=== PATIENT | female | born 1980 | race Caucasian/White ===

== ENCOUNTER 2018-08-06 21:18 | Emergency (ER) | payer SELFPAY ==
[~2018-08-06] VITALS: Ht 175.3 cm; Wt 99.8 kg
[~2018-08-06 21:18] MED LIST: ACET473E5 PO; ALBU8.5H2 IH; ALPR0.5T PO; AZTH250C PO; CEFU500T5 PO; CEPH250S PO; CEPH500C PO; CLIN300C3 PO; CODE-54 PO; CPR500T PO; D-ME118S33 PO; GABA-490 PO; GBPN300C PO; HYDR118S PO; HYDR1TAB PO; HYOS0.1216 PO; IBP600T1 PO; IBUP-1773 PO; METR500T PO; NAPR-243 PO; NITR-65 PO; ONDA-42 SL; ONDA8TAB13 PO; PARO20TA4 PO; PERM60CR10 TOP; PRCD5U PO; PRED10TA PO; PRX10T PO; SULF1TAB35 PO; SULF1TAB7 PO; SUMA25TA3 PO; TRM50T PO; [UNRECOGNIZED DRUG - CODE] IM
--- OUTSIDE RECORDS SUMMARY | 2018-08-06 21:23 | XMS REPORT ---
Author Author SHAHRZAD VALLECILLO 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 Active 098825207 Problem Other malaise and fatigue 780.79 Active 387341764 Problem Migraine without aura, without mention of intractable migraine without mention of status migrainosus 346.10 Active 273174630 Problem Mononeuritis of unspecified site 355.9 Active 92832547 ALLERGIES No Information ENCOUNTERS Encounter Location Date Diagnosis [facility] [address] [address] Jul, Cough R05 [facility] [address] [address] Jul, Cough R05 [facility] [address] [address] Jul, [facility] [address] [address] Jul, [facility] [address] [id number] 28 Jun, 2018 Dental examination Z01.20 [facility] [id number] [place] [address] [id number] 19 Jun, 2018 Dental examination Z01.20 and Caries of arrested teeth K02.3 [facility] [address] [address] Jun, Chronic diarrhea K52.9 [facility] [id number] [place] [address]385- 5140 May, Diarrhea, unspecified type R19.7 ; Non-intractable vomiting with nausea, unspecified vomiting type R11.2 and Screening for thyroid disorder Z13.29 [facility] [id number] [place] [address] May, Diarrhea, unspecified type R19.7 and Nausea and vomiting in adult R11.2 [facility] [id number] [place] [address] 418635- 4707 Jan, [facility] [id number] [place] [address] 401782- 7796 Jan, [facility] [id number] [place] [address] 738200- 8349 Dec, [facility] [address] [address] Dec, [facility] [id number] [place] [address] 251925- 6087 Dec, [facility] [address] [address] Dec, [facility] [address] [place] [address] 46715- 9613 Nov, [facility] [address] [address] 97[address] Nov, [facility] [id number] [place] [address] 87456- 4216 Nov, [facility] [address] [address] 25[address] Nov, [facility] [address] [place] [address] 11958- 3695 Oct, [facility] [place] [facility] [address] [id number] [place] [address] 1932 Oct, [facility] [place] [facility] [address] [id number] [place] [address]- 1664 Sep, [facility] [place] [facility] [address] [id number] [place] [address]- 4137 Sep, [facility] [place] [facility] [address] [id number] [place] [address]- 6165 Sep, [facility] [place] [facility] [address] [id number] [place] [address]- 5549 Sep, [facility] [place] [facility] [address] [id number] [place] [address]- 5052 Sep, [facility] [place] [facility] [address] [id number] [place] [address]- 4677 Aug, [facility] [place] [facility] [address] [id number] [place] [address]- 7987 Aug, [facility] [place] [facility] [address] [id number] [place] [address]- 8964 Aug, [facility] [place] [facility] [address] [id number] [place] [address]- 0347 Aug, [facility] [place] [facility] [address] [id number] [place] [address]- 9062 Jul, [facility] [place] [facility] [address] [id number] [place] [address]- 0074 Jul, [facility] [place] [facility] [address] [id number] [place] [address]- 7038 May, [facility] [place] [facility] [address] [id number] [place] [address]- 6361 May, [facility] [place] [facility] [address] [id number] [place] [address]- 6174 May, [facility] [place] [facility] [address] [id number] [place] [address]- 1714 May, [facility] [place] [facility] [address] [id number] [place] [address]- 9604 Apr, [facility] [place] [facility] [address] [id number] [place] [address]- 5583 Apr, [facility] [place] [facility] [address] [id number] [place] [address]- 0458 Apr, [facility] [place] [facility] [address] [id number] [place] [address]- 3063 Apr, [facility] [place] [facility] [address] [id number] [place] [address]- 5895 Apr, [facility] [place] [facility] [address] [id number] [place] [address]- 8030 Apr, [facility] [place] [facility] [address] [id number] [place] [address]- 9490 Apr, [facility] [place] [facility] [address] [id number] [place] [address]- 6723 Mar, [facility] [place] [facility] [address] [id number] [place] [address]- 3561 Mar, [facility] [place] [facility] [address] [id number] [place] [address]- 3135 February, [facility] [place] [facility] [address] [id number] [place] [address]- 0331 February, [facility] [place] [facility] [address] [id number] [place] [address]- 1290 February, [facility] [place] [facility] [address] [id number] [place] [address]- 4059 February, [facility] [place] [facility] [address] [id number] [place] [address] Jan, [facility] [place] [facility] [address] [id number] [place] [address]- 5782 Jan, [facility] [address] [facility] [id number] [place] [address] Sep, [facility] [address] [facility] [id number] [address]- 0903 Sep, IMMUNIZATIONS No Known Immunizations SOCIAL HISTORY Never Assessed REASON FOR VISIT script PLAN OF CARE VITAL SIGNS MEDICATIONS Medication Instructions Dosage Frequency Start Date End Date Duration Status Medrol 4 MG Orally Once a day take each days dose at the same time each day as directed 24h Jul, Active ProAir HFA 108 (90 Base) MCG/ACT Inhalation every 6 hrs 2 puffs as needed 6h Jul, Active RESULTS No Results PROCEDURES No Known procedures INSTRUCTIONS MEDICATIONS ADMINISTERED No Known Medications MEDICAL (GENERAL) HISTORY Type Description Date Medical History anxiety Medical History utrerine cancer 2012 Medical History CMT (cervical motion tenderness) Surgical History hysterectomy with single oophorectomy 2012 Surgical History tonsilectomy Hospitalization History colonoscopy
--- OUTSIDE RECORDS SUMMARY | 2018-08-06 21:23 | XMS REPORT ---
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 hallucinates Non Drug Allergy Jul, Active ENCOUNTERS Encounter Location Date Diagnosis [facility] [id number] [place] [address] Jul, Cough R[address] [facility] [id number], [place] [address] Jul, [address] R[address] [facility] [id number] [place] [address]25- [address]48 Jul, [facility] [address] [place] [address] 81415- 0865 Jul, [facility] [id number] [place] [address] [id number] 28 Jun, 2018 Dental examination Z01.20 [facility] [address] [id number] 19 Jun, 2018 Dental examination Z01.20 and Caries of arrested teeth K02.3 [facility] [id number] [place] [address] 95645- 0366 05 Jun, [address] [facility] [id number] [place] [address] 49507- 5275 May, Diarrhea, unspecified type R19.7 ; Non-intractable vomiting with nausea, unspecified vomiting type R11.2 and Screening for thyroid disorder Z13.[address] [facility] [id number] [place] [address] 13615 -9867 May, Diarrhea, unspecified type R19.7 and Nausea and vomiting in adult R11.2 [facility] [id number] [place] [address] 87255- 3161 [address], [address] [facility] [id number] [place] [address] 33015- 3272 Jan, [facility] [id number] [place] [address] 95857- 6215 Dec, [facility] [id number] [place] [address] 76036- 5752 Dec, [facility] [id number] [place] [address] 58926- 1153 Dec, [facility] [id number] [place] [address] 70908- 7679 Dec, [facility] [id number] [place] [address] 89401- 0587 Nov, [facility] [id number] [place] [address] 37725- 1363 Nov, [facility] [id number] [place] [address] 938687- 4878 Nov, [facility] [place] [facility] [address] [id number] [place] [address]- 3196 Nov, [facility] [place] [facility] [address] [id number] [place] [address]- 4965 Oct, [facility] [place] [facility] [address] [id number] [place] [address]- 2249 Oct, [facility] [place] [facility] [address] [id number] [place] [address]- 2619 Sep, [facility] [place] [facility] [address] [id number] [place] [address]- 5821 Sep, [facility] [place] [facility] [address] [id number] [place] [address]- 8594 Sep, [facility] [place] [facility] [address] [id number] [place] [address]- 1565 Sep, [facility] [place] [facility] [address] [id number] [place] [address]- 9084 Sep, [facility] [place] [facility] [address] [id number] [place] [address]- 7217 Aug, [facility] [place] [facility] [address] [id number] [place] [address]- 1274 Aug, [facility] [place] [facility] [address] [id number] [place] [address]- 3366 Aug, [facility] [place] [facility] [address] [id number], [place] [address]- 8058 Aug, [facility] [place] [facility] [address] [id number] [place] [address]- 6033 Jul, [facility] [place] [facility] [address] [id number] [place] [address]- 8235 Jul, [facility] [place] [facility] [address] [id number] [place] [address]- 9975 May, [facility] [place] [facility] [address] [id number] [place] [address]- 3116 May, [facility] [place] [facility] [address] [id number] [place] [address]- 4346 May, [facility] [place] [facility] [address] [id number] [place] [address]- 9269 May, [facility] [place] [facility] [address] [id number] [place] [address]- 2092 Apr, [facility] [place] [facility] [address] [id number] [place] [address]- 5482 Apr, [facility] [place] [facility] [address] [id number] [place] [address]- 6308 Apr, [facility] [place] [facility] [address] [id number] [place] [address]- 5705 Apr, [facility] [place] [facility] [address] [id number] [place] [address]- 5995 Apr, [facility] [place] [facility] [address] [id number] [place] [address]- 3569 Apr, [facility] [place] [facility] [address] [id number] [place] [address]- 9946 Apr, [facility] [place] [facility] [address] [id number] [place] [address]- 7221 Mar, [facility] [place] [facility] [address] [id number] [place] [address]- 6194 Mar, [facility] [place] [facility] [address] [id number] [place] [address]- 6759 February, [facility] [place] [facility] [address] [id number] [place] [address]- 7959 February, [facility] [place] [facility] [address] [id number] [place] [address]- 6767 February, [facility] [place] [facility] [address] [id number] [place] [address]- 3650 February, [facility] [place] [facility] [address] [id number] [place] [address]- 3986 Jan, [facility] [address] [facility] [id number] [address] Jan, [facility] [address] [facility] [id number], [place] [address]- [address] Sep, [facility] [address] [facility] [id number], [place] [address]- 9948 Sep, IMMUNIZATIONS No Known Immunizations SOCIAL HISTORY Never Assessed REASON FOR VISIT cough/congestion/ short of breath for the last 4-5 days.--REDDY Warner PLAN OF CARE Activity Details Follow Up prn Reason: VITAL SIGNS Height 69 in 2018-08-02 Weight 221.8 lbs 2018-08-02 Temperature 97.9 degrees Fahrenheit 2018-08-02 Heart Rate 88 bpm 2018-08-02 Respiratory Rate 20 2018-08-02 BMI 32.75 kg/m2 2018-08-02 Blood pressure systolic 100 mmHg 2018-08-02 Blood pressure diastolic 54 mmHg 2018-08-02 MEDICATIONS Medication Instructions Dosage Frequency Start Date End Date Duration Status Imitrex 25 mg 1 Tablet by Oral route February, Active Lexapro 20 MG Orally Once a day 1 tablet 24h Active Esomeprazole Magnesium 40 mg Orally Once a day 1 capsule 24h May, Active Medrol 4 MG Orally Once a day take each days dose at the same time each day as directed 24h Jul, Active EPINEPHrine 0.3 mg/0.3ml 0.3 mg by Intramuscular route 1 time per day PRN 2 pack epi pen Dec, Active Gabapentin 600 MG Orally in addition to a 300 mg to equal 900 at bedtime Once a day 1 tablet 24h Active Gabapentin 300 mg Orally 3 times a day 1 capsule 8h Dec, Active ProAir HFA 108 (90 Base) MCG/ACT [...]
--- OUTSIDE RECORDS SUMMARY | 2018-08-06 21:24 | XMS REPORT ---
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 hallucinates Non Drug Allergy May, Active ENCOUNTERS Encounter Location Date Diagnosis [facility] [place] [facility] [address] [id number] Jun, Dental examination Z01.20 and Caries of arrested teeth K02.3 [facility] [id number] [place] [address] 685[address]- 7785 Jun, Chronic diarrhea K52.9 [facility] [address] [address]- [address] May, Diarrhea, unspecified type R19.7 ; Non-intractable vomiting with nausea, unspecified vomiting type R11.2 and Screening for thyroid disorder Z13.29 [facility] [address] [address] May, Diarrhea, unspecified type R19.7 and Nausea and vomiting in adult R11.2 [facility] [place] [facility] [id number] [place] [address] 98092- 5355 14 Jan, 2015 [facility] [id number] [place] [address] 23243- 1086 13 Jan, 2015 [facility] [id number] [place] [address] 44526- 0994 16 Dec, 2014 [facility] [id number] [place] [address] 70276- 7651 Dec, [facility] [id number] [place] [address] 833255- 6953 Dec, [facility] [id number] [place] [address] 18814- 8124 Dec, [facility] [id number] [place] [address] 34493- 0260 Nov, [facility] [address] [place] [address] 098962- 6343 Nov, [facility] [place] [facility] [address] [place] [address] 613672- 9809 Nov, [facility] [address] [address]- 6997 Nov, [facility] [address] [address]- 2746 Oct, [facility] [address] [address]- 0735 Oct, [facility] [id number] [place] [address] 53714- 4845 Sep, [facility] [address] [address]- 9741 Sep, [facility] [id number] [place] [address] 34007- 2322 Sep, [facility] [place] [facility] [address] [id number] [place] [address]- 9566 Sep, [facility] [place] [facility] [address] [id number] [place] 6688 Sep, [facility] [place] [facility] [address] [id number] [place] [address]- 7102 Aug, [facility] [place] [facility] [address] [id number] [place] [address]- 0919 Aug, [facility] [place] [facility] [address] [id number] [place] [address]- 4632 Aug, [facility] [place] [facility] [address] [id number] [place] [address]- 4291 Aug, [facility] [place] [facility] [address] [id number] [place] [address]- 8801 Jul, [facility] [place] [facility] [address] [id number] [place] [address]- 3904 Jul, [facility] [place] [facility] [address] [id number] [place] [address]- 4295 May, [facility] [place] [facility] [address] [id number] [place] [address]- 2078 May, [facility] [place] [facility] [address] [id number] [place] [address]- 3996 May, [facility] [place] [facility] [address] [id number] [place] [address]- 8476 May, [facility] [place] [facility] [address] [id number] [place] [address]- 1316 Apr, [facility] [place] [facility] [address] [id number] [place] [address]- 2951 Apr, [facility] [place] [facility] [address] [id number] [place] [address]- 1925 Apr, [facility] [place] [facility] [address] [facility] [id number] [place] [address]- 7626 Apr, [facility] [address] [facility] [id number], [place] [address]- 0396 Apr, [facility] [address] [facility] [id number] [place] [address]- 4056 Apr, [facility] [address] [facility] [id number], [place] [address]- 6953 Apr, [facility] [address] [facility] [id number] [place] [address] Mar, [facility] [address] [facility] [id number] [place] [address] Mar, [facility] [address] [facility] [id number] [address] February, [facility] [address] [id number] [address] February, [facility] [address] [facility] [id number], [place] [address] February, [facility] [address] [id number] [address] February, [facility] [address] [id number] [address] Jan, [facility] [address] [id number] [address] Jan, [facility] [address] [facility] [id number], [place] [address] Sep, [facility] [address] [id number] [address] Sep, IMMUNIZATIONS No Known Immunizations SOCIAL HISTORY Never Assessed REASON FOR VISIT vomiting, nausea, diahrrea, headaches and fatigue for quite some time. Pt recently moved from [place], [place] and had blood work there and then they moved.-- REDDY Warner PLAN OF CARE Activity Details Follow Up prn Reason: VITAL SIGNS Height 69 in 2018-05-24 Weight 225.8 lbs 2018-05-24 Temperature 97.6 degrees Fahrenheit 2018-05-24 Heart Rate 72 bpm 2018-05-24 Respiratory Rate 18 2018-05-24 BMI 33.34 kg/m2 2018-05-24 Blood pressure systolic 116 mmHg 2018-05-24 Blood pressure diastolic 78 mmHg 2018-05-24 MEDICATIONS Medication Instructions Dosage Frequency Start Date End Date Duration Status Lexapro 10 MG Orally Once a day 1 tablet 24h Active Gabapentin 300 mg 4 Capsule by Oral route 1 time per day 1 tab at dinner & 3 tabs at hs Dec, Active EPINEPHrine 0.3 mg/0.3 mL (1:1,000) 0.3 mg by Intramuscular route 1 time per day PRN 2 pack epi pen Dec, Active Imitrex 25 mg 1 Tablet by Oral route February, Active Vitamin D2 50,000 unit take 1 capsule by Oral route 2 times per week for 8 weeks February take 1000 UI OTC after high dose repletion Aug, Not -Taking Xanax 0.5 mg take 1 tablet by Oral route 2 times per day PRN must last 30 days Dec, Not-Taking Paxil 20 mg 1 Tablet by Oral route 1 time per day Oct, Not-Taking Vitamin D3 1,000 unit 1 Tablet by Oral route 1 time per day OTC---to start after high dose repletion (End of Oct 2014) Aug, Not-Taking RESULTS No Results PROCEDURES Procedure Date Ordered Result Body Site COMPLETE CBC W/AUTO DIFF WBC May 24, 2018 COMPREHEN METABOLIC PANEL May 24, 2018 VENIPUNCT, ROUTINE* May 24, 2018 INSTRUCTIONS MEDICATIONS ADMINISTERED No Known Medications MEDICAL (GENERAL) HISTORY Type Description Date Medical History anxiety Medical History utrerine cancer 2012 Medical History CMT (cervical motion tenderness) Surgical History hysterectomy with single oophorectomy 2012 Surgical History tonsilectomy Hospitalization History colonoscopy
--- OUTSIDE RECORDS SUMMARY | 2018-08-06 21:24 | XMS REPORT ---
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 hallucinates Non Drug Allergy Jun, Active Penicillins Unknown Non Drug Allergy Jun, Active ENCOUNTERS Encounter Location Date Diagnosis [facility] [place] [facility] [address] [id number] Jun, Dental examination Z01.20 [facility] [place] [facility] [id number] [place] [address] [id number] Jun, Dental examination Z01.20 and Caries of arrested teeth K02.3 [facility] [id number] [place] [address]- 1763 Jun, Chronic diarrhea K52.9 [facility] [id number] [place] [address]- [address] May, Diarrhea, unspecified type R19.7 ; Non-intractable vomiting with nausea, unspecified vomiting type R11.2 and Screening for thyroid disorder Z13.29 [facility] [address], [place] [address] May, Diarrhea, unspecified type R19.7 and Nausea and vomiting in adult R11.2 [facility] [address] [place] [address] 14 Jan, 2015 [facility] [id number] [place] [address]- [address] Jan, [facility] [id number] [address] 16 Dec, 2014 [facility] [id number] [place] [address] 830532- [address]24 Dec, [facility] [id number], [place] [address] Dec, [facility] [id number] [place] [address]- 8986 Dec, [facility] [address], [place] [address] Nov, [facility] [address], [place] [address] Nov, [facility] [address], [place] [address] Nov, [facility] [address], [place] [address] Nov, [facility] [address] Oct, [facility] [address] Oct, [facility] [address] [address] Sep, [facility] [id number] [place] [address]- [address]797 Sep, [facility] [place] [facility] [address] [id number] [place] [address] Sep, [facility] [place] [facility] [address] [id number] [place] [address] 7[address] Sep, [facility] [place] [facility] [address] [id number] [place] [address] Sep, [facility] [place] [facility] [address] [id number] [place] [address] Aug, [facility] [place] [facility] [address] [id number] [place] [address] Aug, [facility] [place] [facility] [address] [id number] [place] [address] 0[address] Aug, [facility] [place] [facility] [address] [id number] [place] [address] Aug, [facility] [place] [facility] [address] [id number] [place] [address] Jul, [facility] [place] [facility] [address] [id number] [place] [address]- 9480 Jul, [facility] [place] [facility] [address] [id number] [place] [address]- [address] May, [facility] [place] [facility] [address] [id number] [place] [address]- [address] May, [facility] [place] [facility] [address] [id number] [address] May, [facility] [place] [facility] [address] [id number] [place] [address]- 9455 May, [facility] [place] [facility] [address] [id number] [place] [address]- [address] Apr, [facility] [place] [facility] [address] [id number] [place] [address] Apr, [facility] [place] [facility] [address] [facility] [id number] [place] [address]- [address] Apr, [facility] [address] [id number] [place] [address]- 8961 Apr, [facility] [address] [facility] [id number] [place] [address] Apr, [facility] [address] [facility] [id number] [place] [address] Apr, [facility] [address] [facility] [id number] [place] [address]- 5115 Apr, [facility] [address] [facility] [id number] [place] [address]- 1657 Mar, [facility] [address] [facility] [id number] [place] [address]- [address]702 Mar, [facility] [address] [place] [address]- [address] February, [facility] [address] [facility] [id number] [place] [address]- [address] February, [facility] [id number] [place] [address] February, [facility] [address] [facility] [id number], [place] [address] February, [facility] [id number], [place] [address] 29[address] Jan, [facility] [address] [facility] [id number], [place] [address] 8979 Jan, [facility] [address] [facility] [id number] [address] Sep, [facility] [address] [facility] [id number] [address] [address] Sep, IMMUNIZATIONS No Known Immunizations SOCIAL HISTORY Never Assessed REASON FOR VISIT nalini Constantino PLAN OF CARE Activity Details Follow Up prn Reason:HUANG/Prophy VITAL SIGNS Height 69 in 2018-06-22 Blood pressure systolic 114 mmHg 2018-06-22 Blood pressure diastolic 82 mmHg 2018-06-22 MEDICATIONS Medication Instructions Dosage Frequency Start Date End Date Duration Status Dicyclomine HCl 10 mg Orally Four times a day before meals 1 capsule May, Jul, Not-Taking Esomeprazole Magnesium 40 mg Orally Once a day 1 capsule 24h May, Active EPINEPHrine 0.3 mg/0.3 mL (1:1,000) 0.3 mg by Intramuscular route 1 time per day PRN 2 pack epi pen Dec, Active Imitrex 25 mg 1 Tablet by Oral route February, Active Gabapentin 600 MG Orally in addition to a 300 mg to equal 900 Once a day 1 tablet 24h Active Gabapentin 300 mg 1 tablet Twice a day, 3 at bed time Dec, Active Lexapro 20 MG Orally Once a day 1 tablet 24h Active RESULTS No Results PROCEDURES Procedure Date Ordered Result Body Site LTD ORAL EVALUATION - PROBLEM FOCUS Jun 22, 2018 INTRAORL-PERIAPICAL 1 FILM 28295 Jun 22, 2018 SURG REMOVAL ERUPTED TOOTH Jun 22, 2018 INSTRUCTIONS MEDICATIONS ADMINISTERED No Known Medications MEDICAL (GENERAL) HISTORY Type Description Date Medical History anxiety Medical History utrerine cancer 2012 Medical History CMT (cervical motion tenderness) Surgical History hysterectomy with single oophorectomy 2012 Surgical History tonsilectomy Hospitalization History colonoscopy
--- OUTSIDE RECORDS SUMMARY | 2018-08-06 21:24 | XMS REPORT ---
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 hallucinates Non Drug Allergy Jun, Active ENCOUNTERS Encounter Location Date Diagnosis [facility] [id number] [place] [id number] Jun, Dental examination Z01.20 [facility] [address] [place] [address] [id number] Jun, Dental examination Z01.20 and Caries of arrested teeth K02.3 [facility] [id number] [place] [address]- 9167 Jun, Chronic diarrhea K52.9 [facility] [id number] [place] [address]- [address] May, Diarrhea, unspecified type R19.7 ; Non-intractable vomiting with nausea, unspecified vomiting type R11.2 and Screening for thyroid disorder Z13.29 [facility] [address], [place] [address] May, Diarrhea, unspecified type R19.7 and Nausea and vomiting in adult R11.2 [facility] [address], [place] [address]- [address] Jan, [facility] [id number] [place] [address]- 4007 Jan, [facility] [address], [place] [address]- 7674 Dec, [facility] [id number] [place] [address]- 0571 Dec, [facility] [id number] [place] [address] 86279- 3972 Dec, [facility] [id number] [place] [address] 48[address]- 7799 Dec, [facility] [address] [place] [address] 8[address]72- 3038 Nov, [facility] [id number], [place] [address]- 8685 Nov, [facility] [address], [place] [address]- 8433 Nov, [facility] [address], [place] [address]- 4333 Nov, [facility] [address] [address] Oct, [facility] [id number] [place] [address] 246157- 8837 Oct, [facility] [address], [place] [address]- 0972 Sep, [facility] [place] [facility] [address] [id number] [place] [address]- 4828 Sep, [facility] [place] [facility] [address] [id number] [place] [address]- 8093 Sep, [facility] [place] [facility] [address] [id number] [place] [address]- 4751 Sep, [facility] [place] [facility] [address] [id number] [place] [address]- 2289 Sep, [facility] [place] [facility] [address] [id number] [place] [address]- 1477 Aug, [facility] [place] [facility] [address] [id number] [place] [address]- 2778 Aug, [facility] [place] [facility] [address] [id number] [place] [address]- 4165 Aug, [facility] [place] [facility] [address] [id number] [place] [address]- 2471 Aug, [facility] [place] [facility] [address] [id number] [place] [address]- 0489 Jul, [facility] [place] [facility] [address] [id number] [place] [address]- 5643 Jul, [facility] [place] [facility] [address] [id number] [place] [address]- 5278 May, [facility] [place] [facility] [address] [id number] [place] [address]- 2238 May, [facility] [place] [facility] [address] [id number] [place] [address]- 8268 May, [facility] [place] [facility] [address] [id number] [place] [address]- 2542 May, [facility] [place] [facility] [address] [id number] [place] [address] Apr, [facility] [place] [facility] [address] [id number] [place] [address]- 8905 Apr, [facility] [address] [id number] [place] [address]- 4317 Apr, [facility] [address] [id number] [place] [address]- 3641 Apr, [facility] [address] [id number] [place] [address]- 8583 Apr, [facility] [address] [id number] [place] [address]- 4341 Apr, [facility] [address] [id number] [place] [address]- 5509 Apr, [facility] [address] [id number] [place] [address]- 6375 Mar, [facility] [address] [facility] [id number] [place] [address]- 1786 Mar, [facility] [address] [facility] [id number], [place] [address]- 9199 February, [facility] [address] [facility] [id number] [place] [address]- 7545 February, [facility] [address] [facility] [id number], [place] [address]- 8922 February, [facility] [address] [facility] [id number], [place] [address]- 6959 February, [facility] [address] [id number], [place] [address]- 3437 Jan, [facility] [address] [id number], [place] [address]- 3521 Jan, [facility] [address] [facility] [id number][place] Sep, [facility] [address] [facility] [id number] [address]- [address] Sep, IMMUNIZATIONS No Known Immunizations SOCIAL HISTORY Never Assessed REASON FOR VISIT Establish Care- Saw a provider in [place], and then in [place]--Christo Verma RN PLAN OF CARE Activity Details Follow Up 3 months Reason: VITAL SIGNS Height 69 in 2018-06-08 Weight 229 lbs 2018-06-08 Temperature 98.0 degrees Fahrenheit 2018-06-08 Heart Rate 68 bpm 2018-06-08 Respiratory Rate 18 2018-06-08 BMI 33.81 kg/m2 2018-06-08 Blood pressure systolic 122 mmHg 2018-06-08 Blood pressure diastolic 88 mmHg 2018-06-08 MEDICATIONS Medication Instructions Dosage Frequency Start Date End Date Duration Status EPINEPHrine 0.3 mg/0.3 mL (1:1,000) 0.3 mg by Intramuscular route 1 time per day PRN 2 pack epi pen Dec, Active Imitrex 25 mg 1 Tablet by Oral route February, Active Gabapentin 600 MG Orally in addition to a 300 mg to equal 900 Once a day 1 tablet 24h Active Dicyclomine HCl 10 mg Orally Four times a day before meals 1 capsule May, Jul, Active Gabapentin 300 mg 1 tablet Twice a day, 3 at bed time Dec, Active Esomeprazole Magnesium 40 mg Orally Once a day 1 capsule 24h May, Active Lexapro 20 MG Orally Once a day 1 tablet 24h Active RESULTS No Results PROCEDURES No Known procedures INSTRUCTIONS MEDICATIONS ADMINISTERED No Known Medications MEDICAL (GENERAL) HISTORY Type Description Date Medical History anxiety Medical History utrerine cancer 2012 Medical History CMT (cervical motion tenderness) Surgical History hysterectomy with single oophorectomy 2012 Surgical History tonsilectomy Hospitalization History colonoscopy
--- OUTSIDE RECORDS SUMMARY | 2018-08-06 21:24 | XMS REPORT ---
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 hallucinates Non Drug Allergy May, Active ENCOUNTERS Encounter Location Date Diagnosis [facility] [id number] [place] [id number] Jun, Dental examination Z01.20 and Caries of arrested teeth K02.3 [facility] [address] [address] 05 Jun, 2018 Chronic diarrhea K52.9 [facility] [address] [place] [address] May, Diarrhea, unspecified type R19.7 ; Non-intractable vomiting with nausea, unspecified vomiting type R11.2 and Screening for thyroid disorder Z13.29 [facility] [id number] [address] May, Diarrhea, unspecified type R19.7 and Nausea and vomiting in adult R11.2 [facility] [address] [address] 14 Jan, 2015 [facility] [address] [address] Jan, [facility] [id number] [address] 16 Dec, 2014 [facility] [address] [address] Dec, [facility] [address] [address] Dec, [facility] [address] [address] Dec, [facility] [address] [address] Nov, [facility] [address] [address] Nov, [facility] [address], [place] [address] Nov, [facility] [address] [address] Nov, [facility] [address] [address] Oct, [facility] [place] [facility] [address], [place] [address] Oct, [facility] [address] [address] Sep, [facility] [place] [facility] [address] [address] Sep, [facility] [address] [address] Sep, [facility] [place] [facility] [address] [id number] [place] [address] Sep, [facility] [place] [facility] [address] [id number] [place] [address] Sep, [facility] [place] [facility] [address] [id number] [place] [address] Aug, [facility] [place] [facility] [address] [id number] [place] [address] Aug, [facility] [place] [facility] [address] [id number] [place] [address] Aug, [facility] [place] [facility] [address] [id number] [place] [address] Aug, [facility] [place] [facility] [address] [id number] [place] [address] Jul, [facility] [place] [facility] [address] [id number] [place] [address] Jul, [facility] [place] [facility] [address] [id number] [place] [address] May, [facility] [place] [facility] [address] [id number] [place] [address] May, [facility] [place] [facility] [address] [id number] [place] [address] May, [facility] [place] [facility] [address] [id number] [place] [address] May, [facility] [place] [facility] [address] [id number] [place] Apr, [facility] [place] [facility] [address] [id number] [place] [address] Apr, [facility] [place] [facility] [address] [id number] [place] [address] Apr, [facility] [address] [facility] [id number] [place] [address] Apr, [facility] [address] [id number] [place] Apr, [facility] [address] [facility] [id number] [place] Apr, [facility] [address] [id number] [place] [address] Apr, [facility] [address] [id number] [place] Mar, [facility] [address] [facility] [id number] [place] [address] Mar, [facility] [address] [facility] [id number] [place] [address] February, [facility] [address] [facility] [id number] February, [facility] [address] [facility] [id number] [place] [address] February, [facility] [id number] February, [facility] [id number] [address] Jan, [facility] [address] [facility] [id number] [address] Jan, [facility] [address] [facility] [id number] [address] Sep, [facility] [address] [facility] [id number] [address] Sep, IMMUNIZATIONS No Known Immunizations SOCIAL HISTORY Never Assessed REASON FOR VISIT vomiting-Several weeks ago- Christo Verma RN PLAN OF CARE Activity Details Follow Up 1 Week Reason: VITAL SIGNS Height 69 in 2018-05-25 Weight 226 lbs 2018-05-25 Temperature 98.0 degrees Fahrenheit 2018-05-25 Heart Rate 70 bpm 2018-05-25 Respiratory Rate 18 2018-05-25 BMI 33.37 kg/m2 2018-05-25 Blood pressure systolic 122 mmHg 2018-05-25 Blood pressure diastolic 74 mmHg 2018-05-25 MEDICATIONS Medication Instructions Dosage Frequency Start Date End Date Duration Status Imitrex 25 mg 1 Tablet by Oral route February, Active Dicyclomine HCl 10 mg Orally Four times a day before meals 1 capsule May, Jul, 30 day(s) Active Esomeprazole Magnesium 40 mg Orally Once a day 1 capsule 24h May, 30 day(s) Active EPINEPHrine 0.3 mg/0.3 mL (1:1,000) 0.3 mg by Intramuscular route 1 time per day PRN 2 pack epi pen Dec, Active Gabapentin 300 mg 1 tablet Twice a day, 3 at bed time Dec, Active Lexapro 20 MG Orally Once a day 1 tablet 24h Active RESULTS No Results PROCEDURES Procedure Date Ordered Result Body Site TEST FOR BLOOD, FECES May 25, 2018 OVA AND PARASITES SMEARS May 25, 2018 C DIFF AMPLIFIED PROBE May 25, 2018 SMEAR, COMPLEX STAIN May 25, 2018 INSTRUCTIONS MEDICATIONS ADMINISTERED No Known Medications MEDICAL (GENERAL) HISTORY Type Description Date Medical History anxiety Medical History utrerine cancer 2012 Medical History CMT (cervical motion tenderness) Surgical History hysterectomy with single oophorectomy 2012 Surgical History tonsilectomy Hospitalization History colonoscopy
--- OUTSIDE RECORDS SUMMARY | 2018-08-06 21:27 | XMS REPORT | Continuity of Care Document ---
Author Author [facility] Address Unknown Phone Unavailable Allergies Active Description Code Type Severity Reaction Onset Reported/Identified Relationship to Patient Clinical Status Yes hydrocodone [id number] Drug Allergy Severe N/A 02/06/2013 Yes Penicillins Drug Allergy N/A N/A 05/28/2014 Yes MUSHROOMS, HU, RAW Food Allergy N/A N/A 07/23/2014 Yes Penicillins [id number] Drug Allergy Unknown N/A 02/20/2015 Medications There is no data. Problems Date Dx Coded Attending Type Code Diagnosis Diagnosed By 02/05/2014 LOLA RICHARDS DO 346.10 MIGRAINE WITHOUT AURA WITHOUT MENTION OF INTRACTABLE MIGRAINE WITHOUT MENTION OF STATUS MIGRAINOSUS 02/05/2014 LOLA RICHARDS DO 355.9 NEUROPATHY 02/05/2014 KIRK ANDERSON DDS 346.10 MIGRAINE WITHOUT AURA WITHOUT MENTION OF INTRACTABLE MIGRAINE WITHOUT MENTION OF STATUS MIGRAINOSUS 02/05/2014 KIRK ANDERSON DDS 355.9 NEUROPATHY 02/05/2014 LOLA RICHARDS DO 346.10 MIGRAINE WITHOUT AURA WITHOUT MENTION OF INTRACTABLE MIGRAINE WITHOUT MENTION OF STATUS MIGRAINOSUS 02/05/2014 LOLA RICHARDS DO 355.9 NEUROPATHY 02/05/2014 AVEL CERTIFIED PROSTHETIST VICE PRESIDENT, SHAHRZAD L 346.10 MIGRAINE WITHOUT AURA WITHOUT MENTION OF INTRACTABLE MIGRAINE WITHOUT MENTION OF STATUS MIGRAINOSUS 02/05/2014 REMYL CERTIFIED PROSTHETIST VICE PRESIDENT, SHAHRZAD L 355.9 NEUROPATHY 02/05/2014 MADJan CERTIFIED PROSTHETIST VICE PRESIDENT, SHAHRZAD L 346.10 MIGRAINE WITHOUT AURA WITHOUT MENTION OF INTRACTABLE MIGRAINE WITHOUT MENTION OF STATUS MIGRAINOSUS 02/05/2014 MADL CERTIFIED PROSTHETIST VICE PRESIDENT, SHAHRZAD L 355.9 NEUROPATHY 02/05/2014 MADL CERTIFIED PROSTHETIST VICE PRESIDENT, SHAHRZAD L 346.10 MIGRAINE WITHOUT AURA WITHOUT MENTION OF INTRACTABLE MIGRAINE WITHOUT MENTION OF STATUS MIGRAINOSUS 02/05/2014 MADL CERTIFIED PROSTHETIST VICE PRESIDENT, SHAHRZAD L 355.9 NEUROPATHY 02/05/2014 RICHARDS DO, LOLA K 346.10 MIGRAINE WITHOUT AURA WITHOUT MENTION OF INTRACTABLE MIGRAINE WITHOUT MENTION OF STATUS MIGRAINOSUS 02/05/2014 MAURICE TURNER LOLA K 355.9 NEUROPATHY 02/05/2014 MADL CERTIFIED PROSTHETIST VICE PRESIDENT, SHAHRZAD L 346.10 MIGRAINE WITHOUT AURA WITHOUT MENTION OF INTRACTABLE MIGRAINE WITHOUT MENTION OF STATUS MIGRAINOSUS 02/05/2014 MADL CERTIFIED PROSTHETIST VICE PRESIDENT, SHAHRZAD L 355.9 NEUROPATHY 02/05/2014 MADL CERTIFIED PROSTHETIST VICE PRESIDENT, SHAHRZAD L 346.10 MIGRAINE WITHOUT AURA WITHOUT MENTION OF INTRACTABLE MIGRAINE WITHOUT MENTION OF STATUS MIGRAINOSUS 02/05/2014 MADL CERTIFIED PROSTHETIST VICE PRESIDENT, SHAHRZAD L 355.9 NEUROPATHY 02/05/2014 MADL CERTIFIED PROSTHETIST VICE PRESIDENT, SHAHRZAD L 346.10 MIGRAINE WITHOUT AURA WITHOUT MENTION OF INTRACTABLE MIGRAINE WITHOUT MENTION OF STATUS MIGRAINOSUS 02/05/2014 MADL CERTIFIED PROSTHETIST VICE PRESIDENT, SHAHRZAD L 355.9 NEUROPATHY 04/26/2014 MAURICE TURNER LOLA K 338.29 OTHER CHRONIC PAIN 04/26/2014 SUSANNAH RICHARDS DOA K 356.1 PERONEAL MUSCULAR ATROPHY 04/26/2014 MAURICE TURNER LOLA K 780.79 OTHER MALAISE AND FATIGUE 04/26/2014 MADL CERTIFIED PROSTHETIST VICE PRESIDENT, SHAHRZAD L 338.29 OTHER CHRONIC PAIN 04/26/2014 MADL CERTIFIED PROSTHETIST VICE PRESIDENT, SHAHRZAD L 356.1 PERONEAL MUSCULAR ATROPHY 04/26/2014 MADL CERTIFIED PROSTHETIST VICE PRESIDENT, SHAHRZAD L 780.79 OTHER MALAISE AND FATIGUE 04/26/2014 MADL CERTIFIED PROSTHETIST VICE PRESIDENT, SHAHRZAD L 338.29 OTHER CHRONIC PAIN 04/26/2014 MADL CERTIFIED PROSTHETIST VICE PRESIDENT, SHAHRZAD L 356.1 PERONEAL MUSCULAR ATROPHY 04/26/2014 MADL CERTIFIED PROSTHETIST VICE PRESIDENT, SHAHRZAD L 780.79 OTHER MALAISE AND FATIGUE 04/26/2014 MADL CERTIFIED PROSTHETIST VICE PRESIDENT, SHAHRZAD L 338.29 OTHER CHRONIC PAIN 04/26/2014 MADL CERTIFIED PROSTHETIST VICE PRESIDENT, SHAHRZAD L 356.1 PERONEAL MUSCULAR ATROPHY 04/26/2014 MADL CERTIFIED PROSTHETIST VICE PRESIDENT, SHAHRZAD L 780.79 OTHER MALAISE AND FATIGUE 04/26/2014 MAURICE TURNER LOLA K 338.29 OTHER CHRONIC PAIN 04/26/2014 MAURICE TURNER LOLA K 356.1 PERONEAL MUSCULAR ATROPHY 04/26/2014 RICHARDS DO, LOLA K 780.79 OTHER MALAISE AND FATIGUE 04/26/2014 MADL CERTIFIED PROSTHETIST VICE PRESIDENT, SHAHRZAD L 338.29 OTHER CHRONIC PAIN 04/26/2014 MADL CERTIFIED PROSTHETIST VICE PRESIDENT, SHAHRZAD L 356.1 PERONEAL MUSCULAR ATROPHY 04/26/2014 MADL CERTIFIED PROSTHETIST VICE PRESIDENT, SHAHRZAD L 780.79 OTHER MALAISE AND FATIGUE 04/26/2014 MADL CERTIFIED PROSTHETIST VICE PRESIDENT, SHAHRZAD L 338.29 OTHER CHRONIC PAIN 04/26/2014 MADL CERTIFIED PROSTHETIST VICE PRESIDENT, SHAHRZAD L 356.1 PERONEAL MUSCULAR ATROPHY 04/26/2014 MADL CERTIFIED PROSTHETIST VICE PRESIDENT, SHAHRZAD L 780.79 OTHER MALAISE AND FATIGUE 04/26/2014 MADL CERTIFIED PROSTHETIST VICE PRESIDENT, SHAHRZAD L 338.29 OTHER CHRONIC PAIN 04/26/2014 MADL CERTIFIED PROSTHETIST VICE PRESIDENT, SHAHRZAD L 356.1 PERONEAL MUSCULAR ATROPHY 04/26/2014 MADL CERTIFIED PROSTHETIST VICE PRESIDENT, SHAHRZAD L 780.79 OTHER MALAISE AND FATIGUE 05/28/2014 MADL CERTIFIED PROSTHETIST VICE PRESIDENT, SHAHRZAD L 300.4 DYSTHYMIC DISORDER 05/28/2014 MADL CERTIFIED PROSTHETIST VICE PRESIDENT, SHAHRZAD L V15.05 PERSONAL HISTORY OF ALLERGY TO OTHER FOODS 05/28/2014 MADL CERTIFIED PROSTHETIST VICE PRESIDENT, SHAHRZAD L 300.4 DYSTHYMIC DISORDER 05/28/2014 MADL CERTIFIED PROSTHETIST VICE PRESIDENT, SHAHRZAD L V15.05 PERSONAL HISTORY OF ALLERGY TO OTHER FOODS 05/28/2014 MADL CERTIFIED PROSTHETIST VICE PRESIDENT, SHAHRZAD L 300.4 DYSTHYMIC DISORDER 05/28/2014 MADL CERTIFIED PROSTHETIST VICE PRESIDENT, SHAHRZAD L V15.05 PERSONAL HISTORY OF ALLERGY TO OTHER FOODS 05/28/2014 RICHARDS DO, LOLA K 300.4 DYSTHYMIC DISORDER 05/28/2014 RICHARDS DO, LOLA K V15.05 PERSONAL HISTORY OF ALLERGY TO OTHER FOODS 05/28/2014 MADL CERTIFIED PROSTHETIST VICE PRESIDENT, SHAHRZAD L 300.4 DYSTHYMIC DISORDER 05/28/2014 MADL CERTIFIED PROSTHETIST VICE PRESIDENT, SHAHRZAD L V15.05 PERSONAL HISTORY OF ALLERGY TO OTHER FOODS 05/28/2014 MADL CERTIFIED PROSTHETIST VICE PRESIDENT, SHAHRZAD L 300.4 DYSTHYMIC DISORDER 05/28/2014 MADL CERTIFIED PROSTHETIST VICE PRESIDENT, SHAHRZAD L V15.05 PERSONAL HISTORY OF ALLERGY TO OTHER FOODS 05/28/2014 SHAHRZAD VALLECILLO APRN 300.4 DYSTHYMIC DISORDER 05/28/2014 SHAHRZAD VALLECILLO APRN V15.05 PERSONAL HISTORY OF ALLERGY TO OTHER FOODS 11/12/2014 SHAHRZAD VALLECILLO APRN 785.6 ENLARGEMENT OF LYMPH NODES 11/12/2014 SHAHRZAD VALLECILLO APRN 785.6 ENLARGEMENT OF LYMPH NODES 12/08/2014 Ot 693.1 01/28/2015 DONA SKINNER CERTIFIED PROSTHETIST VICE PRESIDENT Ot 466.0 01/28/2015 DONA SKINNER CERTIFIED PROSTHETIST VICE PRESIDENT Ot 786.2 02/20/2015 DONA SKINNER CERTIFIED PROSTHETIST VICE PRESIDENT Ot 466.0 02/20/2015 DONA SKINNER CERTIFIED PROSTHETIST VICE PRESIDENT Ot 786.2 03/12/2015 GOGO LEAL DO Ot 719.46 03/18/2015 DONA SKINNER CERTIFIED PROSTHETIST VICE PRESIDENT Ot 924.20 03/18/2015 DONA SKINNER CERTIFIED PROSTHETIST VICE PRESIDENT Ot 959.7 03/18/2015 DONA SKINNER CERTIFIED PROSTHETIST VICE PRESIDENT Ot E000.8 03/18/2015 DONA SKINNER CERTIFIED PROSTHETIST VICE PRESIDENT Ot E928.9 05/30/2015 ISIS MONTOYA MD Ot 924.8 05/30/2015 ISIS MONTOYA MD Ot 959.09 05/30/2015 ISIS MONTOYA MD Ot E000.8 05/30/2015 ISIS MONTOYA MD Ot E816.0 Procedures Code [place] [address] ROUTINE VENIPUNCTURE 04/26/2014 46922 CBC 04/26/2014 [id number] GFR CALC (RESULT ONLY) 04/26/2014 63189 CMP 04/26/2014 08273 TSH 04/26/2014 33271 ROUTINE VENIPUNCTURE 08/23/2014 26167 THERAPUTIC INJ SQ/IM 08/23/2014 J3420 B12 VITAMIN INJECTION 08/23/2014 03253 CBC 08/23/2014 [id number] GFR CALC (RESULT ONLY) 08/23/2014 27564 CMP 08/23/2014 22835 VITAMIN D 25-HYDROXY (D2,D3 , TOTAL) 08/23/2014 49417 VIT B 12 08/23/2014 36763 ROUTINE VENIPUNCTURE 11/12/2014 63689 CBC 11/12/2014 41741 AMERITOX 01/15/2015 Results Test Result Range TSH - 05/24/18 17:08 TSH 1.49 mIU/L NRG STOOL (C-DIFF) - 05/24/18 17:08 CLOSTRIDIUM DIFFICILE TOXIN/GDH W/REFL TO PCR SEE NOTE NRG STOOL (O T P) - 05/24/18 17:08 OVA AND PARASITES, CONC AND PERM SMEAR SEE NOTE NRG Encounters ACCT No. Visit Date/Time Discharge Status Pt. Type Provider Facility Loc./Unit Complaint [id number] 01/09/2015 14:18:00 01/09/2015 23:59:59 CLS Outpatient MADL CERTIFIED PROSTHETIST VICE PRESIDENTSHAHRZAD Jaimes L [id number] 11/12/2014 08:47:00 11/12/2014 23:59:59 CLS Outpatient MADL CERTIFIED PROSTHETIST VICE PRESIDENTJOSE JaimesA L [id number] 10/10/2014 13:23:00 10/10/2014 23:59:59 CLS Outpatient MADL JOSE ZULUAGAA L [id number] 08/23/2014 10:55:00 08/23/2014 23:59:59 CLS Outpatient MADL CERTIFIED PROSTHETIST VICE PRESIDENTJOSEA L [id number] 08/23/2014 10:55:00 08/23/2014 23:59:59 CLS Outpatient LOLA RICHARDS DO [id number] 07/23/2014 08:23:00 07/23/2014 23:59:59 CLS Outpatient MADL JOSE ZULUAGAA L [id number] 05/28/2014 14:43:00 05/28/2014 23:59:59 CLS Outpatient MADL CERTIFIED PROSTHETIST VICE PRESIDENTJOSE JaimesA L [id number] 04/26/2014 10:16:00 04/26/2014 23:59:59 CLS Outpatient LOLA RICHARDS DO [id number] 03/01/2014 12:54:00 03/01/2014 23:59:59 CLS Outpatient KIRK ANDERSON DDS [id number] 02/05/2014 09:17:00 02/05/2014 23:59:59 CLS Outpatient LOLA RICHARDS DO [id number] 05/30/2015 12:30:00 05/30/2015 14:55:00 DIS Emergency JAN WRIGHT, [place] [facility] [id number] 03/18/2015 12:55:00 03/18/2015 13:55:00 DIS Emergency DONA SKINNER APRN [facility] ER [id number] 03/12/2015 06:22:00 03/12/2015 07:23:00 DIS Emergency GOGO LEAL DO [facility] ER [id number] 02/20/2015 15:19:00 02/20/2015 16:20:00 DIS Emergency DONA SKINNER APRN [facility] ER [id number] 02/05/2015 15:09:00 02/05/2015 23:59:59 CLS Outpatient MARLIN HARVEY [facility] OCC ANKLE PAIN [id number] 01/28/2015 13:10:00 01/28/2015 16:45:00 DIS Emergency DONA SKINNER APRN [facility] ER [id number] 04/20/2014 13:31:00 04/20/2014 13:58:00 DIS Emergency [id number] 02/26/2014 15:58:00 02/26/2014 18:02:00 DIS Emergency [id number] 01/30/2014 09:40:00 01/30/2014 23:59:59 CLS Outpatient [id number] 01/28/2014 15:30:00 01/28/2014 19:43:00 DIS Emergency [id number] 01/14/2014 19:02:00 01/14/2014 21:14:00 DIS Emergency [id number] 01/03/2014 23:56:00 01/04/2014 01:24:00 DIS Emergency [id number] 12/12/2013 16:44:00 12/12/2013 17:48:00 DIS Emergency [id number] 09/14/2013 07:38:00 09/14/2013 10:51:00 DIS Emergency [id number] 08/17/2013 08:45:00 08/18/2013 12:10:00 DIS Outpatient [id number] 08/15/2013 08:07:00 08/15/2013 23:59:59 CLS Outpatient [id number] 06/12/2013 12:33:00 06/12/2013 15:55:00 DIS Emergency [id number] 05/17/2013 20:54:00 05/17/2013 21:52:00 DIS Emergency [id number] 02/06/2013 07:10:00 02/06/2013 08:40:00 DIS Emergency [id number] 12/08/2014 21:08:00 Document Registration [id number] 05/25/2018 11:40:00 Document Registration [id number] 05/24/2018 16:30:00 Document Registration [id number] 05/30/2015 12:30:23 ACT Document Registration
--- NOTE | 2018-08-06 21:50 | ED Cough/URI ---
General Chief Complaint: Cough/Cold/Flu Symptoms Stated Complaint: VOMITTING,COUGHING, Nursing Triage Note: Pt ambulated to rm 7 w/o difficulty. Pt c/o cough, runny/stuffy nose, vomiting and fever off an on for one week. Pt was seen in clinic on Wednesday and given inhaler and steroids. Pt c/o R sided rib and chest pain from coughing. Source: patient Exam Limitations: no limitations History of Present Illness Date Seen by Provider: Aug 06, 2018 Time Seen by Provider: 21:33 Initial Comments Here with cough, runny nose and vomiting with cough intermittently over the last week. Was seen at the clinic on Wednesday and started on steroids which are complete. She also has an inhaler that she is using. She is complaining of some rib pain from the coughing. Runny nose continues. Timing/Duration: week, getting worse Severity/Quality: moderate, dry cough Prior Episodes/Possible Cause: occasional episodes Modifying Factors: Improves With Albuterol Inhaler Associated Symptoms: chest pain/soreness, cough, fever/chills, nasal congestion , nasal drainage, shortness of breath, sore throat Allergies and Home Medications Allergies Coded Allergies: hydrocodone (Verified Allergy, Severe, 02/06/13) Penicillins (Unverified Allergy, Unknown, 02/20/15) Home Medications Gabapentin 400 Mg Capsule, 1,200 MG PO DAILY, (Reported) Ibuprofen 600 Mg Tablet, 600 MG PO Q6H PRN for PAIN Prescribed by: ISIS MONTOYA on 05/30/15 1443 Paroxetine Hcl 20 Mg Tablet, 20 MG PO DAILY, (Reported) Patient Home Medication List Home Medication List Reviewed: Yes Review of Systems Review of Systems Constitutional: see HPI; No chills; fever EENTM: see HPI Respiratory: see HPI Cardiovascular: see HPI Gastrointestinal: No abdominal pain; nausea, vomiting Musculoskeletal: No back pain; muscle pain Skin: no symptoms reported Psychiatric/Neurological: No Symptoms Reported Past Jxxgqhv-Pfyvhb-Xowqsy Hx Past Med/Social Hx: Reviewed Nursing Past Med/Soc Hx Patient Social History Alcohol Use: Occasionally Uses Recreational Drug Use: No (former "everything but the needle") Smoking Status: Current Everyday Smoker Type Used: Cigarettes 2nd Hand Smoke Exposure: Yes Recent Foreign Travel: No Contact w/Someone Who Travel: No Recent Infectious Disease Expo: No Immunizations Up To Date Date of Pneumonia Vaccine: Aug 18, 2013 Date of Influenza Vaccine: Aug 18, 2013 Seasonal Allergies Seasonal Allergies: Yes Past Medical History Surgeries: Yes Adenoidectomy, Section, Hysterectomy, Tonsillectomy, Tubal Ligation Respiratory: No Cardiac: No Neurological: Yes Neuropathy 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 Disorders: No 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 Sexually Transmitted Disease: No HIV/AIDS: No Kidney Infection, Bladder Infection Gastrointestinal: No Musculoskeletal: Yes (NERVE DISEASE INHERITED) Endocrine: No Cancer: Yes Uterine Psychosocial: Yes Anxiety, Depression Integumentary: No Blood Disorders: No Family Medical History Reviewed Nursing Family Hx Cancer 03 MOTHER (CERVICAL) Chest pain 03 FATHER Family history: Cardiovascular disease 03 FATHER Family history: Hypertension 03 FATHER Hypercholesterolemia 03 FATHER Physical Exam Vital Signs - First Documented 08/06/18 21:25 Temp 98.4 Pulse 75 Resp 15 B/P (MAP) 129/92 (104) Pulse Ox 96 O2 Delivery Room Air Capillary Refill : Less Than 3 Seconds Height: 5'9.00" Weight: 220lbs. oz. 99.516762ov; BMI Method:Stated General Appearance: WD/WN, no apparent distress HEENT: PERRL/EOMI, pharyngeal erythema, other (bilateral nasal congestion with moderate clear rhinorrhea and erythema) Neck: full range of motion, supple Respiratory: no accessory muscle use, wheezing (a few trace wheezes with cough) , expiration Cardiovascular: regular rate, rhythm, no murmur Gastrointestinal: non tender, soft Extremities: non-tender, normal inspection Neurologic/Psychiatric: alert, oriented x 3 Skin: normal color, warm/dry Progress/Results/Core Measures Suspected Sepsis Recent Fever Within 48 Hours: Yes Infection Criteria Present: None New/Unexplained Altered Menta: No Sepsis Screen: No Definite Risk SIRS Temperature:98.4 Pulse: 75 Respiratory Rate: 15 Blood Pressure 129 /92 Mean: 104 Results/Orders Micro Results Microbiology 08/06/18 Influenza Types A,B Antigen ([facility]) - Final, Complete My Orders Orders - LORENE SEAY MD Chest Pa/Lat (2 View) (08/06/18 21:35) Influenza A And B Antigens (08/06/18 21:35) Azithromycin Tablet (Zithromax Tablet) (08/06/18 22:14) Vital Signs/I&O 08/06/18 08/06/18 21:25 21:25 Temp 98.4 Pulse 75 Resp 15 B/P (MAP) 129/92 (104) Pulse Ox 96 O2 Delivery Room Air Room Air Capillary Refill : Less Than 3 Seconds Blood Pressure Mean: 104 Progress Note : Progress Note Seen and evaluated. X-ray chest ordered an influenza screen ordered. Monitor patient. 2215: X-ray and influenza screen negative. We will treat for atypical pneumonia. Azithromycin 500 mg by mouth given. Discharged home with return precautions. Patient verbalize understanding instructions and agreement with plan. Diagnostic Imaging Diagonstic Imaging: Xray Plain Films/CT/US/NM/MRI: chest Comments NAME: CYNDI SINGH [facility] REC#: [id number] PT STATUS: REG ER : 1980 PHYSICIAN: LORENE SEAY MD ADMIT DATE: 08/06/18/ER Signed Date of Exam: 08/06/18 CHEST PA/LAT (2 VIEW) Indication: Cough PA and lateral views of the chest are obtained. Comparison is made to study of 02/20/2015. FINDINGS: Heart size and pulmonary vascularity are within normal limits, and the lungs are clear, bilaterally. IMPRESSION: Unremarkable chest. Dictated by: Dictated on workstation # [id number] Dict: 08/06/182156 Trans: 08/06/182156 Interpreted by: YAMILE REA MD Electronically signed by: YAMILE REA MD 08/06/182156 Departure Impression Primary Impression: Upper respiratory infection Qualified Codes: J06.9 - Acute upper respiratory infection, unspecified Disposition: 01 HOME, SELF-CARE Condition: Stable Departure-Patient Inst. Decision time for Depature: 22:18 Referrals: [facility] (PCP/Family) Primary Care Physician Patient Instructions: Acute Bronchitis, Adult (DC) Add. Discharge Instructions: All discharge instructions reviewed with patient and/or family. Voiced understanding. Take medications as directed. You may use zhpb-vdr-opomckm Afrin nasal spray or the generic, 12 hour relief, 2 sprays to each nostril twice daily for 3 days only and then stop. Do not use more than 3 days. You may also take over-the- counter Benadryl as needed for nasal congestion per package directions. Follow up with your DrSixto in a few days for recheck. Return for worse pain, fever, vomiting, weakness, breathing problems or other concerns as needed. Scripts Azithromycin (Azithromycin) 250 Mg Tablet 250 MG PO DAILY, #4 TAB 0 Refills Prov: LORENE SEAY MD 08/06/18 LORENE SEAY MD Aug 06, 2018 21:50
--- NOTE | 2018-08-06 22:00 | Diagnostic Imaging Report ---
Indication: Cough PA and lateral views of the chest are obtained. Comparison is made to study of 02/20/2015. FINDINGS: Heart size and pulmonary vascularity are within normal limits, and the lungs are clear, bilaterally. IMPRESSION: Unremarkable chest. Dictated by: Dictated on workstation # [id number]
[2018-08-06] MEDS ORDERED: AZITHROMYCIN 250 MG TAB (ZITHROMAX) PO STA (22:14)
[2018-08-06] MEDS ORDERED: AZIT250T12 PO (22:19)
[2018-08-06 22:23] VITALS: BP 129/92
== END 2018-08-06 22:23 | disposition home or self-care (01) ==
LOC: EDUNIT# 21:18 → ER 21:20
DX: J06.9 Acute upper respiratory infection, unspecified (principal); F41.9 Anxiety disorder, unspecified; F32.9 Major depressive disorder, single episode, unspecified; F17.210 Nicotine dependence, cigarettes, uncomplicated; Z88.5 Allergy status to narcotic agent; Z85.42 Personal history of malignant neoplasm of other parts of uterus; Z80.49 Family history of malignant neoplasm of other genital organs; Z82.49 Family history of ischemic heart disease and other diseases of the circulatory system; Z88.0 Allergy status to penicillin; Z98.890 Other specified postprocedural states; Z90.89 Acquired absence of other organs; Z98.51 Tubal ligation status; Z87.448 Personal history of other diseases of urinary system
CPT/HCPCS: 71046; 87804

== ENCOUNTER → 2018-11-23 | Outpatient (CLI) | payer MEDICAID ==
--- NOTE | 2018-11-23 09:13 | Diagnostic Imaging Report ---
PROCEDURE: CT head without contrast. TECHNIQUE: Multiple contiguous axial images were obtained through the brain without the use of intravenous contrast. INDICATION: Right-sided head pain. Comparison is made with prior head CT from 05/30/2015. FINDINGS: The ventricles and sulci are within normal limits. No sulcal effacement, midline shift or hemorrhage is detected. Cisterns are patent. The visualized paranasal sinuses are clear. IMPRESSION: No acute intracranial process is detected. Dictated by: Dictated on workstation # [id number]
== END ==
LOC: RAD 08:35
PROVIDERS: ATTEND Nurse Practitioner Primary Care
DX: G43.409 Hemiplegic migraine, not intractable, without status migrainosus (principal)
CPT/HCPCS: 70450

== ENCOUNTER 2018-12-16 11:39 | Emergency (ER) | payer MEDICAID ==
[~2018-12-16] VITALS: Ht 175.3 cm; Wt 96.2 kg
[~2018-12-16 11:39] MED LIST changes: +AZIT250T12 PO
--- OUTSIDE RECORDS SUMMARY | 2018-12-16 11:48 | XMS REPORT | Continuity of Care Document ---
Author Author [facility] Address Unknown Phone Unavailable Allergies Active Description Code Type Severity Reaction Onset Reported/Identified Relationship to Patient Clinical Status Yes hydrocodone [id number] Drug Allergy Severe N/A 02/06/2013 Yes Penicillins Drug Allergy N/A N/A 05/28/2014 Yes MUSHROOMS, HU, RAW Food Allergy N/A N/A 07/23/2014 Yes Penicillins [id number] Drug Allergy Unknown N/A 02/20/2015 Medications There is no data. Problems Date Dx Coded Attending Type Code Diagnosis Diagnosed By 08/18/2013 AVA BROWN DO Ot 617.0 UTERINE ENDOMETRIOSIS 08/18/2013 AVA BROWN DO Ot 620.1 CORPUS LUTEUM CYST 08/18/2013 AVA BROWN DO Ot 620.2 OVARIAN CYST NEC/NOS 08/18/2013 AVA BROWN DO Ot 620.8 NONINFL DIS OVA/ADNX NEC 08/18/2013 AVA BROWN DO Ot 622.12 MODERATE DYSPLASIA OF CERVIX 08/18/2013 AVA BROWN DO Ot 626.2 EXCESSIVE MENSTRUATION 08/18/2013 AVA BROWN DO Ot V03.82 PROPHYLACTIC VACC AGAINST STREPTOCOCCUS 08/18/2013 AVA BROWN DO Ot V04.81 ND FOR PROPHYLACTIC VACCIN AND INOCULATI 09/14/2013 ISIS MONTOYA MD Ot 599.0 URIN TRACT INFECTION NOS 09/14/2013 ISIS MONTOYA MD Ot 780.2 SYNCOPE AND COLLAPSE 12/12/2013 ESTEPHANIA DEL CID MD Ot 379.91 PAIN IN OR AROUND EYE 12/12/2013 ESTEPHANIA DEL CID MD Ot 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 12/12/2013 ESTEPHANIA DEL CID MD Ot E000.8 OTHER EXTERNAL CAUSE STATUS 12/12/2013 ESTEPHANIA DEL CID MD Ot E928.8 ACCIDENT NEC 02/05/2014 LOLA RICHARDS DO 346.10 MIGRAINE WITHOUT AURA WITHOUT MENTION OF INTRACTABLE MIGRAINE WITHOUT MENTION OF STATUS MIGRAINOSUS 02/05/2014 LOLA RICHARDS DO K 355.9 NEUROPATHY 02/05/2014 ANDERSON DDS, KIRK 346.10 MIGRAINE WITHOUT AURA WITHOUT MENTION OF INTRACTABLE MIGRAINE WITHOUT MENTION OF STATUS MIGRAINOSUS 02/05/2014 ANDERSON DDS, KIRK 355.9 NEUROPATHY 02/05/2014 LOLA RICHARDS DO K 346.10 MIGRAINE WITHOUT AURA WITHOUT MENTION OF INTRACTABLE MIGRAINE WITHOUT MENTION OF STATUS MIGRAINOSUS 02/05/2014 LOLA RICHARDS DO K 355.9 NEUROPATHY 02/05/2014 MADL CASE MANAGEMENT ASSOCIATE, SHAHRZAD L 346.10 MIGRAINE WITHOUT AURA WITHOUT MENTION OF INTRACTABLE MIGRAINE WITHOUT MENTION OF STATUS MIGRAINOSUS 02/05/2014 MADL CASE MANAGEMENT ASSOCIATE, SHAHRZAD L 355.9 NEUROPATHY 02/05/2014 MADL CASE MANAGEMENT ASSOCIATE, SHAHRZAD L 346.10 MIGRAINE WITHOUT AURA WITHOUT MENTION OF INTRACTABLE MIGRAINE WITHOUT MENTION OF STATUS MIGRAINOSUS 02/05/2014 MADL CASE MANAGEMENT ASSOCIATE, SHAHRZAD L 355.9 NEUROPATHY 02/05/2014 MADL CASE MANAGEMENT ASSOCIATE, SHAHRZAD L 346.10 MIGRAINE WITHOUT AURA WITHOUT MENTION OF INTRACTABLE MIGRAINE WITHOUT MENTION OF STATUS MIGRAINOSUS 02/05/2014 MADL CASE MANAGEMENT ASSOCIATE, SHAHRZAD L 355.9 NEUROPATHY 02/05/2014 LOLA RICHARDS DO K 346.10 MIGRAINE WITHOUT AURA WITHOUT MENTION OF INTRACTABLE MIGRAINE WITHOUT MENTION OF STATUS MIGRAINOSUS 02/05/2014 LOLA RICHARDS DO K 355.9 NEUROPATHY 02/05/2014 MADL CASE MANAGEMENT ASSOCIATE, SHAHRZAD L 346.10 MIGRAINE WITHOUT AURA WITHOUT MENTION OF INTRACTABLE MIGRAINE WITHOUT MENTION OF STATUS MIGRAINOSUS 02/05/2014 MADL CASE MANAGEMENT ASSOCIATE, SHAHRZAD L 355.9 NEUROPATHY 02/05/2014 MADL CASE MANAGEMENT ASSOCIATE, SHAHRZAD L 346.10 MIGRAINE WITHOUT AURA WITHOUT MENTION OF INTRACTABLE MIGRAINE WITHOUT MENTION OF STATUS MIGRAINOSUS 02/05/2014 MADL CASE MANAGEMENT ASSOCIATE, SHAHRZAD L 355.9 NEUROPATHY 02/05/2014 MADL CASE MANAGEMENT ASSOCIATE, SHAHRZAD L 346.10 MIGRAINE WITHOUT AURA WITHOUT MENTION OF INTRACTABLE MIGRAINE WITHOUT MENTION OF STATUS MIGRAINOSUS 02/05/2014 MADL CASE MANAGEMENT ASSOCIATE, SHAHRZAD L 355.9 NEUROPATHY 04/26/2014 RICHARDS DO, LOLA K 338.29 OTHER CHRONIC PAIN 04/26/2014 RICHARDS DO, LOLA K 356.1 PERONEAL MUSCULAR ATROPHY 04/26/2014 RICHARDS DO, LOLA K 780.79 OTHER MALAISE AND FATIGUE 04/26/2014 MADL CASE MANAGEMENT ASSOCIATE, SHAHRZAD L 338.29 OTHER CHRONIC PAIN 04/26/2014 MADL CASE MANAGEMENT ASSOCIATE, SHAHRZAD L 356.1 PERONEAL MUSCULAR ATROPHY 04/26/2014 MADL CASE MANAGEMENT ASSOCIATE, SHAHRZAD L 780.79 OTHER MALAISE AND FATIGUE 04/26/2014 MADL CASE MANAGEMENT ASSOCIATE, SHAHRZAD L 338.29 OTHER CHRONIC PAIN 04/26/2014 MADL CASE MANAGEMENT ASSOCIATE, SHAHRZAD L 356.1 PERONEAL MUSCULAR ATROPHY 04/26/2014 MADL CASE MANAGEMENT ASSOCIATE, SHAHRZAD L 780.79 OTHER MALAISE AND FATIGUE 04/26/2014 MADL CASE MANAGEMENT ASSOCIATE, SHAHRZAD L 338.29 OTHER CHRONIC PAIN 04/26/2014 MADL CASE MANAGEMENT ASSOCIATE, SHAHRZAD L 356.1 PERONEAL MUSCULAR ATROPHY 04/26/2014 MADL CASE MANAGEMENT ASSOCIATE, SHAHRZAD L 780.79 OTHER MALAISE AND FATIGUE 04/26/2014 RICHARDS DO, LOLA K 338.29 OTHER CHRONIC PAIN 04/26/2014 RICHARDS DO, LOLA K 356.1 PERONEAL MUSCULAR ATROPHY 04/26/2014 RICHARDS DO, LOLA K 780.79 OTHER MALAISE AND FATIGUE 04/26/2014 MADL CASE MANAGEMENT ASSOCIATE, SHAHRZAD L 338.29 OTHER CHRONIC PAIN 04/26/2014 MADL CASE MANAGEMENT ASSOCIATE, SHAHRZAD L 356.1 PERONEAL MUSCULAR ATROPHY 04/26/2014 MADL CASE MANAGEMENT ASSOCIATE, SHAHRZAD L 780.79 OTHER MALAISE AND FATIGUE 04/26/2014 MADL CASE MANAGEMENT ASSOCIATE, SHAHRZAD L 338.29 OTHER CHRONIC PAIN 04/26/2014 MADL CASE MANAGEMENT ASSOCIATE, SHAHRZAD L 356.1 PERONEAL MUSCULAR ATROPHY 04/26/2014 MADL CASE MANAGEMENT ASSOCIATE, SHAHRZAD L 780.79 OTHER MALAISE AND FATIGUE 04/26/2014 MADL CASE MANAGEMENT ASSOCIATE, SHAHRZAD L 338.29 OTHER CHRONIC PAIN 04/26/2014 MADL CASE MANAGEMENT ASSOCIATE, SHAHRZAD L 356.1 PERONEAL MUSCULAR ATROPHY 04/26/2014 MADL CASE MANAGEMENT ASSOCIATE, SHAHRZAD L 780.79 OTHER MALAISE AND FATIGUE 05/28/2014 AVEL ZULUAGA, SHAHRZAD L 300.4 DYSTHYMIC DISORDER 05/28/2014 AVEL ZULUAGA SHAHRZAD L V15.05 PERSONAL HISTORY OF ALLERGY TO OTHER FOODS 05/28/2014 REMYL MARGARETH, SHAHRZAD L 300.4 DYSTHYMIC DISORDER 05/28/2014 AVEL ZULUAGA SHAHRZAD L V15.05 PERSONAL HISTORY OF ALLERGY TO OTHER FOODS 05/28/2014 AVEL ZULUAGA, SHAHRZAD L 300.4 DYSTHYMIC DISORDER 05/28/2014 MADL MARGARETH, SHAHRZAD L V15.05 PERSONAL HISTORY OF ALLERGY TO OTHER FOODS 05/28/2014 RICHARDS DO, LOLA K 300.4 DYSTHYMIC DISORDER 05/28/2014 RICHARDS DO, LOLA K V15.05 PERSONAL HISTORY OF ALLERGY TO OTHER FOODS 05/28/2014 AVEL ZULUAGA, SHAHRZAD L 300.4 DYSTHYMIC DISORDER 05/28/2014 AVEL ZULUAGA SHAHRZAD L V15.05 PERSONAL HISTORY OF ALLERGY TO OTHER FOODS 05/28/2014 AVEL ZULUAGA, SHAHRZAD L 300.4 DYSTHYMIC DISORDER 05/28/2014 AVEL ZULUAGA, SHAHRZAD L V15.05 PERSONAL HISTORY OF ALLERGY TO OTHER FOODS 05/28/2014 AVEL ZULUAGA, SHAHRZAD L 300.4 DYSTHYMIC DISORDER 05/28/2014 AVEL ZULUAGA, SHAHRZAD L V15.05 PERSONAL HISTORY OF ALLERGY TO OTHER FOODS 11/12/2014 RUTHANN VALLECILLO APRNWNYA L 785.6 ENLARGEMENT OF LYMPH NODES 11/12/2014 REMY MARGARETH, SHAHRZAD L 785.6 ENLARGEMENT OF LYMPH NODES 12/08/2014 Ot 693.1 DERMAT D/T FOOD INGEST 01/28/2015 DONA SKINNER APRN Ot 466.0 ACUTE BRONCHITIS 01/28/2015 DONA SKINNER APRN Ot 786.2 COUGH 02/20/2015 DONA SKINNER APRN Ot 466.0 ACUTE BRONCHITIS 02/20/2015 DONA SKINNER APRN Ot 786.2 COUGH 03/12/2015 ELVIS GOGO TURNER Ot 719.46 JOINT PAIN-L/LEG 03/18/2015 SKINNER, PETER J CASE MANAGEMENT ASSOCIATE Ot 924.20 CONTUSION OF FOOT 03/18/2015 DONA SKINNER CASE MANAGEMENT ASSOCIATE Ot 959.7 LOWER LEG INJURY NOS 03/18/2015 DONA SKINNER CASE MANAGEMENT ASSOCIATE Ot E000.8 OTHER EXTERNAL CAUSE STATUS 03/18/2015 DONA SKINNER CASE MANAGEMENT ASSOCIATE Ot E928.9 ACCIDENT NOS 05/30/2015 ISIS MONTOYA MD Ot 924.8 05/30/2015 ISIS MONTOYA MD Ot 959.09 05/30/2015 ISIS MONTOYA MD Ot E000.8 05/30/2015 ISIS MONTOYA MD Ot E816.0 08/06/2018 LORENE SEAY MD, Ot F17.210 NICOTINE DEPENDENCE, CIGARETTES, UNCOMPL 08/06/2018 LORENE SEAY MD Ot F32.9 MAJOR DEPRESSIVE DISORDER, SINGLE EPISOD 08/06/2018 LORENE SEAY MD Ot F41.9 ANXIETY DISORDER, UNSPECIFIED 08/06/2018 LORENE SEAY MD Ot J06.9 ACUTE UPPER RESPIRATORY INFECTION, UNSPE 08/06/2018 LORENE SEAY MD Ot R05 COUGH 08/06/2018 LORENE SEAY MD Ot Z80.49 FAMILY HISTORY OF MALIGNANT NEOPLASM OF 08/06/2018 LORENE SEAY MD Ot Z82.49 FAMILY HX OF ISCHEM HEART DIS AND OTH DI 08/06/2018 LORENE SEAY MD Ot Z85.42 PERSONAL HISTORY OF MALIGNANT NEOPLASM O 08/06/2018 LORENE SEAY MD Ot Z87.448 PERSONAL HISTORY OF OTHER DISEASES OF UR 08/06/2018 LORENE SEAY MD Ot Z88.0 ALLERGY STATUS TO PENICILLIN 08/06/2018 LORENE SEAY MD Ot Z88.5 ALLERGY STATUS TO NARCOTIC AGENT STATUS 08/06/2018 LORENE SEAY MD Ot Z90.89 ACQUIRED ABSENCE OF OTHER ORGANS 08/06/2018 LORENE SEAY MD Ot Z98.51 TUBAL LIGATION STATUS 08/06/2018 LORENE SEAY MD Ot Z98.890 OTHER SPECIFIED POSTPROCEDURAL STATES 08/08/2018 LORENE SEAY MD Ot F17.210 NICOTINE DEPENDENCE, CIGARETTES, UNCOMPL 08/08/2018 LORENE SEAY MD Ot F32.9 MAJOR DEPRESSIVE DISORDER, SINGLE EPISOD 08/08/2018 LORENE SEAY MD, Ot F41.9 ANXIETY DISORDER, UNSPECIFIED 08/08/2018 LORENE SEAY MD, Ot J06.9 ACUTE UPPER RESPIRATORY INFECTION, UNSPE 08/08/2018 LORENE SEAY MD Ot R05 COUGH 08/08/2018 LORENE SEAY MD, Ot Z80.49 FAMILY HISTORY OF MALIGNANT NEOPLASM OF 08/08/2018 LORENE SEAY MD Ot Z82.49 FAMILY HX OF ISCHEM HEART DIS AND OTH DI 08/08/2018 LORENE SEAY MD, Ot Z85.42 PERSONAL HISTORY OF MALIGNANT NEOPLASM O 08/08/2018 LORENE SEAY MD Ot Z87.448 PERSONAL HISTORY OF OTHER DISEASES OF UR 08/08/2018 LORENE SEAY MD Ot Z88.0 ALLERGY STATUS TO PENICILLIN 08/08/2018 LORENE SEAY MD Ot Z88.5 ALLERGY STATUS TO NARCOTIC AGENT STATUS 08/08/2018 LORENE SEAY MD Ot Z90.89 ACQUIRED ABSENCE OF OTHER ORGANS 08/08/2018 LORENE SEAY MD Ot Z98.51 TUBAL LIGATION STATUS 08/08/2018 LORENE SEYA MD Ot Z98.890 OTHER SPECIFIED POSTPROCEDURAL STATES 11/23/2018 AMY BRAVO APRN Ot G43.409 HEMIPLEGIC MIGRAINE, NOT INTRACTABLE, W/ 12/07/2018 AVA BROWN DO Ot 622.12 MODERATE DYSPLASIA OF CERVIX 12/07/2018 AVA BROWN DO Ot V72.63 PRE-PROCEDURAL LABORATORY EXAMINATION 12/07/2018 AVA BROWN DO Ot V74.8 SCREEN-BACTERIAL DIS NEC Procedures Code Description [place] [address] ROUTINE VENIPUNCTURE 04/26/2014 00891 CBC 04/26/2014 5827745 GFR CALC (RESULT ONLY) 04/26/2014 19112 CMP 04/26/2014 95414 TSH 04/26/2014 12059 ROUTINE VENIPUNCTURE 08/23/2014 85503 THERAPUTIC INJ SQ/IM 08/23/2014 J3420 B12 VITAMIN INJECTION 08/23/2014 58972 CBC 08/23/2014 2324025 GFR CALC (RESULT ONLY) 08/23/2014 82577 CMP 08/23/2014 46114 VITAMIN D 25-HYDROXY (D2,D3 , TOTAL) 08/23/2014 80309 VIT B 12 08/23/2014 39606 ROUTINE VENIPUNCTURE 11/12/2014 54987 CBC 11/12/2014 39744 AMERITOX 01/15/2015 Results Test Result Range TSH - 05/24/18 17:08 TSH 1.49 mIU/L NRG STOOL (C-DIFF) - 05/24/18 17:08 CLOSTRIDIUM DIFFICILE TOXIN/GDH W/REFL TO PCR SEE NOTE NRG STOOL (O T P) - 05/24/18 17:08 OVA AND PARASITES, CONC AND PERM SMEAR SEE NOTE NRG Influenza virus A and B antigen detection - 08/06/18 21:47 FLU RESULT NEGATIVE FOR INFLUENZA A AND B ANTIGENS BY IA NRG Encounters ACCT No. Visit Date/Time Discharge Status Pt. Type Provider Facility Loc./Unit Complaint [id number] 01/09/2015 14:18:00 01/09/2015 23:59:59 CLS Outpatient MADL CASE MANAGEMENT ASSOCIATE, SHAHRZAD L [id number] 11/12/2014 08:47:00 11/12/2014 23:59:59 CLS Outpatient MADL CASE MANAGEMENT ASSOCIATE, SHAHRZAD L [id number] 10/10/2014 13:23:00 10/10/2014 23:59:59 CLS Outpatient MADL CASE MANAGEMENT ASSOCIATE, SHAHRZAD L [id number] 08/23/2014 10:55:00 08/23/2014 23:59:59 CLS Outpatient MADL RUTHANN ZULUAGAWNYA L [id number] 08/23/2014 10:55:00 08/23/2014 23:59:59 CLS Outpatient LOLA RICHARDS DO [id number] 07/23/2014 08:23:00 07/23/2014 23:59:59 CLS Outpatient MADL CASE MANAGEMENT ASSOCIATEJOSE JaimesA L [id number] 05/28/2014 14:43:00 05/28/2014 23:59:59 CLS Outpatient MADL CASE MANAGEMENT ASSOCIATEJOSE JaimesA L [id number] 04/26/2014 10:16:00 04/26/2014 23:59:59 CLS Outpatient LOLA RICHARDS DO [id number] 03/01/2014 12:54:00 03/01/2014 23:59:59 CLS Outpatient KIRK ANDERSON DDS [id number] 02/05/2014 09:17:00 02/05/2014 23:59:59 CLS Outpatient LOLA RICHARDS DO [id number] 11/23/2018 08:35:00 11/23/2018 23:59:59 CLS Outpatient AMY BRAVO CASE MANAGEMENT ASSOCIATE [facility] RAD HEMIPLEGIC MIGRAINE [id number] 08/06/2018 21:20:00 08/06/2018 22:23:00 DIS Emergency GEENA WRIGHT, LORENE Larios [facility] ER VOMITTING,COUGHING, [id number] 05/30/2015 12:30:00 05/30/2015 14:55:00 DIS Emergency JAN WRIGHT, ISIS [place] [facility] ER [id number] 03/18/2015 12:55:00 03/18/2015 13:55:00 DIS Emergency DONA SKINNER APRN [facility] ER LEFT FOOT INJURY [id number] 03/12/2015 06:22:00 03/12/2015 07:23:00 DIS Emergency GOGO LEAL DO [facility] ER LEFT KNEE PAIN [id number] 02/20/2015 15:19:00 02/20/2015 16:20:00 DIS Emergency DONA SKINNER APRN [facility] ER ACUTE PANCREATITIS, ELEVATED LFT'S [id number] 02/05/2015 15:09:00 02/05/2015 23:59:59 CLS Outpatient MARLIN HARVEY RISK TECH [facility] OCC ANKLE PAIN [id number] 01/28/2015 13:10:00 01/28/2015 16:45:00 DIS Emergency DONA SKINNER APRN [facility] ER FEVER,COUGH,NAUSEA [id number] 04/20/2014 13:31:00 04/20/2014 13:58:00 DIS Emergency [id number] 02/26/2014 15:58:00 02/26/2014 18:02:00 DIS Emergency [id number] 01/30/2014 09:40:00 01/30/2014 23:59:59 CLS Outpatient [id number] 01/28/2014 15:30:00 01/28/2014 19:43:00 DIS Emergency [id number] 01/14/2014 19:02:00 01/14/2014 21:14:00 DIS Emergency [id number] 01/03/2014 23:56:00 01/04/2014 01:24:00 DIS Emergency [id number] 12/12/2013 16:44:00 12/12/2013 17:48:00 DIS Emergency ESTEPHANIA DEL CID MD [facility] ER R EYE PAIN [id number] 09/14/2013 07:38:00 09/14/2013 10:51:00 DIS Emergency ISIS MONTOYA MD [facility] ER SYNCOPE [id number] 08/17/2013 08:45:00 08/18/2013 12:10:00 DIS Outpatient AVA BROWN DO [facility] SDC CERVICAL DYSPLASIA BEYOND MARGINS [id number] 08/15/2013 08:07:00 08/15/2013 23:59:59 CLS Outpatient AVA BROWN DO [facility] PREOP CERVICAL DYSPLASIA BEYOND MARGINS [id number] 06/12/2013 12:33:00 06/12/2013 15:55:00 DIS Emergency [id number] 05/17/2013 20:54:00 05/17/2013 21:52:00 DIS Emergency [id number] 02/06/2013 07:10:00 02/06/2013 08:40:00 DIS Emergency [id number] 12/16/2018 11:42:00 ACT Emergency ISIS MONTOYA MD [facility] ER FELL AND HIT HEAD; DIZZY NAUSEA AND CONFUSION [id number] 12/08/2014 21:08:00 Document Registration [id number] 12/12/2018 11:20:00 12/12/2018 23:59:59 CLS Outpatient AMY BRAVO [facility] [id number] 05/25/2018 11:40:00 Document Registration [id number] 05/24/2018 16:30:00 Document Registration [id number] 05/30/2015 12:30:23 ACT Document Registration
[2018-12-16] MEDS ORDERED: ONDA8TAB13 PO (12:13)
--- NOTE | 2018-12-16 12:13 | ED Fall/Injury ---
General Chief Complaint: Trauma-Non Activation Stated Complaint: FELL AND HIT HEAD; DIZZY NAUSEA AND CONFUSION Source: patient Exam Limitations: no limitations History of Present Illness Date Seen by Provider: Dec 16, 2018 Time Seen by Provider: 12:09 Initial Comments To ER per private vehicle with reports of a fall at home about 10:30 AM. She struck the left side of her face on the floor during the fall. She tripped which she does quite frequently secondary to Bfjhczn-Ltxfh-Ltaok disease. No loss of consciousness. Does have a headache photophobia and nausea. Occurred: this morning Severity: moderate Loss of Consciousness: no loss of consciousness Associated Symptoms (Fall): Headache, Nausea/Vomiting; No Neck Pain Allergies and Home Medications Allergies Coded Allergies: hydrocodone (Verified Allergy, Severe, 02/06/13) Penicillins (Unverified Allergy, Unknown, 02/20/15) Home Medications Azithromycin 250 Mg Tablet, 250 MG PO DAILY Prescribed by: LORENE SEAY on 08/06/18 2219 Gabapentin 400 Mg Capsule, 1,200 MG PO DAILY, (Reported) Ibuprofen 600 Mg Tablet, 600 MG PO Q6H PRN for PAIN Prescribed by: ISIS MONTOYA on 05/30/15 1443 Paroxetine Hcl 20 Mg Tablet, 20 MG PO DAILY, (Reported) Patient Home Medication List Home Medication List Reviewed: Yes Review of Systems Review of Systems Constitutional: see HPI Eyes: No Symptoms Reported Ears, Nose, Mouth, Throat: no symptoms reported Respiratory: no symptoms reported Cardiovascular: no symptoms reported Gastrointestinal: nausea Genitourinary: no symptoms reported Musculoskeletal: no symptoms reported Skin: no symptoms reported Psychiatric/Neurological: Headache Past Oaocqjw-Xhacwt-Lsayam Hx Patient Social History Alcohol Use: Occasionally Uses Recreational Drug Use: No Smoking Status: Current Everyday Smoker Type Used: Cigarettes 2nd Hand Smoke Exposure: Yes Recent Foreign Travel: No Contact w/Someone Who Travel: No Immunizations Up To Date Date of Pneumonia Vaccine: Aug 18, 2013 Date of Influenza Vaccine: Aug 18, 2013 Seasonal Allergies Seasonal Allergies: Yes Past Medical History Surgeries: Yes Adenoidectomy, Section, Hysterectomy, Tonsillectomy, Tubal Ligation Respiratory: No Cardiac: No Neurological: Yes (POST CONCUSSION SYNDROME, PER PT FALLS OFTEN) Neuropathy 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 Disorders: No 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 oz. 99.514339an; BMI Method:Stated General Appearance: WD/WN, no apparent distress HEENT: PERRL/EOMI, normal ENT inspection Neck: non-tender, full range of motion; No tender lateral, No tender midline Respiratory: no respiratory distress, no accessory muscle use Gastrointestinal: normal bowel sounds, non tender, soft Neurologic/Psychiatric: alert, normal mood/affect, oriented x 3 Skin: normal color, warm/dry Lincoln Coma Score Best Eye Response: (4) Open Spontaneously Best Verbal Response: (5) Oriented Best Motor Response: (6) Obeys Commands Kassandra Total: 15 Progress/Results/Core Measures Results/Orders My Orders Orders - DONA SKINNER APRN Ct Head Wo (12/16/18 12:03) Departure Impression Primary Impression: Concussion Qualified Codes: S06.0X0A - Concussion without loss of consciousness, initial encounter Disposition: 01 HOME, SELF-CARE Condition: Stable Departure-Patient Inst. Decision time for Depature: 12:12 [facility]: [facility] [place] (PCP) Primary Care Physician AMY BRAVO APRN (Family) Primary Care Physician Patient Instructions: Concussion, Adult (DC) Add. Discharge Instructions: 1. Tylenol and motrin for headache 2. Nausea medication as needed 3 Return to Er for any worsening symptoms. All discharge instructions reviewed with patient and/or family. Voiced understanding. Scripts Ondansetron (Ondansetron Odt) 8 Mg Tab.rapdis 8 MG PO Q6H PRN for NAUSEA/VOMITING, #10 TAB Prov: DONA SKINNER APRN 12/16/18 Work/School Note: Work Release Form Date Seen in the Emergency Department: Dec 16, 2018 Return to Work: Dec 18, 2018 DONA SKINNER APRN Dec 16, 2018 12:13
--- NOTE | 2018-12-16 12:38 | Diagnostic Imaging Report ---
PROCEDURE: CT head without contrast. TECHNIQUE: Multiple contiguous axial images were obtained through the brain without the use of intravenous contrast. INDICATION: Fall with left head injury. Correlation is made with prior CT from 11/23/2018. The ventricles and sulci are within normal limits. No sulcal effacement, midline shift or hemorrhage is detected. Cisterns are patent. Visualized paranasal sinuses are clear. IMPRESSION: No acute intracranial process is detected. Dictated by: Dictated on workstation # [id number]
[2018-12-16 13:04] VITALS: BP 120/81
== END 2018-12-16 13:04 | disposition home or self-care (01) ==
LOC: EDUNIT# 11:39 → ER 11:42
DX: S06.0X0A Concussion without loss of consciousness, initial encounter (principal); F07.81 Postconcussional syndrome; F41.9 Anxiety disorder, unspecified; F32.9 Major depressive disorder, single episode, unspecified; R40.2142 Coma scale, eyes open, spontaneous, at arrival to emergency department; R40.2252 Coma scale, best verbal response, oriented, at arrival to emergency department; R40.2362 Coma scale, best motor response, obeys commands, at arrival to emergency department; F17.210 Nicotine dependence, cigarettes, uncomplicated; Z88.5 Allergy status to narcotic agent; Z82.49 Family history of ischemic heart disease and other diseases of the circulatory system; Z80.49 Family history of malignant neoplasm of other genital organs; Z85.42 Personal history of malignant neoplasm of other parts of uterus; Z88.0 Allergy status to penicillin; Z90.89 Acquired absence of other organs; Z98.890 Other specified postprocedural states; Z98.51 Tubal ligation status; Z90.710 Acquired absence of both cervix and uterus; Z87.440 Personal history of urinary (tract) infections; W01.198A Fall on same level from slipping, tripping and stumbling with subsequent striking against other object, initial encounter; Y92.009 Unspecified place in unspecified non-institutional (private) residence as the place of occurrence of the external cause
CPT/HCPCS: 70450

== ENCOUNTER 2019-05-30 07:36 | Emergency (ER) | payer MEDICAID ==
[~2019-05-30] VITALS: Ht 175.3 cm; Wt 87.1 kg
[2019-05-30] MEDS ORDERED: CLIN150C17 PO ×2 (07:56→08:43)
--- NOTE | 2019-05-30 07:57 | ED EENT ---
History of Present Illness General Chief Complaint: Dental Problems/Pain Stated Complaint: DENTAL PAIN Source: patient Exam Limitations: no limitations History of Present Illness Date Seen by Provider: May 30, 2019 Time Seen by Provider: 07:40 Initial Comments Patient presents to ER by private conveyance with chief complaint of dental pain in her canine right lower mandible. She has some crowding there and has had some subsequent dental caries. She called and made an appointment with her dentist yesterday for next month. She's been using Orajel, ibuprofen, aspirin with some relief of the swelling but not necessarily significantly for pain. Her pain is been getting worse over the last 3 or 4 days to the point she cannot sleep or stand it. She has not been on antibiotics recently. She has an allergy to penicillin that causes rash. She has a hysterectomy. Allergies and Home Medications Allergies Coded Allergies: hydrocodone (Verified Allergy, Severe, 02/06/13) Penicillins (Unverified Allergy, Unknown, 02/20/15) Home Medications Azithromycin 250 Mg Tablet, 250 MG PO DAILY Prescribed by: LORENE SEAY on 08/06/18 2219 Clindamycin HCl 150 Mg Capsule, 450 MG PO TID Prescribed by: VIDA PUTNAM on 05/30/19 0756 Gabapentin 400 Mg Capsule, 1,200 MG PO DAILY, (Reported) Ibuprofen 600 Mg Tablet, 600 MG PO Q6H PRN for PAIN Prescribed by: ISIS MONTOYA on 05/30/15 1443 Ondansetron 8 Mg Tab.rapdis, 8 MG PO Q6H PRN for NAUSEA/VOMITING Prescribed by: DONA SKINNER on 12/16/18 1213 Paroxetine Hcl 20 Mg Tablet, 20 MG PO DAILY, (Reported) Patient Home Medication List Home Medication List Reviewed: Yes Review of Systems Review of Systems Constitutional: No chills, No diaphoresis Eyes: Denies Blindness, Denies Blurred Vision Ears: Denies Dizziness, Denies Pain Nose: denies clots, denies congestion Mouth: see HPI, pain, swelling (right mandible) Throat: denies pain, denies swelling Past Ydhimoh-Wwqxna-Sofbdh Hx Patient Social History Alcohol Use: Denies Use Recreational Drug Use: No Smoking Status: Current Everyday Smoker Type Used: Cigarettes 2nd Hand Smoke Exposure: Yes Recent Foreign Travel: No Contact w/Someone Who Travel: No Immunizations Up To Date Date of Pneumonia Vaccine: Aug 18, 2013 Date of Influenza Vaccine: Aug 18, 2013 Seasonal Allergies Seasonal Allergies: Yes Past Medical History Surgeries: Yes Adenoidectomy, Section, Hysterectomy, Tonsillectomy, Tubal Ligation Respiratory: No Cardiac: No Neurological: Yes (POST CONCUSSION SYNDROME, PER PT FALLS OFTEN) Neuropathy 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 Disorders: No 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 Disorders: Denies 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 Sexually Transmitted Disease: No HIV/AIDS: No Kidney Infection, Bladder Infection Gastrointestinal: No Musculoskeletal: Yes (NERVE DISEASE INHERITED) Endocrine: No Cancer: Yes Uterine Psychosocial: Yes Anxiety, Depression Integumentary: No Blood Disorders: No Family Medical History Cancer 03 MOTHER (CERVICAL) Chest pain 03 FATHER Family history: Cardiovascular disease 03 FATHER Family history: Hypertension 03 FATHER Hypercholesterolemia 03 FATHER Physical Exam Vital Signs Vital Signs - First Documented 05/30/19 07:47 Temp 97.0 Pulse 73 Resp 16 B/P (MAP) 120/80 (93) Pulse Ox 100 O2 Delivery Nasal Cannula Height, Weight, BMI Height: 5'9.00" Weight: 212lbs. oz. 96.843818du; 32.48 BMI Method:Stated General Appearance: WD/WN, mild distress Eyes: bilateral eye normal inspection, bilateral eye PERRL, bilateral eye EOMI Ears: bilateral ear auricle normal, bilateral ear canal normal, bilateral ear TM normal Nose: normal inspection; No active bleeding Mouth/Throat: dental tenderness, other (dental caries right anterior lower teeth with crowding. Mild swelling gingiva and soft tissues but no fluctuance or evidence of an abscess to be drained.) Neck: non-tender, full range of motion, normal inspection Procedures/Interventions Dental Procedures: right infraorbital alveolar nerve block with 1 cc 1% lidoca ine and 1 cc half percent Marcaine with epinephrine. Progress/Results/Core Measures Results/Orders My Orders Orders - VIDA PUTNAM Lidocaine 2% Viscous 15 Ml (Xylocaine Vi (05/30/19 08:00) Bupivacaine 0.5% W/Epi Inj (Sensorcaine (05/30/19 08:00) Lidocaine 1% Inj 20 Ml (Xylocaine 1% Inj (05/30/19 08:00) Bupivacaine 0.5% W/Epi Inj (Marcaine 0.5 (05/30/19 08:15) Vital Signs/I&O 05/30/19 07:47 Temp 97.0 Pulse 73 Resp 16 B/P (MAP) 120/80 (93) Pulse Ox 100 O2 Delivery Nasal Cannula Departure Impression Primary Impression: Dental abscess Additional Impression: Dental caries Disposition: 01 HOME, SELF-CARE Condition: Improved Departure-Patient Inst. Decision time for Depature: 08:43 Referrals: [facility] (PCP) Primary Care Physician AMY BRAVO APRN (Family) Primary Care Physician Patient Instructions: Dental Pain (DC) Add. Discharge Instructions: 3 capsules of clindamycin 3 times a day for the next week. Use the Orajel or topical lidocaine 5 mL applied to some gauze directly over the tooth that hurts every 4 hours as needed for pain. Follow-up with a dentist. Heating pads. Ibuprofen 800 mg every 8 hours as needed. Tylenol 1000 mg every 8 hours as needed. All discharge instructions reviewed with patient and/or family. Voiced understanding. Scripts Clindamycin HCl (Clindamycin HCl) 150 Mg Capsule 450 MG PO TID for 7 Days, #63 CAP 0 Refills Prov: VIDA PUTNAM 05/30/19 VIDA PUTNAM May 30, 2019 07:57
[2019-05-30] MEDS ORDERED: BUP/EPI 0.5% 1:200,000 (SENSORCAINE) 30 ML VIAL INJ ONE (08:00)
[2019-05-30] MEDS ORDERED: LIDOCAINE 1% INJ 20 ML 20 ML VIAL INJ ONE (08:00)
[2019-05-30] MEDS ORDERED: LIDOCAINE 2% VISCOUS 15 ML UDC PO ONE (08:00)
[2019-05-30] MEDS ORDERED: BUP/EPI 0.5% 1:200,000 (MARCAINE) 10ML VIAL IJ ONE (08:15)
[2019-05-30 08:50] VITALS: BP 117/69
== END 2019-05-30 08:50 | disposition home or self-care (01) ==
LOC: EDUNIT# 07:36 → ER 07:37
DX: K04.7 Periapical abscess without sinus (principal); K02.9 Dental caries, unspecified; F17.210 Nicotine dependence, cigarettes, uncomplicated; Z88.5 Allergy status to narcotic agent; Z88.0 Allergy status to penicillin; Z90.710 Acquired absence of both cervix and uterus; Z98.51 Tubal ligation status; Z90.89 Acquired absence of other organs; Z85.42 Personal history of malignant neoplasm of other parts of uterus; Z82.49 Family history of ischemic heart disease and other diseases of the circulatory system
CPT/HCPCS: 99282

== ENCOUNTER 2019-08-01 08:37 | Emergency (ER) | payer MEDICAID ==
[~2019-08-01] VITALS: Ht 175 cm; Wt 87.4 kg
[~2019-08-01 08:37] MED LIST changes: +CLIN150C17 PO
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
[2019-08-01 09:52] VITALS: BP 121/91
== END 2019-08-01 09:52 | disposition home or self-care (01) ==
LOC: EDUNIT# 08:37 → ER 08:39
DX: S06.0X0A Concussion without loss of consciousness, initial encounter (principal); J44.9 Chronic obstructive pulmonary disease, unspecified; G62.9 Polyneuropathy, unspecified; K21.9 Gastro-esophageal reflux disease without esophagitis; F41.9 Anxiety disorder, unspecified; F32.9 Major depressive disorder, single episode, unspecified; F17.210 Nicotine dependence, cigarettes, uncomplicated; Z98.51 Tubal ligation status; Z90.89 Acquired absence of other organs; Z88.5 Allergy status to narcotic agent; Z85.42 Personal history of malignant neoplasm of other parts of uterus; Z88.0 Allergy status to penicillin; Z82.49 Family history of ischemic heart disease and other diseases of the circulatory system; Z80.49 Family history of malignant neoplasm of other genital organs; W18.2XXA Fall in (into) shower or empty bathtub, initial encounter; W22.8XXA Striking against or struck by other objects, initial encounter
CPT/HCPCS: 99282

== ENCOUNTER 2020-01-16 14:43 | Emergency (ER) | payer MEDICAID ==
[~2020-01-16] VITALS: Ht 175 cm; Wt 85.0 kg
--- OUTSIDE RECORDS SUMMARY | 2020-01-16 14:55 | XMS REPORT ---
Author Author [employer]. Organization [facility] Address [address] [address] Care Team Providers Care Residential Mental Health Worker Name Role Phone NO, LOCAL PHYSICIAN Unavailable Unavailable [facility] Unavailable PERFECTO DAMIAN Unavailable Unavailable AMY BRAVO Unavailable AMY BRAVO Unavailable PAULAMANDASANDRITA Unavailable [facility] Unavailable [phone] LINDY SZYMANSKI Unavailable MADL, SHAHRZAD Unavailable [facility] PCP Migration, Doctor Unavailable Unavailable Migration, Doctor Unavailable Unavailable Migration, Doctor Unavailable Unavailable Migration, Doctor Unavailable Unavailable DONA SKINNER APRN Unavailable Unavailable Migration, Doctor Unavailable Unavailable AMY BRAVO Unavailable Unavailable Migration, Doctor Unavailable Unavailable AMY BRAVO Unavailable MADL, SHAHRZAD Unavailable MADL, SHAHRZAD Unavailable MADL, SHAHRZAD Unavailable SIM BALES Unavailable MADL, SHAHRZAD Unavailable MADL, SHAHRZAD Unavailable MADL, SHAHRZAD Unavailable MADL, SHAHRZAD Unavailable MADL, SHAHRZAD Unavailable MADL, SHAHRZAD Unavailable MADL, SHAHRZAD Unavailable MADL, SHAHRZAD Unavailable VIDA PUTNAM Unavailable Unavailable NEHEMIAS WRIGHT, ESTEPHANIA Anthony Unavailable Unavailable [facility] PCP GEENA WRIGHT, LORENE Larios Unavailable Unavailable JOSSELIN LEAL DO Unavailable Unavailable AMY BRAVO APRN Unavailable Unavailable MADL, SHAHRZAD Unavailable MERCYRDO Unavailable MADL, SHAHRZAD Unavailable Unavailable Unavailable MADL, SHAHRZAD Unavailable Allergies Normalized Allergy Reported Date of Reaction(s) Care Provider Facility Allergy Type classification allergen Allergy Onset Propensity to Unclassified Mushrooms, 01-15-2015 - Pt allergic t o PERFECTO [facility] adverse [place], Raw ALL mushrooms, [address] [facility] er reactions (8 Pt allergic to of [place] sources.) ALL mushrooms [place] ([address]) Medications Current Medications Medication Ingredient Drug Dose Dates Status Sig Sig Care Class(es) (Normalized) (Original) Provid er amitriptyli Amitriptyli Tricyclic 25 mg 11-11-19 Active take 1 Amitriptylin no ne ne Antidepress 19 tablet by e HCl 25 MG n justine hydrochlori Translation ant mouth once Orally Once (no de 25 mg s: [ daily a day at phone) oral tablet Amitriptyli night 1 (2 ne HCl 25 tablet 08 sources.) MG] Nov, 2018 30 days Active escitalopra escitalopra Serotonin 20 mg 12-13-19 Active take 1 Lexapro 20 no m 20 mg m Reuptake 19 tablet by mg Orally name oral tablet Translation Inhibitor mouth once Once a day 1 (n o (7 s: [ daily tablet 24h phone) sources.) Lexapro Dec, MG, 30 day(s) Escitalopra Active m 20 MG Oral Tablet [Lexapro], Lexapro 20 MG, Lexapro 20 MG] 20 mg Active no Lexapro no name inform 20 MG (no ation Orally phone) Once a day 1 tablet 24h Active 10 mg Active no Lexapro no name inform 10 MG (no ation Orally phone) Once a day 1 tablet 24h Active esomeprazol esomeprazol Proton Pump 40 mg 05-25-20 Active no Esomeprazole no e 40 mg e Inhibitor 18 information Magnesium 40 name delayed Translation mg Orally (no release s: [ Once a day 1 phone) oral Esomeprazol capsule 24h capsule (4 e Magnesium May, sources.) 40 mg, Active Esomeprazol e Magnesium 40 mg] methylpredn methylpredn Corticoster 4 mg 08-02-20 Active no Medrol 4 MG no isoLONE 4 isoLONE oid 18 information Orally Once na me mg oral Translation a day take (no tablet (2 s: [ Medrol each days phone) sources.) 4 MG] dose at the same time each day as directed 24h Jul, Active valACYclovi valACYclovi Herpesvirus 500 mg 12-13-19 Active take 1 Valacyclovir no r 500 mg r Nucleoside 19 tablet by HCl 500 mg nam e oral tablet Translation Analog DNA mouth twice Orally twice (no (1 source.) s: [ Polymerase daily a day 1 phone) Valacyclovi Inhibitor, tablet 12h r HCl 500 Herpes Dec, mg] Simplex 5 days Virus Active Nucleoside Analog DNA Polymerase Inhibitor, Herpes Zoster Virus Nucleoside Analog DNA Polymerase Inhibitor no Vitamin D2 no 08-27-20 Active take 1 Vitamin D2 no information 50,000 unit information 14 capsule by 50,000 unit name (2 mouth two take 1 (no sources.) times weekly capsule by phone) Oral route 2 times per week for 8 weeks May take 1000 UI OTC after high dose repletion Aug, Active 08-27-2014 Suspended no Vitamin no name inform D2 (no ation 50,000 phone) unit take 1 capsule by Oral route 2 times per week for 8 weeks May take 1000 UI OTC after high dose repletio n Aug, Not-Taki ng no Vitamin D3 no 1000 08-27-20 Active no Vitamin D 3 no information 1,000 unit information [IU] 14 information 1,00 0 unit 1 name (2 Tablet by (no sources.) Oral route 1 phone) time per day OTC---to start after high dose repletion (End Oct 2014) Aug, Active 1000 [IU] 08-27-2014 Suspended no Vitamin no name inform D3 1,000 (no ation unit 1 phone) Tablet by Oral route 1 time per day OTC---to start after high dose repletio n (End Oct 2014) Aug, Piedad burnham Completed/Discontinued Medications Medication Ingredient Drug Dose Dates Status Sig Sig Care Class(es) (Normalized) (Original) Provid er no Albuterol no 8.5 g 02-21-20 Complete take 8.5 g Albu terol Peter information (Proair information 15 - d by (Proair Hfa ) Ra Yee (3 Hfa) 8.5 Gm 03-12-20 inhalation 8.5 Gm Skinner sources.) Hfa.aer.ad, 15 every four Hfa.aer.ad, (no 2 Puff hours as 2 Puff phone) Respiratory needed for Respiratory (Inhalation wheezing (Inhalation) ) Respiratory Every Four Hours as needed for Wheezing 02/20/15 Discontinued no Cefuroxime no 01-29-20 Complete take 500 Cefuroxime P eter information Axetil 500 information 15 - d tablets by Axet il 500 Ra Yee (3 Mg Tablet, 03-12-20 mouth twice Mg Tablet, 1 Skinner sources.) 1 Each Oral 15 daily Each Oral (no Twice A Day phone) 01/28/15 Discontinued no Cephalexin no 12-13-19 Complete take 500 Cephalexin F nathaniel information Monohydrate information 14 - d capsules by Mo nohydrate R (3 (Cephalexin 01-05-20 mouth every (Cephalexin) Segl sources.) ) 500 Mg 14 eight hours 500 Mg (no Capsule, 1 Capsule, 1 phone) Each Oral Each Oral Every 8HRS 12/12/13 Discontinued no Clindamycin no 02-27-20 Complete take 300 Clindamycin Gretch information Hcl information 14 - d capsules by Hcl (Cl eocin en L (3 (Cleocin 04-20-20 mouth every Hcl) 300 Mg Klaus sources.) Hcl) 300 Mg 14 six hours Capsule, 1 (no Capsule, 1 Each Oral phone) Each Oral Give Every 6 Hr On Schedule 02/26/14 Discontinued dicyclomine dicyclomine Anticholine 10 mg 05-25-20 Suspende no Dicyclomine no hydrochlori Translation rgic 18 - d information HCl 10 m g name de 10 mg s: [ 07-24-20 Orally Four (no oral Dicyclomine 18 times a day phone) capsule (3 HCl 10 mg, before meals sources.) Dicyclomine 1 capsule 22 HCl 10 mg] May, 2018 Jul, Not-Taking no Epinephrine no 03-12-20 Complete no Epinephrine/ (no information /Pf information 15 d information Pf phone) (3 (Adrenalin (Adrenalin sources.) Cl 1 Mg/Ml Cl 1 Mg/Ml Vial) 1 Vial) 1 Mg/1 Mg/1 Ml Ml Vial, 1 Vial, 1 Ml Ml Intramuscul Intramuscula ar r As Needed Discontinued no Gabapentin no 12-09-19 Complete no Gabapentin (no information (Neurontin) information 15 d information (N eurontin) phone) (4 300 Mg Cap, 300 Mg Cap, sources.) 300 Mg Oral 300 Mg Oral Twice A Day Discontinued 300 mg 08-17-2013 Completed take 1 Gabapent (no capsul in phone) e by (Neuront mouth in) 300 twice Mg Cap, daily 300 Mg Oral Twice A Day Disconti nued no Ibuprofen no 600 mg 08-18-20 Complete take 1 Ibuprofe n Michae information (Motrin) information 13 - d tablet by (Motrin ) 600 l S (3 600 Mg Tab, 04-20-20 mouth every Mg Tab, 600 Fenec h sources.) 600 Mg Oral 14 six hours as Mg Oral (no needed for Every 6 phone) pain Hours as needed for Pain 08/18/13 Discontinued no Metronidazo no 500 mg 06-12-20 Complete take 1 Metron idazol Gretch information le (Flagyl information 13 - d tablet by e (Fl agyl en L (3 500 Mg) 500 08-15-20 mouth twice 500 Mg) 500 Radha n sources.) Mg Tab, 1 13 daily, then Mg Tab, 1 (no Each Oral take 500 Each Oral phone) tablets by Twice A Day mouth 06/12/13 Discontinued nitrofurant NITROFURANT Nitrofuran 25 mg 01-29-20 Complete no Nitrofuranto no oin, OIN, Antibacteri 14 - d information in name macrocrysta MACROCRYSTA al 02-27-20 Macrocrystal (no ls 25 mg / LS / 14 s phone) nitrofurant Nitrofurant Discontinued oin, oin, 1 ORAL Twice monohydrate Monohydrate A Day 20 75 mg oral January 28, (2013 7:35pm sources.) February 26, 2014 FOR INFECTION no Tramadol no 50 mg 01-29-20 Complete take 1 Tramadol Hcl Josselin K information Hcl information 14 - d tablet by (Ultram) 50 [place] (9 (Ultram) 50 02-27-20 mouth every Mg Tab, 50 (no sources.) Mg Tab, 50 14 four to six Mg Oral phone) Mg Oral hours as Q4-6HR as needed for needed for pain Pain 01/28/14 Discontinued 50 mg 01-14-2014 Completed take 1 Tramadol Rod T - tablet Hcl Brueggem 02-26-2014 by (Ultram) montse (no mouth 50 Mg phone) every Tab, 50 four Mg Oral to six Q4-6HR hours as as needed needed for Pain for 01/14/14 pain Disconti nued 50 mg 06-12-2013 Completed take 1 Tramadol Velia - tablet Hcl L Klaus 08-15-2013 by (Ultram) (no mouth 50 Mg phone) every Tab, 50 four Mg Oral hours Every 4HRS 06/12/13 Disconti nued Problems Active Problems Problem Normalized Date of Normalized Normalized Provider Fac ility Classification Problem(s) Problem Problem Problem Sta tus Onset/Resoluti Duration on Acute Acute Episodic Active DONA SKINNER [facility] Via bronchitis (12 bronchitis Tammy sources.) [facility] ([address]) Anxiety Anxiety Chronic Active LORENE [facility] Via disorders (13 disorder, MD GEENA Tammy sources.) unspecified [facility] ([address]) Unclassified Chronic pain Chronic Active [facility] C ommunity (6 sources.) Translations: [address] [place] [address] [ Other [facility] chronic [place], [place] ([address]) Other chronic pain] Intracranial Concussion Episodic Active DONA SKINNER [facility] Vi a injury (8 Translations: Tammy sources.) [ CONCUSSION Hospital - WITHOUT LOSS [place] OF ([address]) CONSCIOUSNESS, Concussion without loss of consciousness] Other injuries Concussion Episodic Active [facility] Via and conditions injury of body [facility] Munoz due to structure [address] [place] [address] external (98[address]) causes (1 source.) Ovarian cyst Corpus luteum Episodic Active AVA LOPEZJACKELINE Not Available (2 sources.) cyst or , [place] ([address]) hematoma Translations: [ OVARIAN CYST NEC/NOS] Other lower Cough Episodic Active DONA SKINNER [facility] Via respiratory Tammy disease (12 Hospital - sources.) [place] ([address]) Mood disorders Dysthymia Chronic Active ISIDORE NWAGWU Co mmunity (10 sources.) Translations: [address] [facility] [ Dysthymic of [place] disorder, [place] ([address]) Dysthymic disorder, MAJOR DEPRESSIVE DISORDER, SINGLE EPISOD] Endometriosis Endometriosis Chronic Active AVA FENECH Not Available (1 source.) of uterus , DO (57445) Menstrual Excessive or Chronic Active AVA FENECH Not Available disorders (1 frequent , [place] (60789) source.) menstruation Unclassified Family history Episodic Active LORENE Not Available (6 sources.) of ischemic MD GEENA (51492) heart disease and other diseases of the circulatory system Translations: [ OTHER SPECIFIED POSTPROCEDURAL STATES, ACQUIRED ABSENCE OF OTHER ORGANS, FAMILY HISTORY OF MALIGNANT NEOPLASM OF ] Residual Family history Episodic Active LORENE [facility] Via codes; of malignant MD Tammy SEAY unclassified neoplasm of Hospital - (12 sources.) other genital [place] organs ([address]) Other injuries Knee, leg, Episodic Active PETER SKINNER Not Available and conditions ankle, and (82561) due to foot injury external causes (6 sources.) Lymphadenitis Lymphadenopath Episodic Active ISIDORE NWAGWU Community (6 sources.) [facility] [address] [facility] Translations: of [place] [ Enlargement [place] ([address]) of lymph nodes, Enlargement of lymph nodes] Malaise and Malaise and Episodic Active ISIDORE NWAGWU Com munity fatigue (6 fatigue [address] [facility] sources.) Translations: of [place] [ Other [place] ([address]) malaise and fatigue, Other malaise and fatigue] Other female Moderate Episodic Active AVA FENECH Not A vailable genital dysplasia of , DO (47251) disorders (2 cervix sources.) Other 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 Translations: [address] [facility] disorders (6 [ Mononeuritis of [place] sources.) of unspecified [place] ([address]) site, Mononeuritis of unspecified site] Substance-rela Nicotine Chronic Active LORENE [facility] Via rupa disorders dependence, MD Tammy SEAY (14 sources.) cigarettes, Hospital - uncomplicated [place] ([address]) Other female Other Episodic Active AVA FENECH Not A vailable genital noninflammator , DO (32664) disorders (1 y disorders of source.) ovary, fallopian tube, and broad ligament Residual Other Episodic Active LORENE [facility] Via codes; specified MD Tammy SEAY unclassified postprocedural Hospital - (4 sources.) [facility] () Other eye Pain in or Episodic Active ESTEPHANIA SEGLIE , Not Av ailable disorders (2 around eye () sources.) Genitourinary Personal Episodic Active LORENE [facility] Via symptoms and history of MD Tammy SEAY ill-defined other diseases Hospital - conditions (13 of urinary [place] sources.) system ([address]) Translations: [ PERSONAL HISTORY OF URINARY (TRACT) INFE] Pneumonia Pneumonia, Episodic Active SHAHRZAD MADL Community (except that unspecified [address] [place] [address] caused by organism of [facility] tuberculosis Translations: [place] () or sexually [ - Pneumonia transmitted of left upper disease) (1 lobe due to source.) infectious organism J18.9] Delirium Postconcussion Chronic Active PETER SKINNER [facility] V ia dementia and al syndrome Tammy amnestic and Hospital - other [place] cognitive () disorders (5 sources.) Other Scabies Episodic Active [facility] Via Tammy infections (3 [facility] Hospital sources.) [address] [place] () Other lower Shortness of Episodic Active SHAHRZAD MADL Commu nity respiratory breath [address] [place] [address] disease (1 Translations: of [facility] source.) [ - Shortness [place] () of breath R06.02] Syncope (1 Syncope and Episodic Active [facility] ODGERS Not A vailable source.) collapse MD () Past or Other Problems Problem Normalized Date of Normalized Normalized Provider Fac ility Classification Problem(s) Problem Problem Problem Sta tus Onset/Resoluti Duration on Residual Acquired Episodic Completed PETER SKINNER [facility] Via codes; absence of Tammy unclassified both cervix Hospital - (6 sources.) and uterus [place] () Residual Acquired Episodic Completed LORENE [facility] Via codes; absence of MD Tammy SEAY unclassified other organs Hospital - (13 sources.) [place] () Coma; stupor; Coma scale, no information no information PETER Theodora ATES Not Available and brain eyes open, () damage (9 spontaneous, sources.) at arrival to emergency department Translations: [ COMA SCALE, BEST VERBAL RESPONSE, ORIENT, COMA SCALE, BEST MOTOR RESPONSE, OBEYS C, COMA SCALE, BEST VERBAL RESPONSE, ORIENT, COMA SCALE, BEST MOTOR RESPONSE, OBEYS C] Coma; stupor; Coma scale, Episodic Completed DONA SKINNER [facility] Via and brain eyes open, [facility] damage (6 spontaneous, Hospital - sources.) at arrival to [place] emergency ([address]) department Translations: [ COMA SCALE, BEST VERBAL RESPONSE, ORIENT, COMA SCALE, BEST MOTOR RESPONSE, OBEYS C] External cause Fall on same no information no information DONA SKINNER Not Available codes: Fall (3 level from (64903) sources.) slipping, tripping and stumbling with subsequent striking against other object, initial encounter External cause Fall on same Episodic Completed DONA SKINNER [facility] Via codes: Fall (2 level from [facility] sources.) slipping, Hospital - tripping and [place] stumbling with (81284) subsequent striking against other object, initial encounter Residual Family history Episodic Completed LORENE [facility] Via codes; of ischemic MD Aakash SEAYi unclassified heart disease Hospital - (8 sources.) and other [place] diseases of (16939) the circulatory system Headache; Headache Episodic Completed DONA SKINNER [facility] Via including [facility] migraine (5 Hospital - sources.) [place] ([address]) Mood disorders Major no information no information LORENE Not Available (9 sources.) depressive MD GEENA (57251) disorder, single episode, unspecified External cause Other external no information no information Mary Jo DEL CID , Not Available codes: cause status (85373) Unspecified (8 sources.) Residual Other no information no information LORENE Not Available codes; specified MD GEENA (45578) unclassified postprocedural (8 sources.) states Other Pain in joint, Episodic Completed JOSSELIN ELVIS , DO [facility] Via non-traumatic lower leg [facility] joint Hospital - disorders (11 [place] sources.) (77516) Cancer of Personal Episodic Completed LORENE [facility] Via uterus (14 history of MD GEENA [facility] sources.) malignant Hospital - neoplasm of [place] other parts of (02058) uterus Contraceptive Tubal ligation Episodic Completed LORENE [facility] Via and status MD GEENA Tammy procreative Hospital - management (14 [place] sources.) (45769) External cause Unspecified no information no information ESTEPHANIA DEL CID , Not Available codes: accident (78726) Natural/enviro Translations: nment (8 [ ACCIDENT sources.) NEC] External cause Unspecified no information no information DONA SKINNER Not Available codes: Place place in ([address]31) of occurrence unspecified (3 sources.) [facility] residence as the place of occurrence of the external cause External cause Unspecified Episodic Completed DONA SKINNER [facility] Via codes: Place place in [facility] of occurrence unspecified Hospital - (2 sources.) [facility] ([address]) residence as the place of occurrence of the external cause Procedures Procedure Normalized Procedure Procedure Result Performer Facility Date 04-26-2014 Assay of thyroid no information no name (no phone) [facility] stimulating hormone [facility] ([address]41) 05-24-2018 Blood count complete no information no name (no demetrice ne) [facility] auto&auto difrntl wbc [facility] (66956) 04-26-2014 Blood count complete no information no name (no demetrice ne) [facility] auto&auto difrntl wbc [facility] [place] [facility] (59094) 05-25-2018 Blood occult no information no name (no phone) Count includes the [facility] peroxidase actv qual [address] ([address]) 05-24-2018 Collection venous no information no name (no phone) [facility] blood venipuncture [facility] [place] [facility] (48628) 04-26-2014 Collection venous no information no name (no phone) [facility] blood venipuncture [facility] [place] [facility] (96536) 05-24-2018 Comprehensive no information no name (no phone) Co [facility] metabolic panel [facility] [place] [facility] (53689) 04-26-2014 Comprehensive no information no name (no phone) Co [facility] metabolic panel [facility] [place] [facility] (97417) 12-16-2018 CT of head without no information DONA HANSON S [place] [facility] (65945) 11-23-2018 CT of head without no information AMY Knapp APRN [place] [facility] (416[address]) 08-06-2018 Diagnostic radiography no information LORENE FONTENOT Via [facility] chest, combined [facility] (36147) and lateral 05-25-2018 Inf agent det nucleic no information no name (no ph one) [facility] acid clostridium amp [facility] (89686) 06-22-2018 Intraoral periapical no information no name (no demetrice ne) [facility] first [facility] [place] [facility] (10277) 05-25-2018 Ova&parasites direct no information no name (no demetrice ne) [facility] smears concentration & [facility] (71417) 06-22-2018 Rem imp tooth w no information no name (no phone) [facility] mucoper flp [facility] [place] [facility] (66417) 05-25-2018 Smr prim src cplx spec no information no name (no p makenzie) [facility] stain ova&parasits [facility] [place] [facility] (67970) Immunizations Normalized Immunization Date Notes Care Provider Facili ty Immunization pneumococcal 06-14-2019 no information no name [facility] polysaccharide [facility] vaccine, 23 valent - [facility] ([address]668) vaccine no information [facility] Via [facility] Translations: [ [address] [place] ([address]365) vaccine] no information 05-30-2019 - no information [facility] [place] Via 05-30-[address] [place] [address] ([address]) Results Test Name Value Interpretation Reference Range Date Time Fa cility (Normalized) (Normalized) (Medline Reference) No panel information on 2019-06-14 C. difficile SEE NOTE (no code) [facility] (22204) No panel information on 2018-05-25 Control no information (no code) no information Exp Date 01/2019 (no code) no information Lot # [id number] (no code) no information No panel information on 2018-05-24 Albumin mass 4.1 g/dL (N) 3.4 - 5.4 g/dL no inform ation conc Albumin/Globulin 1.6 (N) no informatio n mass ratio ALP enzyme 88 U/L (N) 44 - 147 U/L no informati on act/vol ALT enzyme 19 U/L (N) 4 - 40 U/L no information act/vol AST enzyme 16 U/L (N) 10 - 34 U/L no informatio n act/vol Basophils Auto 0.134 10*3/uL (N) 0 - 0.3 10*3/uL no i nformation #/vol (Bld) Basophils/100 1.3 % (N) 0.5 - 1 % no informati on WBC Auto (Bld) Bilirubin mass 0.6 mg/dL (N) 0.1 - 1.2 mg/dL no inf ormation conc Calcium mass 9.2 mg/dL (N) 8.5 - 10.2 mg/dL no info rmation conc Chloride molar 106 mmol/L (N) 95 - 106 mmol/L no inf ormation conc CLOSTRIDIUM SEE NOTE (no code) [facility] W/REFL [place] TO PCR (24781) CO2 molar conc 26 mmol/L (N) 23 - 29 mmol/L no info rmation Control no information (no code) no information Creatinine mass 0.88 mg/dL (N) no information conc Eosinophils Auto 0.381 10*3/uL (N) 0.05 - 0.5 no info rmation #/vol (Bld) 10*3/uL Eosinophils/100 3.7 % (N) 1 - 4 % no informa tion WBC Auto (Bld) Erythrocyte 12.2 % (N) 11.6 - 14.6 % no informat ion distribution width Auto Ratio (RBC) Exp date 01/2019 (no code) no information GFR/1.73 sq M 98 (N) 90 - 120 no informati on predicted among mL/min/{1.73_m2} mL/min/{1.73_m2} blacks MDRD vol rate/area (S/P/Bld) GFR/1.73 sq 85 (N) 90 - 120 no information M.predicted MDRD mL/min/{1.73_m2} mL/min/{1.73_m2} vol rate/area Globulin 2.5 (N) no information Calculated mass conc (S) Glucose mass 91 mg/dL (N) 60 - 125 mg/dL no inform ation conc Hematocrit Auto 48.4 % (H) 36.1 - 50.3 % no info rmation Volume Fraction (Bld) Hemoglobin mass 16.7 g/dL (H) 12.1 - 17.2 g/dL no i nformation conc (Bld) Lot # [id number] (no code) no information Lymphocytes Auto 3.08 10*3/uL (N) 0.9 - 2.9 no infor mation #/vol (Bld) 10*3/uL Lymphocytes/100 29.9 % (N) 20 - 40 % no informa tion WBC Auto (Bld) MCH Auto Entitic 32.1 pg (N) 27 - 31 pg no inform ation mass (RBC) MCHC Auto mass 34.5 g/dL (N) 32 - 36 g/dL no inform ation conc (RBC) MCV Auto Entitic 92.9 fL (N) 80 - 100 fL no infor mation volume (RBC) Monocytes Auto 0.567 10*3/uL (N) 0.3 - 0.9 no inform ation #/vol (Bld) 10*3/uL Monocytes/100 5.5 % (N) 2 - 8 % no informati on WBC Auto (Bld) Neutrophils Auto 6.139 10*3/uL (N) 1.7 - 7 10*3/uL no information #/vol (Bld) Neutrophils/100 59.6 % (N) 40 - 60 % no informa tion WBC Auto (Bld) OVA AND SEE NOTE (no code) no information PARASITES, CONC AND PERM SMEAR Platelet mean 10.9 fL (N) 7.2 - 11.7 fL no inform ation volume Auto Entitic volume (Bld) Platelets Auto 266 10*3/uL (N) 150 - 450 no informat ion #/vol (Bld) 10*3/uL Potassium molar 4.0 mmol/L (N) 3.7 - 5.2 mmol/L no i nformation conc Protein mass 6.6 g/dL (N) 6.4 - 8.3 g/dL no inform ation conc RBC Auto #/vol 5.21 10*6/uL (H) 4.2 - 6.1 no informa tion (Bld) 10*6/uL Sodium molar 139 mmol/L (N) 135 - 145 mmol/L no info rmation conc Thyrotropin Qn 1.49 m[IU]/L (N) 0.4 - 4 m[IU]/L no in formation Urea nitrogen 12 mg/dL (N) 7 - 20 mg/dL no informa tion mass conc Urea NOT APPLICABLE (no code) no information nitrogen/Creatin ine mass ratio WBC Auto #/vol 10.3 10*3/uL (N) 3.5 - 10.5 no informa tion (Bld) 10*3/uL Vital Signs Vital Sign Value Interpretation Reference Date Time Care Prov ider Facility (Normalized) (Normalized) Range BMI (Body Mass 30.9 kg/m2 (no code) 15 - 25 kg/m2 12-19-2018 [facility] Community Index) 15:10-[address] [facility] [address] [place] [address] ([id number]) BMI (Body Mass 31.66 kg/m2 (no code) 15 - 25 kg/m2 12-12-2018 [facility] Index) 12:20-[address] [place] [address] ([id number]) BMI (Body Mass 32.75 kg/m2 (no code) 15 - 25 kg/m2 08-02-2018 Fiona WANG [place] Community Index) 16:40-[address] [place] [address] ([id number]) BMI (Body Mass 33.81 kg/m2 (no code) 15 - 25 kg/m2 06-08-2018 [facility] Index) 12:00-[address] ([id number]) BMI (Body Mass 33.37 kg/m2 (no code) 15 - 25 kg/m2 05-25-2018 [facility] Index) 12:40-[address] ([id number]) BMI (Body Mass 33.34 kg/m2 (no code) 15 - 25 kg/m2 05-24-2018 Lavern WILLS [facility] Community Index) 17:30-[address] [place] [address] ([id number]) Body height 175.26 cm (no code) cm 05-28-2014 [facility] 15:43-[address] [place] [address] ([id number]) Body height 175.26 cm (no code) cm 02-05-2014 [facility] 11:17-[address] [place] [address] ([id number]) Body 97.8 [degF] (no code) 97.8 - 99.0 12-19-2018 [facility] Community Temperature [degF] 15:10-0400 [facility] [address] [facility] ([id number]) Body 98 [degF] (no code) 97.8 - 99.0 12-12-2018 AMY Perez ommunity Temperature [degF] 12:20-0400 [place] [address] [facility] ([id number]) Body 97.9 [degF] (no code) 97.8 - 99.0 08-02-2018 LINDY NGUYEN [facility] Community Temperature [degF] 16:40-0400 [facility] [address] [facility] ([id number]) Body 98 [degF] (no code) 97.8 - 99.0 06-08-2018 AMY Perez ommunity Temperature [degF] 12:00-0400 [place] [address] [facility] ([id number]) Body 98 [degF] (no code) 97.8 - 99.0 05-25-2018 AMY Perez ommunity Temperature [degF] 12:40-0400 [place] [address] [facility] ([id number]) Body 97.6 [degF] (no code) 97.8 - 99.0 05-24-2018 [facility] Community Temperature [degF] 17:30-0400 [address] [facility] ([id number]) Body 98.7 [degF] (no code) 97.8 - 99.0 12-10-2014 SHAHRZAD MAD L Community Temperature [degF] 09:51-0400 [address] [facility] (53710) Body 98.1 [degF] (no code) 97.8 - 99.0 05-28-2014 SHAHRZAD MAD L Community temperature [degF] 15:43-0400 [address] [facility] ([id number]) Body 96.8 [degF] (no code) 97.8 - 99.0 04-26-2014 SHAHRZAD MAD L Community Temperature [degF] 12:16-0400 [address] [facility] (60837) Body 98.9 [degF] (no code) 97.8 - 99.0 02-05-2014 [facility] temperature [degF] 11:170400 [address] [place] [address] ([id number]) Body weight 94.94 kg (no code) kg 12-19-2018 ROD Hernandez munity 15:100400 [facility] [address] [facility] (53261) Body weight 97.25 kg (no code) kg 12-12-2018 AMY Joyce mmunity 12:20-[address] ([id number]) Body weight 105.19 kg (no code) kg 12-10-2014 [facility] 09:51-[address] [place] [address] ([id number]) Body weight 90.45 kg (no code) kg 05-28-2014 [facility] [id number]:430400 [address] [place] [address] ([id number]) Body weight 89.59 kg (no code) kg 04-26-2014 [facility] 12:160400 [address] [place] [address] ([id number]) Body weight 190.83 kg (no code) kg 02-05-2014 [facility] 11:170400 [address] [place] [address] ([id number]) Height 175.26 cm (no code) cm 12-19-2018 ROD Lui nity 15:100400 [facility] [address] [place] [address] ([id number]) Height 175.26 cm (no code) cm 12-12-2018 AMY Kenney unity 12:200400 SHELLY [address] [place] [address] ([id number]) Height 175.26 cm (no code) cm 08-02-2018 [facility] 16[facility]-[address] ([id number]) Height 175.26 cm (no code) cm 06-22-2018 [facility] 10:000400 [facility] (47986) Height 175.26 cm (no code) cm 06-08-2018 AMY Comm unity 12:00-[address] ([address]673) Height 175.26 cm (no code) cm 05-25-2018 AMY Comm unity 12:40-[address] ([id number]) Height 175.26 cm (no code) cm 05-24-2018 [facility] 17:30-[address] [place] [address] ([id number]) Height 175.26 cm (no code) cm 12-10-2014 SHAHRZAD MADL Co mmunity 09:51-[address] [place] [address] ([id number]) Height 175.26 cm (no code) cm 04-26-2014 SHAHRZAD MADL Co mmunity 12:16-[address] [place] [address] ([id number]) Pulse Oximetry 97 % (no code) 95 - 100 % 12-19-2018 [facility] 15:10-[address] ([address]3266) Weight 100.61 kg (no code) kg 08-02-2018 [facility] 16:40-[address] ([id number]) Weight 103.87 kg (no code) kg 06-08-2018 AM[facility] Comm unity 12:00-[address] ([id number]) Weight 102.51 kg (no code) kg 05-25-2018 AM[facility] Comm unity 12:40-[address] ([id number]) Weight 102.42 kg (no code) kg 05-24-2018 [facility] 17:30-[address] [place] [address] ([id number]) Interventions No Information Plan of Treatment Normalized Care Care Detail Care Activity Date Care Provider F acility Activity Patient Education no information no information [facility] [address] [place] [address] ([id number]) Patient referral no information no information [facility] [address] [place] [address] ([id number]) Goals Patient Goal Desired Goal no information no information Social History Normalized Code Original Code Date Value Tobacco smoking status Tobacco smoking status no information Smokes tobacco daily NHIS NHIS (finding) no information no information 05-30-2015 Occasionally Us es no information no information 08-17-2013 No no information no information 08-01-2019 Current Everyda y Smoker no information no information 05-30-2019 Cigarettes no information no information 08-01-2019 POT Sex Assigned At Sex Assigned At no information F emale Functional Status The data below is from unstructured sourcesNo functional status results.No functional status results.No functional status results.No functional status results.No functional status results.No functional status results.No functional status results.No functional status results.No functional status results.No functional status results.No functional status results.No functional status results.No functional status results.No functional status in formation available.No functional status information available.No functional sta tus information available.No functional status information available.No function al status information available.No functional status information available.No Fu nctional Status information availableNo Functional Status information available Mental Status The data below is from unstructured sourcesNo Mental Status Information Available Encounters Encounter Normalized Encounter Encounter Diagnosis Care Provi jeanne Organization Date Type 01-03-2020 [facility] Shortness of breath SANDRA TRONCOSO (no [facility] CARE phone) CARE (no phone) 11-14-2019 [facility] Chronic obstructive ALVIN YADIRA (no phone) [facility] CARE pulmonary disease with CARE (no phone ) (acute) exacerbation 09-11-2019 [facility] Glossodynia [facility] (n o [facility]ARE phone) CARE (no phone) 09-11-2019 - 09-11-2019 09-04-2019 [facility] Bronchitis, not CASIE VICTORIA (no [facility] CARE specified as acute or phone) CARE (no phone) 09-04-2019 chronic - 09-04-2019 08-01-2019 Emergency department no information (no phone) [facility] - patient visit Hospital (no phone) 08-01-2019 08-01-2019 Emergency department no information no name (no demetrice ne) no organization name - patient visit (no phone) 08-01-2019 05-30-2019 Emergency department no information VIDAUS Ra PUTNAM Work no organization name - patient visit (no phone ) 05-30-2019 12-16-2018 Emergency department no information DONA Knapp APRN BA MERY no organization name - patient visit Work Phone: (no phone) 12-16-2018 12-16-2018 Emergency department no information no name (no demetrice ne) no organization name - patient visit (no phone) 12-16-2018 08-06-2018 Emergency department no information LORENE TSANG INS no organization name - patient visit Work Phone: (no phone) 08-06-2018 08-06-2018 Emergency department no information no name (no demetrice ne) no organization name - patient visit (no phone) 08-06-2018 12-08-2014 Emergency department no information no name (no demetrice ne) no organization name - patient visit (no phone) 12-08-2014 12-12-2013 Emergency department no information no name (no demetrice ne) no organization name - patient visit (no phone) 12-12-2013 09-14-2013 Emergency department no information no name (no demetrice ne) no organization name - patient visit (no phone) 09-14-2013 06-22-2018 Limit oral eval problm no information no name (no p makenzie) no organization name focus (no phone) 08-06-2018 Patient encounter no information no name (no phone) no organization name (no phone) 05-25-2018 Patient encounter no information no name (no phone) no organization name (no phone) 05-24-2018 Patient encounter no information no name (no phone) no organization name (no phone) 01-03-2020 Patient encounter no information AMY BRAVO (no [facility] procedure phone) (no phone) [facility] (no phone) 09-11-2019 Patient encounter no information no name (no phone) no organization name procedure (no phone) 09-04-2019 Patient encounter no information no name (no phone) no organization name procedure (no phone) 06-14-2019 Patient encounter no information no name (no phone) no organization name procedure (no phone) 06-02-2019 Patient encounter no information no name (no phone) no organization name procedure (no phone) 05-31-2019 Patient encounter no information no name (no phone) no organization name procedure (no phone) 05-31-2019 Patient encounter no information no name (no phone) no organization name procedure (no phone) 05-30-2019 Patient encounter no information no name (no phone) no organization name procedure (no phone) 03-07-2019 Patient encounter no information no name (no phone) no organization name procedure (no phone) 02-20-2019 Patient encounter no information no name (no phone) no organization name procedure (no phone) 02-20-2019 Patient encounter no information no name (no phone) no organization name procedure (no phone) 02-18-2019 Patient encounter no information no name (no phone) no organization name procedure (no phone) 02-15-2019 Patient encounter no information no name (no phone) no organization name procedure (no phone) 01-23-2019 Patient encounter no information no name (no phone) no organization name procedure (no phone) 01-16-2019 Patient encounter no information no name (no phone) no organization name procedure (no phone) 12-19-2018 Patient encounter no information no name (no phone) no organization name procedure (no phone) 12-16-2018 Patient encounter no information no name (no phone) no organization name procedure (no phone) 12-12-2018 Patient encounter no information no name (no phone) no organization name procedure (no phone) 11-28-2018 Patient encounter no information no name (no phone) no organization name procedure (no phone) 11-24-2018 Patient encounter no information no name (no phone) no organization name procedure (no phone) 11-23-2018 Patient encounter no information AMY Knapp APRN no organization name procedure [employer] Phone: (no phone) 11-23-2018 Patient encounter no information no name (no phone) no organization name procedure (no phone) 11-11-2018 Patient encounter no information no name (no phone) no organization name procedure (no phone) 10-27-2018 Patient encounter no information no name (no phone) no organization name procedure (no phone) 09-19-2018 Patient encounter no information no name (no phone) no organization name procedure (no phone) 08-17-2013 Patient encounter no information no name (no phone) no organization name - procedure (no phone) 08-18-2013 08-15-2013 Patient encounter no information no name (no phone) no organization name procedure (no phone) 01-11-2020 Telephone encounter no information AMY BRAVO (no [facility] phone) (no phone) 10-16-2019 Telephone encounter no information AMY BRAVO (no [facility] - phone) (no phone) 10-16-2019 - 10-16-2019 08-03-2019 Telephone encounter no information AMY BRAVO (no [facility] - phone) (no phone) 08-03-2019 - 08-03-2019 no information Pre-procedural no name (no phone) no organiza tion name laboratory examination (no phone) Medical Equipment The data below is from unstructured sourcesNo Medical Equipment Information available Payers Normalized Payer Value Private Health Insurance [id number]) Private Health Insurance no information ([id number]) Medicaid [id number] ([id number]) Evaluation note Note Type Note Facility Evaluation No Assessments Information Available A scension note [facility] ([id number]) History general Narrative - Reported Note Type Note Facility History general Narrative - Reported Type Medical anxiety History Medical utrerine cancer 2012 History Medical CMT (cervical motion tender ness) History Medical COPD +moderate obstruction on PFTs History Medical Charcot-Farideh Tooth disease - History Medical IBS-D History Surgical hysterectomy with single oophorectomy 2012 History Surgical tonsilectomy History Surgical colonoscopy 06/2018, WNL- Dr Karimi; trial colestid and GB US [facility] ([id number]) Advance Directives Directive Response Recor ded Date Advance Directives N 06/16 12:37pm Organ Donor Y 06/12/13 1 2:37pm Directive Response Recor ded Date Advance Directives N 8:56pm Organ Donor Y 05/17/13 8 :56pm Directive Response Recor ded Date/Time Advance Directives No 12:38pm Health Care Power of Forming Press Operator No 05/30/15 12:38pm Organ Donor No 05/30/15 12:38pm Resuscitation Status Full Code 05/30/15 12:38pm Directive Response Recor ded Date/Time Advance Directives No 12:57pm Health Care Power of Forming Press Operator No 03/18/15 12:57pm Organ Donor No 03/18/15 12:57pm Resuscitation Status Full Code 03/18/15 12:57pm Directive Response Recor ded Date/Time Advance Directives No 1:29pm Health Care Power of Forming Press Operator No 01/28/15 1:29pm Organ Donor Yes 01/28/15 1:29pm Directive Response Recor ded Date Advance Directives N 03/16 7:16am Organ Donor Y 02/06/13 7 :16am Directive Response Recor ded Date/Time Advance Directives No 1:42pm Health Care Power of Forming Press Operator No 04/20/14 1:42pm Organ Donor Yes 04/20/14 1:42pm Resuscitation Status Full Code 04/20/14 1:42pm Directive Response Recor ded Date/Time Advance Directives No 9:13pm Health Care Power of Forming Press Operator No 12/08/14 9:13pm Organ Donor Yes 12/08/14 9:13pm Resuscitation Status Full Code 12/08/14 9:13pm Directive Response Recor ded Date/Time Advance Directives No 6:29am Health Care Power of Forming Press Operator No 03/12/15 6:29am Organ Donor Yes 03/12/15 6:29am Resuscitation Status Full Code 03/12/15 6:29am Directive Response Recor ded Date/Time Advance Directives No 3:35pm Health Care Power of Forming Press Operator No 02/20/15 3:35pm Organ Donor Yes 02/20/15 3:35pm Resuscitation Status Full Code 02/20/15 3:35pm Directive Response Recor ded Date/Time Advance Directives No 9:25pm Health Care Power of Forming Press Operator No 08/06/18 9:25pm Organ Donor No 08/06/18 9:25pm Resuscitation Status Full Code 08/06/18 9:25pm Directive Response Recor ded Date/Time Advance Directives No 12:06pm Health Care Power of Forming Press Operator No 12/16/18 12:06pm Organ Donor No 12/16/18 12:06pm Resuscitation Status Full Code 12/16/18 12:06pm Directive Response Recor ded Date/Time Advance Directives No 7:52am Health Care Power of Forming Press Operator No 05/30/19 7:52am Organ Donor No 05/30/19 7:52am Resuscitation Status Full Code 05/30/19 7:52am Advance Directive Response Recorded Date/Time Advance Directives No Oc tober 2018 8:59am Health Care Power of Forming Press Operator No May 30, 2019 7:52am Organ Donor No May 302018 7:52am Resuscitation Status Full Code August 01, 2019 8:59am Discharge Instructions No hospital discharge instructions.No hospital discharge instructions.No hospital discharge instructions.No hospital discharge instructions.No hospital discharge instructions.No hospital discharge instructions.No hospital discharge instructions.No hospital discharge instruction information available.No hospital discharge instruction information available.No hospital discharge instruction information available. Chief Complaint and Reason for Visit Chief Complaint Cough/Cold/Flu Sympt oms Reason for Visit Upper respiratory i nfection Chief Complaint Trauma-Non Activatio n Reason for Visit Concussion Chief Complaint Dental Problems/Pain Reason for Visit Dental caries Dental abscess Chief Complaint Head/Cervical Proble ms Reason for Visit [id number] Additional Source Comments This clinical document has been generated using [employer] software that has been certified by the Office of the National Coordinator for Health Information Technology (ONC 15.99.04.3023.Diam.31.00.0.906844) and the National Committee for Ge[employer] Field Assistant (NCQA, as an eMeasure certified technology). FOR RECORDS PERTAINING TO PATIENTS WHO ARE OR HAVE BEEN ENROLLED IN A CHEMICAL D EPENDENCY/SUBSTANCE ABUSE PROGRAM, SOME INFORMATION MAY BE OMITTED. This clinica l summary was aggregated from multiple sources. Caution should be exercised in using it in the provision of clinical care. This summary normalizes information from multiple sources, and as a consequence, information in this document may ma terially change the coding, format and clinical context of patient data. In marlee tion, data may be omitted in some cases. CLINICAL DECISIONS SHOULD BE BASED ON T HE PRIMARY CLINICAL RECORDS. [facility] [employer] [facility]. provides no warranty or guara ntee of the accuracy or completeness of information in this document.The followi ng information is based on time limited clinical information UNRECOGNIZED CONTENT PROVIDED BELOW FOR UNRECOGNIZED SECTION REASON FOR VISIT vomiting, nausea, diahrrea, headaches and fatigue for quite some time. Pt recent ly moved from [place], [place] and had blood work there and then they moved.--Marah Warner-[facility] weeks [facility] Saw a provider in [place], and then in [place]--Christo Ugarte Jchristmancough/congestion/ short o f breath for the last 4-5 days.--Kaycee [id number] [id number] up on headaches/ med check and refill- Jguison, MArashcongest ion, cough and wheezing x a few days. Pt thinks she may have had a fever but did not ever take her temp. Pt. also complaining that her chest and back hurt from coughing so much.--REDDY Warner UNRECOGNIZED CONTENT PROVIDED BELOW FOR UNRECOGNIZED SECTION MEDICAL (GENERAL) HISTORY Type Description Date Medical History anxiety Medical History utrerine cancer 2012 Medical History CMT (cervical motion tenderness) Surgical History hysterectomy with s lev oophorectomy 2012 Surgical History tonsilectomy Hospitalization History colonoscopy Type Description Date Medical History anxiety Medical History utrerine cancer 2012 Medical History CMT (cervical motion tenderness) Surgical History hysterectomy with s lev oophorectomy 2012 Surgical History tonsilectomy Surgical History colonoscopy 06/2018, AZALIA Karimi; trial colestid and GB US Hospitalization History colonoscopy Type Description Date Medical History anxiety Medical History utrerine cancer 2012 Medical History CMT (cervical motion tenderness) Medical History COPD +moderate obstr uction on PFTs Medical History Charcot-Farideh Tooth disease- Surgical History hysterectomy with s lev oophorectomy 2012 Surgical History tonsilectomy Surgical History colonoscopy 06/2018, AZALIA Karimi; trial colestid and GB US Hospitalization History colonoscopy Type Description Date Medical History anxiety Medical History utrerine cancer 2012 Medical History CMT (cervical motion tenderness) Medical History COPD +moderate obstr uction on PFTs Medical History Charcot-Farideh Tooth disease- Medical History IBS-D Surgical History hysterectomy with s lev oophorectomy 2012 Surgical History tonsilectomy Surgical History colonoscopy 06/2018, WNL- Dr Karimi; trial colestid and GB US Hospitalization History colonoscopy
--- OUTSIDE RECORDS SUMMARY | 2020-01-16 14:55 | XMS REPORT ---
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 Name Role Phone RUTHANN VALLECILLOWNYA Unavailable PROBLEMS Type Condition ICD9-CM Code [id number] Code Onset Dates Condition S tatus SNOMED Code Problem Hemiplegic migraine without status migrainosus, not intractable G43.409 Active 44917228 Problem Tongue pain K14.6 Active 40592219 Problem COPD exacerbation J44.1 Active 19 1644378 Problem Insomnia, unspecified type G47.00 Act valencia [id number] Problem Adjustment disorder with depressed mood F43.21 Active 79415040 Problem 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 405964739 Problem Chronic obstructive pulmonary disease, unspecified COPD ty pe J44.9 Active [id number] ALLERGIES No Information ENCOUNTERS Encounter Location Date Diagnosis [facility] [address] [address] Jan, [facility] [address] [address] Jan, Shortness of breath R06.02 ; COPD exacerbation J44.1 and Pneumonia of left upper lobe due to infectious organism J18.9 [facility] [address] [place] [id number] [place] [phone] Nov, COPD exacerbation J44.1 and Nausea R11.0 [facility] [id number] [place] [address] Oct, [facility] [id number] [place] [id number] Sep, Tongue pain K14.6 [facility] [id number] [place] [address] Sep, Bronchitis J40 [facility] [address] [id number] [address] [place] [phone] Jul, [facility] [address] [id number] [address] [place] [phone] Jun, Caries K02.9 [facility] [address] [id number] [address] [place] [place] [phone] Jun, Diarrhea, unspecified type R 19.7 ; Chronic obstructive pulmonary disease, unspecified COPD type J44.9 ; 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 [id number] [address] [place] [phone] Jun, [facility] [address] [id number] [address] [place] [place] [phone] Jun, [facility] [address] [id number] [address] [place] [phone] Jun, Dental examination Z01.20 [facility] [address] [facility] [id number] [address] [place] [place] [phone] May, Nausea R11.0 and Mouth pain K13.79 [facility] [address] [id number] [address] [place] [phone] May, [facility] [address] [id number] [address] [place] [id number] May, Dental examination Z01.20 [facility] [address] [id number] [address] [place] [place] [phone] May, Mouth pain K13.79 and Dental abscess K04.7 [facility] [address] [id number] [address] [place] [phone] Mar, [facility] [address] [place] [id number] [address] [place] [phone] Mar, Chronic bronchitis, unspecif ied chronic bronchitis type J42 [place] [address] [address] Mar, Chronic bronchitis, unspecif ied chronic bronchitis type J42 ; Adjustment disorder with depressed mood F43.21 ; Hemiplegic migraine without status migrainosus, not intractable G43.409 and 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 [place] [address] [address] February, Right hand pain M79.641 [facility] [place] [address] [address] February, Right hand pain M79.641 and Contusion of left shoulder, initial encounter S40.012A [place] [address] [address] February, Chronic bronchitis, unspecif ied chronic bronchitis type J42 and Tobacco abuse counseling Z71.6 [place] [address] [address] Jan, Chronic bronchitis, unspecif ied chronic bronchitis type J42 and Tobacco abuse counseling Z71.6 [place] [address] [address] Jan, Adjustment disorder with dep ressed mood F43.21 [place] [address] [place] [id number] [place] [place] [phone] Dec, [facility] [address] [address] Dec, Wheezing R06.2 and Viral upp er respiratory tract infection J06.9 [place] [address] [place] [id number] [place] [place] [phone] Dec, Adjustment disorder with dep ressed mood F43.21 ; Hemiplegic migraine without status migrainosus, not intractable G43.409 and Herpes B00.9 [facility] [address] [facility] [id number] [address] [place] [place] [phone] Nov, [facility] [address] [facility] [id number] [address] [place] [id number] Nov, Adjustment disorder with dep ressed mood F43.21 [facility] [address] [id number] [address] [place] [place] [address] Nov, [facility] [id number] [place] [phone] Nov, Hemiplegic migraine without status migrainosus, not intractable G43.409 and Insomnia, unspecified type G47.00 [facility] [address] [id number] [place] [phone] Nov, Adjustment disorder with dep ressed mood F43.21 [facility] [address] [id number] [place] [place] [phone] Oct, Adjustment disorder with dep ressed mood F43.21 [facility] [address] [place] [id number] [address] [place] [phone] Oct, [facility] [address] [address] [id number] [address] [place] [place] [phone] Jul, Cough R05 [facility] [address] [id number] [place] [place] [phone] Jul, Cough R05 [facility] [address] [address] [id number] [place] [phone] Jul, [facility] [address] [address] [id number] [place] [place] [phone] Jul, [facility] [address] [place] [id number] [place] [address] [id number] Jun, Dental examination Z01.20 [facility] [id number] [place] [address] [phone] Jun, Dental examination Z01.20 an d Caries of arrested teeth K02.3 [facility] [address] [facility] [id number] [address] [place] [place] [phone] 05 Jun, 2018 Chronic diarrhea K52.9 [facility] [address] [facility] [id number] [address] [place] [place] [phone] May, Diarrhea, unspecified type R 19.7 ; Non-intractable vomiting with nausea, unspecified vomiting type R11.2 and Screening for thyroid disorder Z13.29 [facility] [address] [facility] [id number] [address] [place] [place] [phone] May, Diarrhea, unspecified type R 19.7 and Nausea and vomiting in adult R11.2 [facility] [address] [facility] [id number] [address] [place] [place] [id number] 14 Jan, 2015 [facility] [address] [id number] [address] [place] [place] [phone] Jan, [facility] [address] [address] [id number] [address] [place] [phone] Dec, [facility] [address] [id number] [address] [place] [phone] Dec, [facility] [address] [address] [id number] [address] [place] [phone] Dec, [facility] [address] [id number] [address] [place] [phone] Dec, [facility] [address] [address] [id number] [address] [place] [phone] Nov, [facility] [address] [id number] [address] [place] [phone] Nov, [facility] [address] [id number] [address] [place] [phone] Nov, [facility] [address] [id number] [address] [place] [phone] Nov, [facility] [address] [id number] [address] [place] [address], [place] [address] Oct, [facility] [address] [id number] [address] [place] [address], [place] [address] Oct, [facility] [address] [id number] [address] [place] [address], [place] [address] Sep, [facility] [address] [id number] [address] [place] [address], [place] [address] Sep, [facility] [address] [id number] [address] [place] [address], [place] [address] Sep, [facility] [address] [id number] [address] [place] [address], [place] [address] Sep, [facility] [address] [id number] [address] [place] [address], [place] [address] Sep, [facility] [address] [id number] [address] [place] [address], [place] [address] Aug, [facility] [address] [id number] [address] [place] [address], [place] [address] Aug, [facility] [address] [id number] [address] [place] [address], [place] [address] Aug, [facility] [address] [id number] [address] [place] [address], [place] [address] Aug, [facility] [address] [id number] [address] [place] [address], [place] [address] Jul, [facility] [address] [id number] [address] [place] [address], [place] [address] Jul, [facility] [address] [id number] [address] [place] [address], [place] [address] May, [facility] [address] [id number] [address] [place] [address], [place] [address] May, [facility] [address] [id number] [address] [place] [address], [place] [address] May, [facility] [address] [id number] [address] [place] [address], [place] [address] May, [facility] [address] [id number] [address] [place] [address], [place] [address] Apr, [facility] [address] [id number] [address] [place] [address], [place] [address] Apr, [facility] [address] [id number] [address] [place] [address], [place] [address] Apr, [facility] [address] [id number] [address] [place] [address], [place] [address] Apr, [facility] [address] [id number] [address] [place] [address], [place] [address] Apr, [facility] [address] [id number] [address] [place] [address], [place] [address] Apr, [facility] [address] [id number] [address] [place] [address], [place] [address] Apr, [facility] [address] [id number] [address] [place] [address], [place] [address] Mar, [facility] [address] [id number] [address] [place] [address], [place] [address] Mar, [facility] [address] [id number] [address] [place] [address], [place] [address] February, [facility] [address] [id number] [address] [place] [address], [place] [address] February, [facility] [address] [id number] [address] [place] [address], [place] [address] February, [facility] [address] [id number] [address] [place] [address], [place] [address] February, [facility] [address] [id number] [address] [place] [address], [place] [address] Jan, [facility] [address] [id number] [address] [address] Jan, [facility] [address] [facility] [id number] [address] [place] [place] [phone] Sep, [facility] [address] [facility] [id number] [address] [place] [phone] Sep, IMMUNIZATIONS No Known Immunizations SOCIAL HISTORY Never Assessed REASON FOR VISIT PLAN OF CARE VITAL SIGNS Height 69 in 2014-05-28 Weight 199.4 lbs 2014-05-28 Temperature 98.1 degrees Fahrenheit 2014-05-28 Heart Rate 74 bpm 2014-05-28 Respiratory Rate 18 2014-05-28 Blood pressure systolic 116 mmHg 2014-05-28 Blood pressure diastolic 76 mmHg 2014-05-28 MEDICATIONS Unknown Medications RESULTS No Results PROCEDURES No Known procedures INSTRUCTIONS MEDICATIONS ADMINISTERED No Known Medications MEDICAL (GENERAL) HISTORY Type Description Date Medical History anxiety Medical History utrerine cancer 2012 Medical History CMT (cervical motion tenderness) Medical History COPD +moderate obstruction on PFTs Medical History Charcot-Farideh Tooth disease- Medical History IBS-D Surgical History hysterectomy with single oophorectomy 20 13 Surgical History tonsilectomy Surgical History colonoscopy 06/2018, WNL- Dr Karimi; tria l colestid and GB US Hospitalization History colonoscopy
--- OUTSIDE RECORDS SUMMARY | 2020-01-16 14:55 | XMS REPORT ---
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 Name Role Phone JOSE VALLECILLOA Unavailable PROBLEMS Type Condition ICD9-CM Code [id number] Code Onset Dates Condition S tatus SNOMED Code Problem Chronic obstructive pulmonary disease, unspecified COPD ty pe J44.9 Active 21792112 Problem Tongue pain K14.6 Active 56542661 Problem Hemiplegic migraine without status migrainosus, not intractable G43.409 Active 98824886 Problem Insomnia, unspecified type G47.00 Act valencia 762427644 Problem Adjustment disorder with depressed mood F43.21 Active 46712249 Problem 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 870744633 ALLERGIES No Information ENCOUNTERS Encounter Location Date Diagnosis [facility] [address] [address] Oct, [facility] [address] [id number] [address] [place] [address] Sep, Tongue pain K14.6 [facility] [address] [id number] [address] [place] [address] Sep, Bronchitis J40 [facility] [address] [id number] [place] [address] Jul, [facility] [address] [facility] [place] [id number] Jun, Caries K02.9 [facility] [address] [address] Jun, Diarrhea, unspecified type R19.7 ; Chron ic obstructive pulmonary disease, unspecified COPD type J44.9 ; 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 ; Tobacco abuse counseling Z71.6 and Encounter for immunization Z23 [facility] [address] [address] Jun, [facility] [address] [address] Jun, [facility] [address] [address] Jun, [facility] [address] [id number] Jun, Dental examination Z01.20 [facility] [address] [address] May, Nausea R11.0 and Mouth pain K13.79 [facility] [address] [id number] May, [facility] [address] [address] May, Dental examination Z01.20 [facility] [address] [address] May, Mouth pain K13.79 and Dental abscess K04.7 [place] [address] [address] Mar, [place] [address] [address] Mar, Chronic bronchitis, unspecified chronic bronchitis type J42 [place] [address] [address] Mar, Chronic bronchitis, unspecified chronic bronchitis type J42 ; Adjustment disorder with depressed mood F43.21 ; Hemiplegic migraine without status migrainosus, not intractable G43.409 and 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 [place] [address] [address] February, Right hand pain M79.641 [facility] [address] [address] February, Right hand pain M79.641 and Contusion of left shoulder, initial encounter S40.012A [place] [address] [address] February, Chronic bronchitis, unspecified chronic bronchitis type J42 and Tobacco abuse counseling Z71.6 [place] [address] [address] Jan, Chronic bronchitis, unspecified chronic bronchitis type J42 and Tobacco abuse counseling Z71.6 [place] [address] [address] Jan, Adjustment disorder with depressed mood F43.21 [place] [address] [address] Dec, [facility] [address] [facility] [id number] [address] [place] [address] Dec, Wheezing R06.2 and Viral upp er respiratory tract infection J06.9 [place] [address] [address] Dec, Adjustment disorder with depressed mood F43.21 ; Hemiplegic migraine without status migrainosus, not intractable G43.409 and Herpes B00.9 [place] [address] [address] Nov, [place] [address] [address] Nov, Adjustment disorder with depressed mood F43.21 [place] [address] [address] Nov, [address] [address] Nov, Hemiplegic migraine without status migra inosus, not intractable G43.409 and Insomnia, unspecified type G47.00 [place] [address] [address] 08 Nov, 2018 Adjustment disorder with depressed mood F43.21 [facility] [address] [address] Oct, Adjustment disorder with depressed mood F43.21 [facility] [address] [address] Oct, [facility] [address] [place] [address] Jul, Cough R05 [facility] [address] [address] Jul, Cough R05 [facility] [address] [address] Jul, [place] [address] [address] Jul, [facility] [address] [id number] 28 Jun, 2018 Dental examination Z01.20 [facility] [address] [id number] 19 Jun, 2018 Dental examination Z01.20 and Caries of arrested teeth K02.3 [place] [address] [address] 05 Jun, 2018 Chronic diarrhea K52.9 [place] [address] [address] May, Diarrhea, unspecified type R19.7 ; Non-i ntractable vomiting with nausea, unspecified vomiting type R11.2 and Screening for thyroid disorder Z13.29 [facility] [address] [id number] [address] [place] [address] May, Diarrhea, unspecified type R 19.7 and Nausea and vomiting in adult R11.2 [facility] [address] [address] Jan, [place] [address] [address] Jan, [facility] [address] [id number] [place] [address] 16 Dec, 2014 [facility] [address] [id number] [place] [address] Dec, 2014 [facility] [address] [id number] [place] [address] Dec, 2014 [facility] [address] [id number] [place] [address] Dec, 2014 [facility] [address] [id number] [place] [address] Nov, [facility] [address] [id number] [place] [address] Nov, 2014 [facility] [address] [id number] [place] [address] Nov, [facility] [address] [id number] [place] [address] Nov, [facility] [address] [id number] [place] [address] Oct, [facility] [address] [id number] [place] [address] Oct, [facility] [address] [id number] [place] [address] Sep, [facility] [address] [id number] [place] [address] Sep, [facility] [address] [id number] [place] [address] Sep, [facility] [address] [id number] [place] [address] Sep, [facility] [address] [id number] [place] [address] Sep, [facility] [address] [id number] [place] [address] Aug, [facility] [address] [id number] [place] [address] Aug, [facility] [address] [facility] [id number] [place] [address] Aug, [facility] [address] [facility] [id number] [facility] [place] [address] Aug, [facility] [address] [facility] [id number] [place] [address] Jul, [facility] [address] [facility] [id number] [place] [address] Jul, [facility] [address] [facility] [id number] [facility] [place] [address] May, [facility] [address] [facility] [id number] [place] [address] May, [facility] [address] [id number] [place] [address] May, [facility] [address] [id number] [place] [address] May, [facility] [address] [facility] [id number] [place] [address] Apr, [facility] [address] [id number] [place] [address] Apr, [facility] [address] [id number] [place] [address] Apr, [facility] [address] [id number] [place] [address] Apr, [facility] [address] [facility] [id number] [place] [address] Apr, [facility] [address] [facility] [id number] [place] [address] Apr, [facility] [address] [facility] [id number] [place] [address] Apr, [facility] [address] [id number] [place] [address] Mar, [facility] [address] [id number] [place] [address] Mar, [facility] [id number] [place] [address] February, [facility] [id number] [place] [address] February, [facility] [id number] [place] [address] February, [facility] [address] [address] February, [facility] [id number] [place] [address] Jan, [facility] [address] [address] Jan, [facility] [id number] [place] [address] Sep, [facility] [id number] [place] [address] Sep, IMMUNIZATIONS No Known Immunizations SOCIAL HISTORY Never Assessed REASON FOR VISIT PLAN OF CARE VITAL SIGNS Height 69 in 2014-02-05 Weight 420.7 lbs 2014-02-05 Temperature 98.9 degrees Fahrenheit 2014-02-05 Heart Rate 80 bpm 2014-02-05 Respiratory Rate 20 2014-02-05 Blood pressure systolic 130 mmHg 2014-02-05 Blood pressure diastolic 62 mmHg 2014-02-05 MEDICATIONS Unknown Medications RESULTS No Results PROCEDURES No Known procedures INSTRUCTIONS MEDICATIONS ADMINISTERED No Known Medications MEDICAL (GENERAL) HISTORY Type Description Date Medical History anxiety Medical History utrerine cancer 2012 Medical History CMT (cervical motion tenderness) Medical History COPD +moderate obstruction on PFTs Medical History Charcot-Farideh Tooth disease- Medical History IBS-D Surgical History hysterectomy with single oophorectomy 13 Surgical History tonsilectomy Surgical History colonoscopy 06/2018, WNL- Dr Karimi; tria l colestid and GB US Hospitalization History colonoscopy
--- OUTSIDE RECORDS SUMMARY | 2020-01-16 14:55 | XMS REPORT ---
Author Author Alena VALLECILLOWNYA Organization [facility] Address [address] [place] [address] Care Team Providers Care Web Marketing Coordinator Name Role Phone JOSE VALLECILLOA Unavailable PROBLEMS Type Condition ICD9-CM Code QZS84-RA Code Onset Dates Condition S tatus SNOMED Code Problem Chronic obstructive pulmonary disease, unspecified COPD ty pe J44.9 Active 15096489 Problem Tongue pain K14.6 Active 84040360 Problem Hemiplegic migraine without status migrainosus, not intractable G43.409 Active 22215466 Problem Insomnia, unspecified type G47.00 Act valencia 522857069 Problem Adjustment disorder with depressed mood F43.21 Active 85157587 Problem 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 697293974 ALLERGIES No Information ENCOUNTERS Encounter Location Date Diagnosis [facility] [address] [address] Oct, [facility] [address] [id number] [address] [place] [address] Sep, Tongue pain K14.6 [facility] [address] [place] [id number] [address] [place] [address] Sep, Bronchitis J40 [facility] [id number] [place] [address] Jul, [facility] [address] [id number] [place] [id number] Jun, Caries K02.9 [facility] [address] [address] Jun, Diarrhea, unspecified type R19.7 ; Chron ic obstructive pulmonary disease, unspecified COPD type J44.9 ; 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 ; Tobacco abuse counseling Z71.6 and Encounter for immunization Z23 [facility] [address] [address] Jun, [facility] [address] [address] Jun, [facility] [address] [address] Jun, [facility] [address] [place] [address] [id number] Jun, Dental examination Z01.20 [facility] [address] [address] May, Nausea R11.0 and Mouth pain K13.79 [facility] [address] [id number] May, [facility] [address] [address] May, Dental examination Z01.20 [facility] [address] [address] May, Mouth pain K13.79 and Dental abscess K04.7 [place] [address] [address] Mar, [place] [address] [address] Mar, Chronic bronchitis, unspecified chronic bronchitis type J42 [place] [address] [address] Mar, Chronic bronchitis, unspecified chronic bronchitis type J42 ; Adjustment disorder with depressed mood F43.21 ; Hemiplegic migraine without status migrainosus, not intractable G43.409 and 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 [place] [address] [address] February, Right hand pain M79.641 [facility] [address] [address] February, Right hand pain M79.641 and Contusion of left shoulder, initial encounter S40.012A [place] [address] [address] February, Chronic bronchitis, unspecified chronic bronchitis type J42 and Tobacco abuse counseling Z71.6 [place] [address] [address] Jan, Chronic bronchitis, unspecified chronic bronchitis type J42 and Tobacco abuse counseling Z71.6 [place] [address] [address] Jan, Adjustment disorder with depressed mood F43.21 [place] [address] [address] Dec, [facility] [address] [facility] [id number] [address] [place] [address] Dec, Wheezing R06.2 and Viral upp er respiratory tract infection J06.9 [place] [address] [address] Dec, Adjustment disorder with depressed mood F43.21 ; Hemiplegic migraine without status migrainosus, not intractable G43.409 and Herpes B00.9 [place] [address] [address] Nov, [place] [address] [address] Nov, Adjustment disorder with depressed mood F43.21 [place] [address] [address] Nov, [address] [address] Nov, Hemiplegic migraine without status migra inosus, not intractable G43.409 and Insomnia, unspecified type G47.00 [place] [address] [address] 08 Nov, 2018 Adjustment disorder with depressed mood F43.21 [facility] [address] [address] Oct, Adjustment disorder with depressed mood F43.21 [facility] [address] [address] Oct, [facility] [address] [place] [address] Jul, Cough R05 [facility] [address] [address] Jul, Cough R05 [facility] [address] [address] Jul, [place] [address] [address] Jul, [facility] [address] [id number] 28 Jun, 2018 Dental examination Z01.20 [facility] [address] [id number] 19 Jun, 2018 Dental examination Z01.20 and Caries of arrested teeth K02.3 [place] [address] [address] 05 Jun, 2018 Chronic diarrhea K52.9 [place] [address] [address] May, Diarrhea, unspecified type R19.7 ; Non-i ntractable vomiting with nausea, unspecified vomiting type R11.2 and Screening for thyroid disorder Z13.29 [facility] [address] [address] [id number] [address] [place] [address] May, Diarrhea, unspecified type R 19.7 and Nausea and vomiting in adult R11.2 [facility] [address] [address] Jan, [place] [address] [address] Jan, [facility] [address] [id number] [place] [address] 16 Dec, 2014 [facility] [address] [id number] [place] [address] Dec, 2014 [facility] [address] [id number] [place] [address] Dec, 2014 [facility] [address] [id number] [place] [address] Dec, 2014 [facility] [address] [id number] [place] [address] Nov, [facility] [address] [id number] [place] [address] Nov, 2014 [facility] [address] [id number] [place] [address] Nov, [facility] [address] [id number] [place] [address] Nov, [facility] [address] [id number] [place] [address] Oct, [facility] [address] [id number] [place] [address] Oct, [facility] [address] [id number] [place] [address] Sep, [facility] [address] [id number] [place] [address] Sep, [facility] [address] [id number] [place] [address] Sep, [facility] [address] [id number] [place] [address] Sep, [facility] [address] [id number] [place] [address] Sep, [facility] [address] [id number] [place] [address] Aug, [facility] [address] [id number] [place] [address] Aug, [facility] [address] [facility] [id number] [place] [address] Aug, [facility] [address] [facility] [id number] [facility] [place] [address] Aug, [facility] [address] [facility] [id number] [place] [address] Jul, [facility] [address] [facility] [id number] [place] [address] Jul, [facility] [address] [facility] [id number] [facility] [place] [address] May, [facility] [address] [facility] [id number] [place] [address] May, [facility] [address] [id number] [place] [address] May, [facility] [address] [id number] [place] [address] May, [facility] [address] [facility] [id number] [place] [address] Apr, [facility] [address] [id number] [place] [address] Apr, [facility] [address] [id number] [place] [address] Apr, [facility] [address] [id number] [place] [address] Apr, [facility] [address] [facility] [id number] [place] [address] Apr, [facility] [address] [facility] [id number] [place] [address] Apr, [facility] [address] [facility] [id number] [place] [address] Apr, [facility] [address] [id number] [place] [address] Mar, [facility] [address] [id number] [place] [address] Mar, [facility] [id number] [place] [address] February, [facility] [id number] [place] [address] February, [facility] [id number] [place] [address] February, [facility] [address] [address] February, [facility] [address] [address] Jan, [facility] [address] [address] Jan, [facility] [address] [address] Sep, [facility] [id number] [place] [address] Sep, IMMUNIZATIONS No Known Immunizations SOCIAL HISTORY Never Assessed REASON FOR VISIT PLAN OF CARE VITAL SIGNS Height 69 in 2014-04-26 Weight 197.5 lbs 2014-04-26 Temperature 96.8 degrees Fahrenheit 2014-04-26 Heart Rate 72 bpm 2014-04-26 Respiratory Rate 18 2014-04-26 Blood pressure systolic 122 mmHg 2014-04-26 Blood pressure diastolic 74 mmHg 2014-04-26 MEDICATIONS Unknown Medications RESULTS No Results PROCEDURES Procedure Date Ordered Result Body Site COMPLETE CBC W/AUTO DIFF WBC April 26, 2014 ASSAY THYROID STIM HORMONE April 26, 2014 COMPREHEN METABOLIC PANEL April 26, 2014 VENIPUNCT, ROUTINE* April 26, 2014 INSTRUCTIONS MEDICATIONS ADMINISTERED No Known Medications MEDICAL [...]
--- OUTSIDE RECORDS SUMMARY | 2020-01-16 14:55 | XMS REPORT ---
Author Author Alena MADRID Organization [facility] Address [address] [place] [address] Care Team Providers Care Silver Steward Name Role Phone MERCYELVIRAY Unavailable PROBLEMS Type Condition ICD9-CM Code JHS92-MH Code Onset Dates Condition S tatus SNOMED Code Problem Chronic obstructive pulmonary disease, unspecified COPD ty pe J44.9 Active 93510698 Problem Tongue pain K14.6 Active 82989940 Problem Hemiplegic migraine without status migrainosus, not intractable G43.409 Active 45165304 Problem Insomnia, unspecified type G47.00 Act valencia 686896289 Problem Adjustment disorder with depressed mood F43.21 Active 30897801 Problem 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 hallucinates Non Drug Allergy Dec, Active ENCOUNTERS Encounter Location Date Diagnosis [facility] [id number] [place] [address] Oct, [facility] [address] [id number] [address] [place] [address] Sep, Tongue pain K14.6 [facility] [address] [facility] [id number] [address] [place] [address] Sep, Bronchitis J40 [facility] [address] [id number] [place] [address] Jul, [facility] [address] [id number] [place] [id number] Jun, Caries K02.9 [facility] [address] [place] [address] [address] Jun, Diarrhea, unspecified type R19.7 ; Chron ic obstructive pulmonary disease, unspecified COPD type J44.9 ; 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 ; Tobacco abuse counseling Z71.6 and Encounter for immunization Z23 [place] [address] [address] Jun, [place] [address] [place] [address] Jun, [place] [address] [address] Jun, [facility] [address] [id number] Jun, Dental examination Z01.20 [facility] [place] [address] [address] May, Nausea R11.0 and Mouth pain K13.79 [facility] [address] [id number] May, [place] [address] [place] [id number] May, Dental examination Z01.20 [facility] [address] [address] May, Mouth pain K13.79 and Dental abscess K04.7 [place] [address] [address] Mar, [place] [address] [address] Mar, Chronic bronchitis, unspecified chronic bronchitis type J42 [place] [id number] Mar, Chronic bronchitis, unspecified chronic bronchitis type J42 ; Adjustment disorder with depressed mood F43.21 ; Hemiplegic migraine without status migrainosus, not intractable G43.409 and 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 [place] [address] [address] February, Right hand pain M79.641 [facility] [address] [facility] [id number] [address] [place] [address] February, Right hand pain M79.641 and Contusion of left shoulder, initial encounter S40.012A [place] [address] [address] February, Chronic bronchitis, unspecified chronic bronchitis type J42 and Tobacco abuse counseling Z71.6 [place] [address] [address] Jan, Chronic bronchitis, unspecified chronic bronchitis type J42 and Tobacco abuse counseling Z71.6 [place] [address] [address] Jan, Adjustment disorder with depressed mood F43.21 [place] [address] [address] Dec, [facility] [address] [facility] [id number] [address] [place] [address] Dec, Wheezing R06.2 and Viral upp er respiratory tract infection J06.9 [place] [address] [address] Dec, Adjustment disorder with depressed mood F43.21 ; Hemiplegic migraine without status migrainosus, not intractable G43.409 and Herpes B00.9 [place] [address] [address] Nov, [place] [address] [address] Nov, Adjustment disorder with depressed mood F43.21 [place] [address] [address] Nov, [place] [address] [address] Nov, Hemiplegic migraine without status migra inosus, not intractable G43.409 and Insomnia, unspecified type G47.00 [place] [address] [address] Nov, Adjustment disorder with depressed mood F43.21 [place] [address] [address] Oct, Adjustment disorder with depressed mood F43.21 [place] [address] [address] Oct, [facility] [place] [address] [address] Jul, Cough R05 [facility] [place] [address] [address] Jul, Cough R05 [place] [address] [address] Jul, [place] [address] [address] Jul, [facility] [address] [id number] Jun, Dental examination Z01.20 [facility] [address] [id number] 19 Jun, 2018 Dental examination Z01.20 and Caries of arrested teeth K02.3 [place] [address] [address] 05 Jun, 2018 Chronic diarrhea K52.9 [place] [address] [address] May, Diarrhea, unspecified type R19.7 ; Non-i ntractable vomiting with nausea, unspecified vomiting type R11.2 and Screening for thyroid disorder Z13.29 [facility] [place] [address] [place] [id number] [address] [place] [address] May, Diarrhea, unspecified type R 19.7 and Nausea and vomiting in adult R11.2 [place] [address] [id number] [place] [address] 14 Jan, 2015 [facility] [address] [id number] [place] [address] 13 Jan, 2015 [facility] [address] [id number] [place] [address] 16 Dec, 2014 [facility] [address] [id number] [place] [address] 16 Dec, 2014 [facility] [address] [id number] [place] [address] Dec, [facility] [address] [id number] [place] [address] Dec, [facility] [address] [id number] [place] [address] Nov, [facility] [address] [id number] [place] [address] Nov, [facility] [address] [id number] [place] [address] Nov, [facility] [address] [id number] [place] [address] Nov, [facility] [address] [id number] [place] [address] Oct, [facility] [address] [id number] [place] [address] Oct, [facility] [address] [id number] [place] [address] Sep, [facility] [address] [id number] [place] [address] Sep, [facility] [address] [id number] [place] [address] Sep, [facility] [address] [id number] [place] [address] Sep, [facility] [address] [id number] [place] [address] Sep, [facility] [address] [facility] [id number] [place] [address] Aug, [facility] [address] [facility] [id number] [facility] [place] [address] Aug, [facility] [address] [id number] [place] [address] Aug, [facility] [address] [facility] [id number] [place] [address] Aug, [facility] [address] [facility] [id number] [place] [address] Jul, [facility] [address] [id number] [place] [address] Jul, [facility] [address] [id number] [place] [address] May, [facility] [address] [id number] [place] [address] May, [facility] [address] [id number] [place] [address] May, [facility] [address] [id number] [place] [address] May, [facility] [address] [id number] [place] [address] Apr, [facility] [address] [id number] [place] [address] Apr, [facility] [address] [facility] [id number] [place] [address] Apr, [facility] [address] [id number] [place] [address] Apr, [facility] [address] [id number] [place] [address] Apr, [facility] [address] [id number] [place] [address] Apr, [facility] [address] [id number] [place] [address] Apr, [facility] [id number] [place] [address] Mar, [facility] [id number] [place] [address] Mar, [facility] [id number] [place] [address] February, [facility] [address] [address] February, [facility] [address] [address] February, [facility] [address] [address] February, [facility] [address] [address] Jan, [facility] [address] [address] Jan, [facility] [id number] [place] [address] Sep, [facility] [address] [address] Sep, IMMUNIZATIONS No Known Immunizations SOCIAL HISTORY Never Assessed REASON FOR VISIT congestion, cough and wheezing x a few days. Pt thinks she may have had a fever but did not ever take her temp. Pt. also complaining that her chest and back h urt from coughing so much.--REDDY Warner PLAN OF CARE Activity Details Follow Up as needed or reg fu with pc p Reason:PCP for wheezing work up. VITAL SIGNS Height 69 in 2018-12-19 Weight 209.3 lbs 2018-12-19 Temperature 97.8 degrees Fahrenheit 2018-12-19 Heart Rate 82 bpm 2018-12-19 Respiratory Rate 24 2018-12-19 Oximetry 97 % 2018-12-19 BMI 30.9 kg/m2 2018-12-19 Blood pressure systolic 90 mmHg 2018-12-19 Blood pressure diastolic 56 mmHg 2018-12-19 MEDICATIONS Medication Instructions Dosage Frequency Start Date End Date Duration S tatus ProAir HFA 108 (90 Base) MCG/ACT Inhalation every 4 hrs 2 puffs as needed 4h Dec, 7 days Active PredniSONE 20 mg Orally Once a day 2 tablet 24h Dec, 5 days Active ProAir HFA 108 (90 Base) MCG/ACT Inhalation every 6 hrs 2 puffs as needed 6h 30 Jul, 2018 Active Gabapentin 300 mg Orally 2 times a day 1 capsule 12h 30 days Active Amitriptyline HCl 25 MG Orally Once a day at night 1 tablet Nov, 30 days Active Imitrex 25 MG 1 tablet as needed f or JAVED, may repeat in 2hr x 1 in JAVED not improved February, 30 days Active Lexapro 20 mg Orally Once a day 1 tablet 24h Dec, 30 day(s) Active EPINEPHrine 0.3 mg/0.3ml 0.3 mg by Intra muscular route 1 time per day PRN 2 pack epi pen Dec, Active Azithromycin 250 MG Orally Once a day 2 tablets on the fi rst day, then 1 tablet daily for 4 days 24h Dec, 5 day(s) Active Gabapentin 600 MG Orally in addition to a 300 mg to equal 900 at bedtime Once a day 1 tablet 24h 30 days Active RESULTS No Results PROCEDURES No Known [...] Surgical History colonoscopy 06/2018, WNL- Dr Karimi; rosa gonzalez colestid and GB US Hospitalization History colonoscopy
--- OUTSIDE RECORDS SUMMARY | 2020-01-16 14:56 | XMS REPORT ---
Author Author Alena VALLECILLOWNYA Organization [facility] Address [address] [place] [address] Care Team Providers Care Life Agent Name Role Phone RUTHANN VALLECILLOWNYA Unavailable PROBLEMS Type Condition ICD9-CM Code JJB14-KU Code Onset Dates Condition S tatus SNOMED Code Problem Chronic obstructive pulmonary disease, unspecified COPD ty pe J44.9 Active 15396657 Problem Tongue pain K14.6 Active 65450236 Problem Hemiplegic migraine without status migrainosus, not intractable G43.409 Active 14760538 Problem Insomnia, unspecified type G47.00 Act valencia 937139756 Problem Adjustment disorder with depressed mood F43.21 Active 26510589 Problem 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 086478218 ALLERGIES No Information ENCOUNTERS Encounter Location Date Diagnosis [facility] [id number] [address] [place] [address] Sep, Tongue pain K14.6 [facility] [address] [id number] [address] [place] [address] Sep, Bronchitis J40 [facility] [address] [id number] [place] [address] Jul, [facility] [address] [facility] [place] [id number] Jun, Caries K02.9 [facility] [address] [address] Jun, Diarrhea, unspecified type R19.7 ; Chron ic obstructive pulmonary disease, unspecified COPD type J44.9 ; 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 ; Tobacco abuse counseling Z71.6 and Encounter for immunization Z23 [facility] [address] [address] Jun, [facility] [address] [address] Jun, [facility] [address] [address] Jun, [facility] [address] [id number] Jun, Dental examination Z01.20 [facility] [address] [place] [id number] [place] [address] May, Nausea R11.0 and Mouth pain K13.79 [facility] [address] [id number] May, [place] [address] [address] May, Dental examination Z01.20 [facility] [place] [address] [address] [id number] [place] [address] May, Mouth pain K13.79 and Dental abscess K04.7 [place] [address] [address] Mar, [place] [address] [address] Mar, Chronic bronchitis, unspecified chronic bronchitis type J42 [place] [address] [address] Mar, Chronic bronchitis, unspecified chronic bronchitis type J42 ; Adjustment disorder with depressed mood F43.21 ; Hemiplegic migraine without status migrainosus, not intractable G43.409 and 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 [place] [address] [address] February, Right hand pain M79.641 [facility] [address] [place] [id number] [place] [address] February, Right hand pain M79.641 and Contusion of left shoulder, initial encounter S40.012A [place] [address] [address] February, Chronic bronchitis, unspecified chronic bronchitis type J42 and Tobacco abuse counseling Z71.6 [place] [address] [address] Jan, Chronic bronchitis, unspecified chronic bronchitis type J42 and Tobacco abuse counseling Z71.6 [place] [address] [address] Jan, Adjustment disorder with depressed mood F43.21 [place] [address] [address] Dec, [facility] [address] [facility] [id number] [address] [place] [address] Dec, Wheezing R06.2 and Viral upp er respiratory tract infection J06.9 [place] [address] [address] Dec, Adjustment disorder with depressed mood F43.21 ; Hemiplegic migraine without status migrainosus, not intractable G43.409 and Herpes B00.9 [place] [address] [address] Nov, [place] [address] [address] Nov, Adjustment disorder with depressed mood F43.21 [place] [address] [address] Nov, [place] [address] [address] Nov, Hemiplegic migraine without status migra inosus, not intractable G43.409 and Insomnia, unspecified type G47.00 [place] [address] [address] 08 Nov, 2018 Adjustment disorder with depressed mood F43.21 [place] [address] [address] Oct, Adjustment disorder with depressed mood F43.21 [facility] [address] [address] Oct, [facility] [address] [place] [address] Jul, Cough R05 [facility] [address] [place] [id number] [place] [address] Jul, Cough R05 [facility] [address] [address] Jul, [place] [address] [address] Jul, [facility] [address] [id number] Jun, Dental examination Z01.20 [facility] [address] [id number] 19 Jun, 2018 Dental examination Z01.20 and Caries of arrested teeth K02.3 [place] [address] [address] 05 Jun, 2018 Chronic diarrhea K52.9 [place] [address] [address] May, Diarrhea, unspecified type R19.7 ; Non-i ntractable vomiting with nausea, unspecified vomiting type R11.2 and Screening for thyroid disorder Z13.29 [facility] [address] [place] [id number] [place] [address] May, Diarrhea, unspecified type R 19.7 and Nausea and vomiting in adult R11.2 [place] [address] [address] Jan, [place] [address] [address] Jan, [place] [address] [address] Dec, [place] [address] [id number] [place] [address] 16 Dec, 2014 [facility] [address] [id number] [place] [address] Dec, [facility] [address] [id number] [place] [address] Dec, [facility] [address] [id number] [place] [address] Nov, 2014 [facility] [address] [id number] [place] [address] Nov, 2014 [facility] [address] [id number] [place] [address] Nov, [facility] [address] [id number] [place] [address] Nov, [facility] [address] [id number] [place] [address] Oct, [facility] [address] [id number] [place] [address] Oct, [facility] [address] [id number] [place] [address] Sep, [facility] [address] [id number] [place] [address] Sep, [facility] [address] [id number] [place] [address] Sep, [facility] [address] [id number] [place] [address] Sep, [facility] [address] [id number] [place] [address] Sep, [facility] [address] [id number] [place] [address] Aug, [facility] [address] [id number] [place] [address] Aug, [facility] [address] [id number] [place] [address] Aug, [facility] [address] [facility] [id number] [place] [address] Aug, [facility] [address] [facility] [id number] [facility] [place] [address] Jul, [facility] [address] [facility] [id number] [place] [address] Jul, [facility] [address] [facility] [id number] [place] [address] May, [facility] [address] [facility] [id number] [place] [address] May, [facility] [address] [id number] [place] [address] May, [facility] [address] [id number] [place] [address] May, [facility] [address] [id number] [place] [address] Apr, [facility] [address] [facility] [id number] [place] [address] Apr, [facility] [address] [id number] [place] [address] Apr, [facility] [address] [id number] [place] [address] Apr, [facility] [address] [id number] [place] [address] Apr, [facility] [address] [facility] [id number] [place] [address] Apr, [facility] [address] [facility] [id number] [place] [address] Apr, [facility] [address] [facility] [id number] [place] [address] Mar, [facility] [address] [id number] [place] [address] Mar, [facility] [id number] [place] [address] February, [facility] [address] [id number] [place] [address] February, [facility] [address] [id number] [place] [address] February, [facility] [address] [address] February, [facility] [address] [address] Jan, [facility] [address] [address] Jan, [facility] [address] [address] Sep, [facility] [id number] [place] [address] Sep, IMMUNIZATIONS No Known Immunizations SOCIAL HISTORY Never Assessed REASON FOR VISIT PLAN OF CARE VITAL SIGNS MEDICATIONS No Known Medications RESULTS No Results PROCEDURES No Known [...] Dr Karimi; tria l colestid and GB Hospitalization History colonoscopy
--- OUTSIDE RECORDS SUMMARY | 2020-01-16 14:57 | XMS REPORT | Continuity of Care Document ---
Author Organization Unknown Address Unknown Phone Unavailable Allergies Active Description Code Type Severity Reaction Onset Reported/Identified Relationship to Patient Clinical Status Yes hydrocodone [id number] Drug Aller gy Severe N/A 02/06/2013 Yes Penicillins Drug Allergy N/A N/A 05/28/2014 Yes MUSHROOMS, HU, RAW Food Allergy N/A N/A 07/23/2014 Yes Penicillins [id number] Drug Aller gy Unknown N/A 02/20/2015 Medications There is no [...] AND INOCULATI 09/14/2013 ISIS MONTOYA MD Ot 599 .0 URIN TRACT INFECTION NOS 09/14/2013 ISIS MONTOYA MD Ot 780 .2 SYNCOPE AND COLLAPSE 12/12/2013 ESTEPHANIA DEL CID MD Ot 379. 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 12/12/2013 ESTEPHANIA DEL CID MD Ot E000 .8 OTHER EXTERNAL CAUSE STATUS 12/12/2013 ESTEPHANIA DEL CID MD Ot E928 .8 ACCIDENT NEC 02/05/2014 LOLA RICHARDS DO 346.10 MIGRAINE WITHOUT AURA WITHOUT MENTION OF INTRACTABLE MIGRAINE WITHOUT MENTION OF STATUS MIGRAINOSUS 02/05/2014 LOLA RICHARDS DO K 355.9 NEUROPATHY 02/05/2014 ANDERSON DDS, KIRK 346.10 MIGRAINE WITHOUT AURA WITHOUT MENTION OF INTRACTABLE MIGRAINE WITHOUT MENTION OF STATUS MIGRAINOSUS 02/05/2014 ANDERSON DDS, KIRK 35 5.9 NEUROPATHY 02/05/2014 LOLA RICHARDS DO K 346.10 MIGRAINE WITHOUT AURA WITHOUT MENTION OF INTRACTABLE MIGRAINE WITHOUT MENTION OF STATUS MIGRAINOSUS 02/05/2014 LOLA RICHARDS DO K 355.9 NEUROPATHY 02/05/2014 MADL SHANK BURNISHER, SHAHRZAD L 346 .10 MIGRAINE WITHOUT AURA WITHOUT MENTION OF INTRACTABLE MIGRAINE WITHOUT MENTION OF STATUS MIGRAINOSUS 02/05/2014 MADL SHANK BURNISHER, SHAHRZAD L 355 .9 NEUROPATHY 02/05/2014 MADL SHANK BURNISHER, SHAHRZAD L 346 .10 MIGRAINE WITHOUT AURA WITHOUT MENTION OF INTRACTABLE MIGRAINE WITHOUT MENTION OF STATUS MIGRAINOSUS 02/05/2014 MADL SHANK BURNISHER, SHAHRZAD L 355 .9 NEUROPATHY 02/05/2014 MADL SHANK BURNISHER, SHAHRZAD L 346 .10 MIGRAINE WITHOUT AURA WITHOUT MENTION OF INTRACTABLE MIGRAINE WITHOUT MENTION OF STATUS MIGRAINOSUS 02/05/2014 MADL SHANK BURNISHER, SHAHRZAD L 355 .9 NEUROPATHY 02/05/2014 SUSANNAH RICHARDS DOA K 346.10 MIGRAINE WITHOUT AURA WITHOUT MENTION OF INTRACTABLE MIGRAINE WITHOUT MENTION OF STATUS MIGRAINOSUS 02/05/2014 LOLA RICHARDS DO K 355.9 NEUROPATHY 02/05/2014 MADL SHANK BURNISHER, SHAHRZAD L 346 .10 MIGRAINE WITHOUT AURA WITHOUT MENTION OF INTRACTABLE MIGRAINE WITHOUT MENTION OF STATUS MIGRAINOSUS 02/05/2014 MADL SHANK BURNISHER, SHAHRZAD L 355 .9 NEUROPATHY 02/05/2014 MADL SHANK BURNISHER, SHAHRZAD L 346 .10 MIGRAINE WITHOUT AURA WITHOUT MENTION OF INTRACTABLE MIGRAINE WITHOUT MENTION OF STATUS MIGRAINOSUS 02/05/2014 MADL SHANK BURNISHER, SHAHRZAD L 355 .9 NEUROPATHY 02/05/2014 MADL SHANK BURNISHER, SHAHRZAD L 346 .10 MIGRAINE WITHOUT AURA WITHOUT MENTION OF INTRACTABLE MIGRAINE WITHOUT MENTION OF STATUS MIGRAINOSUS 02/05/2014 MADL SHANK BURNISHER, SHAHRZAD L 355 .9 NEUROPATHY 04/26/2014 LOLA RICHARDS DO 338.29 OTHER CHRONIC PAIN 04/26/2014 RICHARDS DO, LOLA K 356.1 PERONEAL MUSCULAR ATROPHY 04/26/2014 RICHARDS DO, LOLA K 780.79 OTHER MALAISE AND FATIGUE 04/26/2014 MADL SHANK BURNISHER, SHAHRZAD L 338 .29 OTHER CHRONIC PAIN 04/26/2014 MADL SHANK BURNISHER, SHAHRZAD L 356 .1 PERONEAL MUSCULAR ATROPHY 04/26/2014 MADL SHANK BURNISHER, SHAHRZAD L 780 .79 OTHER MALAISE AND FATIGUE 04/26/2014 MADL SHANK BURNISHER, SHAHRZAD L 338 .29 OTHER CHRONIC PAIN 04/26/2014 MADL SHANK BURNISHER, SHAHRZAD L 356 .1 PERONEAL MUSCULAR ATROPHY 04/26/2014 MADL SHANK BURNISHER, SHAHRZAD L 780 .79 OTHER MALAISE AND FATIGUE 04/26/2014 MADL SHANK BURNISHER, SHAHRZAD L 338 .29 OTHER CHRONIC PAIN 04/26/2014 MADL SHANK BURNISHER, SHAHRZAD L 356 .1 PERONEAL MUSCULAR ATROPHY 04/26/2014 MADL SHANK BURNISHER, SHAHRZAD L 780 .79 OTHER MALAISE AND FATIGUE 04/26/2014 RICHARDS DO, LOLA K 338.29 OTHER CHRONIC PAIN 04/26/2014 RICHARDS DO, LOLA K 356.1 PERONEAL MUSCULAR ATROPHY 04/26/2014 RICHARDS DO, LOLA K 780.79 OTHER MALAISE AND FATIGUE 04/26/2014 MADL SHANK BURNISHER, SHAHRZAD L 338 .29 OTHER CHRONIC PAIN 04/26/2014 MADL SHANK BURNISHER, SHAHRZAD L 356 .1 PERONEAL MUSCULAR ATROPHY 04/26/2014 MADL SHANK BURNISHER, SHAHRZAD L 780 .79 OTHER MALAISE AND FATIGUE 04/26/2014 MADL SHANK BURNISHER, SHAHRZAD L 338 .29 OTHER CHRONIC PAIN 04/26/2014 MADL SHANK BURNISHER, SHAHRZAD L 356 .1 PERONEAL MUSCULAR ATROPHY 04/26/2014 MADL SHANK BURNISHER, SHAHRZAD L 780 .79 OTHER MALAISE AND FATIGUE 04/26/2014 MADL SHANK BURNISHER, SHAHRZAD L 338 .29 OTHER CHRONIC PAIN 04/26/2014 MADL SHANK BURNISHER, SHAHRZAD L 356 .1 PERONEAL MUSCULAR ATROPHY 04/26/2014 MADL SHANK BURNISHER, SHAHRZAD L 780 .79 OTHER MALAISE AND FATIGUE 05/28/2014 MADL SHANK BURNISHER, SHAHRZAD L 300 .4 DYSTHYMIC DISORDER 05/28/2014 REMYL MARGARETH, SHAHRZAD L V15 .05 PERSONAL HISTORY OF ALLERGY TO OTHER FOODS 05/28/2014 AVEL ZULUAGA, SHAHRZAD L 300 .4 DYSTHYMIC DISORDER 05/28/2014 MADJan SHANK BURNISHER, SHAHRZAD L V15 .05 PERSONAL HISTORY OF ALLERGY TO OTHER FOODS 05/28/2014 AVEL ZULUAGA, SHAHRZAD L 300 .4 DYSTHYMIC DISORDER 05/28/2014 MADL MARGARETH, SHAHRZAD L V15 .05 PERSONAL HISTORY OF ALLERGY TO OTHER FOODS 05/28/2014 RICHARDS DO, LOLA K 300.4 DYSTHYMIC DISORDER 05/28/2014 RICHARDS DO, LOLA K V15.05 PERSONAL HISTORY OF ALLERGY TO OTHER FOODS 05/28/2014 AVEL ZULUAGA, SHAHRZAD L 300 .4 DYSTHYMIC DISORDER 05/28/2014 AVEL ZULUAGA SHAHRZAD L V15 .05 PERSONAL HISTORY OF ALLERGY TO OTHER FOODS 05/28/2014 AVEL ZULUAGA, SHAHRZAD L 300 .4 DYSTHYMIC DISORDER 05/28/2014 AVEL ZULUAGA, SHAHRZAD L V15 .05 PERSONAL HISTORY OF ALLERGY TO OTHER FOODS 05/28/2014 AVEL ZULUAGA, SHAHRZAD L 300 .4 DYSTHYMIC DISORDER 05/28/2014 AVEL SHANK BURNISHER, SHAHRZAD L V15 .05 PERSONAL HISTORY OF ALLERGY TO OTHER FOODS 11/12/2014 AVEL ZULUAGA, SHAHRZAD L 785 .6 ENLARGEMENT OF LYMPH NODES 11/12/2014 AVEL ZULUAGA, SHAHRZAD L 785 .6 ENLARGEMENT OF LYMPH NODES 12/08/2014 Ot 693.1 DERM AT D/T FOOD INGEST 01/28/2015 DONA SKINNER APRN Ot 466 .0 ACUTE BRONCHITIS 01/28/2015 DONA SKINNER APRN Ot 786 .2 COUGH 02/20/2015 DONA SKINNER APRN Ot 466 .0 ACUTE BRONCHITIS 02/20/2015 DONA SKINNER APRN Ot 786 .2 COUGH 03/12/2015 GOGO LEAL DO Ot 719.46 JOINT PAIN-L/LEG 03/18/2015 DONA SKINNER APRN Ot 924.20 CONTUSION OF FOOT 03/18/2015 DONA SKINNER SHANK BURNISHER Ot 959 .7 LOWER LEG INJURY NOS 03/18/2015 DONA SKINNER SHANK BURNISHER Ot E000.8 OTHER EXTERNAL CAUSE STATUS 03/18/2015 DONA SKINNER SHANK BURNISHER Ot E928.9 ACCIDENT NOS 05/30/2015 ISIS MONTOYA MD Ot 924 .8 05/30/2015 ISIS MONTOYA MD Ot 959.09 05/30/2015 ISIS MONTOYA MD Ot E000.8 05/30/2015 ISIS MONTOYA MD Ot E816.0 08/06/2018 LORENE SEAY MD Ot F17.210 NICOTINE DEPENDENCE, CIGARETTES, UNCOMPL 08/06/2018 LORENE SEAY MD, Ot F32.9 MAJOR DEPRESSIVE DISORDER, SINGLE EPISOD [...] Ot F17.210 NICOTINE DEPENDENCE, CIGARETTES, UNCOMPL 08/08/2018 GEENA MD, LORENE D Ot F32.9 MAJOR DEPRESSIVE DISORDER, SINGLE EPISOD 08/08/2018 LORENE SEAY MD Ot F41.9 ANXIETY DISORDER, UNSPECIFIED 08/08/2018 LORENE SAEY MD, Ot J06.9 ACUTE UPPER RESPIRATORY INFECTION, UNSPE 08/08/2018 LORENE SEAY MD Ot R05 COUGH 08/08/2018 LORENE SEAY MD Ot Z80.49 FAMILY HISTORY OF MALIGNANT NEOPLASM OF 08/08/2018 LORENE SEAY MD Ot Z82.49 FAMILY HX OF ISCHEM HEART DIS AND OTH DI 08/08/2018 LORENE SEAY MD Ot Z85.42 PERSONAL HISTORY [...] Ot Z98.51 TUBAL LIGATION STATUS 08/08/2018 LORENE SEAY MD Ot Z98.890 OTHER SPECIFIED POSTPROCEDURAL STATES 11/23/2018 AMY BRAVO APRN Ot G43.409 HEMIPLEGIC MIGRAINE, NOT INTRACTABLE, W/ 12/07/2018 AVA BROWN DO Ot 622.12 MODERATE DYSPLASIA OF CERVIX 12/07/2018 AVA BROWN DO Ot V72.63 PRE-PROCEDURAL LABORATORY EXAMINATION 12/07/2018 AVA BROWN DO Ot V74.8 SCREEN-BACTERIAL DIS NEC 12/16/2018 DONA SKINNER APRN Ot 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 12/16/2018 DONA SKINNER APRN Ot F17.210 NICOTINE DEPENDENCE, CIGARETTES, UNCOMPL 12/16/2018 DONA SKINNER APRN Ot F32 .9 MAJOR DEPRESSIVE DISORDER, SINGLE EPISOD 12/16/2018 DONA SKINNER APRN Ot F41 .9 ANXIETY DISORDER, UNSPECIFIED 12/16/2018 DONA SKINNER APRN Ot R40.2142 COMA SCALE, EYES OPEN, SPONTANEOUS, EMR 12/16/2018 DONA SKINNER APRN Ot R40.2252 COMA SCALE, BEST VERBAL RESPONSE, ORIENT 12/16/2018 DONA SKINNER APRN Ot R40.2362 COMA SCALE, BEST MOTOR RESPONSE, OBEYS C 12/16/2018 DONA SKINNER APRN Ot R51 HEADACHE 12/16/2018 DONA SKINNER APRN Ot S06.0X0A CONCUSSION WITHOUT LOSS OF CONSCIOUSNESS 12/16/2018 DONA SKINNER APRN Ot W01.198A FALL SAME LEV FROM SLIP/TRIP W STRIKE AG 12/16/2018 DONA SKINNER APRN Ot Y92.[address] [facility] [address] [facility] 12/16/2018 DONA SKINNER APRN Ot Z80.49 FAMILY HISTORY OF MALIGNANT NEOPLASM OF 12/16/2018 DONA SKINNER APRN Ot Z82.49 FAMILY HX OF ISCHEM HEART DIS AND OTH DI 12/16/2018 DONA SKINNER APRN Ot Z85.42 PERSONAL HISTORY OF MALIGNANT NEOPLASM O 12/16/2018 DONA SKINNER APRN Ot Z87.440 PERSONAL HISTORY OF URINARY (TRACT) INFE 12/16/2018 DONA SKINNER APRN Ot Z88 .0 ALLERGY STATUS TO PENICILLIN 12/16/2018 DONA SKINNER APRN Ot Z88 .5 ALLERGY STATUS TO NARCOTIC AGENT STATUS 12/16/2018 DONA SKINNER APRN Ot Z90.710 ACQUIRED ABSENCE OF BOTH CERVIX AND UTER 12/16/2018 DONA SKINNER APRN Ot Z90.89 ACQUIRED ABSENCE OF OTHER ORGANS 12/16/2018 DONA SKINNER APRN Ot Z98.51 TUBAL LIGATION STATUS 12/16/2018 DONA SKINNER APRN Ot Z98.890 OTHER SPECIFIED POSTPROCEDURAL STATES 12/19/2018 DONA SKINNER APRN Ot 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 12/19/2018 DONA SKINNER APRN Ot F17.210 NICOTINE DEPENDENCE, CIGARETTES, UNCOMPL 12/19/2018 DONA SKINNER APRN Ot F32 .9 MAJOR DEPRESSIVE DISORDER, SINGLE EPISOD 12/19/2018 DONA SKINNER APRN Ot F41 .9 ANXIETY DISORDER, UNSPECIFIED 12/19/2018 DONA SKINNER APRN Ot R40.2142 COMA SCALE, EYES OPEN, SPONTANEOUS, EMR 12/19/2018 DONA SKINNER APRN Ot R40.2252 COMA SCALE, BEST VERBAL RESPONSE, ORIENT 12/19/2018 DONA SKINNER APRN Ot R40.2362 COMA SCALE, BEST MOTOR RESPONSE, OBEYS C 12/19/2018 DONA SKINNER APRN Ot R51 HEADACHE 12/19/2018 DONA SKINNER APRN Ot S06.0X0A CONCUSSION WITHOUT LOSS OF CONSCIOUSNESS 12/19/2018 DONA SKINNER APRN Ot W01.198A FALL SAME LEV FROM SLIP/TRIP W STRIKE AG 12/19/2018 DONA SKINNER APRN Ot Y92.[address] [facility] [address] [facility] 12/19/2018 DONA SKINNER APRN Ot Z80.49 FAMILY HISTORY OF MALIGNANT NEOPLASM OF 12/19/2018 DONA SKINNER APRN Ot Z82.49 FAMILY HX OF ISCHEM HEART DIS AND OTH DI 12/19/2018 DONA SKINNER APRN Ot Z85.42 PERSONAL HISTORY OF MALIGNANT NEOPLASM O 12/19/2018 DONA SKINNER APRN Ot Z87.440 PERSONAL HISTORY OF URINARY (TRACT) INFE 12/19/2018 DONA SKINNER APRN Ot Z88 .0 ALLERGY STATUS TO PENICILLIN 12/19/2018 DONA SKINNER APRN Ot Z88 .5 ALLERGY STATUS TO NARCOTIC AGENT STATUS 12/19/2018 DONA SKINNER APRN Ot Z90.710 ACQUIRED ABSENCE OF BOTH CERVIX AND UTER 12/19/2018 DONA SKINNER APRN Ot Z90.89 ACQUIRED ABSENCE OF OTHER ORGANS 12/19/2018 DONA SKINNER APRN Ot Z98.51 TUBAL LIGATION STATUS 12/19/2018 DONA SKINNER APRN Ot Z98.890 OTHER SPECIFIED POSTPROCEDURAL STATES 12/22/2018 DONA SKINNER APRN Ot 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 12/22/2018 DONA SKINNER APRN Ot F17.210 NICOTINE DEPENDENCE, CIGARETTES, UNCOMPL 12/22/2018 DONA SKINNER APRN Ot F32 .9 MAJOR DEPRESSIVE DISORDER, SINGLE EPISOD 12/22/2018 DONA SKINNER APRN Ot F41 .9 ANXIETY DISORDER, UNSPECIFIED 12/22/2018 DONA SKINNER APRN Ot R40.2142 COMA SCALE, EYES OPEN, SPONTANEOUS, EMR 12/22/2018 DONA SKINNER APRN Ot R40.2252 COMA SCALE, BEST VERBAL RESPONSE, ORIENT 12/22/2018 DONA SKINNER APRN Ot R40.2362 COMA SCALE, BEST MOTOR RESPONSE, OBEYS C 12/22/2018 DNOA SKINNER APRN Ot R51 HEADACHE 12/22/2018 DONA SKINNER APRN Ot S06.0X0A CONCUSSION WITHOUT LOSS OF CONSCIOUSNESS 12/22/2018 DONA SKINNER APRN Ot W01.198A FALL SAME LEV FROM SLIP/TRIP W STRIKE AG 12/22/2018 DONA SKINNER APRN Ot Y92.[address] [facility] 12/22/2018 DONA SKINNER APRN Ot Z80.49 FAMILY HISTORY OF MALIGNANT NEOPLASM OF 12/22/2018 DONA SKINNER APRN Ot Z82.49 FAMILY HX OF ISCHEM HEART DIS AND OTH DI 12/22/2018 DONA SKINNER APRN Ot Z85.42 PERSONAL HISTORY OF MALIGNANT NEOPLASM O 12/22/2018 DONA SKINNER APRN Ot Z87.440 PERSONAL HISTORY OF URINARY (TRACT) INFE 12/22/2018 DONA SKINNER APRN Ot Z88 .0 ALLERGY STATUS TO PENICILLIN 12/22/2018 DONA SKINNER APRN Ot Z88 .5 ALLERGY STATUS TO NARCOTIC AGENT STATUS 12/22/2018 DONA SKINNER APRN Ot Z90.710 ACQUIRED ABSENCE OF BOTH CERVIX AND UTER 12/22/2018 DONA SKINNER APRN Ot Z90.89 ACQUIRED ABSENCE OF OTHER ORGANS 12/22/2018 DONA SKINNER APRN Ot Z98.51 TUBAL LIGATION STATUS 12/22/2018 DONA SKINNER APRN Ot Z98.890 OTHER SPECIFIED POSTPROCEDURAL STATES 01/03/2019 AMY BRAVO APRN Ot G43.409 HEMIPLEGIC MIGRAINE, NOT INTRACTABLE, W01/03/2019 AMY BRAVO APRN Ot G43.409 HEMIPLEGIC MIGRAINE, NOT INTRACTABLE, W01/04/2019 SHELLY, AMY J SHANK BURNISHER Ot G43.409 HEMIPLEGIC MIGRAINE, NOT INTRACTABLE, W/ 05/30/2019 AMY BRAVO SHANK BURNISHER Ot G43.409 HEMIPLEGIC MIGRAINE, NOT INTRACTABLE, W/ 06/02/2019 VIDA PUTNAM MD Ot F17.210 NICOTINE DEPENDENCE, CIGARETTES, UNCOMPL 06/02/2019 VIDA PUTNAM MD Ot K02. 9 DENTAL CARIES, UNSPECIFIED 06/02/2019 VIDA PUTNAM MD Ot K04. 7 PERIAPICAL ABSCESS WITHOUT SINUS 06/02/2019 VIDA PUTNAM MD Ot K08. 89 OTHER SPECIFIED DISORDERS OF TEETH AND S 06/02/2019 VIDA PUTNAM MD Ot Z82. 49 FAMILY HX OF ISCHEM HEART DIS AND OTH DI 06/02/2019 VIDA PUTNAM MD Ot Z85. 42 PERSONAL HISTORY OF MALIGNANT NEOPLASM O 06/02/2019 VIDA PUTNAM MD Ot Z88. 0 ALLERGY STATUS TO PENICILLIN 06/02/2019 VIDA PUTNAM MD Ot Z88. 5 ALLERGY STATUS TO NARCOTIC AGENT STATUS 06/02/2019 VIDA PUTNAM MD Ot Z90.710 ACQUIRED ABSENCE OF BOTH CERVIX AND UTER 06/02/2019 VIDA PUTNAM MD Ot Z90. 89 ACQUIRED ABSENCE OF OTHER ORGANS 06/02/2019 VIDA PUTNAM MD Ot Z98. 51 TUBAL LIGATION STATUS Procedures Code Description [place] [address] ROUT INE VENIPUNCTURE 04/26/2014 17562 CBC 04/26/2014 2361667 GF R CALC (RESULT ONLY) 04/26/2014 15845 CMP 04/26/2014 09407 TSH 04/26/2014 74200 ROUT INE VENIPUNCTURE 08/23/2014 62590 THER APUTIC INJ SQ/IM 08/23/2014 J3420 B12 VITAMIN INJECTION 08/23/2014 20936 CBC 08/23/2014 2927979 GF R CALC (RESULT ONLY) 08/23/2014 59827 CMP 08/23/2014 83721 PORSCHE MIN D 25-HYDROXY (D2,D3, TOTAL) 08/23/2014 82262 VIT B 12 08/23/2014 63839 ROUT INE VENIPUNCTURE 11/12/2014 05664 CBC 11/12/2014 73503 AMERITOX 01/15/2015 Results Test Result Range TSH - 05/24/18 17:08 TSH 1.49 mIU/L NRG STOOL (C-DIFF) - 05/24/18 17:08 CLOSTRIDIUM DIFFICILE TOXIN/GDH W/REFL TO PCR SEE NOTE NRG STOOL (O T P) - 05/24/18 17:08 OVA AND PARASITES, CONC AND PERM SMEAR SEE NOTE NRG Influenza virus A and B antigen detectio n - 08/06/18 21:47 FLU RESULT NEGATIVE FOR INFLUENZA A AND B ANTIGENS BY IA NRG STOOL (C-DIFF) - 06/14/19 12:00 CLOSTRIDIUM DIFFICILE TOXIN/GDH W/REFL TO PCR SEE NOTE NRG Encounters ACCT No. Visit Date/Time Discharge Status Pt. Type Provider Facility Loc./Unit Complaint [id number] 01/09/2015 14:18:00 01/09/2015 23:59: 59 CLS Outpatient MADL SHANK BURNISHERJOSEA L [id number] 11/12/2014 08:47:00 11/12/2014 23:59: 59 CLS Outpatient MADL SHANK BURNISHERRUTHANNSHAHRZAD L [id number] 10/10/2014 13:23:00 10/10/2014 23:59: 59 CLS Outpatient MADL SHANK BURNISHER, SHAHRZAD L [id number] 08/23/2014 10:55:00 08/23/2014 23:59: 59 CLS Outpatient MADL SHANK BURNISHER, SHAHRZAD L [id number] 08/23/2014 10:55:00 08/23/2014 23:59: 59 CLS Outpatient LOLA RICHARDS DO [id number] 07/23/2014 08:23:00 07/23/2014 23:59: 59 CLS Outpatient MADL SHANK BURNISHER, SHAHRZAD L [id number] 05/28/2014 14:43:00 05/28/2014 23:59: 59 CLS Outpatient MADL SHANK BURNISHER, SHAHRZAD L [id number] 04/26/2014 10:16:00 04/26/2014 23:59: 59 CLS Outpatient LOLA RICHARDS DO [id number] 03/01/2014 12:54:00 03/01/2014 23:59: 59 CLS Outpatient JUSTIN RETANA KIRK [id number] 02/05/2014 09:17:00 02/05/2014 23:59: 59 CLS Outpatient LOLA RICHARDS DO [id number] 08/01/2019 08:39:00 09:52:00 DIS Emergency LORENE SEAY MD Via [facility] ER MIGRAINE;MEMORY LOSS [id number] 05/30/2019 07:37:00 019 08:50:00 DIS Outpatient VIDA PUTNAM MD [facility] ER DENTAL PAIN [id number] 12/16/2018 11:42:00 019 13:04:00 DIS Emergency DONA SKINNER APRN [facility] ER FELL AND HIT HEAD; DIZZ Y NAUSEA AND CONFUSION [id number] 11/23/2018 08:35:00 23:59:59 CLS Outpatient AMY BRAVO APRN [facility] RAD HEMIPLEGIC MIGR JOSÉ LUIS [id number] 08/06/2018 21:20:00 018 22:23:00 DIS Emergency LORENE SEAY MD [facility] ER VOMITTING,COUGHING, [id number] 05/30/2015 12:30:00 015 14:55:00 DIS Emergency ISIS MONTOYA MD [facility] ER [id number] 03/18/2015 12:55:00 015 13:55:00 DIS Emergency DNOA SKINNER APRN Via [facility] ER LEFT FOOT INJURY [id number] 03/12/2015 06:22:00 015 07:23:00 DIS Emergency GOGO LEAL DO K Vi a [facility] ER LEFT KNEE PAIN [id number] 02/20/2015 15:19:00 015 16:20:00 DIS Emergency DONA SKINNER APRN [facility] ER ACUTE PANCREATITIS, DUY VATED LFT'S [id number] 02/05/2015 15:09:00 23:59:59 CLS Outpatient MARLIN HARVEY [facility] OCC ANKLE PAIN [id number] 01/28/2015 13:10:00 015 16:45:00 DIS Emergency DONA SKINNER APRN [facility] ER FEVER,COUGH,NAUSEA [id number] 04/20/2014 13:31:00 014 13:58:00 DIS Emergency [id number] 02/26/2014 15:58:00 014 18:02:00 DIS Emergency [id number] 01/30/2014 09:40:00 23:59:59 CLS Outpatient [id number] 01/28/2014 15:30:00 19:43:00 DIS Emergency [id number] 01/14/2014 19:02:00 21:14:00 DIS Emergency [id number] 01/03/2014 23:56:00 01:24:00 DIS Emergency [id number] 12/12/2013 16:44:00 17:48:00 DIS Emergency NEHEMIAS WRIGHT, ESTEPHANIA Anthony [facility] ER R EYE PAIN [id number] 09/14/2013 07:38:00 10:51:00 DIS Emergency ISIS MONTOYA MD [facility] ER SYNCOPE [id number] 08/17/2013 08:45:00 013 12:10:00 DIS [facility] CERVICAL DYSPLASIA BEYO [place] MARGINS [id number] 08/15/2013 08:07:00 23:59:59 CLS Outpatient AVA BROWN DO Via [facility] PREOP CERVICAL DYSPLASIA BEYO ND MARGINS [id number] 06/12/2013 12:33:00 013 15:55:00 DIS Emergency [id number] 05/17/2013 20:54:00 013 21:52:00 DIS Emergency [id number] 02/06/2013 07:10:00 013 08:40:00 DIS Emergency [id number] 12/08/2014 21:08:00 Document Registration [id number] 01/03/2020 14:15:00 01/03/2020 23:59:5 9 [facility] Outpatient AMY BRAVO [facility] [id number] 06/14/2019 09:00:00 Document Registration [id number] 05/25/2018 11:40:00 Document Registration [id number] 05/24/2018 16:30:00 Document Registration
--- NOTE | 2020-01-16 15:02 | ED Cough/URI ---
General Stated Complaint: PNEUMONIA Source: patient Exam Limitations: no limitations History of Present Illness Date Seen by Provider: Jan 16, 2020 Time Seen by Provider: 15:01 Initial Comments to ER with concern of pneumonia. She's had symptoms for about 4 weeks, given Levaquin about 2 weeks ago and temporally improvement this morning worsened with recurrent productive cough. Intermittent fever up to 101. She was tested for COVID-19 about 2 weeks ago.Reports she was dx with copd last year. Hx cocaine use and meth use, clean x4 years. Timing/Duration: constant Severity/Quality: productive cough Associated Symptoms: cough Allergies and Home Medications Allergies Coded Allergies: hydrocodone (Verified Allergy, Severe, 02/06/13) Penicillins (Unverified Allergy, Unknown, 02/20/15) Patient Home Medication List Home Medication List Reviewed: Yes Review of Systems Review of Systems Constitutional: see HPI, fever EENTM: see HPI Respiratory: see HPI, cough Cardiovascular: see HPI Genitourinary: no symptoms reported Musculoskeletal: no symptoms reported Skin: no symptoms reported Psychiatric/Neurological: No Symptoms Reported Past Elzertt-Cffrlx-Ittqag Hx Patient Social History Drug of Choice: POT Type Used: Cigarettes 2nd Hand Smoke Exposure: Yes Recent Hopitalizations: No Immunizations Up To Date Date of Pneumonia Vaccine: Aug 18, 2013 Date of Influenza Vaccine: Aug 18, 2013 Seasonal Allergies Seasonal Allergies: Yes Past Medical History Surgeries: Yes Adenoidectomy, Section, Hysterectomy, Tonsillectomy, Tubal Ligation Respiratory: Yes COPD Currently Using CPAP: Yes Cardiac: No Neurological: Yes (POST CONCUSSION SYNDROME, PER PT FALLS OFTEN) Neuropathy 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 Disorders: No 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 Disorders: Denies ROAD [employer] History: Hysterectomy Sexually Transmitted Disease: No HIV/AIDS: No Genitourinary: Yes Kidney Infection, Bladder Infection Gastrointestinal: Yes Gastroesophageal Reflux Musculoskeletal: Yes (NERVE DISEASE INHERITED) Endocrine: No HEENT: No Cancer: Yes Uterine Did You Recieve Any Treatments: Yes What Type of Treatment Did You: Surgical Intervention Psychosocial: Yes Anxiety, Depression Integumentary: No Blood Disorders: No Family Medical History Cancer 03 MOTHER (CERVICAL) Chest pain 03 FATHER Family history: Cardiovascular disease 03 FATHER Family history: Hypertension 03 FATHER Hypercholesterolemia 03 FATHER Physical Exam Vital Signs - First Documented 01/16/20 14:49 Temp 36.7 Pulse 74 Resp 18 B/P (MAP) 119/72 (88) Pulse Ox 99 Capillary Refill : Height: 5'9.00" Weight: 192lbs. oz. [id number]; 28.00 BMI Method:Stated General Appearance: WD/WN, no apparent distress, other (oxygen 99-100% room air) Eyes: Bilateral Eye Normal Inspection, Bilateral Eye PERRL, Bilateral Eye EOMI HEENT: PERRL/EOMI, normal ENT inspection Neck: non-tender, full range of motion Respiratory: normal breath sounds, no respiratory distress, no accessory muscle use Gastrointestinal: normal bowel sounds, non tender Neurologic/Psychiatric: alert, normal mood/affect, oriented x 3 Skin: normal color, warm/dry Progress/Results/Core Measures Suspected Sepsis SIRS Temperature: Pulse: Respiratory Rate: Laboratory Tests 01/16/20 14:40: White Blood Count 11.0 Blood Pressure / Mean: Laboratory Tests 01/16/20 14:40: Platelet Count 228 Results/Orders Lab Results Laboratory Tests Test 01/16/20 14:40 Range/Units White Blood Count 11.0 4.3-11.0 10^3/uL Red Blood Count 5.10 4.35-5.85 10^6/uL Hemoglobin 15.8 11.5-16.0 G/DL Hematocrit 47 35-52 % Mean Corpuscular Volume 93 80-99 FL Mean Corpuscular Hemoglobin 31 25-34 PG Mean Corpuscular Hemoglobin Concent 33 32-36 G/DL Red Cell Distribution Width 13.6 10.0-14.5 % Platelet Count 228 130-400 10^3/uL Mean Platelet Volume 10.7 H 7.4-10.4 FL Neutrophils (%) (Auto) 64 42-75 % Lymphocytes (%) (Auto) 30 12-44 % Monocytes (%) (Auto) 5 0-12 % Eosinophils (%) (Auto) 1 0-10 % Basophils (%) (Auto) 1 0-10 % Neutrophils # (Auto) 7.1 1.8-7.8 X 10^3 Lymphocytes # (Auto) 3.3 1.0-4.0 X 10^3 Monocytes # (Auto) 0.5 0.0-1.0 X 10^3 Eosinophils # (Auto) 0.1 0.0-0.3 10^3/uL Basophils # (Auto) 0.1 0.0-0.1 10^3/uL My Orders Orders - DONA SKINNER APRN Cbc With Automated Diff (01/16/20 14:44) Basic Metabolic Panel (01/16/20 14:44) Hs C Reactive Protein (01/16/20 14:44) Fibrin Degradation Products (01/16/20 14:44) Chest 1 View, Ap/Pa Only (01/16/20 14:44) Vital Signs/I&O 01/16/20 14:49 Temp 36.7 Pulse 74 Resp 18 B/P (MAP) 119/72 (88) Pulse Ox 99 Capillary Refill : Departure Impression Primary Impression: COPD exacerbation Disposition: HOME, SELF-CARE Condition: Stable Departure-Patient Inst. Decision time for Depature: 15:27 Referrals: [facility]/ (PCP) Primary Care Physician AMY BRAVO APRN (Family) Primary Care Physician Patient Instructions: Exacerbation of COPD Add. Discharge Instructions: 1. medication as directed 2. Follow up with your doctor next week Scripts Prednisone (Prednisone) 20 Mg Tab 40 MG PO DAILY, #8 TAB 0 Refills Prov: DONA SKINNER APRN 01/16/20 Azithromycin (Azithromycin) 250 Mg Tablet 250 MG PO UD, #6 TAB TAKE 2 TABLETS ON DAY ONE THEN TAKE 1 TABLET DAILY FOR FOUR MORE DAYS Prov: DONA SKINNER APRN 01/16/20 Work/School Note: Work Release Form Date Seen in the Emergency Department: Jan 16, 2020 Return to Work: Jan 18, 2020 DONA SKINNER APRN Jan 16, 2020 15:02
--- NOTE | 2020-01-16 15:05 | Diagnostic Imaging Report ---
INDICATION: Dyspnea Single AP view of the chest is obtained with comparison made to study of 08/06/2018. FINDINGS: Heart size and pulmonary vascularity are within normal limits, and the lungs are clear, bilaterally. IMPRESSION: Unremarkable chest. Dictated by: Dictated on workstation # [id number]
--- NOTE | 2020-01-16 15:18 | NUR ---
[facility] CALLED FOR PT
[2020-01-16 15:22] LABS: BASOPHILS # (AUTO) 0.1 10^3/uL (0.0-0.1); BASOPHILS % (AUTO) 1 % (0-10); EOSINOPHILS # (AUTO) 0.1 10^3/uL (0.0-0.3); EOSINOPHILS % (AUTO) 1 % (0-10); HEMATOCRIT 47 % (35-52); HEMOGLOBIN 15.8 G/DL (11.5-16.0); LYMPHOCYTES # (AUTO) 3.3 X 10^3 (1.0-4.0); LYMPHOCYTES % (AUTO) 30 % (12-44); MEAN CORPUSCULAR HEMOGLOBIN 31 PG (25-34); MEAN CORPUSCULAR HGB CONC 33 G/DL (32-36); MEAN CORPUSCULAR VOLUME 93 FL (80-99); MEAN PLATELET VOLUME 10.7 FL (7.4-10.4); MONOCYTES # (AUTO) 0.5 X 10^3 (0.0-1.0); MONOCYTES % (AUTO) 5 % (0-12); NEUTROPHILS # (AUTO) 7.1 X 10^3 (1.8-7.8); NEUTROPHILS % (AUTO) 64 % (42-75); PLATELET COUNT 228 10^3/uL (130-400); RED CELL DISTRIBUTION WIDTH 13.6 % (10.0-14.5)
[2020-01-16] MEDS ORDERED: AZIT250T12 PO (15:29)
[2020-01-16] MEDS ORDERED: ACET-789 PO (15:29)
[2020-01-16] MEDS ORDERED: PRD20T PO (15:29)
[2020-01-16 15:33] LABS: CHLORIDE 106 MMOL/L (98-107); POTASSIUM 3.7 MMOL/L (3.6-5.0); SODIUM 140 MMOL/L (135-145)
[2020-01-16 15:34] LABS: CALCIUM 8.9 MG/DL (8.5-10.1); GLUCOSE 93 MG/DL (70-105)
[2020-01-16 15:36] LABS: CARBON DIOXIDE 21 MMOL/L (21-32)
[2020-01-16 15:38] LABS: CREATININE SERUM 0.82 MG/DL (0.60-1.30); GFR ESTIMATED > 60
[2020-01-16 15:39] LABS: BUN/CREATININE RATIO 9
[2020-01-16 15:49] VITALS: BP 119/72
== END 2020-01-16 15:49 | disposition home or self-care (01) ==
LOC: EDUNIT# 14:43 → ER 14:46
DX: J44.1 Chronic obstructive pulmonary disease with (acute) exacerbation (principal); K21.9 Gastro-esophageal reflux disease without esophagitis; Z85.42 Personal history of malignant neoplasm of other parts of uterus; F41.9 Anxiety disorder, unspecified; F32.9 Major depressive disorder, single episode, unspecified
CPT/HCPCS: 36415; 71045; 80048; 85025; 85379; 86141

== ENCOUNTER 2020-03-15 18:59 | Emergency (ER) | payer MEDICAID ==
[~2020-03-15 18:59] MED LIST changes: +ACET-789 PO; +PRD20T PO
--- NOTE | 2020-03-15 19:15 | ED General ---
General Stated Complaint: FALL/R ANKLE INJ Source of Information: Patient Exam Limitations: No Limitations History of Present Illness Date Seen by Provider: Mar 15, 2020 Time Seen by Provider: 19:14 Initial Comments To ER with a fall and subsequent tailbone and right ankle pain. She was on a boat today at [place] that they had rented when she slipped and fell. She now has right lateral ankle pain and tailbone pain. No other injury Timing/Duration: 1-3 Hours Severity: Moderate Allergies and Home Medications Allergies Coded Allergies: hydrocodone (Verified Allergy, Severe, 02/06/13) Penicillins (Unverified Allergy, Unknown, 02/20/15) Home Medications Acetaminophen with Codeine 1 Each Tablet, 1 EACH PO Q6H PRN for COUGH Prescribed by: DONA SKINNER on 01/16/20 1530 Azithromycin 250 Mg Tablet, 250 MG PO UD TAKE 2 TABLETS ON DAY ONE THEN TAKE 1 TABLET DAILY FOR FOUR MORE DAYS Prescribed by: DONA SKINNER on 01/16/20 152 Prednisone 20 Mg Tab, 40 MG PO DAILY Prescribed by: DONA SKINNER on 01/16/20 1529 Patient Home Medication List Home Medication List Reviewed: Yes Review of Systems Review of Systems Constitutional: see HPI EENTM: see HPI Respiratory: no symptoms reported Cardiovascular: no symptoms reported Genitourinary: no symptoms reported Musculoskeletal: see HPI Skin: no symptoms reported Psychiatric/Neurological: No Symptoms Reported Past Myqlwjj-Cbtihj-Fnfahz Hx Patient Social History Drug of Choice: POT Type Used: Cigarettes 2nd Hand Smoke Exposure: Yes Recent Foreign Travel: No Contact w/Someone Who Travel: No Recent Hopitalizations: No Immunizations Up To Date Date of Pneumonia Vaccine: Aug 18, 2013 Date of Influenza Vaccine: Aug 18, 2013 Seasonal Allergies Seasonal Allergies: Yes Past Medical History Surgeries: Yes Adenoidectomy, Section, Hysterectomy, Tonsillectomy, Tubal Ligation Respiratory: Yes COPD Currently Using CPAP: Yes Cardiac: No Neurological: Yes (POST CONCUSSION SYNDROME, PER PT FALLS OFTEN) Neuropathy 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 Disorders: No 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 Disorders: Denies [employer] History: Hysterectomy Sexually Transmitted Disease: No HIV/AIDS: No Genitourinary: Yes Kidney Infection, Bladder Infection Gastrointestinal: Yes Gastroesophageal Reflux Musculoskeletal: Yes (NERVE DISEASE INHERITED) Endocrine: No HEENT: No Cancer: Yes Uterine Did You Recieve Any Treatments: Yes What Type of Treatment Did You: Surgical Intervention Psychosocial: Yes Anxiety, Depression Integumentary: No Blood Disorders: No Family Medical History Cancer 03 MOTHER (CERVICAL) Chest pain 03 FATHER Family history: Cardiovascular disease 03 FATHER Family history: Hypertension 03 FATHER Hypercholesterolemia 03 FATHER Physical Exam Vital Signs Vital Signs - First Documented 03/15/20 19:08 Temp 37.2 Pulse 78 Resp 18 B/P (MAP) 119/71 (87) O2 Delivery Room Air Capillary Refill : Height, Weight, BMI Height: 5'9.00" Weight: 192lbs. oz. 87.174299nl; 27.00 BMI Method:Stated General Appearance: No Apparent Distress, WD/WN Eyes: Bilateral Eye Normal Inspection, Bilateral Eye PERRL, Bilateral Eye EOMI Respiratory: No Accessory Muscle Use, No Respiratory Distress Cardiovascular: Regular Rate, Rhythm, Normal Peripheral Pulses Gastrointestinal: Non Tender, Soft Extremity: Normal Capillary Refill, Other (DORSALIS PEDIS PULSE ON THE RIGHT, SWELLING OVER THE LATERAL MALLEOLUS.) Neurologic/Psychiatric: Alert, Oriented x3 Skin: Normal Color, Warm/Dry Progress/Results/Core Measures Suspected Sepsis SIRS Temperature: Pulse: Respiratory Rate: Blood Pressure / Mean: Results/Orders My Orders Orders - DONA SKINNER APRN Ankle, Right, 3 Views (03/15/20 19:13) Sacrum And Coccyx (03/15/20 19:13) Rx-Tramadol Hcl (Rx-Ultram) (03/15/20 19:29) Vital Signs/I&O 03/15/20 19:08 Temp 37.2 Pulse 78 Resp 18 B/P (MAP) 119/71 (87) O2 Delivery Room Air Capillary Refill : Departure Impression Primary Impression: Sprain and strain of ankle Additional Impression: Coccyx contusion Disposition: 01 HOME, SELF-CARE Condition: Stable Departure-Patient Inst. Decision time for Depature: 19:40 Referrals: RACQUEL HUERTA DO (PCP/Family) Primary Care Physician Patient Instructions: Contusion (DC) Add. Discharge Instructions: 1. elevate the ankle, use crutches as needed, ibuprofen/tylenol for pain control. DONA SKINNER APRN Mar 15, 2020 19:15
[2020-03-15] MEDS ORDERED: RX-TRAMADOL 50 MG (ULTRAM) TAB PPK#4 PO STA (19:29)
--- NOTE | 2020-03-15 19:32 | Diagnostic Imaging Report ---
INDICATION: Pain status post injury. Swelling. COMPARISON: None. FINDINGS: 3 views of the right ankle were obtained. There is no acute fracture or dislocation. No focal osseous lesions are seen. There is asymmetric moderate lateral soft tissue swelling. There are no radiopaque foreign bodies. IMPRESSION: 1. Asymmetric moderate swelling of the lateral right ankle, but no evidence of underlying acute fracture or dislocation. Dictated by: Dictated on workstation # [id number]
--- NOTE | 2020-03-15 19:32 | Diagnostic Imaging Report ---
INDICATION: Pain status post fall. Injury. COMPARISON: None. FINDINGS: Three views of the sacrum and coccyx were obtained and show no fractures, dislocations, or other acute bony abnormalities. Joint spaces are well maintained throughout. The soft tissues appear unremarkable. No radiopaque foreign bodies are identified. IMPRESSION: Unremarkable radiographic exam of the sacrum and coccyx. Dictated by: Dictated on workstation # [id number]
[2020-03-15 19:55] VITALS: BP 118/70
[2020-03-15] MEDS ORDERED: CRUT1EAC7 MC (20:13)
--- OUTSIDE RECORDS SUMMARY | 2020-03-15 22:29 | XMS REPORT ---
Author Author Listen Up supervisor [employer] [facility] [employer] [facility] [employer] Address [address] [address] Care Team Providers Care Workforce Planning Analyst Name Role Phone NO, LOCAL PHYSICIAN Unavailable Unavailable [facility] Unavailable [facility] Unavailable [phone] PERFECTO DAMIAN Unavailable Unavailable AMY BRAVO Unavailable AMY BRAVO Unavailable SANDRITA WALSH Unavailable [facility] Unavailable LINDY SZYMANSKI Unavailable MADL, SHAHRZAD Unavailable [facility] PCP Migration, Doctor Unavailable Unavailable Migration, [...] Unavailable NEHEMIAS WRIGHT, ESTEPHANIA Anthony Unavailable Unavailable [facility] PCP [phone] GEENA WRIGHT, LORENE Larios Unavailable Unavailable JOSSELIN LEAL DO Unavailable Unavailable AMY BRAVO APRN Unavailable Unavailable MADL, SHAHRZAD Unavailable ROD MADRID Unavailable MADL, SHAHRZAD Unavailable Unavailable Unavailable MADL, SHAHRZAD Unavailable MADL, SHAHRZAD Unavailable DONA SKINNER APRN Unavailable Unavailable DO Tavares HUERTA PCP Unavailable Unavailable Unavailable Unavailable Unavailable Unavailable Unavailable Unavailable Unavailable Unavailable Allergies Normalized Allergy Reported Date of Reaction(s) Care Provider Facility Allergy Type classification allergen Allergy Onset Propensity to Unclassified Mushrooms, 01-15-2015 - Pt allergic t o [facility] adverse [place], Raw [facility] mushrooms[facility] [address] [facility] er reactions (8 Pt allergic to of [place] sources.) ALL mushrooms [place] ([address]) Medications Current Medications Medication Ingredient Drug Dose Dates Status Sig Sig Care Class(es) (Normalized) (Original) Provid er amitriptyli Amitriptyli Tricyclic 25 mg 11-11-19 Active take 1 Amitriptylin no ne ne Antidepress 19 tablet by e HCl 25 MG n justine hydrochlori Translation ant mouth once Orally Once de 25 mg s: [ daily a day at oral tablet Amitriptyli night 1 (2 ne HCl 25 tablet 08 sources.) MG] Nov, 2018 30 days Active escitalopra escitalopra Serotonin 20 mg 12-13-19 Active take 1 Lexapro 20 no m 20 mg m Reuptake 19 tablet by mg Orally name oral tablet Translation Inhibitor mouth once Once a day 1 (7 s: [ daily tablet 24h sources.) Lexapro Dec, MG, 30 day(s) Escitalopra Active m 20 MG Oral Tablet [Lexapro], Lexapro 20 MG, Lexapro 20 MG] 20 mg Active no Lexapro no name inform 20 MG ation Orally Once a day 1 tablet 24h Active 10 mg Active no Lexapro no name inform 10 MG ation Orally Once a day 1 tablet 24h Active esomeprazol esomeprazol Proton Pump 40 mg 05-25-20 Active no Esomeprazole no e 40 mg e Inhibitor 18 information Magnesium 40 name delayed Translation mg Orally release s: [ Once a day 1 oral Esomeprazol capsule 24h capsule (4 e Magnesium May, sources.) 40 mg, Active Esomeprazol e Magnesium 40 mg] methylpredn methylpredn Corticoster 4 mg 08-02-20 Active no Medrol 4 MG no isoLONE 4 isoLONE oid 18 information Orally Once na me mg oral Translation a day take tablet (2 s: [ Medrol each days sources.) 4 MG] dose at the same time each day as directed 24h Jul, Active valACYclovi valACYclovi Herpesvirus 500 mg 12-13-19 Active take 1 Valacyclovir no r 500 mg r Nucleoside 19 tablet by HCl 500 mg nam e oral tablet Translation Analog DNA mouth twice Orally twice (1 source.) s: [ Polymerase daily a day 1 Valacyclovi Inhibitor, tablet 12h r HCl 500 Herpes Dec, mg] Simplex 5 days Virus Active Nucleoside Analog DNA Polymerase Inhibitor, Herpes Zoster Virus Nucleoside Analog DNA Polymerase Inhibitor no Vitamin D2 no 08-27-20 Active take 1 Vitamin D2 no information 50,000 unit information 14 capsule by 50,000 unit name (2 mouth two take 1 sources.) times weekly capsule by Oral route 2 times per week for 8 weeks May take 1000 UI OTC after high dose repletion Aug, Active 08-27-2014 Suspended no Vitamin no name inform D2 ation 50,000 unit take 1 capsule by Oral route 2 times per week for 8 weeks May take 1000 UI OTC after high dose repletio n Aug, Not-Taki ng no Vitamin D3 no 1000 08-27-20 Active no Vitamin D 3 no information 1,000 unit information [IU] 14 information 1,00 0 unit 1 name (2 Tablet by sources.) Oral route 1 time per day OTC---to start after high dose repletion (End of Oct 2014) Aug, Active 1000 [IU] 08-27-2014 Suspended no Vitamin no name inform D3 1,000 ation unit 1 Tablet by Oral route 1 time per day OTC---to start after high dose repletio n (End of Oct 2014) Aug, Not-Jorge burnham Completed/Discontinued Medications Medication Ingredient Drug Dose Dates Status Sig Sig Care Class(es) (Normalized) (Original) Provid er no Albuterol no 8.5 g 02-21-20 Complete take 8.5 g Albu terol Peter information (Proair information 15 - d by (Proair Hfa ) J Legal Librarian (3 Hfa) 8.5 Gm 03-12-20 inhalation 8.5 Gm Skinner sources.) Hfa.aer.ad, 15 every four Hfa.aer.ad, (no 2 Puff hours as 2 Puff phone) Respiratory needed for Respiratory (Inhalation wheezing (Inhalation) ) Respiratory Every Four Hours as needed for Wheezing 02/20/15 Discontinued no Cefuroxime no 01-29-20 Complete take 500 Cefuroxime P eter information Axetil 500 information 15 - d tablets by Axet il 500 J Legal Librarian (3 Mg Tablet, 03-12-20 mouth twice Mg Tablet, 1 Skinner sources.) 1 Each Oral 15 daily Each Oral (no Twice A Day phone) 01/28/15 Discontinued no Cephalexin no 12-13-19 Complete take 500 Cephalexin F kathy information Monohydrate information 14 - d capsules by Mo nohydrate R (3 (Cephalexin 01-05-20 mouth every (Cephalexin) [facility] ) 500 Mg 14 eight hours [...] 10 mg s: [ 07-24-20 Orally Four oral Dicyclomine 18 times a day capsule (3 HCl 10 mg, before meals sources.) Dicyclomine 1 capsule 22 HCl 10 mg] May, 2018 21 Jul, 2018 Not-Taking no Epinephrine no 03-12-20 Complete no [...] in name macrocrysta MACROCRYSTA al 02-27-20 Macrocrystal ls 25 mg / LS / 14 s nitrofurant Nitrofurant Discontinued oin, oin, 1 ORAL Twice monohydrate Monohydrate A Day 20 75 mg oral January 28, capsule (2013 7:35pm sources.) February 26, 2014 FOR INFECTION no Tramadol no 50 mg 01-29-20 Complete take 1 Tramadol Hcl Josselin K information Hcl information 14 - d tablet by (Ultram) 50 [place] (9 (Ultram) 50 02-27-20 mouth every Mg [...] nued Problems Active Problems Problem Normalized Date Last Normalized Normalized Provider Fa cility Classification Problem(s) Recorded Problem Problem Sta tus Duration Acute Acute Episodic Active DONA SKINNER [facility] Via bronchitis (12 bronchitis Tammy sources.) [facility] ([address]9594) Anxiety Anxiety Chronic Active LORENE [facility] Via disorders (14 disorder, MD GEENA Tammy sources.) unspecified [facility] (60289) Unclassified Chronic pain Chronic Active ISISOLE NWAGWU C ommunity (6 sources.) Translations: [address] [place] [address] [ Other of [facility] chronic [place], [place] ([address]) Other chronic pain] Intracranial Concussion Episodic Active DONA SKINNER [facility] Vi a injury (10 Translations: Tammy sources.) [ CONCUSSION Hospital - WITHOUT LOSS [place] OF ([address]) CONSCIOUSNESS, Concussion without loss of consciousness] Other injuries Concussion Episodic Active [facility] Via and conditions injury of body [facility] Tammy due to structure [address] Hospital external (05413) causes (3 sources.) Other injuries Contusion of Episodic Active DO RACQUEL [facility] Via and conditions [place] [address] (Work Hospital external Phone: [phone] causes (1 source.) ) Ovarian cyst Corpus luteum Episodic Active AVA FENECH Not Available (2 sources.) cyst or , DO (58107) hematoma Translations: [ OVARIAN CYST NEC/NOS] Other lower Cough Episodic Active DONA BURNETTES [facility] Via respiratory Tammy disease (12 Hospital - sources.) [place] ([address]) Mood disorders Dysthymia Chronic Active ISIDORE NWAGWU Co mmunity (11 sources.) Translations: [address] [facility] [ Dysthymic of [place] disorder, [place] (47468) Dysthymic disorder, MAJOR DEPRESSIVE DISORDER, SINGLE EPISOD] Endometriosis Endometriosis Chronic Active AVA FENECH Not Available (1 source.) of uterus , DO (57318) Menstrual Excessive or Chronic Active AVA FENECH Not Available disorders (1 frequent , DO (67442) source.) menstruation Unclassified Family history Episodic Active LORENE Not Available (6 sources.) of ischemic MD GEENA (72207) heart disease and other diseases of the circulatory system Translations: [ OTHER SPECIFIED POSTPROCEDURAL STATES, ACQUIRED ABSENCE OF OTHER ORGANS, FAMILY HISTORY OF MALIGNANT NEOPLASM OF ] Residual Family history Episodic Active LORENE [facility] Via codes; of malignant MD GEENA Tammy unclassified neoplasm of Hospital - (12 sources.) other genital [place] organs (27[address]) Esophageal Gastro-esophag Chronic Active DONA SKINNER , [facility] Via disorders (1 eal reflux APERTURE MASK ETCHER Tammy source.) disease Hospital - without [place] esophagitis (39391) Other injuries Injury of Episodic Active DO RACQUEL [facility] ion Via and conditions [place] [address] (Work Hospital external Phone: [phone] causes (1 source.) ) Other injuries Knee, leg, Episodic Active DONA SKINNER Not Available and conditions ankle, and (09373) due to foot injury external causes (6 sources.) Lymphadenitis Lymphadenopath Episodic Active ISIDORE NWAGWU Community (6 sources.) [facility] [address] [facility] Translations: of [place] [ Enlargement [place] ([address]) of lymph nodes, Enlargement of lymph nodes] Malaise and Malaise and Episodic Active ISIDORE NWAGWU Com munity fatigue (6 fatigue [address] Health [facility] sources.) Translations: of [place] [ Other [place] (68173) malaise and fatigue, Other malaise and fatigue] Other female Moderate Episodic Active AVA FENECH Not A vailable genital dysplasia of , DO (36368) disorders (2 cervix sources.) Other 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 Translations: [address] [facility] disorders (6 [ Mononeuritis of [place] sources.) of unspecified [place] (759[address]) site, Mononeuritis of unspecified site] Substance-rela Nicotine Chronic Active LORENE [facility] Via rupa disorders dependence, MD Tammy SEAY (14 sources.) cigarettes, Hospital - uncomplicated [place] (23151) Other female Other Episodic Active AVA BROWN Not A vailable genital noninflammator , DO (67977) disorders (1 y disorders of source.) ovary, fallopian tube, and broad ligament Residual Other Episodic Active LORENE [facility] Via codes; specified MD Tammy SEAY unclassified postprocedural Hospital - (4 sources.) states [place] (81291) Other eye Pain in or Episodic Active ESTEPHANIA SEGLIE , Not Av ailable disorders (2 around eye (90052) sources.) Cancer of Personal Episodic Active LORENE [facility] Via uterus (15 history of MD Tammy SEAY sources.) malignant Hospital - neoplasm of [place] other parts of (33989) uterus Genitourinary Personal Episodic Active LORENE [facility] Via symptoms and history of MD Tammy SEAY ill-defined other diseases Hospital - conditions (13 of urinary [place] sources.) system (37062) Translations: [ PERSONAL HISTORY OF URINARY (TRACT) INFE] Pneumonia Pneumonia, Episodic Active SHAHRZAD MADL Community (except that unspecified [address] [facility] caused by organism of [facility] tuberculosis Translations: [place] (71205) or sexually [ - Pneumonia transmitted of left upper disease) (3 lobe due to sources.) infectious organism J18.9] Delirium Postconcussion Chronic Active PETER SKINNER [facility] V ia dementia and al syndrome Tammy amnestic and Hospital - other [place] cognitive (05449) disorders (5 sources.) Other Scabies Episodic Active COMMUNITY Via Tammy infections (3 [facility] Hospital sources.) [address] [place] (10450) Other lower Shortness of Episodic Active SHAHRZAD MAD Commu nity respiratory breath [address] [facility] disease (2 Translations: of [place] sources.) [ - Shortness [place] (42786) of breath R06.02] Syncope (1 Syncope and Episodic Active ISIS ODGERS Not A vailable source.) MD dhiraj () Past or Other Problems Problem Normalized Date Last Normalized Normalized Provider Fa cility Classification Problem(s) Recorded Problem Problem Sta tus Duration Residual Acquired Episodic Completed DONA SKINNER [facility] Via codes; absence of Tammy unclassified both cervix Hospital - (6 sources.) and uterus [place] () Residual Acquired Episodic Completed LORENE [facility] Via codes; absence of MD Tammy SEAY unclassified other organs Hospital - (13 sources.) [place] () Coma; stupor; Coma scale, no information no information DONA LOPEZ Not Available and brain eyes open, () damage (9 spontaneous, sources.) at arrival to emergency department Translations: [ COMA SCALE, BEST VERBAL RESPONSE, ORIENT, COMA SCALE, BEST MOTOR RESPONSE, OBEYS C, COMA SCALE, BEST VERBAL RESPONSE, ORIENT, COMA SCALE, BEST MOTOR RESPONSE, OBEYS C] Coma; stupor; Coma scale, Episodic Completed DONA SKINNER [facility] Via and brain eyes open, Tammy damage (6 spontaneous, Hospital - sources.) at arrival to [place] emergency () department Translations: [ COMA SCALE, BEST VERBAL RESPONSE, ORIENT, COMA SCALE, BEST MOTOR RESPONSE, OBEYS C] External cause Fall on same no information no information DONA SKINNER Not Available codes: Fall (3 level from (60703) sources.) slipping, tripping and stumbling with subsequent striking against other object, initial encounter External cause Fall on same Episodic Completed DONA SKINNER [facility] Via codes: Fall (2 level from Tammy sources.) slipping, Hospital - tripping and [place] stumbling with (44510) subsequent striking against other object, initial encounter Residual Family history Episodic Completed LORENE [facility] Via codes; of ischemic MD Tammy SEAY unclassified heart disease Hospital - (8 sources.) and other [place] diseases of (87626) the circulatory system Headache; Headache Episodic Completed DONA SKINNER [facility] Via including Tammy migraine (5 Hospital - sources.) [place] () Mood disorders Major no information no information LORENE Not Available (9 sources.) depressive MD GEENA () disorder, single episode, unspecified External cause Other external no information no information F KATHY DEL CID , Not Available codes: cause status (97174) Unspecified (8 sources.) Residual Other no information no information LORENE Not Available codes; specified MD GEENA (84572) unclassified postprocedural (8 sources.) states Other Pain in joint, Episodic Completed JOSSELIN ELVIS , DO [facility] Via non-traumatic lower leg [facility] joint Hospital - disorders (11 [place] sources.) (51997) Contraceptive Tubal ligation Episodic Completed LORENE [facility] Via and status MD GEENA [facility] Hospital - management (14 [place] sources.) (68409) External cause Unspecified no information no information ESTEPHANIA DEL CID , Not Available codes: accident (15396) Natural/enviro Translations: nment (8 [ ACCIDENT sources.) NEC] External cause Unspecified no information no information DONA SKINNER Not Available codes: Place place in (15910) of occurrence unspecified (3 sources.) [facility] (private) residence as the place of occurrence of the external cause External cause Unspecified Episodic Completed DONA SKINNER [facility] Via codes: Place place in [facility] of occurrence unspecified Hospital - (2 sources.) non-[facility] (private) ([address]47) residence as the place of occurrence of the external cause Procedures Procedure Normalized Procedure Procedure Result Performer Facility Date 04-26-2014 Assay of thyroid no information no name [facility] stimulating hormone [facility] (11224) 05-24-2018 Blood count complete no information no name [facility] auto&auto difrntl wbc [facility] (81687) 11-12-2014 Blood count complete no information no name [facility] auto&auto difrntl wbc [facility] (99551) 04-26-2014 Blood count complete no information no name [facility] auto&auto difrntl wbc [facility] (89817) 05-25-2018 Blood occult no information no name [facility] peroxidase actv qual [address] ([address]) 05-24-2018 Collection venous no information no name [facility] blood venipuncture [facility] (21730) 11-12-2014 Collection venous no information no name [facility] blood venipuncture [facility] (49655) 04-26-2014 Collection venous no information no name [facility] blood venipuncture [facility] (70967) 05-24-2018 Comprehensive no information no name [facility] metabolic panel [facility] (78991) 04-26-2014 Comprehensive no information no name [facility] metabolic panel [facility] (81485) 12-16-2018 CT of head without no information DONA HANSON S [place] Via [facility] (63615) 11-23-2018 CT of head without no information AMY Knapp APRN [place] Via [facility] (06360) 08-06-2018 Diagnostic radiography no information LORENE ESCAMILLA BBINS Via [facility] of chest, combined [facility] (17480) and lateral 05-25-2018 Inf agent det nucleic no information no name [facility] clostrid[facility] amp [facility] (42892) 06-22-2018 Intraoral periapical no information no name [facility] (66899) 05-25-2018 Ova&parasites direct no information no name [facility] concentration & [facility] (96906) 01-16-2020 Plain chest X-ray no information no name [facility] ev[facility] Via [facility] (28940) 03-15-2020 Radiography of no information no name [facility] Via [facility] sacrococcygeal spine [facility] (85367) 06-22-2018 Rem imp tooth w no information no name [facility] mucoper flp [facility] (41604) 05-25-2018 Smr prim src cplx spec no information no name [facility] stain ova&parasits [facility] (33578) 03-15-2020 X-ray of right ankle no information no name As cension Via [facility] (08521) Immunizations Normalized Immunization Date Notes Care Provider Facili ty Immunization pneumococcal 06-14-2019 no information no name [facility] polysaccharide [facility] vaccine, 23 valent - [facility] (77225) vaccine no information [facility] Via [facility] Translations: [ [address] [place] (28881) vaccine] no information 05-30-2019 no information [facility] [place] Via [address] [facility] (35716) Results Test Name Value Interpretation Reference Range Date Time Fa cility (Normalized) (Normalized) (Medline Reference) laboratory on 2020-01-16 Anion gap 13 mmol/L (NEG) 3 - 11 mmol/L 01-16-2020 PENDING LOCATION [Moles/Vol] 10:40-0400 [facility] (94983) Basophils (Bld) 0.1 10*3/uL (NEG) 0 - 0.3 10*3/uL 01-16-2020 PENDING LOCATION [#/Vol] 10:40-0400 [facility] (24656) Basophils/100 1 % (NEG) 0.5 - 1 % 01-16-2020 PENDING LOCATION WBC (Bld) 10:40-0400 [facility] (66036) Calcium 8.9 mg/dL (NEG) 8.5 - 10.2 mg/dL 01-16-2020 PENDI NG LOCATION [Mass/Vol] 10:40-0400 [facility] (61657) Chloride 106 mmol/L (NEG) 95 - 106 mmol/L 01-16-2020 PENDI NG LOCATION [Moles/Vol] 10:40-0400 [facility] (90581) CO2 [Moles/Vol] 21 mmol/L (NEG) 23 - 29 mmol/L 01-16-2020 P ENDING LOCATION 10:40-0400 [facility] (64953) Creatinine 0.82 mg/dL (NEG) 01-16-2020 PENDING LOCATI ON [Mass/Vol] 10:40-0400 [facility] (88362) Creatinine and > (no code) 01-16-2020 PENDING LOC ATION Glomerular 10:40-0400 [facility] (32990) filtration rate.predicted panel - Serum, Plasma or Blood CRP [Mass/Vol] 0.68 (H) 01-16-2020 PENDING LOC ATION 10:40-0400 [facility] (02398) Eosinophils 0.1 10*3/uL (NEG) 0.05 - 0.5 01-16-2020 PENDING LOCATION (Bld) [#/Vol] 10*3/uL 10:40-0400 [facility] (80082) Eosinophils/100 1 % (NEG) 1 - 4 % 01-16-2020 PENDIN G LOCATION WBC (Bld) 10:40-0400 [facility] (69098) Erythrocyte 13.6 % (NEG) 11.6 - 14.6 % 01-16-2020 [facility] distribution 10:40-0400 [facility] (10404) width (RBC) [Ratio] Fibrin D-dimer 0.31 (NEG) 01-16-2020 PENDING LOC ATION FEU (PPP) 10:40-0400 [facility] (10813) [Mass/Vol] Glucose 93 mg/dL (NEG) 60 - 125 mg/dL 01-16-2020 PENDING LOCATION [Mass/Vol] 10:40-0400 [facility] (40847) Hematocrit (Bld) 47 % (NEG) 36.1 - 50.3 % 01-16-2020 P ENDING LOCATION [Volume 10:40-0400 [facility] (14102) fraction] Hemoglobin (Bld) 15.8 g/dL (NEG) 12.1 - 17.2 g/dL 01-16-2020 PENDING LOCATION [Mass/Vol] 10:40-0400 [facility] (14618) Lymphocytes 3.3 10*3/uL (NEG) 0.9 - 2.9 01-16-2020 PENDING LOCATION (Bld) [#/Vol] 10*3/uL 10:40-0400 [facility] (91676) Lymphocytes/100 30 % (NEG) 20 - 40 % 01-16-2020 [facility] WBC (Bld) 10:40-0400 [facility] (40960) MCH (RBC) 31 pg (NEG) 27 - 31 pg 01-16-2020 PENDING LOC ATION [Entitic mass] 10:40-0400 [facility] (65702) MCHC (RBC) 33 g/dL (NEG) 32 - 36 g/dL 01-16-2020 PENDING LOCATION [Mass/Vol] 10:40-0400 [facility] (71137) MCV (RBC) 93 (NEG) 01-16-2020 PENDING LOCATI ON [Entitic vol] 10:40-0400 [facility] (70751) Monocytes (Bld) 0.5 10*3/uL (NEG) 0.3 - 0.9 01-16-2020 PEND ING LOCATION [#/Vol] 10*3/uL 10:40-0400 [facility] (86761) Monocytes/100 5 % (NEG) 2 - 8 % 01-16-2020 PENDING LOCATION WBC (Bld) 10:40-0400 [facility] (61585) Neutrophils 7.1 10*3/uL (NEG) 1.7 - 7 10*3/uL 01-16-2020 PE NDING LOCATION (Bld) [#/Vol] 10:40-0400 [facility] (42050) Neutrophils/100 64 % (NEG) 40 - 60 % 01-16-2020 PENDIN G LOCATION WBC (Bld) 10:40-0400 [facility] (71089) Platelet mean 10.7 (H) 01-16-2020 PENDING LOCA TION volume (Bld) 10:40-0400 [facility] (22733) [Entitic vol] Platelets (Bld) 228 10*3/uL (NEG) 150 - 450 01-16-2020 PEND ING LOCATION [#/Vol] 10*3/uL 10:40-0400 [facility] (77066) Potassium 3.7 mmol/L (NEG) 3.7 - 5.2 mmol/L 01-16-2020 PEND ING LOCATION [Moles/Vol] 10:40-0400 [facility] (55407) RBC (Bld) 5.10 10*6/uL (NEG) 4.2 - 6.1 01-16-2020 PENDING L OCATION [#/Vol] 10*6/uL 10:40-0400 [facility] (19291) Sodium 140 mmol/L (NEG) 135 - 145 mmol/L 01-16-2020 PEND ING LOCATION [Moles/Vol] 10:40-0400 [facility] (52934) Urea nitrogen 7 mg/dL (NEG) 7 - 20 mg/dL 01-16-2020 PENDI NG LOCATION [Mass/Vol] 10:40-0400 [facility] (85710) Urea 9 mg/mg (no code) 6 - 22 mg/mg 01-16-2020 PENDING L OCATION nitrogen/Creatin 10:40-0400 [facility] (26575) ine [Mass ratio] WBC (Bld) 11.0 10*3/uL (NEG) 3.5 - 10.5 01-16-2020 PENDING LOCATION [#/Vol] 10*3/uL 10:40-0400 [facility] (81755) laboratory on 2019-06-14 C. difficile SEE NOTE (no code) [facility] dehydrogenase Ql [facility] (Stl) (09705) other on 2018-05-25 Control Negative (no code) no information Exp Date 01/2019 (no code) no information Lot # [id number] (no code) no information thyroid on 2018-05-24 Thyrotropin Qn 1.49 m[IU]/L (N) 0.4 - 4 m[IU]/L no in formation other on 2018-05-24 Albumin/Globulin 1.6 (N) no informatio n mass ratio CLOSTRIDIUM SEE NOTE (no code) [facility] DIFFICILE Center [facility] TOXIN/GDH W/REFL [facility] TO PCR (18767) Control Negative (no code) no information Exp date 01/2019 (no code) no information Globulin 2.5 (N) no information Calculated mass conc (S) Lot # [id number] (no code) no information OVA AND SEE NOTE (no code) no information PARASITES, CONC AND PERM SMEAR metabolic panel on 2018-05-24 Albumin mass 4.1 g/dL (N) 3.4 - 5.4 g/dL no inform ation conc ALP enzyme 88 U/L (N) 44 - 147 U/L no informati on act/vol ALT enzyme 19 U/L (N) 4 - 40 U/L no information act/vol AST enzyme 16 U/L (N) 10 - 34 U/L no informatio n act/vol Bilirubin mass 0.6 mg/dL (N) 0.1 - 1.2 mg/dL no inf ormation conc Calcium mass 9.2 mg/dL (N) 8.5 - 10.2 mg/dL no info rmation conc Chloride molar 106 mmol/L (N) 95 - 106 mmol/L no inf ormation conc CO2 molar conc 26 mmol/L (N) 23 - 29 mmol/L no info rmation Creatinine mass 0.88 mg/dL (N) no information conc GFR/1.73 sq M 98 (N) 90 - 120 no informati on predicted among mL/min/{1.73_m2} mL/min/{1.73_m2} blacks MDRD vol rate/area (S/P/Bld) GFR/1.73 sq 85 (N) 90 - 120 no information M.predicted MDRD mL/min/{1.73_m2} mL/min/{1.73_m2} vol rate/area Glucose mass 91 mg/dL (N) 60 - 125 mg/dL no inform ation conc Potassium molar 4.0 mmol/L (N) 3.7 - 5.2 mmol/L no i nformation conc Protein mass 6.6 g/dL (N) 6.4 - 8.3 g/dL no inform ation conc Sodium molar 139 mmol/L (N) 135 - 145 mmol/L no info rmation conc Urea nitrogen 12 mg/dL (N) 7 - 20 mg/dL no informa tion mass conc Urea NOT APPLICABLE (no code) no information nitrogen/Creatin ine mass ratio hematology on 2018-05-24 Basophils Auto 0.134 10*3/uL (N) 0 - 0.3 10*3/uL no i nformation #/vol (Bld) Basophils/100 1.3 % (N) 0.5 - 1 % no informati on WBC Auto (Bld) Eosinophils Auto 0.381 10*3/uL (N) 0.05 - 0.5 no info rmation #/vol (Bld) 10*3/uL Eosinophils/100 3.7 % (N) 1 - 4 % no informa tion WBC Auto (Bld) Erythrocyte 12.2 % (N) 11.6 - 14.6 % no informat ion distribution width Auto Ratio (RBC) Hematocrit Auto 48.4 % (H) 36.1 - 50.3 % no info rmation Volume Fraction (Bld) Hemoglobin mass 16.7 g/dL (H) 12.1 - 17.2 g/dL no i nformation conc (Bld) Lymphocytes Auto 3.08 10*3/uL (N) 0.9 - [...] % no informa tion WBC Auto (Bld) Platelet mean 10.9 fL (N) 7.2 - 11.7 fL no inform ation volume Auto Entitic volume (Bld) Platelets Auto 266 10*3/uL (N) 150 - 450 no informat ion #/vol (Bld) 10*3/uL RBC Auto #/vol 5.21 10*6/uL (H) 4.2 - 6.1 no informa tion (Bld) 10*6/uL WBC Auto #/vol 10.3 10*3/uL (N) 3.5 - 10.5 no informa tion (Bld) 10*3/uL Vital Signs Vital Sign Value Interpretation Reference Date Time Care Prov ider Facility (Normalized) (Normalized) Range BMI (Body Mass 30.9 kg/m2 (no code) 15 - 25 kg/m2 12-19-2018 [facility] Community Index) 15:10-[address] [facility] [address] [place] [address] ([id number]) BMI (Body Mass 31.66 kg/m2 (no code) 15 - 25 kg/m2 12-12-2018 [facility] Community Index) 12:20-[address] ([id number]) BMI (Body Mass 32.75 kg/m2 (no code) 15 - 25 kg/m2 08-02-2018 Fiona HELTON Community Index) 16:40-[address] [place] [address] ([id number]) BMI (Body Mass 33.81 kg/m2 (no code) 15 - 25 kg/m2 06-08-2018 [facility] Community Index) 12:00-[address] ([id number]) BMI (Body Mass 33.37 kg/m2 (no code) 15 - 25 kg/m2 05-25-2018 AGNES GARCIA Community Index) 12:40-[address] ([id number]) BMI (Body Mass 33.34 kg/m2 (no code) 15 - 25 kg/m2 05-24-2018 Lavern DAMIAN Community Index) 17:30-0400 [id number] [facility] ([id number]) Body height 175.26 cm (no code) cm 11-12-2014 [facility] 08:47-0500 [id number] [facility] ([id number]) Body height 175.26 cm (no code) cm 05-28-2014 [facility] 15:43-[address] [place] [address] ([id number]) Body height 175.26 cm (no code) cm 02-05-2014 [facility] 11:17-[address] [place] [address] ([id number]) Body 97.8 [degF] (no code) 97.8 - 99.0 12-19-2018 [facility] Temperature [degF] 15:10-[address] [facility] ([id number]) Body 98 [degF] (no code) 97.8 - 99.0 12-12-2018 [facility] Temperature [degF] 12:20-[address] ([id number]) Body 97.9 [degF] (no code) 97.8 - 99.0 08-02-2018 LINDY [facility] Temperature [degF] 16:40-[address] ([id number]) Body 98 [degF] (no code) 97.8 - 99.0 06-08-2018 [facility] Temperature [degF] 12:00-[address] ([id number]) Body 98 [degF] (no code) 97.8 - 99.0 05-25-2018 [facility] Temperature [degF] 12:40-[address] [facility] ([id number]) Body 97.6 [degF] (no code) 97.8 - 99.0 05-24-2018 [facility] Community Temperature [degF] 17:30-[address] [place], [place] [address]e [facility] ([id number]) Body 98.7 [degF] (no code) 97.8 - 99.0 12-10-2014 SHAHRZAD MAD L [facility] Temperature [degF] 09:51-[address] [place], [place] [address] [facility] ([id number]) Body 98.7 [degF] (no code) 97.8 - 99.0 11-12-2014 SHAHRZAD MAD L [facility] temperature [degF] 08:47-[address] [place], [place] [address] [facility] ([id number]) Body 98.1 [degF] (no code) 97.8 - 99.0 05-28-2014 SHAHRZAD MAD [facility] temperature [degF] 15:43-[address] [place], [place] [address] [facility] ([id number]) Body 96.8 [degF] (no code) 97.8 - 99.0 04-26-2014 SHAHRZAD MAD L [facility] Temperature [degF] 12:16-[address] [place] [address] ([id number]) Body 98.9 [degF] (no code) 97.8 - 99.0 02-05-2014 SHAHRZAD MAD [facility] temperature [degF] 11:17-[address] [place] [address] ([id number]) Body weight 94.94 kg (no code) kg 12-19-2018 [facility]unity [id number]:100400 [facility] [address] [place] [address] ([id number]) Body weight 97.25 kg (no code) kg 12-12-2018 AMY Joyce mmunity 12:200400 SHE[facility] [address] [place] [address] ([id number]) Body weight 105.19 kg (no code) kg 12-10-2014 SHAHRZAD MADL [facility] 09:51-[address] [place] [address] ([id number]) Body weight 97.61 kg (no code) kg 11-12-2014 [facility] 08:47-0500 [id number] [facility] ([id number]) Body weight 90.45 kg (no code) kg 05-28-2014 [facility] 15:43-0400 19164 [facility] ([id number]) Body weight 89.59 kg (no code) kg 04-26-2014 [facility] 12:16-0400 20009 [facility] ([id number]) Body weight 190.83 kg (no code) kg 02-05-2014 [facility] 11:17-[address] [place] [address] ([id number]) Height 175.26 cm (no code) cm 12-19-2018 ROD diego 15:10-[address] [facility] [address] [place] [address] ([id number]) Height 175.26 cm (no code) cm 12-12-2018 [facility] Comm unity 12:20-[address] ([id number]) Height 175.26 cm (no code) cm 08-02-2018 LINDY HELTON [facility] 16:40-[address] ([id number]) Height 175.26 cm (no code) cm 06-22-2018 [facility] 10:00-0400 [facility] ([id number]) Height 175.26 cm (no code) cm 06-08-2018 [facility] unity 12:00-[address] [place] [address] ([id number]) Height 175.26 cm (no code) cm 05-25-2018 [facility] unity 12:40-[address] ([id number]) Height 175.26 cm (no code) cm 05-24-[address] [facility] 17:30-[address] [place] [address] ([id number]) Height 175.26 cm (no code) cm 12-10-2014 [facility] 09:51-[address] [place] [address] ([id number]) Height 175.26 cm (no code) cm 04-26-2014 SHAHRZAD VALLECILLO Co mmunity 12:16-[address] [place] [address] ([id number]) Pulse Oximetry 97 % (no code) 95 - 100 % 12-19-2018 [facility] 15:10-[address] [facility] [address] [place] [address] ([id number]) Weight 100.61 kg (no code) kg 08-02-2018 LINDY HELTON [facility] 16:40-[address] [place] [address] ([id number]) Weight 103.87 kg (no code) kg 06-08-2018 [facility] unity 12:00-[address] ([id number]) Weight 102.51 kg (no code) kg 05-25-2018 [facility] Comm [place] 12:40-[address] ([id number]) Weight 102.42 kg (no code) kg 05-24-[address] [facility] 17:30-[address] [place] [address] ([id number]) Interventions No Information Plan of Treatment Normalized Care Care Detail Care Activity Date Care Provider F acility Activity Patient Education no information no information [facility] [place] [facility] [address] [place] [address] ([id number]) Patient referral no information no information [facility] [place] [facility] [address] [place] [address] ([id number]) Goals Patient Goal Desired Goal no information no information Social History Normalized Code Original Code Date Value Tobacco smoking status Tobacco smoking status 08-01-2019 - Smokes tobacco daily NHIS NHIS (finding) no information no information 05-30-2015 Occasionally Us es no information no information 08-17-2013 No no information no information 08-01-2019 Current Everyda y Smoker no information no information 05-30-2019 Cigarettes no information no information 08-01-2019 POT Sex Assigned At Sex Assigned At no information F emale no information no information 01-16-2020 Denies Functional Status The data below is from [...] nctional Status information availableNo Functional Status information availableN o Functional Status information availableNo Functional Status information availa bleNo Functional Status information availableNo Functional Status information av ailable Mental Status The data below is from unstructured sourcesNo Mental Status Information AvailableNo Mental Status Information AvailableNo Mental Status Information AvailableNo Mental Status Information AvailableNo Mental Status Information Available Encounters Encounter Normalized [...] [facility] (n o [facility] phone) CARE (no phone) 09-04-2019 [facility] Bronchitis, not CASIE VICTORIA (no [facility] specified as acute or phone) CARE (no phone) chronic 03-15-2020 Emergency department no information (no phone) [facility] patient visit Hospital (no phone) 03-15-2020 Emergency department no information DONA CUTLER (no [facility] - patient visit phone) [facility] 03-15-2020 (no phone) 01-16-2020 Emergency department no information (no phone) [facility] - patient visit Hospital (no phone) 01-16-2020 01-16-2020 Emergency department no information DONA WUN (no [facility] - patient visit phone) [facility] 01-16-2020 (no phone) 08-01-2019 Emergency department no information (no phone) [facility] - patient visit Hospital (no phone) 08-01-2019 08-01-2019 Emergency department no information no name no organization name - patient visit 08-01-2019 05-30-2019 Emergency department no information VIDA PUTNAM Work no organization name - patient visit Phone: 05-30-2019 12-16-2018 Emergency department no information DONA Knapp APRN BA [facility] no organization name - patient visit Work Phone: 12-16-2018 12-16-2018 Emergency department no information no name no organization name - patient visit 12-16-2018 08-06-2018 Emergency department no information LORENE TSANG INS no organization name - patient visit Work Phone: 08-06-2018 08-06-2018 Emergency department no information no name no organization name - patient visit 08-06-2018 12-08-2014 Emergency department no information no name no organization name - patient visit 12-08-2014 12-12-2013 Emergency department no information no name no organization name - patient visit 12-12-2013 09-14-2013 Emergency department no information no name no organization name - patient visit 09-14-2013 06-22-2018 Limit oral eval problm no information no name no organization name focus 08-06-2018 Patient encounter no information no name no or ganization name 05-25-2018 Patient encounter no information no name no or ganization name 05-24-2018 Patient encounter no information no name no or ganization name 01-16-2020 Patient encounter no information DONA SKINNER APRN (no [facility] procedure phone) [facility] (no phone) 01-03-2020 Patient encounter no information [facility]Y BRAVO [facility]) (no phone) [facility] (no phone) 09-11-2019 Patient encounter no information no name no or ganization name procedure 09-04-2019 Patient encounter no information no name no or ganization name procedure 06-14-2019 Patient encounter no information no name no or ganization name procedure 06-02-2019 Patient encounter no information no name no or ganization name procedure 05-31-2019 Patient encounter no information no name no or ganization name procedure 05-31-2019 Patient encounter no information no name no or ganization name procedure 05-30-2019 Patient encounter no information no name no or ganization name procedure 03-07-2019 Patient encounter no information no name no or ganization name procedure 02-20-2019 Patient encounter no information no name no or ganization name procedure 02-20-2019 Patient encounter no information no name no or ganization name procedure 02-18-2019 Patient encounter no information no name no or ganization name procedure 02-15-2019 Patient encounter no information no name no or ganization name procedure 01-23-2019 Patient encounter no information no name no or ganization name procedure 01-16-2019 Patient encounter no information no name no or ganization name procedure 12-19-2018 Patient encounter no information no name no or ganization name procedure 12-16-2018 Patient encounter no information no name no or ganization name procedure 12-12-2018 Patient encounter no information no name no or ganization name procedure 11-28-2018 Patient encounter no information no name no or ganization name procedure 11-24-2018 Patient encounter no information no name no or ganization name procedure 11-23-2018 Patient encounter no information AMY Knapp APRN no organization name procedure SHELLY 11-23-2018 Patient encounter no information no name no or ganization name procedure 11-11-2018 Patient encounter no information no name no or ganization name procedure 10-27-2018 Patient encounter no information no name no or ganization name procedure 09-19-2018 Patient encounter no information no name no or ganization name procedure 08-17-2013 Patient encounter no information no name no or ganization name - procedure 08-18-2013 08-15-2013 Patient encounter no information no name no or ganization name procedure 01-11-2020 Telephone encounter Herpesviral infection, MITZY BRAVO (no [facility] unspecified phone) ALVIN MAY (no (no phone) phone) 10-16-2019 Telephone encounter no information AMY BRAVO (no [facility] phone) (no phone) 08-03-2019 Telephone encounter no information AMY BRAVO (no [facility] phone) (no phone) no information Pre-procedural no name no organization name laboratory examination Medical Equipment The data below is from unstructured sourcesNo Medical Equipment Information availableNo Medical Equipment Information availableNo Medical Equipment Information availableNo Medical Equipment Information a vailableNo Medical Equipment Information available Payers Normalized Payer Value Private Health Insurance [id number] ([id number]) Private Health Insurance no information ([id number]) Medicaid [id number] ([id number]) Evaluation note Note Type Note Facility Evaluation No Assessments Information Available A scension note [facility] ([id number]) History general Narrative - Reported Note Type Note Facility History general Narrative - Reported Type Medical anxiety History Medical utrerine cancer 2013 History Medical CMT (cervical motion tender ness) History Medical COPD +moderate obstruction on PFTs History Medical Charcot-Farideh Tooth disease - History Medical IBS-D History Surgical hysterectomy with single oophorectomy 2013 History Surgical tonsilectomy History Surgical colonoscopy 06/2018, WNL- Dr Karimi; trial colestid and GB US History Hospitaliz colonoscopy ation History [facility] ([id number]) Advance Directives Directive Response Recor ded Date Advance Directives N 06/16 12:37pm Organ Donor Y 06/12/13 1 2:37pm Directive Response Recor ded Date Advance Directives N 8:56pm Organ Donor Y 05/17/13 8 :56pm Directive Response Recor ded Date/Time Advance Directives No 12:38pm Health Care Power of Bomb Squad Officer No 05/30/15 12:38pm Organ Donor No 05/30/15 12:38pm Resuscitation Status Full Code 05/30/15 12:38pm Directive Response Recor ded Date/Time Advance Directives No 12:57pm Health Care Power of Bomb Squad Officer No 03/18/15 12:57pm Organ Donor No 03/18/15 12:57pm Resuscitation Status Full Code 03/18/15 12:57pm Directive Response Recor ded Date/Time Advance Directives No 1:29pm Health Care Power of Bomb Squad Officer No 01/28/15 1:29pm Organ Donor Yes 01/28/15 1:29pm Directive Response Recor ded Date Advance Directives N 03/16 7:16am Organ Donor Y 02/06/13 7 :16am Directive Response Recor ded Date/Time Advance Directives No 1:42pm Health Care Power of Bomb Squad Officer No 04/20/14 1:42pm Organ Donor Yes 04/20/14 1:42pm Resuscitation Status Full Code 04/20/14 1:42pm Directive Response Recor ded Date/Time Advance Directives No 9:13pm Health Care Power of Bomb Squad Officer No 12/08/14 9:13pm Organ Donor Yes 12/08/14 9:13pm Resuscitation Status Full Code 12/08/14 9:13pm Directive Response Recor ded Date/Time Advance Directives No 6:29am Health Care Power of Bomb Squad Officer No 03/12/15 6:29am Organ Donor Yes 03/12/15 6:29am Resuscitation Status Full Code 03/12/15 6:29am Directive Response Recor ded Date/Time Advance Directives No 3:35pm Health Care Power of Bomb Squad Officer No 02/20/15 3:35pm Organ Donor Yes 02/20/15 3:35pm Resuscitation Status Full Code 02/20/15 3:35pm Directive Response Recor ded Date/Time Advance Directives No 9:25pm Health Care Power of Bomb Squad Officer No 08/06/18 9:25pm Organ Donor No 08/06/18 9:25pm Resuscitation Status Full Code 08/06/18 9:25pm Directive Response Recor ded Date/Time Advance Directives No 12:06pm Health Care Power of Bomb Squad Officer No 12/16/18 12:06pm Organ Donor No 12/16/18 12:06pm Resuscitation Status Full Code 12/16/18 12:06pm Directive Response Recor ded Date/Time Advance Directives No 7:52am Health Care Power of Bomb Squad Officer No 05/30/19 7:52am Organ Donor No 05/30/19 7:52am Resuscitation Status Full Code 05/30/19 7:52am Advance Directive Response Recorded Date/Time Advance Directives No [facility]2018 8:59am Health Care Power of Bomb Squad Officer No May 30, 2019 7:52am Organ Donor No May 302018 7:52am Resuscitation Status Full Code August 01, 2019 8:59am Advance Directive Response Recorded Date/Time Advance Directives No Ap 2019 2:49pm Health Care Power of Bomb Squad Officer No January 16, 2020 2:49pm Organ Donor No January 2:49pm Resuscitation Status Full Code January 16, 2020 2:49pm Advance Directive Response Recorded Date/Time Advance Directives No Ju 2019 7:08pm Health Care Power of Bomb Squad Officer No March 15, 2020 7:08pm Organ Donor No March 7:08pm Resuscitation Status Full Code March 15, 2020 7:08pm Discharge Instructions No hospital discharge instructions.No hospital [...] Complaint Head/Cervical Proble ms Reason for Visit [id number] Chief Complaint Respiratory Problems Reason for Visit [id number] Chief Complaint Lower Extremity Reason for Visit [id number] Additional Source Comments This clinical document has been generated using [employer] software that has been certified by the Office of the National Coordinator for Health Information Technology (ONC 15.99.04.3023.Diam.31.00.0.854411) and the National Committee for [employer] Tensioning Ironworker (NCQA, as an eMeasure certified technology). FOR [...] BASED ON T HE PRIMARY CLINICAL RECORDS. [employer] provides no warranty or guara ntee of the accuracy or completeness of information in this document.The followi ng information is based on time limited clinical information UNRECOGNIZED CONTENT PROVIDED BELOW FOR UNRECOGNIZED SECTION REASON FOR VISIT vomiting, nausea, diahrrea, headaches and fatigue for quite some time. Pt recent ly moved from [place], [place] and had blood work there and then they moved.--Marah Warner-Several weeks ago- [facility]- Saw a provider in [place], and then in [place]--Christo Mcclellane Jchristmancough/congestion/ short o f breath for the last 4-5 days.--Timmy [id number] up on headaches/ med check and refill- [...]
--- OUTSIDE RECORDS SUMMARY | 2020-03-15 22:29 | XMS REPORT ---
Author Author Alena VALLECILLONYA Organization [facility] Address [address] [place] [address] Care Team Providers Care Manager Environmental Health And Safety Name Role Phone AVEL SHAHRZAD Unavailable PROBLEMS Type Condition ICD9-CM Code [id number] Code Onset Dates Condition S tatus SNOMED Code Problem Hemiplegic migraine without status migrainosus, not intractable G43.409 Active 16789833 Problem Tongue pain K14.6 Active 30781265 Problem COPD exacerbation J44.1 Active 19 5073921 Problem Insomnia, unspecified type G47.00 Act valencia 769738409 Problem Adjustment disorder with depressed mood F43.21 Active 50608945 Problem 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 191280316 Problem Chronic obstructive pulmonary disease, unspecified COPD ty pe J44.9 Active [id number] ALLERGIES No Information ENCOUNTERS Encounter Location Date Diagnosis [facility] [address] [id number] 09 Jan, 2020 Herpes B00.9 [facility] [address] [id number] [place] [id number] Jan, Shortness of breath R06.02 ; COPD exacerbation J44.1 and Pneumonia of left upper lobe due to infectious organism J18.9 [facility] [address] [id number] [address] [place] [id number] 11 Nov, 2019 COPD exacerbation J44.1 and Nausea R11.0 [facility] [id number] [address] [place] [address] Oct, [facility] [address] [facility] [id number] [address] [place] [id number] Sep, Tongue pain K14.6 [facility] [id number] [address] [place] [id number] Sep, Bronchitis J40 [facility] [address] [id number] [address] [place] [id number] Jul, 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 [id number] [place] [id number] Jun, Dental examination Z01.20 [facility] [address] [facility] [id number] [address] [place] [id number] May, Nausea R11.0 and Mouth pain K13.79 [facility] [address] [id number] [address] [place] [id number] May, [facility] [address] [id number] [address] [place] [id number] May, Dental examination Z01.20 [facility] [address] [facility] [id number] [address] [place] [address] May, Mouth pain K13.79 and Dental abscess K04.7 [facility] [address] [facility] [id number] [address] [place] [phone] Mar, [facility] [id number] [address] [place] [id number] Mar, Chronic bronchitis, unspecif ied chronic bronchitis type J42 [place] [address] [phone] Mar, Chronic bronchitis, unspecif ied chronic bronchitis type J42 ; Adjustment disorder with depressed mood F43.21 ; Hemiplegic migraine without status migrainosus, not intractable G43.409 and 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 [place] [address] [address] February, Right hand pain M79.641 [facility] [address] [address] February, Right hand pain M79.641 and Contusion of left shoulder, initial encounter S40.012[address] [place] [address] [address] February, Chronic bronchitis, unspecif ied chronic bronchitis type J42 and Tobacco abuse counseling Z71.6 [place] [address] [address] Jan, Chronic bronchitis, unspecif ied chronic bronchitis type J42 and Tobacco abuse counseling Z71.6 [place] [address] [address] Jan, Adjustment disorder with dep ressed mood F43.21 [place] [address] [address] Dec, [facility] [address] [address] Dec, Wheezing R06.2 and Viral upp er respiratory tract infection J06.9 [place] [address] [place] [id number] [address] [place] [address] Dec, Adjustment disorder with dep ressed mood F43.21 ; Hemiplegic migraine without status migrainosus, not intractable G43.409 and Herpes B00.9 [facility] [address] [facility] [id number] [address] [place] [address] Nov, [facility] [address] [facility] [id number] [address] [place] [address] Nov, Adjustment disorder with dep ressed mood F43.21 [facility] [id number] [address] [place] [address] Nov, [facility] [id number] [place] [phone] Nov, Hemiplegic migraine without status migrainosus, not intractable G43.409 and Insomnia, unspecified type G47.00 [facility] [id number] [place] [address] Nov, Adjustment disorder with dep ressed mood F43.21 [facility] [address] [address] Oct, Adjustment disorder with dep ressed mood F43.21 [facility] [address] [address] Oct, [facility] [id number] [place] [address] Jul, Cough R05 [facility] [id number] [place] [address] Jul, Cough R05 [facility] [id number] [address] [place] [phone] Jul, [facility] [address] [id number] Jul, [facility] [id number] [place] [phone] Jun, Dental examination Z01.20 [facility] [id number] [place] [id number] Jun, Dental examination Z01.20 an d Caries of arrested teeth K02.3 [facility] [address] [facility] [id number] [address] [place] [id number] 05 Jun, 2018 Chronic diarrhea K52.9 [facility] [address] [facility] [id number] [address] [place] [phone] May, Diarrhea, unspecified type R 19.7 ; Non-intractable vomiting with nausea, unspecified vomiting type R11.2 and Screening for thyroid disorder Z13.29 [facility] [address] [facility] [id number] [address] [place] [phone] May, Diarrhea, unspecified type R 19.7 and Nausea and vomiting in adult R11.2 [facility] [address] [facility] [id number] [address] [place] [id number] 14 Jan, 2015 [facility] [id number] [address] [place] [phone] Jan, [facility] [address] [facility] [id number] [address] [place] [id number] Dec, [facility] [address] [facility] [id number] [address] [place] [phone] Dec, [facility] [address] [facility] [id number] [address] [place] [phone] Dec, [facility] [address] [facility] [id number] [address] [place] [phone] Dec, [facility] [address] [facility] [id number] [address] [place] [id number] Nov, [facility] [address] [facility] [id number] [address] [place] [phone] Nov, [facility] [address] [facility] [id number] [address] [place] [phone] Nov, [facility] [id number] [address] [place] [phone] Nov, [facility] [address] [id number] [address] [place] [address], [place] [address] Oct, [facility] [address] [id number] [address] [place] [address], [place] [address] Oct, [facility] [address] [id number] [address] [place] [address], [place] [address] Sep, [facility] [address] [id number] [address] [place] [address], [place] [address] Sep, [facility] [address] [id number] [address] [place] [address], [place] [address] Sep, [facility] [address] [id number] [address] [place] [address], [place] [address] Sep, [facility] [address] [id number] [address] [place] [address], [place] [address] Sep, [facility] [address] [id number] [address] [place] [address], [place] [address] Aug, [facility] [address] [id number] [address] [place] [address], [place] [address] Aug, [facility] [address] [id number] [address] [place] [address], [place] [address] Aug, [facility] [address] [id number] [address] [place] [address], [place] [address] Aug, [facility] [address] [id number] [address] [place] [address], [place] [address] Jul, [facility] [address] [id number] [address] [place] [address], [place] [address] Jul, [facility] [address] [id number] [address] [place] [address], [place] [address] May, [facility] [address] [id number] [address] [place] [address], [place] [address] May, [facility] [address] [id number] [address] [place] [address] [place] [address] May, [facility] [address] [id number] [address] [place] [address], [place] [address] May, [facility] [address] [id number] [address] [place] [address], [place] [address] Apr, [facility] [address] [id number] [address] [place] [address], [place] [address] Apr, [facility] [address] [id number] [address] [place] [address], [place] [address] Apr, [facility] [address] [id number] [address] [place] [address], [place] [address] Apr, [facility] [address] [id number] [address] [place] [address], [place] [address] Apr, [facility] [address] [id number] [address] [place] [address], [place] [address] Apr, [facility] [address] [id number] [address] [place] [address], [place] [address] Apr, [facility] [address] [id number] [address] [place] [address], [place] [address] Mar, [facility] [address] [id number] [address] [place] [address], [place] [address] Mar, [facility] [address] [id number] [address] [place] [address], [place] [address] February, [facility] [address] [id number] [address] [place] [address], [place] [address] February, [facility] [address] [id number] [address] [place] [address], [place] [address] February, [facility] [address] [id number] [address] [place] [address], [place] [address] February, [facility] [address] [id number] [address] [place] [address], [place] [address] Jan, [facility] [address] [facility] [id number] [address] [place] [phone] Jan, [facility] [address] [facility] [id number] [address] [place] [id number] Sep, [facility] [address] [facility] [id number] [address] [place] [phone] Sep, IMMUNIZATIONS No Known Immunizations SOCIAL HISTORY Never Assessed REASON FOR VISIT PLAN OF CARE VITAL SIGNS Height 69 in 2014-11-12 Weight 215.19 lbs 2014-11-12 Temperature 98.7 degrees Fahrenheit 2014-11-12 Heart Rate 80 bpm 2014-11-12 Respiratory Rate 20 2014-11-12 Blood pressure systolic 122 mmHg 2014-11-12 Blood pressure diastolic 66 mmHg 2014-11-12 MEDICATIONS Unknown Medications RESULTS No Results PROCEDURES Procedure Date Ordered Result Body Site COMPLETE CBC W/AUTO DIFF WBC Nov 12, 2014 VENIPUNCT, ROUTINE* Nov 12, 2014 INSTRUCTIONS MEDICATIONS ADMINISTERED No Known Medications [...]
--- OUTSIDE RECORDS SUMMARY | 2020-03-15 22:32 | XMS REPORT | Continuity of Care Document ---
Author Organization Unknown Address Unknown Phone Unavailable Allergies Active Description Code Type Severity Reaction Onset Reported/Identified Relationship to Patient Clinical Status Yes hydrocodone [id number] Drug Aller gy Severe N/A 02/06/2013 Yes Penicillins Drug Allergy N/A N/A 05/28/2014 Yes MUSHROOMS, HU, RAW Food Allergy N/A N/A 07/23/2014 Yes Penicillins [id number] Drug Aller gy Unknown N/A 02/20/2015 Medications [...] MENTION OF STATUS MIGRAINOSUS 02/05/2014 ANDERSON DDS, IKRK 35 5.9 NEUROPATHY 02/05/2014 LOLA RICHARDS DO K 346.10 MIGRAINE WITHOUT AURA WITHOUT MENTION OF INTRACTABLE MIGRAINE WITHOUT MENTION OF STATUS MIGRAINOSUS 02/05/2014 LOLA RICHARDS DO K 355.9 NEUROPATHY 02/05/2014 [facility], SHAHRZAD L 346 .10 MIGRAINE WITHOUT AURA WITHOUT MENTION OF INTRACTABLE MIGRAINE WITHOUT MENTION OF STATUS MIGRAINOSUS 02/05/2014 [facility], SHAHRZAD L 355 .9 NEUROPATHY 02/05/2014 [facility], SHAHRZAD L 346 .10 MIGRAINE WITHOUT AURA WITHOUT MENTION OF INTRACTABLE MIGRAINE WITHOUT MENTION OF STATUS MIGRAINOSUS 02/05/2014 [facility], SHAHRZAD L 355 .9 NEUROPATHY 02/05/2014 [facility], SHAHRZAD L 346 .10 MIGRAINE WITHOUT AURA WITHOUT MENTION OF INTRACTABLE MIGRAINE WITHOUT MENTION OF STATUS MIGRAINOSUS 02/05/2014 [facility], SHAHRZAD L 355 .9 NEUROPATHY 02/05/2014 SUSANNAH RICHARDS DOA K 346.10 MIGRAINE WITHOUT AURA WITHOUT MENTION OF INTRACTABLE MIGRAINE WITHOUT MENTION OF STATUS MIGRAINOSUS 02/05/2014 LOLA RICHARDS DO K 355.9 NEUROPATHY 02/05/2014 [facility], SHAHRZAD L 346 .10 MIGRAINE WITHOUT AURA WITHOUT MENTION OF INTRACTABLE MIGRAINE WITHOUT MENTION OF STATUS MIGRAINOSUS 02/05/2014 [facility], SHAHRZAD L 355 .9 NEUROPATHY 02/05/2014 [facility], SHAHRZAD L 346 .10 MIGRAINE WITHOUT AURA WITHOUT MENTION OF INTRACTABLE MIGRAINE WITHOUT MENTION OF STATUS MIGRAINOSUS 02/05/2014 [facility], SHAHRZAD L 355 .9 NEUROPATHY 02/05/2014 [facility], SHAHRZAD L 346 .10 MIGRAINE WITHOUT AURA WITHOUT MENTION OF INTRACTABLE MIGRAINE WITHOUT MENTION OF STATUS MIGRAINOSUS 02/05/2014 [facility], SHAHRZAD L 355 .9 NEUROPATHY 04/26/2014 LOLA RICHARDS DO 338.29 OTHER CHRONIC PAIN 04/26/2014 RICHARDS DO, LOLA K 356.1 PERONEAL MUSCULAR ATROPHY 04/26/2014 RICHARDS DO, LOLA K 780.79 OTHER MALAISE AND FATIGUE 04/26/2014 [facility], SHAHRZAD L 338 .29 OTHER CHRONIC PAIN 04/26/2014 [facility], SHAHRZAD L 356 .1 PERONEAL MUSCULAR ATROPHY 04/26/2014 [facility], SHAHRZAD L 780 .79 OTHER MALAISE AND FATIGUE 04/26/2014 [facility], SHAHRZAD L 338 .29 OTHER CHRONIC PAIN 04/26/2014 [facility], SHAHRZAD L 356 .1 PERONEAL MUSCULAR ATROPHY 04/26/2014 [facility], SHAHRZAD L 780 .79 OTHER MALAISE AND FATIGUE 04/26/2014 [facility], SHAHRZAD L 338 .29 OTHER CHRONIC PAIN 04/26/2014 [facility], SHAHRZAD L 356 .1 PERONEAL MUSCULAR ATROPHY 04/26/2014 [facility], SHAHRZAD L 780 .79 OTHER MALAISE AND FATIGUE 04/26/2014 RICHARDS DO, LOLA K 338.29 OTHER CHRONIC PAIN 04/26/2014 RICHARDS DO, LOLA K 356.1 PERONEAL MUSCULAR ATROPHY 04/26/2014 RICHARDS DO, LOLA K 780.79 OTHER MALAISE AND FATIGUE 04/26/2014 [facility], SHAHRZAD L 338 .29 OTHER CHRONIC PAIN 04/26/2014 [facility], SHAHRZAD L 356 .1 PERONEAL MUSCULAR ATROPHY 04/26/2014 [facility], SHAHRZAD L 780 .79 OTHER MALAISE AND FATIGUE 04/26/2014 [facility], SHAHRZAD L 338 .29 OTHER CHRONIC PAIN 04/26/2014 [facility], SHAHRZAD L 356 .1 PERONEAL MUSCULAR ATROPHY 04/26/2014 [facility], SHAHRZAD L 780 .79 OTHER MALAISE AND FATIGUE 04/26/2014 [facility], SHAHRZAD L 338 .29 OTHER CHRONIC PAIN 04/26/2014 [facility], SHAHRZAD L 356 .1 PERONEAL MUSCULAR ATROPHY 04/26/2014 [facility], SHAHRZAD L 780 .79 OTHER MALAISE AND FATIGUE 05/28/2014 [facility], SHAHRZAD L 300 .4 DYSTHYMIC DISORDER 05/28/2014 REMYL MARGARETH, SHAHRZAD L V15 .05 PERSONAL HISTORY OF ALLERGY TO OTHER FOODS 05/28/2014 AVEL ZULUAGA, SHAHRZAD L 300 .4 DYSTHYMIC DISORDER 05/28/2014 [facility], SHAHRZAD L V15 .05 PERSONAL HISTORY OF [...] L 300 .4 DYSTHYMIC DISORDER 05/28/2014 [facility], SHAHRZAD L V15 .05 PERSONAL HISTORY OF [...] 924.20 CONTUSION OF FOOT 03/18/2015 DONA [facility] Ot 959 .7 LOWER LEG INJURY NOS 03/18/2015 DONA [facility] Ot E000.8 OTHER EXTERNAL CAUSE STATUS 03/18/2015 DONA SK[facility] Ot E928.9 ACCIDENT NOS 05/30/2015 ISIS MONTOYA [...] AG 12/16/2018 DONA SKINNER APRN Ot Y92.[address] [facility] [address] IN [facility] NON-[facility] (PRIVATE 12/16/2018 DONA SKINNER APRN [...] AG 12/19/2018 DONA SKINNER APRN Ot Y92.[address] [facility] [address] IN [facility] NON[facility] (PRIVATE 12/19/2018 DONA SKINNER APRN [...] SCALE, BEST MOTOR RESPONSE, OBEYS C 12/22/2018 DONA SKINNER APRN Ot R51 HEADACHE 12/22/2018 DONA SKINNER APRN Ot S06.0X0A CONCUSSION WITHOUT LOSS OF CONSCIOUSNESS 12/22/2018 DONA SKINNER APRN Ot W01.198A FALL SAME LEV FROM SLIP/TRIP W STRIKE AG 12/22/2018 DONA SKINNER APRN Ot Y92.[address] IN [facility] NON-[facility] (PRIVATE 12/22/2018 DONA SKINNER APRN [...] Ot G43.409 HEMIPLEGIC MIGRAINE, NOT INTRACTABLE, W01/04/2019 AMY BRAVO APRN Ot G43.409 HEMIPLEGIC MIGRAINE, NOT INTRACTABLE, W/ 05/30/2019 AMY BRAVO MARGARETH Ot G43.409 HEMIPLEGIC MIGRAINE, NOT INTRACTABLE, W/ [...] MD Ot Z98. 51 TUBAL LIGATION STATUS 01/17/2020 DONA SKINNER APRN Ot F32 .9 MAJOR DEPRESSIVE DISORDER, SINGLE EPISOD 01/17/2020 DONA SKINNER APRN Ot F41 .9 ANXIETY DISORDER, UNSPECIFIED 01/17/2020 DONA SKINNER APRN Ot J18 .9 PNEUMONIA, UNSPECIFIED ORGANISM 01/17/2020 DONA SKINNER APRN Ot J44 .1 CHRONIC OBSTRUCTIVE PULMONARY DISEASE W 01/17/2020 DONA SKINNER APRN Ot K21 .9 GASTRO-ESOPHAGEAL REFLUX DISEASE WITHOUT 01/17/2020 DONA SKINNER APRN Ot Z85.42 PERSONAL HISTORY OF MALIGNANT NEOPLASM O Procedures Code Description [place] [address] ROUT INE VENIPUNCTURE 04/26/2014 27043 CBC 04/26/20144896037 GF R CALC (RESULT ONLY) 04/26/2014 15334 CMP 04/26/2014 03227 TSH 04/26/2014 34844 ROUT INE VENIPUNCTURE 08/23/2014 56894 THER APUTIC INJ SQ/IM 08/23/2014 J3420 B12 VITAMIN INJECTION 08/23/2014 95397 CBC 08/23/2014 3824658 GF R CALC (RESULT ONLY) 08/23/2014 38783 CMP 08/23/2014 16216 PORSCHE MIN D 25-HYDROXY (D2,D3, TOTAL) 08/23/2014 17055 VIT B 12 08/23/2014 56179 ROUT INE VENIPUNCTURE 11/12/2014 77689 CBC 11/12/2014 00271 [employer] 01/15/2015 Results Test Result Range TSH [...] TOXIN/GDH W/REFL TO PCR SEE NOTE NRG Complete blood count (CBC) with automate d white blood cell (WBC) differential - 01/16/20 14:40 Blood leukocytes automated count (number/volume) 11.0 10*3/uL 4.3-11.0 Blood erythrocytes automated count (number/volume) 5.10 10*6/uL 4.35-5.85 Venous blood hemoglobin measurement (mass/volume) 15.8 g/dL 11.5-16.0 Blood hematocrit (volume fraction) 47 % 35-52 Automated erythrocyte mean corpuscular volume 93 [ foz_us] 80-99 Automated erythrocyte mean corpuscular h emoglobin (mass per erythrocyte) 31 pg 25-34 Automated erythrocyte mean corpuscular h emoglobin concentration measurement (mass/volume) 33 g/dL 32-36 Automated erythrocyte distribution width ratio 13. 6 % 10.0- 14.5 Automated blood platelet count (count/volume) 228 10*3/uL 130-400 Automated blood platelet mean volume measurement 10.7 [foz_us] 7.4-10.4 Automated blood neutrophils/100 leukocytes 64 % 42-75 Automated blood lymphocytes/100 leukocytes 30 % 12-44 Blood monocytes/100 leukocytes 5 % 0-12 Automated blood eosinophils/100 leukocytes 1 % 0-10 Automated blood basophils/100 leukocytes 1 % 0-10 Blood neutrophils automated count (number/volume) 7.1 10*3 1.8-7.8 Blood lymphocytes automated count (number/volume) 3.3 10*3 1.0-4.0 Blood monocytes automated count (number/volume) 0. 5 10*3 0.0-1.0 Automated eosinophil count 0.1 10*3/uL 0 .0-0.3 Automated blood basophil count (count/volume) 0.1 10*3/uL 0.0-0.1 Whole blood basic metabolic panel - 01/02 01/21 14:40 Serum or plasma sodium measurement (moles/volume) 140 mmol/L 135-145 Serum or plasma potassium measurement (moles/volume) 3.7 mmol/L 3.6-5.0 Serum or plasma chloride measurement (moles/volume) 106 mmol/L 98-107 Carbon dioxide 21 mmol/L 21-32 Serum or plasma anion gap determination (moles/volume) 13 mmol/L 5-14 Serum or plasma urea nitrogen measurement (mass/volume ) 7 mg/dL 7-18 Serum or plasma creatinine measurement (mass/volume) 0.82 mg/dL 0.60-1.30 Serum or plasma urea nitrogen/creatinine mass ratio 9 NRG Serum or plasma creatinine measurement w ith calculation of estimated glomerular filtration rate > NRG Serum or plasma glucose measurement (mass/volume) 93 mg/dL 70-105 Serum or plasma calcium measurement (mass/volume) 8.9 mg/dL 8.5-10.1 Serum or plasma C reactive protein measu rement (mass/volume) - 01/16/20 14:40 Serum or plasma C reactive protein measurement (mass/v olume) 0.68 mg/dL 0.00-0.50 Fibrin D-dimer FEU measurement in platel et poor plasma (mass/volume) - 01/16/20 14:40 Fibrin D-dimer FEU measurement in platelet poor plasma (mass/volume) 0.31 ug/mL 0.00-0.49 Encounters ACCT No. Visit Date/Time Discharge Status Pt. Type Provider Facility Loc./Unit Complaint [id number] 01/09/2015 14:18:00 01/09/2015 23:59: 59 CLS Outpatient [facility] [id number] 11/12/2014 08:47:00 11/12/2014 23:59: 59 CLS Outpatient [facility] [id number] 10/10/2014 13:23:00 10/10/2014 23:59: 59 CLS Outpatient [facility] L [id number] 08/23/2014 10:55:00 08/23/2014 23:59: 59 CLS Outpatient [facility] [id number] 08/23/2014 10:55:00 08/23/2014 23:59: 59 CLS Outpatient MAURICE TURNERLOLA [id number] 07/23/2014 08:23:00 07/23/2014 23:59: 59 CLS Outpatient [facility] Jaimes L [id number] 05/28/2014 14:43:00 05/28/2014 23:59: 59 CLS Outpatient [facility] L [id number] 04/26/2014 10:16:00 04/26/2014 23:59: 59 CLS Outpatient LOLA RICHARDS DO [id number] 03/01/2014 12:54:00 03/01/2014 23:59: 59 CLS Outpatient KIRK ANDERSON DDS [id number] 02/05/2014 09:17:00 02/05/2014 23:59: 59 CLS Outpatient LOLA RICHARDS DO [id number] 03/15/2020 19:00:00 19:59:00 DIS Emergency DONA SKINNER APRN [facility] ER FALL/R ANKLE INJ [id number] 01/16/2020 14:46:00 15:49:00 DIS Outpatient DONA SKINNER APRN [facility] ER PNEUMONIA [id number] 08/01/2019 08:39:00 09:52:00 DIS Emergency LORENE SEAY MD [facility] ER MIGRAINE;MEMORY LOSS [id number] 05/30/2019 07:37:00 08/27/2 019 08:50:00 DIS Outpatient JERSEY WRIGHT, VIDA Knapp [facility] ER DENTAL PAIN [id number] 12/16/2018 11:42:00 019 13:04:00 DIS Emergency DONA SKINNER APRN [facility] ER FELL AND HIT HEAD; DIZZ Y NAUSEA AND CONFUSION [id number] 11/23/2018 08:35:00 019 23:59:59 CLS Outpatient AMY BRAVO APRN [facility] RAD HEMIPLEGIC MIGR JOSÉ LUIS [id number] 08/06/2018 21:20:00 018 22:23:00 DIS Emergency GEENA WRIGHT, LORENE Larios [facility] ER VOMITTING,COUGH ING, [id number] 05/30/2015 12:30:00 015 14:55:00 DIS Emergency ISIS MONTOYA MD [facility] ER [id number] 03/18/2015 12:55:00 015 13:55:00 DIS Emergency DONA SKINNER APRN [facility] ER LEFT FOOT INJURY [id number] 03/12/2015 06:22:00 015 07:23:00 DIS Emergency ELVIS GOGO TURNER Vi [facility] ER LEFT KNEE PAIN [id number] 02/20/2015 15:19:00 015 16:20:00 DIS Emergency DONA SKINNER APRN [facility] ER ACUTE PANCREATITIS, DUY VATED LFT'S [id number] 02/05/2015 15:09:00 015 23:59:59 CLS Outpatient MARLIN HARVEY [facility] OCC ANKLE PAIN [id number] 01/28/2015 13:10:00 015 16:45:00 DIS Emergency DONA SKINNER APRN [facility] ER FEVER,COUGH,NAUSEA [id number] 04/20/2014 13:31:00 014 13:58:00 DIS Emergency [id number] 02/26/2014 15:58:00 014 18:02:00 DIS Emergency [id number] 01/30/2014 09:40:00 23:59:59 CLS Outpatient [id number] 01/28/2014 15:30:00 19:43:00 DIS Emergency [id number] 01/14/2014 19:02:00 21:14:00 DIS Emergency [id number] 01/03/2014 23:56:00 01:24:00 DIS Emergency [id number] 12/12/2013 16:44:00 17:48:00 DIS Emergency ESTEPHANIA DEL CID MD [facility] ER R EYE PAIN [id number] 09/14/2013 07:38:00 10:51:00 DIS Emergency ISIS MONTOYA MD [facility] ER SYNCOPE [id number] 08/17/2013 08:45:00 12:10:00 DIS Outpatient JESSICAJACKELINE TURNER AVA Harry [facility] SDC CERVICAL DYSPLASIA BEY OND MARGINS [id number] 08/15/2013 08:07:00 23:59:59 CLS Outpatient KEVIN TURNER AVA Mcdonald [facility] PREOP CERVICAL DYSPLASIA BEY OND MARGINS [id number] 06/12/2013 12:33:00 15:55:00 DIS Emergency [id number] 05/17/2013 20:54:00 013 21:52:00 DIS Emergency [id number] 02/06/2013 07:10:00 08:40:00 DIS Emergency [id number] 12/08/2014 21:08:00 Document Registration [id number] 01/03/2020 14:15:00 01/03/2020 23:59:5 9 CLS Outpatient AMY BRAVO [facility] [id number] 06/14/2019 09:00:00 Document Registration [id number] 05/25/2018 11:40:00 Document Registration [id number] 05/24/2018 16:30:00 Document Registration
== END 2020-03-15 19:59 | disposition home or self-care (01) ==
LOC: EDUNIT# 18:59 → ER 19:00
DX: S96.911A Strain of unspecified muscle and tendon at ankle and foot level, right foot, initial encounter (principal); S93.401A Sprain of unspecified ligament of right ankle, initial encounter; S30.0XXA Contusion of lower back and pelvis, initial encounter; J44.9 Chronic obstructive pulmonary disease, unspecified; Z88.0 Allergy status to penicillin; Z88.5 Allergy status to narcotic agent; Z79.52 Long term (current) use of systemic steroids; Z77.22 Contact with and (suspected) exposure to environmental tobacco smoke (acute) (chronic); Z85.42 Personal history of malignant neoplasm of other parts of uterus; Z80.49 Family history of malignant neoplasm of other genital organs; Z82.49 Family history of ischemic heart disease and other diseases of the circulatory system; V93.32XA Fall on board fishing boat, initial encounter; Y92.828 Other wilderness area as the place of occurrence of the external cause
CPT/HCPCS: 72220; 73610

== ENCOUNTER → 2021-04-09 | Outpatient (CLI) | payer MEDICAID ==
[~2021-04-09] MED LIST changes: -CLIN150C17 PO; +CLIN150C18 PO; +CRUT1EAC7 MC; +RT-ALBUTEROL SULF 2.5 MG/3 ML PRE-MIX VIAL INH ONE
== END ==
LOC: RT 14:30
PROVIDERS: ATTEND Nurse Practitioner Family
DX: R05 Cough (principal); R06.02 Shortness of breath
CPT/HCPCS: 94060; 94726; 94729

== ENCOUNTER 2021-12-03 09:03 | Emergency (ER) | payer MEDICAID ==
[~2021-12-03] VITALS: Ht 175 cm; Wt 104.0 kg
[~2021-12-03 09:03] MED LIST changes: -CLIN150C18 PO; +CLIN150C20 PO; -RT-ALBUTEROL SULF 2.5 MG/3 ML PRE-MIX VIAL INH ONE
[2021-12-03] MEDS ORDERED: NS IV 1000 ML 1,000 ML IV SCH (09:30)
[2021-12-03] MEDS ORDERED: ASPIRIN 81 MG CHEW (CHILDREN'S ASA) PO ONE (09:30)
[2021-12-03 09:43] LABS: BASOPHILS # (AUTO) 0.1 10^3/uL (0.0-0.1); BASOPHILS % (AUTO) 1 % (0-10); EOSINOPHILS # (AUTO) 0.1 10^3/uL (0.0-0.3); EOSINOPHILS % (AUTO) 1 % (0-10); HEMATOCRIT 50 % (35-52); HEMOGLOBIN 16.7 g/dL (11.5-16.0); LYMPHOCYTES # (AUTO) 3.3 10^3/uL (1.0-4.0); LYMPHOCYTES % (AUTO) 22 % (12-44); MEAN CORPUSCULAR HEMOGLOBIN 36 pg (25-34); MEAN CORPUSCULAR HGB CONC 34 g/dL (32-36); MEAN CORPUSCULAR VOLUME 106 fL (80-99); MEAN PLATELET VOLUME 10.1 fL (9.0-12.2); MONOCYTES # (AUTO) 0.7 10^3/uL (0.0-1.0); MONOCYTES % (AUTO) 5 % (0-12); NEUTROPHILS # (AUTO) 10.7 10^3/uL (1.8-7.8); NEUTROPHILS % (AUTO) 71 % (42-75); PLATELET COUNT 270 10^3/uL (130-400); WHITE BLOOD COUNT 15.1 10^3/uL (4.3-11.0)
[2021-12-03] MEDS ORDERED: NS 100 ML (IVPB) BAG IV ONE (09:45)
[2021-12-03] MEDS ORDERED: HOLD METFORMIN - RECEIVED CONTRAST 20 ML VIAL IV SCH (09:45)
[2021-12-03 09:59] LABS: ALBUMIN 3.6 GM/DL (3.2-4.5)
--- NOTE | 2021-12-03 09:59 | ED Chest Pain ---
General Chief Complaint: Chest Pain Stated Complaint: CHEST PAIN - COUGHING BLOOD Nursing Triage Note: PT CO OF CHEST PAIN, L SIDE STARTED YESTERDAY, STATES HAS PROD COUGH W BLOOD AT TIMES DENIES FEVERS, STATES HAD COVID 6 WEEKS AGO. Source: patient Exam Limitations: no limitations History of Present Illness Date Seen by Provider: Dec 03, 2021 Time Seen by Provider: 09:15 Initial Comments Patient to the ER by private conveyance with chief complaint that she has been feeling short of breath and having some chest pain off and on for the past 24 hours. She is 6 weeks out from a Covid infection with a history of COPD, 2 pack-a-day smoker and states that her oxygen saturations will go down to the 80s sometimes. She has not on oxygen yet but her manager metrology is evaluating her for being on chronic oxygen. She has had a little bit of blood-tinged mucus when she coughed up this morning which concerned her along with the chest pain so she decided come to ER. She has no history of PEs or DVTs. No swelling in her legs. No recent surgery or travels. She is not having any fevers or chills nausea vomiting diarrhea or constipation. She does however have a parent who had pulmonary embolisms provoked. She is not on blood thinners. She did have pneumonia prior to the COVID-19. Allergies and Home Medications Allergies Coded Allergies: hydrocodone (Verified Allergy, Severe, 02/06/13) Penicillins (Unverified Allergy, Unknown, 02/20/15) Patient Home Medication List Home Medication List Reviewed: Yes Acetaminophen with Codeine (Tylenol with Codeine #3 Tablet) 1 Each Tablet, 1 EACH PO Q6H PRN for COUGH Prescribed by: DONA SKINNER on 01/16/20 1530 Azithromycin (Azithromycin) 250 Mg Tablet, 250 MG PO UD Prescribed by: DONA SKINNER on 01/16/20 152 Azithromycin (Azithromycin) 250 Mg Tablet, 250 MG PO UD Prescribed by: VIDA PUTNAM on 12/03/21 1406 Crutch (Crutch) 1 Each Each, EACH MC PRN, (DME) Prescribed by: DONA SKINNER on 03/15/202012 Prednisone (Prednisone) 20 Mg Tab, 40 MG PO DAILY Prescribed by: DONA SKINNER on 01/16/20 1529 Prednisone (Prednisone) 20 Mg Tab, 40 MG PO DAILY Prescribed by: VIDA PUTNAM on 12/03/21 1406 Review of Systems Review of Systems Constitutional: No chills, No diaphoresis EENTM: No Blurred Vision, No Double Vision Respiratory: See HPI, Cough; Denies Shortness of Air Cardiovascular: Chest Pain; Denies Lightheadedness Gastrointestinal: Denies Abdominal Pain, Denies Constipated, Denies Diarrhea; Nausea; Denies Vomiting Genitourinary: Denies Burning, Denies Discharge Musculoskeletal: No back pain, No gout Skin: No pruritus, No rash Psychiatric/Neurological: Denies Anxiety, Denies Depressed All Other Systems Reviewed Negative Unless Noted: Yes Past Zmuypvg-Hqosck-Iojvgc Hx Patient Social History Tobacco Use?: No Use of E-Cig and/or Vaping dev: No Substance use?: No Seasonal Allergies Seasonal Allergies: Yes Past Medical History Surgeries: Yes Adenoidectomy, Section, Hysterectomy, Tonsillectomy, Tubal Ligation Respiratory: Yes COPD Currently Using CPAP: Yes Cardiac: No Neurological: Yes (POST CONCUSSION SYNDROME, PER PT FALLS OFTEN) Neuropathy 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 Disorders: No 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 Sexually Transmitted Disease: No HIV/AIDS: No Genitourinary: Yes Kidney Infection, Bladder Infection Gastrointestinal: Yes Gastroesophageal Reflux Musculoskeletal: Yes (NERVE DISEASE INHERITED) Endocrine: No HEENT: No Cancer: Yes Uterine Did You Recieve Any Treatments: Yes What Type of Treatment Did You: Surgical Intervention Psychosocial: Yes Anxiety, Depression Integumentary: No Blood Disorders: No Family Medical History Cancer 03 MOTHER (CERVICAL) Chest pain 03 FATHER Family history: Cardiovascular disease 03 FATHER Family history: Hypertension 03 FATHER Hypercholesterolemia 03 FATHER Physical Exam Vital Signs Vital Signs - First Documented 12/03/21 12/03/21 09:09 14:13 Temp 36.1 Pulse 81 Resp 20 B/P (MAP) 123/85 (98) Pulse Ox 96 O2 Delivery Room Air Capillary Refill : Less Than 3 Seconds Height, Weight, BMI Height: 5'9.00" Weight: 192lbs. oz. 87.131910xq; 33.00 BMI Method:Stated General Appearance: Anxious, Obese HEENT: TMs Normal, Normal ENT Inspection, Pharynx Normal, Moist Mucous Membranes Neck: Normal Inspection, Non Tender Respiratory: Lungs Clear, Normal Breath Sounds, No Accessory Muscle Use, No Res piratory Distress Cardiovascular: Regular Rate, Rhythm, No Edema, Normal Peripheral Pulses Gastrointestinal: Normal Bowel Sounds, No Organomegaly, Non Tender, Soft Extremity: Normal Capillary Refill, Normal Inspection, Normal Range of Motion, Non Tender Neurologic/Psychiatric: Alert, Oriented x3, No Motor/Sensory Deficits Skin: Normal Color, Warm/Dry Progress/Results/Core Measures Results/Orders Lab Results Laboratory Tests Test 12/03/21 09:10 12/03/21 12:12 Range/Units White Blood Count 15.1 H 4.3-11.0 10^3/uL Red Blood Count 4.69 3.80-5.11 10^6/uL Hemoglobin 16.7 H 11.5-16.0 g/dL Hematocrit 50 35-52 % Mean Corpuscular Volume 106 H 80-99 fL Mean Corpuscular Hemoglobin 36 H 25-34 pg Mean Corpuscular Hemoglobin Concent 34 32-36 g/dL Red Cell Distribution Width 14.9 H 10.0-14.5 % Platelet Count 270 130-400 10^3/uL Mean Platelet Volume 10.1 9.0-12.2 fL Immature Granulocyte % (Auto) 0 % Neutrophils (%) (Auto) 71 42-75 % Lymphocytes (%) (Auto) 22 12-44 % Monocytes (%) (Auto) 5 0-12 % Eosinophils (%) (Auto) 1 0-10 % Basophils (%) (Auto) 1 0-10 % Neutrophils # (Auto) 10.7 H 1.8-7.8 10^3/uL Lymphocytes # (Auto) 3.3 1.0-4.0 10^3/uL Monocytes # (Auto) 0.7 0.0-1.0 10^3/uL Eosinophils # (Auto) 0.1 0.0-0.3 10^3/uL Basophils # (Auto) 0.1 0.0-0.1 10^3/uL Immature Granulocyte # (Auto) 0.1 0.0-0.1 10^3/uL Neutrophils % (Manual) 65 % Lymphocytes % (Manual) 26 % Monocytes % (Manual) 6 % Eosinophils % (Manual) 3 % Anisocytosis SLIGHT Macrocytosis SLIGHT Prothrombin Time 13.2 12.2-14.7 SEC INR Comment 1.0 0.8-1.4 Activated Partial Thromboplast Time 28 24-35 SEC D-Dimer 0.86 H 0.00-0.49 UG/ML Sodium Level 140 135-145 MMOL/L Potassium Level 3.4 L 3.6-5.0 MMOL/L Chloride Level 106 98-107 MMOL/L Carbon Dioxide Level 21 21-32 MMOL/L Anion Gap 13 5-14 MMOL/L Blood Urea Nitrogen 6 L 7-18 MG/DL Creatinine 0.83 0.60-1.30 MG/DL Estimat Glomerular Filtration Rate 91 BUN/Creatinine Ratio 7 Glucose Level 110 H 70-105 MG/DL Calcium Level 8.5 8.5-10.1 MG/DL Corrected Calcium 8.8 8.5-10.1 MG/DL Magnesium Level 1.8 1.6-2.4 MG/DL Total Bilirubin 0.9 0.1-1.0 MG/DL Aspartate Amino Transf (AST/SGOT) 35 H 5-34 U/L Alanine Aminotransferase (ALT/SGPT) 43 0-55 U/L Alkaline Phosphatase 99 40-136 U/L Myoglobin 32.2 10.0-92.0 NG/ML Troponin I < 0.028 < 0.028 <0.028 NG/ML Total Protein 6.4 6.4-8.2 GM/DL Albumin 3.6 3.2-4.5 GM/DL Lipase 15 8-78 U/L My Orders Orders - JERSEY,VIDA J Ekg Tracing (12/03/21 09:06) Continuous Ekg Monitoring (12/03/21 09:06) Cbc With Automated Diff (12/03/21 09:24) Magnesium (12/03/21 09:24) Chest 1 View, Ap/Pa Only (12/03/21:24) Comprehensive Metabolic Panel (12/03/21 09:24) Myoglobin Serum (12/03/21 09:24) Protime With Inr (12/03/21:24) Partial Thromboplastin Time (12/03/21 09:24) O2 (12/03/21:24) Ed Iv/Invasive Line Start (12/03/21:24) Lipase (12/03/21 09:24) Fibrin Degradation Products (12/03/21 09:24) Troponin I [place] (12/03/21 09:24) Aspirin Chewable Tablet (Baby Aspirin Ch (12/03/21 09:30) Ct Angio Chest W (12/03/21 09:24) Ed Iv/Invasive Line Start (12/03/21 09:24) Ns Iv 1000 Ml (Sodium Chloride 0.9%) (12/03/21 09:30) Iohexol Injection (Omnipaque 350 Mg/Ml 1 (12/03/21 10:00) Received Contrast (Hold Metformin- Contr (12/03/21 09:45) Ns (Ivpb) (Sodium Chloride 0.9% Ivpb Bag (12/03/21 09:45) Manual Differential (12/03/21 09:10) Troponin I [place] (12/03/21 12:07) Medications Given in ED Current Medications Medications Dose Ordered Sig/Azra Route Start Time Stop Time Status Last Admin Dose Admin Aspirin 324 mg ONCE ONCE PO 12/03/21 09:30 12/03/21 09:38 DC 12/03/21 10:24 324 MG Sodium Chloride 100 ml ONCE ONCE IV 12/03/21 09:45 12/03/21 09:46 DC 12/03/21 09:50 80 ML Vital Signs/I&O 12/03/21 12/03/21 09:09 14:13 Temp 36.1 Pulse 81 74 Resp 20 16 B/P (MAP) 123/85 (98) 135/90 Pulse Ox 96 O2 Delivery Room Air Blood Pressure Mean: 98 Progress Progress Note #1: Time: 09:58 Progress Note Blood in sputum will be chest pain worse in the past 24 hours concern for PEs we will get a CT angiogram. Labs x-ray looking for underlying pneumonia. She also could just be coughing a lot and having some irritated bronchioles etc. She is not having active hemoptysis at this time. She is not on blood thinners. Progress Note #2: Time: 12:07 Progress Note Chest x-ray and CT angiogram did not show pneumonia or blood clot. Suspect she has bronchitis however we will do a delta troponin at 3 hours, noon and if that is okay we will let her go home with a course of azithromycin and steroids. Progress Note #3: Time: 14:00 Progress Note Chest pain is negative. We will have her follow-up with cardiology and put her on some bronchitis medications for probable pleural versus costochondral type pain Initial ECG Impression Date: Dec 03, 2021 Initial ECG Impression Time: 09:07 Initial ECG Rate: 76 Initial ECG Rhythm: Normal Sinus Initial ECG Intervals: Normal Initial ECG Impression: Normal Comment Normal sinus rhythm no clinically relevant ST changes. Diagnostic Imaging Diagonstic Imaging: Xray Plain Films/CT/US/NM/MRI: chest Comments [facility], [place] NAME: CYNDI SINGH [facility] REC#: [id number] PT STATUS: REG ER : 1980 PHYSICIAN: VIDA PUTNAM MD ADMIT DATE: 12/03/21/ER Signed Date of Exam:12/03/21 CHEST 1 VIEW, AP/PA ONLY CLINICAL INDICATION: Patient with complaints of chest pain on left side which started yesterday. Patient has productive cough with blood at times. No fevers. Patient had COVID 6 weeks ago. EXAM: Portable chest x-ray upright view. COMPARISON: Chest x-ray dated 01/16/2020. FINDINGS: Lungs/pleura: Lungs are clear. There is no pneumothorax. There is no pleural effusion. Mediastinum: Unremarkable. Pulmonary vasculature: Unremarkable. Heart: Unremarkable. Bones/extrathoracic soft tissue: Unremarkable. IMPRESSION: There is no radiographic evidence of acute cardiopulmonary process. Dictated by: Dictated on workstation # [id number] Dict: 12/03/21 1008 Trans: 12/03/21 1202 CV [id number] Interpreted by: EVANGELINA SEVILLA MD Electronically signed by: EVANGELINA SEVILLA MD 12/03/21 1202 Reviewed: Reviewed by Az Diagonstic Imaging: CT Plain Films/CT/US/NM/MRI: chest [facility] [place] [place] NAME: CYNDI SINGH [facility] REC#: [id number] PT STATUS: REG ER : 1980 PHYSICIAN: VIDA PUTNAM MD ADMIT DATE: 12/03/21/ER Draft Date of Exam:12/03/21 CT ANGIO CHEST W PROCEDURE: CT angiography of the chest with contrast. TECHNIQUE: Multiple contiguous axial images were obtained through the chest after uneventful bolus administration of intravenous contrast. 3D reconstructed CTA MIP acquisitions were also performed. Auto Exposure Controls were utilized during the CT exam to meet ALARA standards for radiation dose reduction. INDICATION: Hemoptysis and chest pain There is good opacification of pulmonary arteries without intraluminal filling defect identified. Lungs are clear and well expanded. There is no evidence of infiltrate. No significant pleural or pericardial fluid is identified. There is no evidence of pathologically enlarged adenopathy. Upper abdominal sections reveal fatty infiltration of the liver. IMPRESSION: No CTA evidence of pulmonary embolism or other acute abnormality within the thorax. Dictated on workstation # [id number] Dict: 12/03/21 0955 Trans: 12/03/21 1003 CVB [id number] Interpreted by: YAMILE REA MD Electronically signed by: Reviewed: Reviewed by Me Departure Impression Primary Impression: Chest pain Qualified Codes: R07.89 - Other chest pain Additional Impression: Bronchitis Disposition: HOME, SELF-CARE Condition: Stable Departure-Patient Inst. Decision time for Depature: 14:01 Referrals: [facility] [place] (PCP/Family) Primary Care Physician DIEGO WOLFF MD [facility] Patient Instructions: Chest Pain, Acute Bronchitis, Adult (DC) Add. Discharge Instructions: I suspect your pain is related more to the lungs and bronchials and that is why you are having a little bit of blood-tinged sputum when you cough up. Put you on prednisone 2 tablets daily for the next 5 days to reduce the inflammation in your lungs and azithromycin to help with atypical bacterial infections. Typically bronchitis is viral. Typically bronchitis will also run its course in about a week or 2. Today call Dr[address] Wolff's office and make a follow-up appointment in the next week to have your heart worked up in the clinic to make sure there is nothing else to know about your risk for heart disease. Return to the ER for significant worsening symptoms of shortness of breath chest pain or other worrisome symptoms. All discharge instructions reviewed with patient and/or family. Voiced understanding. Scripts Azithromycin (Azithromycin) 250 Mg Tablet 250 MG PO UD, #6 TAB 0 Refills TAKE 2 TABLETS ON DAY ONE THEN TAKE 1 TABLET DAILY FOR FOUR MORE DAYS Prov: VIDA PUTNAM 12/03/21 Prednisone (Prednisone) 20 Mg Tab 40 MG PO DAILY for 5 Days, #10 TAB 0 Refills Prov: VIDA PUTNAM 12/03/21 Copy Copies To 1: DIEGO WOLFF MD [facility] VIDA PUTNAM Dec 03, 2021 09:59
[2021-12-03 10:00] LABS: POTASSIUM 3.4 MMOL/L (3.6-5.0)
[2021-12-03] MEDS ORDERED: IOHEXOL 350 MG/ML 100 ML (OMNIPAQUE 350) VIAL IV NR (10:00)
[2021-12-03 10:01] LABS: CALCIUM 8.5 MG/DL (8.5-10.1)
[2021-12-03 10:02] LABS: TOTAL PROTEIN 6.4 GM/DL (6.4-8.2)
--- NOTE | 2021-12-03 10:03 | Diagnostic Imaging Report ---
PROCEDURE: CT angiography of the chest with contrast. TECHNIQUE: Multiple contiguous axial images were obtained through the chest after uneventful bolus administration of intravenous contrast. 3D reconstructed CTA MIP acquisitions were also performed. Auto Exposure Controls were utilized during the CT exam to meet ALARA standards for radiation dose reduction. INDICATION: Hemoptysis and chest pain There is good opacification of pulmonary arteries without intraluminal filling defect identified. Lungs are clear and well expanded. There is no evidence of infiltrate. No significant pleural or pericardial fluid is identified. There is no evidence of pathologically enlarged adenopathy. Upper abdominal sections reveal fatty infiltration of the liver. IMPRESSION: No CTA evidence of pulmonary embolism or other acute abnormality within the thorax. Dictated by: Dictated on workstation # [id number]
[2021-12-03 10:04] LABS: BILIRUBIN,TOTAL 0.9 MG/DL (0.1-1.0)
[2021-12-03 10:05] LABS: CREATININE SERUM 0.83 MG/DL (0.60-1.30)
[2021-12-03 10:08] LABS: MAGNESIUM 1.8 MG/DL (1.6-2.4)
--- NOTE | 2021-12-03 10:11 | Diagnostic Imaging Report ---
CLINICAL INDICATION: Patient with complaints of chest pain on left side which started yesterday. Patient has productive cough with blood at times. No fevers. Patient had COVID 6 weeks ago. EXAM: Portable chest x-ray upright view. COMPARISON: Chest x-ray dated 01/16/2020. FINDINGS: Lungs/pleura: Lungs are clear. There is no pneumothorax. There is no pleural effusion. Mediastinum: Unremarkable. Pulmonary vasculature: Unremarkable. Heart: Unremarkable. Bones/extrathoracic soft tissue: Unremarkable. IMPRESSION: There is no radiographic evidence of acute cardiopulmonary process. Dictated by: Dictated on workstation # [id number]
[2021-12-03 10:16] LABS: PROTHROMBIN TIME PATIENT 13.2 SEC (12.2-14.7)
[2021-12-03 10:18] LABS: LYMPHOCYTES % (MANUAL) 26 %; NEUTROPHILS % (MANUAL) 65 %
[2021-12-03 10:19] LABS: ANISOCYTOSIS SLIGHT; EOSINOPHILS % (MANUAL) 3 %; MONOCYTES % (MANUAL) 6 %
[2021-12-03] MEDS ORDERED: AZIT250T12 PO (14:06)
[2021-12-03] MEDS ORDERED: PRD20T PO (14:06)
[2021-12-03 14:13] VITALS: BP 135/90
== END 2021-12-03 14:13 | disposition home or self-care (01) ==
LOC: EDUNIT# 09:03 → ER 09:04
DX: R07.9 Chest pain, unspecified (principal); J40 Bronchitis, not specified as acute or chronic; F17.210 Nicotine dependence, cigarettes, uncomplicated; Z86.16 Personal history of COVID-19
CPT/HCPCS: 36415; 71045; 71275; 80053; 83690; 83735; 83874; 84484; 85007; 85027; 85379; 85610; 85730; 93005

== ENCOUNTER 2022-02-05 07:22 | Emergency (ER) | payer MEDICAID ==
[~2022-02-05] VITALS: Ht 175.3 cm; Wt 108.8 kg
[2022-02-05 07:30] VITALS: BP 135/93
[2022-02-05] MEDS ORDERED: TETANUS,DIPTH,PERTUSS P/F (BOOSTRIX) 0.5 ML VIAL IM ONE (08:15)
[2022-02-05] MEDS ORDERED: CEPHALEXIN 250 MG (KEFLEX) CAP PO STA (08:22)
[2022-02-05] MEDS ORDERED: oxyCODONE/APAP 5/325MG (PERCOCET 5) TABLET PO ONE (08:30)
--- NOTE | 2022-02-05 08:31 | Diagnostic Imaging Report ---
Indication: Puncture wound left foot. 3 views left foot were obtained. No definite radiopaque soft tissue foreign bodies are seen. Metatarsals appear to be intact. Phalanges are intact. Midfoot and hindfoot are unremarkable. No fractures are seen. IMPRESSION: No acute abnormality detected. No definite radiopaque soft tissue foreign bodies are seen. Dictated by: Dictated on workstation # [id number]
--- NOTE | 2022-02-05 08:31 | ED Lower Extremity ---
General Chief Complaint: Lower Extremity Stated Complaint: STEPPED ON SCREW L FOOT Nursing Triage Note: PT AMB TO RM 7 WITH COMPLAINT OF STEPPING ON A SCREW LAST NIGHT. STATES PULLED IT OUT LAST NIGHT. LAST TETANUS 2010 Source: patient Exam Limitations: no limitations History of Present Illness Date Seen by Provider: February 05, 2022 Time Seen by Provider: 08:04 Initial Comments Here with report of stepping on a screw at about midnight last night. States she was walking to talk to her children who were arguing when she stepped on a screw that she believes came out of the door hinge. Its about 1/2 inch long. She does have a picture with a screw embedded in her foot. She removed that her self. She used peroxide to clean the wound and covered with a Band-Aid. States that the pain is much worse this morning. Does not have history of diabetes. Denies other injury. Tetanus is not up-to-date. Onset: this morning Severity: moderate Pain/Injury Location: left foot Method of Injury: other (Puncture wound) Modifying Factors: Improves With Immobilization; Worse With Movement Allergies and Home Medications Allergies Coded Allergies: hydrocodone (Verified Allergy, Severe, 02/06/13) Penicillins (Unverified Allergy, Unknown, 02/20/15) Patient Home Medication List Home Medication List Reviewed: Yes Acetaminophen with Codeine (Tylenol with Codeine #3 Tablet) 1 Each Tablet, 1 EACH PO Q6H PRN for COUGH Prescribed by: DONA SKINNER on 01/16/20 153 Azithromycin (Azithromycin) 250 Mg Tablet, 250 MG PO UD Prescribed by: DONA SKINNER on 01/16/20 152 Azithromycin (Azithromycin) 250 Mg Tablet, 250 MG PO UD Prescribed by: VIDA PUTNAM on 12/03/21 1406 Crutch (Crutch) 1 Each Each, EACH MC PRN, (DME) Prescribed by: DONA SKINNER on 03/15/202012 Prednisone (Prednisone) 20 Mg Tab, 40 MG PO DAILY Prescribed by: DONA SKINNER on 01/16/20 152 Prednisone (Prednisone) 20 Mg Tab, 40 MG PO DAILY Prescribed by: VIDA PUTNAM on 12/03/21 1406 Review of Systems Constitutional: see HPI; No chills, No fever Musculoskeletal: No joint pain; muscle pain Skin: change in color, lesions Psychiatric/Neurological: Denies Numbness, Denies Tingling Past Fkmveth-Qkddln-Nkckiq Hx Patient Social History Tobacco Use?: Yes Tobacco type used: Cigarettes Smoking Status: Current Everyday Smoker Use of E-Cig and/or Vaping dev: No Alcohol Use?: Yes Alcohol Frequency: Once in a while Pt feels they are or have been: No Immunizations Up To Date First/Initial COVID19 Vaccinat: 2020 Second COVID19 Vaccination Aleksander: 2020 Third COVID19 Vaccination Date: 2020 Seasonal Allergies Seasonal Allergies: Yes Past Medical History Surgeries: Yes Adenoidectomy, Section, Hysterectomy, Tonsillectomy, Tubal Ligation Respiratory: Yes COPD Currently Using CPAP: Yes Cardiac: No Neurological: Yes (POST CONCUSSION SYNDROME, PER PT FALLS OFTEN) Neuropathy 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 Disorders: No 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 Sexually Transmitted Disease: No HIV/AIDS: No Genitourinary: Yes Kidney Infection, Bladder Infection Gastrointestinal: Yes Gastroesophageal Reflux Musculoskeletal: Yes (NERVE DISEASE INHERITED) Endocrine: No HEENT: No Cancer: Yes Uterine Did You Recieve Any Treatments: Yes What Type of Treatment Did You: Surgical Intervention Psychosocial: Yes Anxiety, Depression Integumentary: No Blood Disorders: No Family Medical History Reviewed Nursing Family Hx Cancer 03 MOTHER (CERVICAL) Chest pain 03 FATHER Family history: Cardiovascular disease 03 FATHER Family history: Hypertension 03 FATHER Hypercholesterolemia 03 FATHER Physical Exam Vital Signs Vital Signs - First Documented 02/05/22 07:30 Temp 35.8 Pulse 86 Resp 16 B/P (MAP) 135/93 (107) Pulse Ox 100 O2 Delivery Room Air Capillary Refill : Less Than 3 Seconds Height, Weight, BMI Height: 5'9.00" Weight: 192lbs. oz. 87.435137fk; 35.00 BMI Method:Stated General Appearance: WD/WN, no apparent distress Cardiovascular: regular rate, rhythm, no murmur Respiratory: lungs clear, normal breath sounds Feet: left foot other (Approximately 4 mm puncture wound to the sole of the foot between the third and fourth proximal metatarsal area. Bleeding controlled. Does have some surrounding erythema. Distal movement and sensation intact. Capillary refill less than 2 seconds to the foot.) Neurologic/Psychiatric: alert, oriented x 3 Skin: warm/dry, other (Puncture wound as described above.) Progress/Results/Core Measures Results/Orders My Orders Orders - LORENE SEAY MD Foot, Left, 3 Views (02/05/22 08:03) Dipht,Pertuss(Acell),Tet Adult (Boostrix (02/05/22 08:15) Cephalexin Capsule (Keflex Capsule) (02/05/22 08:22) Oxycodone/Apap 5/325mg Tablet (Percocet (02/05/22 08:30) Vital Signs/I&O 02/05/22 07:30 Temp 35.8 Pulse 86 Resp 16 B/P (MAP) 135/93 (107) Pulse Ox 100 O2 Delivery Room Air Blood Pressure Mean: 107 Progress Progress Note : Progress Note Seen and evaluated. X-ray left foot. Tetanus updated. Percocet 5/325 1 tab p.o. Cephalexin 500 mg p.o. No obvious foreign body on x-ray but did discuss that there still may be retained foreign body that is not viewed on x-ray. Antibiotic ointment and Band-Aid over wound. Discharged home with return precautions. Patient and family verbalized understanding instructions and agreement with plan. Departure Impression Primary Impression: Puncture wound of left foot Qualified Codes: S91.332A - Puncture wound without foreign body, left foot, initial encounter Disposition: HOME, SELF-CARE Condition: Stable Departure-Patient Inst. Decision time for Depature: 08:30 Referrals: [facility] [place] (PCP/Family) Primary Care Physician Patient Instructions: Wound Care ED Add. Discharge Instructions: All discharge instructions reviewed with patient and/or family. Voiced understanding. You have a puncture wound of your foot. Take antibiotics as directed. You may use antibiotic ointment plus pain relief and Band-Aid over wound changing twice daily. You may take ibuprofen and 600 mg every 8 hours as needed for pain. You may take the prescribed pain medicine as well. You may add Tylenol/acetaminophen 1000 mg every 8 hours as needed for pain if you are not taking the prescribed pain medicine but do not take both at the same time as they both have acetaminophen in them. It is okay to wash the wound gently with mild soap and water but do not soak the wound in any body of water until healed. Return for worse pain, foul-smelling drainage, fever, red streaks up the leg or other concerns as needed. Scripts Oxycodone HCl/Acetaminophen (Oxycodone-Acetaminophen 5-325) 5 Mg-325 Mg Tablet 1 EACH PO Q6H PRN for PAIN-MODERATE MDD 6 for 3 Days, #6 TAB 0 Refills Prov: LORENE SEAY MD 02/05/22 Cephalexin (Cephalexin) 500 Mg Capsule 500 MG PO Q6H for 5 Days, #20 CAP 0 Refills Prov: LORENE SEAY MD 02/05/22 LORENE SEAY MD February 05, 2022 08:31
[2022-02-05] MEDS ORDERED: OXYC1TAB11 PO (08:32)
[2022-02-05] MEDS ORDERED: CEPH500C PO (08:32)
== END 2022-02-05 09:40 | disposition home or self-care (01) ==
LOC: EDUNIT# 07:22 → ER 07:24
DX: S91.332A Puncture wound without foreign body, left foot, initial encounter (principal); F17.210 Nicotine dependence, cigarettes, uncomplicated; Z23 Encounter for immunization; W45.8XXA Other foreign body or object entering through skin, initial encounter
CPT/HCPCS: 73630; 90715; 99281

== ENCOUNTER 2022-12-25 09:33 | Emergency (ER) | payer MEDICAID ==
[~2022-12-25 09:33] MED LIST changes: +OXYC1TAB11 PO
--- NOTE | 2022-12-25 10:00 | ED General ---
General Chief Complaint: Facial Problems Stated Complaint: RT SIDE FACE PAIN Source of Information: Patient History of Present Illness Date Seen by Provider: Dec 25, 2022 Time Seen by Provider: 10:01 Initial Comments Patient is a 42-year-old female who presents to the emergency room with a chief complaint of right facial tightness, a little swelling. She has had some right- sided temporal headaches off and on for years. They are sharp in nature and lasts 30 seconds to a minute. No current temporal headache pain currently. She is not nauseous. She states she has been congested "sinusy" the last 2 or 3 da ys and overall has not felt great. She has had a cough productive of sputum. She is a smoker but trying to quit currently on the patch. Is not short of breath. Not nauseous. No visual changes. She states her family was concerned because her right cheek looked a little swollen. Has not been checked for COVID recently. No body aches. No diarrhea. No urinary complaints. Had teeth removed in September. Has not been able to wear them over the last couple of days due to her congestion and sputum. Has not taken anything for the headaches because they are so brief. Reports that she cannot recall what her doctor called them, "cluster headache" does not sound familiar Timing/Duration: 1-3 Hours, 2-3 Days Severity: Mild Associated Systoms: Cough, Malaise, Other (Congestion) Allergies and Home Medications Allergies Coded Allergies: hydrocodone (Verified Allergy, Severe, 02/06/13) Penicillins (Unverified Allergy, Unknown, 02/20/15) Patient Home Medication List Home Medication List Reviewed: Yes Acetaminophen with Codeine (Tylenol with Codeine #3 Tablet) 1 Each Tablet, 1 EACH PO Q6H PRN for COUGH Prescribed by: DONA SKINNER on 01/16/20 1530 Azithromycin (Azithromycin) 250 Mg Tablet, 250 MG PO UD Prescribed by: DONA SKINNER on 01/16/20 1529 Azithromycin (Azithromycin) 250 Mg Tablet, 250 MG PO UD Prescribed by: VIDA PUTNAM on 12/03/21 1406 Cephalexin (Cephalexin) 500 Mg Capsule, 500 MG PO Q6H Prescribed by: LORENE SEAY on 02/05/22 0832 Crutch (Crutch) 1 Each Each, EACH MC PRN, (DME) Prescribed by: DONA SKINNER on 03/15/202012 Oxycodone HCl/Acetaminophen (Oxycodone-Acetaminophen 5-325) 5 Mg-325 Mg Tablet, 1 EACH PO Q6H PRN for PAIN-MODERATE Prescribed by: LORENE SEAY on 02/05/22 0833 Prednisone (Prednisone) 20 Mg Tab, 40 MG PO DAILY Prescribed by: DONA SKINNER on 01/16/20 1529 Prednisone (Prednisone) 20 Mg Tab, 40 MG PO DAILY Prescribed by: VIDA PUTNAM on 12/03/21 1406 Review of Systems Review of Systems Constitutional: see HPI EENTM: nose congestion, other (Mild sinus pain) Respiratory: cough, phlegm Cardiovascular: no symptoms reported Gastrointestinal: no symptoms reported Genitourinary: no symptoms reported Musculoskeletal: no symptoms reported Skin: no symptoms reported Psychiatric/Neurological: Headache (Right temporal, brief,) Past Rwtsfkw-Syipav-Cnumto Hx Patient Social History Tobacco Use?: Yes Tobacco type used: Cigarettes Substance use?: Yes Substance type: Marijuana Alcohol Use?: Yes Alcohol Frequency: Once in a while Pt feels they are or have been: No Immunizations Up To Date Influenza Vaccine Up-to-Date: No; Not Current First/Initial COVID19 Vaccinat: 2020 Second COVID19 Vaccination Aleksander: 2020 Third COVID19 Vaccination Date: 2020 Seasonal Allergies Seasonal Allergies: Yes Past Medical History Surgery/Hospitalization HX: HYST, TUBAL, TONSILS CMT, ASTHMA Surgeries: Yes Adenoidectomy, Section, Hysterectomy, Tonsillectomy, Tubal Ligation Respiratory: Yes COPD Currently Using CPAP: Yes Cardiac: No Neurological: Yes (POST CONCUSSION SYNDROME, PER PT FALLS OFTEN) Neuropathy 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 Disorders: No 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 Disorders: Denies RECORDING [employer]UDIO [employer] History: Hysterectomy Sexually Transmitted Disease: No HIV/AIDS: No Genitourinary: Yes Kidney Infection, Bladder Infection Gastrointestinal: Yes Gastroesophageal Reflux Musculoskeletal: Yes (NERVE DISEASE INHERITED) Endocrine: No HEENT: No Cancer: Yes Uterine Did You Recieve Any Treatments: Yes What Type of Treatment Did You: Surgical Intervention Psychosocial: Yes Anxiety, Depression Integumentary: No Blood Disorders: No Family Medical History Cancer 03 MOTHER (CERVICAL) Chest pain 03 FATHER Family history: Cardiovascular disease 03 FATHER Family history: Hypertension 03 FATHER Hypercholesterolemia 03 FATHER Physical Exam Vital Signs Vital Signs - First Documented 12/25/22 09:48 Temp 36.3 Pulse 90 Resp 20 B/P (MAP) 129/94 (106) Capillary Refill : Height, Weight, BMI Height: 5'9.00" Weight: 192lbs. oz. 87.865705ey; 35.00 BMI Method:Stated General Appearance: No Apparent Distress, WD/WN Eyes: Bilateral Eye Normal Inspection, Bilateral Eye PERRL, Bilateral Eye EOMI HEENT: PERRL/EOMI, TMs Normal, Normal ENT Inspection, Pharynx Normal, Other (Very minimal discomfort with palpation of the right mu-ism, not temporal artery tenderness) Neck: Normal Inspection, Non Tender, Supple Respiratory: No Accessory Muscle Use, No Respiratory Distress, Crackles, Wheezing (Inspiratory and expiratory) Cardiovascular: Regular Rate, Rhythm Extremity: Normal Inspection Neurologic/Psychiatric: Alert, Oriented x3, No Motor/Sensory Deficits, Normal 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, 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 as 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 Skin: Normal Color, Warm/Dry Progress/Results/Core Measures Suspected Sepsis SIRS Temperature: Pulse: Respiratory Rate: Blood Pressure / Mean: Results/Orders Lab Results Laboratory Tests Test 12/25/22 10:26 Range/Units SARS-CoV-2 RNA (RT-PCR) Not Detected Not Detecte My Orders Orders - SUMEET PERERA MD Covid 19 Inhouse Test (12/25/22 10:25) Isolation Central Supply Req (12/25/22 10:25) Ketorolac Injection (Toradol Injection) (12/25/22 10:30) Medications Given in ED Current Medications Medications Dose Ordered Sig/Azra Route Start Time Stop Time Status Last Admin Dose Admin Ketorolac Tromethamine 30 mg ONCE ONCE IM 12/25/22 10:30 12/25/22 10:31 DC 12/25/22 10:58 30 MG Vital Signs/I&O 12/25/22 09:48 Temp 36.3 Pulse 90 Resp 20 B/P (MAP) 129/94 (106) Capillary Refill : Progress Note : Time: 11:38 Counseling-Symptomatic: 3-10 Minutes Departure Impression Primary Impression: Viral syndrome Additional Impression: Sinus congestion Disposition: 01 HOME, SELF-CARE Condition: Stable Departure-Patient Inst. Decision time for Depature: 11:39 Referrals: SHAYNA OLIVER APRN (PCP/Family) Primary Care Physician Patient Instructions: Sinusitis, Adult ED, Viral Syndrome (DC) Add. Discharge Instructions: You can take omfg-cin-kwmunif ibuprofen 3 tablets which is 600 mg every 6 hours as needed for headache/facial pain. Use vqqj-bbp-pqqijag Flonase nasal spray for sinus/nasal congestion. Please follow packaging instructions. If you develop a fever with the facial pain, swelling, green/bloody "snot", facial redness please return to the emergency room for reevaluation or follow-up with your primary care physician. Please continue to try to cut back on your smoking. Nasal saline spray will also help with congestion symptoms as well using a coolmist humidifier in your room at night while sleeping. SUMEET PERERA MD Dec 25, 2022 10:00
[2022-12-25] MEDS ORDERED: KETOROLAC 30 MG/ML VIAL IM ONE (10:30)
[2022-12-25 11:45] VITALS: BP 126/98
== END 2022-12-25 11:54 | disposition home or self-care (01) ==
LOC: EDUNIT# 09:33 → ER 09:34
DX: B34.9 Viral infection, unspecified (principal); R09.81 Nasal congestion; R05.9 Cough, unspecified; R51.9 Headache, unspecified; F17.210 Nicotine dependence, cigarettes, uncomplicated; Z20.822 Contact with and (suspected) exposure to COVID-19; Z99.89 Dependence on other enabling machines and devices
CPT/HCPCS: 87636; 99284

== ENCOUNTER 2023-03-17 16:34 | Emergency (ER) | payer MEDICAID ==
[~2023-03-17] VITALS: Ht 175.2 cm; Wt 113.5 kg
[2023-03-17] MEDS ORDERED: RT-ALBUTEROL/IPRATROPIUM 3 ML (DUONEB) VIAL INH ONE (17:00)
[2023-03-17] MEDS ORDERED: BENZONATATE 100 MG (TESSALON) CAPSULE PO ONE (17:00)
--- NOTE | 2023-03-17 17:01 | ED Cough/URI ---
General Chief Complaint: Cough/Cold/Flu Symptoms Stated Complaint: COUGH History of Present Illness Date Seen by Provider: Mar 17, 2023 Time Seen by Provider: 17:00 Initial Comments 42-year-old female presents with a cough. Patient has been coughing for about 8 days. Patient has a history of both asthma and COPD. She continues to smoke. She is "not smoking as much as she would like to" because of the cough. She was recently treated with antibiotics and steroids and got better. She denies any fevers chills nausea vomiting or other systemic complaints. Allergies and Home Medications Allergies Coded Allergies: hydrocodone (Verified Allergy, Severe, 02/06/13) Penicillins (Unverified Allergy, Unknown, 02/20/15) Patient Home Medication List Home Medication List Reviewed: Yes Acetaminophen with Codeine (Tylenol with Codeine #3 Tablet) 1 Each Tablet, 1 EACH PO Q6H PRN for COUGH Prescribed by: DONA SKINNER on 01/16/20 153 Azithromycin (Azithromycin) 250 Mg Tablet, 250 MG PO UD Prescribed by: DONA SKINNER on 01/16/20 1529 Azithromycin (Azithromycin) 250 Mg Tablet, 250 MG PO UD Prescribed by: VIDA PUTNAM on 12/03/21 1406 Benzonatate (Tessalon Perles) 100 Mg Capsule, 100 MG PO TID PRN for COUGH Prescribed by: KADE PETER on 03/17/231735 Cephalexin (Cephalexin) 500 Mg Capsule, 500 MG PO Q6H Prescribed by: LORENE SEAY on 02/05/22 0832 Crutch (Crutch) 1 Each Each, EACH MC PRN, (DME) Prescribed by: DONA SKINNER on 03/15/202012 Doxycycline Hyclate (Doxycycline Hyclate) 100 Mg Tablet, 100 MG PO BID Prescribed by: KADE PETER on 03/17/231732 Methylprednisolone (Methylprednisolone Dose Pack) 4 Mg Tab.ds.pk, 4 MG PO UD Prescribed by: KADE PETER on 03/17/231732 Oxycodone HCl/Acetaminophen (Oxycodone-Acetaminophen 5-325) 5 Mg-325 Mg Tablet, 1 EACH PO Q6H PRN for PAIN-MODERATE Prescribed by: LORENE SEAY on 02/05/22 0833 Prednisone (Prednisone) 20 Mg Tab, 40 MG PO DAILY Prescribed by: DONA SKINNER on 01/16/20 1529 Prednisone (Prednisone) 20 Mg Tab, 40 MG PO DAILY Prescribed by: VIDA PUTNAM on 12/03/21 1406 Review of Systems Review of Systems Constitutional: No chills, No fever Respiratory: cough Cardiovascular: no symptoms reported Gastrointestinal: no symptoms reported Genitourinary: no symptoms reported Musculoskeletal: no symptoms reported Skin: no symptoms reported Psychiatric/Neurological: No Symptoms Reported Past Qsdgiqq-Xhgbin-Hcemul Hx Immunizations Up To Date First/Initial COVID19 Vaccinat: 2020 Second COVID19 Vaccination Aleksander: 2020 Third COVID19 Vaccination Date: 2020 Seasonal Allergies Seasonal Allergies: Yes Past Medical History Surgery/Hospitalization HX: HYST, TUBAL, TONSILS CMT, ASTHMA Surgeries: Yes Adenoidectomy, Section, Hysterectomy, Tonsillectomy, Tubal Ligation Respiratory: Yes COPD Currently Using CPAP: Yes Cardiac: No Neurological: Yes (POST CONCUSSION SYNDROME, PER PT FALLS OFTEN) Neuropathy 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 Disorders: No 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 Sexually Transmitted Disease: No HIV/AIDS: No Genitourinary: Yes Kidney Infection, Bladder Infection Gastrointestinal: Yes Gastroesophageal Reflux Musculoskeletal: Yes (NERVE DISEASE INHERITED) Endocrine: No HEENT: No Cancer: Yes Uterine Did You Recieve Any Treatments: Yes What Type of Treatment Did You: Surgical Intervention Psychosocial: Yes Anxiety, Depression Integumentary: No Blood Disorders: No Family Medical History Cancer 03 MOTHER (CERVICAL) Chest pain 03 FATHER Family history: Cardiovascular disease 03 FATHER Family history: Hypertension 03 FATHER Hypercholesterolemia 03 FATHER Physical Exam Vital Signs - First Documented 03/17/23 16:43 O2 Delivery Room Air Capillary Refill : Height: 5'9.00" Weight: 192lbs. oz. 87.496900iy; 35.00 BMI Method:Stated General Appearance: WD/WN, no apparent distress Respiratory: no accessory muscle use, respiratory distress, other (Frequent cough) Cardiovascular: normal peripheral pulses, regular rate, rhythm Neurologic/Psychiatric: alert, normal mood/affect, oriented x 3 Skin: normal color, warm/dry Progress/Results/Core Measures Suspected Sepsis SIRS Temperature: Pulse: Respiratory Rate: Blood Pressure / Mean: Results/Orders My Orders Orders - KADE PETER DO Albuterol/Ipra Inhalation Soln (Duoneb I (03/17/23 17:00) Chest Pa/Lat (2 View) (03/17/23 16:58) Svn Small Volume Nebulizer (03/17/23 16:58) Benzonatate Capsule (Tessalon Perles) (03/17/23 17:00) Dexamethasone Injection (Decadron Inje (03/17/23 17:15) Medications Given in ED Current Medications Medications Dose Ordered Sig/Azra Route Start Time Stop Time Status Last Admin Dose Admin Albuterol/ Ipratropium 3 ml ONCE ONCE INH 03/17/23 17:00 03/17/23 17:01 DC 03/17/23 17:09 3 ML Benzonatate 200 mg ONCE ONCE PO 03/17/23 17:00 03/17/23 17:01 DC 03/17/23 17:08 200 MG Dexamethasone Sodium Phosphate 10 mg ONCE ONCE IM 03/17/23 17:15 03/17/23 17:16 DC 03/17/23 17:12 10 MG Vital Signs/I&O 03/17/23 16:43 O2 Delivery Room Air Capillary Refill : Progress Note : Progress Note Patient's chest x-ray was ordered and reviewed with initial interpretation negative by me with final interpretation per radiology report. Patient with a bronchitis likely exacerbated due to her smoking with a history of asthma and COPD. Patient will be treated with doxycycline, Medrol Dosepak along with Tessalon Perles. I did discuss with her the need to quit smoking. Patient is at increased risk of morbidity and mortality based on her social determinants of health. She is stable and discharged home. Departure Impression Primary Impression: Bronchitis Additional Impression: Asthma Qualified Codes: J45.901 - Unspecified asthma with (acute) exacerbation Disposition: 01 HOME, SELF-CARE Condition: Stable Departure-Patient Inst. Referrals: SHAYNA OLIVER APRN (PCP/Family) Primary Care Physician Patient Instructions: Asthma, Adult ED, Acute bronchitis Add. Discharge Instructions: Please consider to quit smoking as it exacerbates her asthma and COPD. Please follow-up with your primary care provider in a couple days for recheck of your symptoms. All discharge instructions reviewed with patient and/or family. Voiced un derstanding. Scripts Benzonatate (TESSALON PERLES) 100 Mg Capsule 100 MG PO TID PRN for COUGH, #20 CAP Prov: KADE PETER DO 03/17/23 Doxycycline Hyclate (Doxycycline Hyclate) 100 Mg Tablet 100 MG PO BID, #20 TAB 0 Refills Prov: KADE PETER DO 03/17/23 Methylprednisolone (Methylprednisolone Dose Pack) 4 Mg Tab.ds.pk 4 MG PO UD for 6 Days, #21 PKG PER DOSE PACK INSTRUCTIONS Prov: KADE PETER DO 03/17/23 KDAE PETER DO Mar 17, 2023 17:01
[2023-03-17] MEDS ORDERED: METH4TAB10 PO (17:33)
[2023-03-17] MEDS ORDERED: DOXY100T2 PO (17:33)
[2023-03-17] MEDS ORDERED: BENZ100C18 PO (17:36)
--- NOTE | 2023-03-17 17:39 | Diagnostic Imaging Report ---
INDICATION: Cough COMPARISON: 12/03/2021 TECHNIQUE: Two radiographs of the chest dated 03/17/2023. FINDINGS: The cardiac silhouette is within normal limits in size. No significant pulmonary vascular congestion. The lungs are clear of focal pulmonary opacity. No pleural effusion. No pneumothorax. No acute osseous abnormality. IMPRESSION: No acute cardiopulmonary abnormality. Dictated by: Dictated on workstation # [id number]
[2023-03-17 17:48] VITALS: BP 130/97
== END 2023-03-17 17:52 | disposition home or self-care (01) ==
LOC: EDUNIT# 16:34 → ER 16:35
DX: J44.9 Chronic obstructive pulmonary disease, unspecified (principal); F17.200 Nicotine dependence, unspecified, uncomplicated; Z99.89 Dependence on other enabling machines and devices; Z88.0 Allergy status to penicillin
CPT/HCPCS: 71046; 94640

== ENCOUNTER 2023-06-15 10:41 | Emergency (ER) | payer MEDICAID ==
[~2023-06-15] VITALS: Ht 175 cm; Wt 109.0 kg
[~2023-06-15 10:41] MED LIST changes: +BENZ100C18 PO; +DOXY100T2 PO; +METH4TAB10 PO
--- NOTE | 2023-06-15 11:01 | ED Syncope ---
General Chief Complaint: Dizziness/Syncope Stated Complaint: COPD EXACERBATION | Nursing Triage Note: SEEN AT [facility] FOR COPD AND WAS DISCHARGED. NEAR SYNCOPE WHEN IN PARKING LOT. PT WAS GIVEN A DUONEB, SOLUMEDROL, PREDNISONE, AND DOXY THERE. PT STATES SHE FELT DIZZY BEFORE EPISODE BUT FEELS BETTER NOW. Source of Information: Patient Exam Limitations: No Limitations History of Present Illness Date Seen by Provider: Jun 15, 2023 Time Seen by Provider: 10:59 Initial Comments Patient is a 42-year-old female who had gone to [facility] for COPD exacerbation she was discharged after receiving a DuoNeb treatment, Solu-Medrol IM. She states she had never had a shot before and did feel dizzy after the treatment and had a near syncopal episode in the parking lot. She is alert and oriented and speaking with her son on the phone and states she feels back to normal now. Lung sounds are clear she states she feels much better than she did upon arrival to [facility]. We will continue to monitor patient agrees. Timing/Prior Episodes: Single Episode Today Precipitating Factors: Other Loss of Consciousness: No Loss of Consciousness Current Symptoms: Back to Normal Allergies and Home Medications Allergies Coded Allergies: hydrocodone (Verified Allergy, Severe, 02/06/13) Penicillins (Unverified Allergy, Unknown, 02/20/15) Patient Home Medication List Home Medication List Reviewed: Yes Acetaminophen with Codeine (Tylenol with Codeine #3 Tablet) 1 Each Tablet, 1 EACH PO Q6H PRN for COUGH Prescribed by: DONA SKINNER on 01/16/20 1530 Azithromycin (Azithromycin) 250 Mg Tablet, 250 MG PO UD Prescribed by: DONA SKINNER on 01/16/20 1529 Azithromycin (Azithromycin) 250 Mg Tablet, 250 MG PO UD Prescribed by: VIDA PUTNAM on 12/03/21 1406 Benzonatate (Tessalon Perles) 100 Mg Capsule, 100 MG PO TID PRN for COUGH Prescribed by: KADE PETER on 03/17/23 1736 Cephalexin (Cephalexin) 500 Mg Capsule, 500 MG PO Q6H Prescribed by: LORENE SEAY on 02/05/22 0832 Crutch (Crutch) 1 Each Each, EACH MC PRN, (DME) Prescribed by: DONA SKINNER on 03/15/202012 Doxycycline Hyclate (Doxycycline Hyclate) 100 Mg Tablet, 100 MG PO BID Prescribed by: KADE PETER on 03/17/23 173 Methylprednisolone (Methylprednisolone Dose Pack) 4 Mg Tab.ds.pk, 4 MG PO UD Prescribed by: KADE PETER on 03/17/23 173 Oxycodone HCl/Acetaminophen (Oxycodone-Acetaminophen 5-325) 5 Mg-325 Mg Tablet, 1 EACH PO Q6H PRN for PAIN-MODERATE Prescribed by: LORENE SEAY on 02/05/22 0833 Prednisone (Prednisone) 20 Mg Tab, 40 MG PO DAILY Prescribed by: DONA SKINNER on 01/16/20 1529 Prednisone (Prednisone) 20 Mg Tab, 40 MG PO DAILY Prescribed by: VIDA PUTNAM on 12/03/21 1406 Review of Systems Constitutional: dizziness EENTM: see HPI Respiratory: see HPI, cough Cardiovascular: see HPI Gastrointestinal: no symptoms reported Genitourinary: no symptoms reported Musculoskeletal: no symptoms reported Skin: no symptoms reported Psychiatric/Neurological: No Symptoms Reported All Other Systems Reviewed Negative Unless Noted: Yes Past Srkbhkv-Duhfrl-Ryolmw Hx Patient Social History Tobacco Use?: Yes Tobacco type used: Cigarettes Substance use?: Yes Substance type: Marijuana Alcohol Use?: No Immunizations Up To Date First/Initial COVID19 Vaccinat: 2020 Second COVID19 Vaccination Aleksander: 2020 Third COVID19 Vaccination Date: 2020 Seasonal Allergies Seasonal Allergies: Yes Past Medical History Surgery/Hospitalization HX: HYST, TUBAL, TONSILS CMT, ASTHMA Surgeries: Yes Adenoidectomy, Section, Hysterectomy, Tonsillectomy, Tubal Ligation Respiratory: Yes COPD Currently Using CPAP: Yes Cardiac: No Neurological: Yes (POST CONCUSSION SYNDROME, PER PT FALLS OFTEN) Neuropathy 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 Disorders: No 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 Sexually Transmitted Disease: No HIV/AIDS: No Genitourinary: Yes Kidney Infection, Bladder Infection Gastrointestinal: Yes Gastroesophageal Reflux Musculoskeletal: Yes (NERVE DISEASE INHERITED) Endocrine: No HEENT: No Cancer: Yes Uterine Did You Recieve Any Treatments: Yes What Type of Treatment Did You: Surgical Intervention Psychosocial: Yes Anxiety, Depression Integumentary: No Blood Disorders: No Family Medical History Cancer 03 MOTHER (CERVICAL) Chest pain 03 FATHER Family history: Cardiovascular disease 03 FATHER Family history: Hypertension 03 FATHER Hypercholesterolemia 03 FATHER Physical Exam Vital Signs Vital Signs - First Documented 06/15/23 10:43 Temp 37.0 Pulse 83 Resp 16 B/P (MAP) 122/91 (101) Pulse Ox 99 Capillary Refill : Less Than 3 Seconds Height, Weight, BMI Height: 5'9.00" Weight: 192lbs. oz. 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, 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 Cranial Nerves: Normal Hearing, Normal Speech, PERRL Coordination/Gait: Normal Gait Motor/Sensory: No Motor Deficit, No Sensory Deficit Skin: Normal Color, Warm/Dry Progress/Results/Core Measures Results/Orders My Orders Orders - CHEKO RUTH DO Ekg Tracing (06/15/23 11:01) Orthostatic Vital Signs (Adult (06/15/23 11:01) Vital Signs/I&O 06/15/23 06/15/23 06/15/23 10:43 11:25 11:40 Temp 37.0 37.0 Pulse 83 86 102 93 102 Resp 16 16 B/P (MAP) 122/91 (101) 124/90 (101) 132/97 125/90 (102) 132/97 (109) Pulse Ox 99 99 Blood Pressure Mean: 101 Initial ECG Impression Date: Jun 15, 2023 Initial ECG Impression Time: 11:21 Initial ECG Rate: 82 Initial ECG Rhythm: Normal Sinus Initial ECG Intervals: Normal Initial ECG Impression: Nonspecific Changes Initial ECG Comparisson: No Previous ECG Available Critical Care Note Critical Care Start Time: 11:30 Progress Patient has felt better with normal blood pressure and heart rate while she is been in the department. Orthostatics were performed and these were negative. EKG was normal. Patient was ambulated about the department states she is feeling much better than she was initially. She is not dizzy no weakness no nausea no shortness of breath. She states she is ready to go home. We will discharge her home advised return for any problems she agrees. Departure Impression Primary Impression: Postural dizziness with near syncope Disposition: HOME, SELF-CARE Condition: Improved Departure-Patient Inst. Referrals: SHAYNA OLIVER APRN (PCP/Family) Primary Care Physician Patient Instructions: Dizziness, Adult ED, Near Fainting FLORYCHEKOBEV Abdalla DO Jun 15, 2023 11:01
[2023-06-15 11:25] VITALS: BP_SYST 124; BP_SYST 125; BP_SYST 132; BP_DIAS 90; BP_DIAS 97
[2023-06-15 11:40] VITALS: BP 132/97
== END 2023-06-15 11:35 | disposition home or self-care (01) ==
LOC: EDUNIT# 10:41 → ER 10:43
DX: R42 Dizziness and giddiness (principal); R55 Syncope and collapse; F17.210 Nicotine dependence, cigarettes, uncomplicated
CPT/HCPCS: 93005

== ENCOUNTER 2023-07-21 12:36 | Emergency (ER) | payer MEDICAID ==
[~2023-07-21] VITALS: Ht 175 cm; Wt 109.0 kg
[~2023-07-21 12:36] MED LIST changes: +ALBU18HF2 INH; +BUDE10.26 INH; +CEFD300C3 PO; +GBPN600T PO; +IPRA3AMP31 NEB
[2023-07-21] MEDS ORDERED: NS IV 1000 ML 1,000 ML IV STA (12:52)
--- NOTE | 2023-07-21 12:57 | ED General ---
General Chief Complaint: - 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 Stated Complaint: UTI | DEHYDRATION Source of Information: Patient Exam Limitations: No Limitations History of Present Illness Date Seen by Provider: Jul 21, 2023 Time Seen by Provider: 12:55 Initial Comments Patient is a 42-year-old female with a history of Charcot Janay tooth disorder who presents the ED for generalized weakness fatigue vomiting diarrhea pains. Patient states 2 weeks ago she was admitted for UTI and sepsis. Patient states she has been experiencing vomiting diarrhea since her last visit. She is reports vomiting 5+ times daily without any blood or mucus and also reports diarrhea +5 times daily that looks mucousy. Denies any bloody stools. She repo rts generalized pain does have some abdominal discomfort generalized worse in the lower abdomen. She denies any cough, chest pain, headache or visual changes. She reports chills fatigue weakness. She denies of any urinary symptoms. She did discharge with antibiotics when she left the hospital and did finish. She was seen at [facility] and sent to the ED for further evaluation as she had dark urine concern for dehydration Allergies and Home Medications Allergies Coded Allergies: hydrocodone (Verified Allergy, Severe, 02/06/13) Penicillins (Unverified Allergy, Unknown, 02/20/15) Patient Home Medication List Home Medication List Reviewed: Yes Albuterol Sulfate (Ventolin Hfa) 90 Mcg Hfa.aer.ad, 2 PUFF INH Q6H PRN for SHORTNESS OF BREATH, (Reported) Entered as Reported by: PANKAJ GEE on 07/01/23 1438 Budesonide/Formoterol Fumarate (Budesonide-Formoterol 160-4.5) 160 Mcg-4.5 Mcg/Actuation Hfa.aer.ad, 2 PUFF INH BID, (Reported) Entered as Reported by: PANKAJ GEE on 07/01/23 1438 Cefdinir (Cefdinir) 300 Mg Capsule, 300 MG PO BID Prescribed by: LUISANA LOERA on 07/03/23 1153 Gabapentin (Gabapentin) 600 Mg Tablet, 1,200 MG PO BID, (Reported) Entered as Reported by: PANKAJ GEE on 07/01/23 1438 Ipratropium/Albuterol Sulfate (Iprat-Albut 0.5-3(2.5) mg/3 ml) 0.5 Mg-3 Mg (2.5 Mg Base)/3 Ml Ampul.neb, 2.5 MG NEB Q6H PRN for SHORTNESS OF BREATH, (Reported) Entered as Reported by: PANKAJ GEE on 07/01/23 1438 Ondansetron (Ondansetron Odt) 4 Mg Tab.rapdis, 4 MG SL Q4H PRN for NAUSE A/VOMITING Prescribed by: WAYNE HARPER on 07/21/23 1439 Review of Systems Review of Systems Constitutional: No chills, No diaphoresis, No malaise, No weakness EENTM: No ear pain, No blurred vision Respiratory: No cough, No dyspnea on exertion Cardiovascular: No chest pain Gastrointestinal: abdominal pain, diarrhea, nausea, vomiting Genitourinary: No decreased output, No discharge, No dysuria, No frequency Musculoskeletal: No back pain, No joint pain Skin: No change in color, No change in hair/nails All Other Systems Reviewed Negative Unless Noted: Yes Past Gafewxr-Nzndor-Mptuis Hx Patient Social History Tobacco Use?: No Use of E-Cig and/or Vaping dev: No Alcohol Use?: No Pt feels they are or have been: No Immunizations Up To Date Influenza Vaccine Up-to-Date: No; Not Current First/Initial COVID19 Vaccinat: 2020 Second COVID19 Vaccination Aleksander: 2020 Third COVID19 Vaccination Date: 2020 Seasonal Allergies Seasonal Allergies: Yes Past Medical History Surgery/Hospitalization HX: HOSP ON 07/01-07/03 FOR UTI SEPSIS Surgeries: Yes Adenoidectomy, Section, Hysterectomy, Tonsillectomy, Tubal Ligation Respiratory: Yes COPD Currently Using CPAP: Yes Cardiac: No Neurological: Yes (POST CONCUSSION SYNDROME, PER PT FALLS OFTEN) Neuropathy 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 Disorders: No 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 Sexually Transmitted Disease: No HIV/AIDS: No Genitourinary: Yes Kidney Infection, Bladder Infection Gastrointestinal: Yes Gastroesophageal Reflux Musculoskeletal: Yes (NERVE DISEASE INHERITED) Endocrine: No HEENT: No Cancer: Yes Uterine Did You Recieve Any Treatments: Yes What Type of Treatment Did You: Surgical Intervention Psychosocial: Yes Anxiety, Depression Integumentary: No Blood Disorders: No Family Medical History Cancer 03 MOTHER (CERVICAL) Chest pain 03 FATHER Family history: Cardiovascular disease 03 FATHER Family history: Hypertension 03 FATHER Hypercholesterolemia 03 FATHER Physical Exam Vital Signs Vital Signs - First Documented 07/21/23 07/21/23 12:50 13:22 Temp 36.1 Pulse 72 Resp 22 B/P (MAP) 125/80 (95) Pulse Ox 97 O2 Delivery Room Air Capillary Refill : Height, Weight, BMI Height: 5'9.00" Weight: 192lbs. oz. 87.426018fo; 35.47 BMI Method:Stated General Appearance: No Apparent Distress, WD/WN Eyes: Bilateral Eye Normal Inspection, Bilateral Eye PERRL, Bilateral Eye EOMI HEENT: PERRL/EOMI, TMs Normal, Normal ENT Inspection, Pharynx Normal Neck: Full Range of Motion, Normal Inspection, Non Tender, Supple Respiratory: Chest Non Tender, Lungs Clear, Normal Breath Sounds, No Accessory Muscle Use Cardiovascular: Regular Rate, Rhythm, No Edema, No JVD Back: Normal Inspection, No CVA Tenderness, No Vertebral Tenderness Extremity: Normal Capillary Refill, Normal Inspection, Normal Range of Motion, Non Tender Neurologic/Psychiatric: Alert, Oriented x3, No Motor/Sensory Deficits, Normal 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, 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 Norm as Tested Skin: Normal Color, Warm/Dry Progress/Results/Core Measures Suspected Sepsis SIRS Temperature: Pulse: Respiratory Rate: Laboratory Tests 07/21/23 13:00: White Blood Count 8.8 Blood Pressure / Mean: Laboratory Tests 07/21/23 13:00: Platelet Count 196 07/21/23 13:36: Creatinine 0.78, Total Bilirubin 2.2H Results/Orders Lab Results Laboratory Tests Test 07/21/23 13:00 07/21/23 13:13 07/21/23 13:36 07/21/23 13:54 Range/Units White Blood Count 8.8 4.3-11.0 10^3/uL Red Blood Count 4.13 3.80-5.11 10^6/uL Hemoglobin 15.6 11.5-16.0 g/dL Hematocrit 45 35-52 % Mean Corpuscular Volume 109 H 80-99 fL Mean Corpuscular Hemoglobin 38 H 25-34 pg Mean Corpuscular Hemoglobin Concent 35 32-36 g/dL Red Cell Distribution Width 14.4 10.0-14.5 % Platelet Count 196 130-400 10^3/uL Mean Platelet Volume 11.0 9.0-12.2 fL Immature Granulocyte % (Auto) 0 % Neutrophils (%) (Auto) 53 42-75 % Lymphocytes (%) (Auto) 38 12-44 % Monocytes (%) (Auto) 7 0-12 % Eosinophils (%) (Auto) 2 0-10 % Basophils (%) (Auto) 1 0-10 % Neutrophils # (Auto) 4.7 1.8-7.8 10^3/uL Lymphocytes # (Auto) 3.3 1.0-4.0 10^3/uL Monocytes # (Auto) 0.6 0.0-1.0 10^3/uL Eosinophils # (Auto) 0.2 0.0-0.3 10^3/uL Basophils # (Auto) 0.1 0.0-0.1 10^3/uL Immature Granulocyte # (Auto) 0.0 0.0-0.1 10^3/uL Influenza Type A (RT-PCR) Not Detected Not Detecte Influenza Type B (RT-PCR) Not Detected Not Detecte SARS-CoV-2 RNA (RT-PCR) Not Detected Not Detecte Sodium Level 141 135-145 MMOL/L Potassium Level 3.8 3.6-5.0 MMOL/L Chloride Level 104 98-107 MMOL/L Carbon Dioxide Level 27 21-32 MMOL/L Anion Gap 10 5-14 MMOL/L Blood Urea Nitrogen 7 7-18 MG/DL Creatinine 0.78 0.60-1.30 MG/DL Estimat Glomerular Filtration Rate 98 BUN/Creatinine Ratio 9 Glucose Level 103 70-105 MG/DL Calcium Level 8.5 8.5-10.1 MG/DL Corrected Calcium 9.2 8.5-10.1 MG/DL Total Bilirubin 2.2 H 0.1-1.0 MG/DL Aspartate Amino Transf (AST/SGOT) 87 H 5-34 U/L Alanine Aminotransferase (ALT/SGPT) 60 H 0-55 U/L Alkaline Phosphatase 154 H 40-136 U/L C-Reactive Protein High Sensitivity 0.53 H 0.00-0.50 MG/DL Total Protein 6.0 L 6.4-8.2 GM/DL Albumin 3.1 L 3.2-4.5 GM/DL Lipase 9 8-78 U/L Urine Color RED H Urine Clarity SL CLOUDY Urine pH 6.0 5-9 Urine Specific [place] 1.020 1.016-1.022 Urine Protein 2+ H NEGATIVE Urine Glucose (UA) TRACE H NEGATIVE Urine Ketones 1+ H NEGATIVE Urine Nitrite POSITIVE H NEGATIVE Urine Bilirubin 3+ H NEGATIVE Urine Urobilinogen >=8.0 < = 1.0 MG/DL Urine Leukocyte Esterase NEGATIVE NEGATIVE Urine RBC (Auto) TRACE H NEGATIVE Urine RBC 0-2 /HPF Urine WBC 0-2 /HPF Urine Squamous Epithelial Cells >50 H /HPF Urine Crystals PRESENT H /LPF Urine Amorphous Sediment MOD AMEYA URATES H /LPF Urine Bacteria FEW H /HPF Urine Casts NONE /LPF Urine Mucus LARGE H /LPF Urine Culture Indicated NO Urine Test NEGATIVE NEGATIVE Micro Results Microbiology 07/21/23 C. difficile GDH Antigen & Toxins - Final, Complete My Orders Orders - CYNTHIA OGLESBY Ua Culture If Indicated (07/21/23 12:42) Hcg,Qualitative Urine (07/21/23 12:42) Cbc And Automated Diff (07/21/23 12:52) Comprehensive Metabolic Panel (07/21/23 12:52) Lipase (07/21/23 12:52) Hs C Reactive Protein (07/21/23 12:52) Ns Iv 1000 Ml (Ns Iv 1000 Ml) (07/21/23 12:52) Ondansetron Injection (Ondansetron Inj (07/21/23 13:00) Stool Culture (07/21/23 12:52) Fecal Wbc (07/21/23 12:52) C Difficile Ag + Toxin A/B. (07/21/23 12:52) Covid 19 Inhouse Test (07/21/23 12:54) Influenza A And B By Pcr (07/21/23 12:54) Ketorolac Injection (Ketorolac Injection (07/21/23 13:30) Abdomen/Kub 1view (07/21/23 14:28) Medications Given in ED Current Medications Medications Dose Ordered Sig/Azra Route Start Time Stop Time Status Last Admin Dose Admin Ketorolac Tromethamine 30 mg ONCE ONCE IVP 07/21/23 13:30 07/21/23 14:02 DC 07/21/23 13:34 30 MG Ondansetron HCl 4 mg ONCE ONCE IVP 07/21/23 13:00 07/21/23 13:01 DC 07/21/23 13:09 4 MG Vital Signs/I&O 07/21/23 07/21/23 07/21/23 12:50 13:22 14:23 Temp 36.1 36.1 36.2 Pulse 72 80 Resp 22 B/P (MAP) 125/80 (95) 122/92 Pulse Ox 97 100 O2 Delivery Room Air Room Air Capillary Refill : Departure Communication (PCP) Reviewed previous ER visits, H&P, lab testing. Patient Was admitted July 01 secondary to UTI and sepsis. She was discharged with cefdinir. Patient microbiology of her urine returned showed no susceptibility to antibiotics and concern for more normal gauri vs contamination. She has no urinary symptoms but has had continuous vomiting and diarrhea since her last visit. She Was sent from [facility] her primary care physician concern for dehydration and further evaluation of her symptoms. Due to the continuous diarrhea stool cultures were ordered. CBC, CMP, lipase urinalysis was initiated. She was given a liter of fluid. She did have a CT abdomen and pelvis with her last visit which did not note any acute abnormality. Did note a large left adnexal cyst. She had an u ltrasound this past week and they are currently monitoring at this time. She was not tachycardic or febrile. CBC was grossly unremarkable. Chemistry did note elevated bilirubin of 2.2, AST is 87, ALT 60 alk phos 154. Nonspecific. . Similar lab work was slightly elevated with last visit. She does not appear toxic or septic. Generalized abdominal discomfort and tenderness. She reports pain throughout with body. She does have a history of Charcot Farideh tooth disease with a history of muscle pain. She did receive Toradol with improvement of pain. COVID influenza was negative. Her urinalysis did note positive nitrites, ketones, proteins. No white blood cells or red blood cells. Did look red. Culture was not indicated for this last urine sample. Since her culture returned unremarkable with her last visit antibiotics was held. I do think she does appear dehydrated. She did receive a liter of fluid. Did offer second liter but she states she needed to go. She had no episodes of vomiting here. She was able to provide a stool culture and was negative for C. difficile. Culture currently pending. KUB was ordered which was negative for nephrolithiasis, bowel obstruction. No evidence of surgical abdomen. Reassuring lab work. She does not appear toxic or septic. She is feeling much better at this time. At this time recommend follow-up your PCP in 2 to 3 days for reevaluation of the lab work and cultures. If any worsening symptoms return back to ED. Will discharge with Zofran for nausea. Nonspecific vomiting and diarrhea. Further evaluation with stool cultures at this time. Antibiotics was held until culture. Impression Primary Impression: Vomiting and diarrhea Disposition: HOME, SELF-CARE Condition: Stable Departure-Patient Inst. Decision time for Depature: 14:38 Referrals: DEANDRE JOSUE APRN (PCP/Family) Primary Care Physician Patient Instructions: Diarrhea in adolescents and adults, Nausea and Vomiting, Adult ED Add. Discharge Instructions: Zofran for nausea. Suggest follow-up your PCP in 2 to 3 days for evaluation. Continue staying hydrated. Pending stool cultures at this time. All discharge instructions reviewed with patient and/or family. Voiced understanding. Scripts Ondansetron (Ondansetron Odt) 4 Mg Tab.rapdis 4 MG SL Q4H PRN for NAUSEA/VOMITING, #8 TAB Prov: CYNTHIA OGLESBY 07/21/23 CYNTHIA OGLESBY Jul 21, 2023 12:57
[2023-07-21] MEDS ORDERED: ONDANSETRON INJECTION 4 MG/2 ML (SDV) IVP ONE (13:00)
[2023-07-21 13:06] LABS: BASOPHILS # (AUTO) 0.1 10^3/uL (0.0-0.1); BASOPHILS % (AUTO) 1 % (0-10); EOSINOPHILS # (AUTO) 0.2 10^3/uL (0.0-0.3); EOSINOPHILS % (AUTO) 2 % (0-10); HEMATOCRIT 45 % (35-52); HEMOGLOBIN 15.6 g/dL (11.5-16.0); LYMPHOCYTES # (AUTO) 3.3 10^3/uL (1.0-4.0); LYMPHOCYTES % (AUTO) 38 % (12-44); MEAN CORPUSCULAR HEMOGLOBIN 38 pg (25-34); MEAN CORPUSCULAR HGB CONC 35 g/dL (32-36); MEAN CORPUSCULAR VOLUME 109 fL (80-99); MONOCYTES # (AUTO) 0.6 10^3/uL (0.0-1.0); MONOCYTES % (AUTO) 7 % (0-12); NEUTROPHILS # (AUTO) 4.7 10^3/uL (1.8-7.8); NEUTROPHILS % (AUTO) 53 % (42-75); PLATELET COUNT 196 10^3/uL (130-400); WHITE BLOOD COUNT 8.8 10^3/uL (4.3-11.0)
[2023-07-21] MEDS ORDERED: KETOROLAC INJ 30 MG/ML VIAL IVP ONE (13:30)
[2023-07-21 14:03] LABS: ALBUMIN 3.1 GM/DL (3.2-4.5); BILIRUBIN,TOTAL 2.2 MG/DL (0.1-1.0); CALCIUM 8.5 MG/DL (8.5-10.1); CREATININE SERUM 0.78 MG/DL (0.60-1.30); POTASSIUM 3.8 MMOL/L (3.6-5.0)
[2023-07-21 14:18] LABS: CLARITY,URINE SL CLOUDY; COLOR,URINE RED
[2023-07-21 14:19] LABS: BACTERIA,URINE FEW /HPF; BILIRUBIN,URINE 3+ (NEGATIVE); GLUCOSE, URINE (UA) TRACE (NEGATIVE); KETONES,URINE 1+ (NEGATIVE); LEUKOCYTE ESTERASE ,URINE NEGATIVE (NEGATIVE); NITRITE,URINE POSITIVE (NEGATIVE); PROTEIN,URINE 2+ (NEGATIVE); RBC,URINE 0-2 /HPF; SQUAMOUS EPITHELIAL CELL,UR >50 /HPF; WBC,URINE 0-2 /HPF
[2023-07-21 14:20] LABS: AMORPHOUS SEDIMENT,UR MOD AMOR URATES /LPF
[2023-07-21 14:23] VITALS: BP 122/92
[2023-07-21] MEDS ORDERED: ONDA4TAB11 SL (14:39)
--- NOTE | 2023-07-21 15:12 | Diagnostic Imaging Report ---
Indication: Nausea, vomiting and diarrhea. The bowel gas pattern normal. No abnormal fecal loading. No obstructive features. Impression: Unremarkable abdominal radiographs. Dictated by: Dictated on workstation # [id number]
== END 2023-07-21 15:09 | disposition home or self-care (01) ==
LOC: EDUNIT# 12:36 → ER 12:37
DX: R11.2 Nausea with vomiting, unspecified (principal); R19.7 Diarrhea, unspecified; N83.292 Other ovarian cyst, left side; E80.6 Other disorders of bilirubin metabolism; R82.4 Acetonuria; R80.9 Proteinuria, unspecified
CPT/HCPCS: 36415; 74018; 80053; 81000; 83690; 84703; 85025; 86141; 87015; 87045; 87046; 87324; 87449; 87636; 87899; 96374; 96375

== ENCOUNTER 2023-09-04 10:19 | Inpatient (IN) | payer MEDICAID ==
[~2023-09-04] VITALS: Ht 175.3 cm; Wt 108.8 kg
[~2023-09-04 10:19] MED LIST changes: +ONDA4TAB11 SL
[2023-09-04] MEDS ORDERED: NS IV 1000 ML 1,000 ML IV STA (11:00)
[2023-09-04] MEDS ORDERED: ONDANSETRON INJECTION 4 MG/2 ML (SDV) IVP ONE (11:15)
[2023-09-04] MEDS ORDERED: diphenhydrAMINE INJ 50 MG/ML VIAL IVP ONE (11:15)
[2023-09-04 11:34] LABS: BASOPHILS # (AUTO) 0.1 10^3/uL (0.0-0.1); BASOPHILS % (AUTO) 1 % (0-10); EOSINOPHILS # (AUTO) 0.1 10^3/uL (0.0-0.3); EOSINOPHILS % (AUTO) 1 % (0-10); HEMATOCRIT 48 % (35-52); HEMOGLOBIN 16.7 g/dL (11.5-16.0); LYMPHOCYTES # (AUTO) 3.3 10^3/uL (1.0-4.0); LYMPHOCYTES % (AUTO) 27 % (12-44); MEAN CORPUSCULAR HEMOGLOBIN 39 pg (25-34); MEAN CORPUSCULAR HGB CONC 35 g/dL (32-36); MEAN CORPUSCULAR VOLUME 110 fL (80-99); MEAN PLATELET VOLUME 11.1 fL (9.0-12.2); MONOCYTES # (AUTO) 0.9 10^3/uL (0.0-1.0); MONOCYTES % (AUTO) 7 % (0-12); NEUTROPHILS # (AUTO) 7.8 10^3/uL (1.8-7.8); NEUTROPHILS % (AUTO) 64 % (42-75); PLATELET COUNT 225 10^3/uL (130-400); WHITE BLOOD COUNT 12.2 10^3/uL (4.3-11.0)
--- NOTE | 2023-09-04 11:34 | ED GI ---
General Chief Complaint: Abdominal/GI Problems Stated Complaint: LOSS OF APPETITE/HEADACHE/DIZZINESS Nursing Triage Note: PT AMB TO RM 10 WITH COMPLAINT OF VOMITING, FATIGUE, ABD PAIN, AND CRAMPING. STATES SHE HAS INTERMITTENTLY HAD THESE SYMPTOMS SINCE BEING HOSPITIALIZED WITH UTI AND SEPSIS IN . Source of Information: Patient Exam Limitations: No Limitations (ALLISON POLANCO) History of Present Illness Date Seen by Provider: Sep 04, 2023 Time Seen by Provider: 10:45 Initial Comments 43 YO female presents to ED c/o N/V, fatigue, and body aches for x 3 weeks. Pt reports in June 2023 she was admitted for UTI that lead to sepsis. States ever since she has had some residual N/V, however over the last x 3 weeks her symptoms have progressively worsened. States she is unable to keep anything down, vomiting "30 times before lunch." She has tried zofran at home with no relief. She endorses mild diffuse abdominal pain, decreased appetite, intermittent chills, intermittent shortness of breath and cough, and lightheadedness. Denies chest pain, fever, dysuria, frequency, diarrhea, melena, or any other acute sx. She drinks ETOH occasionally and smokes cigarettes. Timing/Duration: Constant, Getting Worse Severity/Quality: Moderate Location: Generalized Abdomen Radiation: No Radiation Modifying Factors: Improves With Vomiting Associated Symptoms: No Back Pain, No Chest Pain, No Fever/Chills; Fatigue, Nausea/Vomiting; No Rash; Shortness of Air (intermittent); No Syncope, No Weakness (ALLISON POLANCO) Allergies and Home Medications Allergies Coded Allergies: hydrocodone (Verified Allergy, Severe, pt has tolerated oxycodone in the past, 09/04/23) Penicillins (Unverified Allergy, Unknown, 02/20/15) Patient Home Medication List Home Medication List Reviewed: Yes (ALLISON POLANCO) Albuterol Sulfate (Ventolin Hfa) 90 Mcg Hfa.aer.ad, 2 PUFF INH Q6H PRN for SHORTNESS OF BREATH, (Reported) Entered as Reported by: PANKAJ GEE on 07/01/23 8538 Budesonide/Formoterol Fumarate (Budesonide-Formoterol 160-4.5) 160 Mcg-4.5 Mcg/Actuation Hfa.aer.ad, 2 PUFF INH BID, (Reported) Entered as Reported by: PANKAJ GEE on 07/01/23 1438 Cefdinir (Cefdinir) 300 Mg Capsule, 300 MG PO BID Prescribed by: LUISANA LOERA on 07/03/23 1153 Gabapentin (Gabapentin) 600 Mg Tablet, 1,200 MG PO BID, (Reported) Entered as Reported by: PANKAJ GEE on 07/01/23 1438 Ipratropium/Albuterol Sulfate (Iprat-Albut 0.5-3(2.5) mg/3 ml) 0.5 Mg-3 Mg (2.5 Mg Base)/3 Ml Ampul.neb, 2.5 MG NEB Q6H PRN for SHORTNESS OF BREATH, (Reported) Entered as Reported by: PANKAJ GEE on 07/01/23 1438 Ondansetron (Ondansetron Odt) 4 Mg Tab.rapdis, 4 MG SL Q4H PRN for NAUSEA/VOMITING Prescribed by: WAYNE HARPER on 07/21/23 1439 Review of Systems Review of Systems Constitutional: chills, dizziness; No fever; malaise; No weakness EENTM: No Blurred Vision, No Double Vision, No Nose Congestion, No Nose Pain, No Throat Pain Respiratory: Cough (intermittent), Shortness of Air (intermittent); Denies Stridor, Denies Wheezing Cardiovascular: Denies Chest Pain, Denies Irregular Heart Rate; Lightheadedness; Denies Palpitations, Denies Syncope Gastrointestinal: Denies Abdomen Distended; Abdominal Pain; Denies Constipated, Denies Diarrhea, Denies Difficulty Swallowing; Nausea, Poor Appetite, Vomiting Genitourinary: Denies Burning, Denies Discharge, Denies Frequency, Denies Hematuria Musculoskeletal: No back pain, No joint pain; muscle cramps Skin: No change in color, No lesions, No rash Psychiatric/Neurological: Denies Numbness, Denies Weakness Endocrine: No Symptoms Reported Hematologic/Lymphatic: No Symptoms Reported (ALLISON POLANCO) All Other Systems Reviewed Negative Unless Noted: Yes (ALLISON POLANCO) Past Hzkawka-Ucnevu-Jyjsid Hx Patient Social History Tobacco Use?: Yes Tobacco type used: Cigarettes Smoking Status: Current Everyday Smoker Use of E-Cig and/or Vaping dev: No Substance use?: Yes Substance type: Marijuana Alcohol Use?: No Pt feels they are or have been: No (ALLISON POLANCO) Immunizations Up To Date First/Initial COVID19 Vaccinat: 2020 Second COVID19 Vaccination Aleksander: 2020 Third COVID19 Vaccination Date: 2020 (ALLISON POLANCO) Seasonal Allergies Seasonal Allergies: Yes (ALLISON POLANCO) Past Medical History Surgery/Hospitalization HX: HOSP ON 07/01-07/03 FOR UTI SEPSIS Surgeries: Yes Adenoidectomy, Section, Hysterectomy, Tonsillectomy, Tubal Ligation Respiratory: Yes COPD Currently Using CPAP: Yes Cardiac: No Neurological: Yes (POST CONCUSSION SYNDROME, PER PT FALLS OFTEN) Neuropathy 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 Disorders: No 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 Disorders: 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 Sexually Transmitted Disease: No HIV/AIDS: No Genitourinary: Yes Kidney Infection, Bladder Infection Gastrointestinal: Yes Gastroesophageal Reflux Musculoskeletal: Yes (NERVE DISEASE INHERITED) Endocrine: No HEENT: No Cancer: Yes Uterine Did You Recieve Any Treatments: Yes What Type of Treatment Did You: Surgical Intervention Psychosocial: Yes Anxiety, Depression Integumentary: No Blood Disorders: No (ALLISON POLANCO) Family Medical History Cancer 03 MOTHER (CERVICAL) Chest pain 03 FATHER Family history: Cardiovascular disease 03 FATHER Family history: Hypertension 03 FATHER Hypercholesterolemia 03 FATHER Physical Exam Vital Signs Vital Signs - First Documented 09/04/23 10:35 Temp 36.1 Pulse 96 Resp 17 B/P (MAP) 119/99 (106) Pulse Ox 98 O2 Delivery Room Air ([facility] DO) Vital Signs Capillary Refill : Less Than 3 Seconds (ALLISON POLANCO) Height/Weight/BMI Height: 5'9.00" Weight: 192lbs. oz. 87.307232mz; 35.00 BMI Method:Stated General Appearance: WD/WN, mild distress (secondary to nausea and vomiting. She does not appear toxic. ) HEENT: PERRL/EOMI, normal ENT inspection, TMs normal, pharynx normal Neck: non-tender, full range of motion, supple Respiratory: chest non-tender, lungs clear, normal breath sounds, no respiratory distress, no accessory muscle use Cardiovascular: normal peripheral pulses, no edema, no gallop, no JVD, no murmur, tachycardia (mildly tachycardic ) Peripheral Pulses: 2+ Dorsalis Pedis (R), 2+ Left Dors-Pedis (L), 2+ Radial Pulses (R), 2+ Radial Pulses (L) Gastrointestinal: normal bowel sounds, soft, no organomegaly, no pulsatile mass; No distended, No guarding, No rebound; tenderness (diffuse abdominal tenderness throughout. ); No hernia, No mass Rectal: deferred Extremities: normal range of motion, non-tender, normal inspection, no pedal edema, no calf tenderness, normal capillary refill Back: no CVA tenderness, no vertebral tenderness Neurologic/Psychiatric: no motor/sensory deficits, alert, normal mood/affect, oriented x 3 Skin: normal color, warm/dry Lymphatic: no adenopathy (BESSYELE,ALLISON) Progress/Results/Core Measures Results/Orders Lab Results Laboratory Tests Test 09/04/23 11:24 Range/Units White Blood Count 12.2 H 4.3-11.0 10^3/uL Red Blood Count 4.32 3.80-5.11 10^6/uL Hemoglobin 16.7 H 11.5-16.0 g/dL Hematocrit 48 35-52 % Mean Corpuscular Volume 110 H 80-99 fL Mean Corpuscular Hemoglobin 39 H 25-34 pg Mean Corpuscular Hemoglobin Concent 35 32-36 g/dL Red Cell Distribution Width 13.6 10.0-14.5 % Platelet Count 225 130-400 10^3/uL Mean Platelet Volume 11.1 9.0-12.2 fL Immature Granulocyte % (Auto) 1 % Neutrophils (%) (Auto) 64 42-75 % Lymphocytes (%) (Auto) 27 12-44 % Monocytes (%) (Auto) 7 0-12 % Eosinophils (%) (Auto) 1 0-10 % Basophils (%) (Auto) 1 0-10 % Neutrophils # (Auto) 7.8 1.8-7.8 10^3/uL Lymphocytes # (Auto) 3.3 1.0-4.0 10^3/uL Monocytes # (Auto) 0.9 0.0-1.0 10^3/uL Eosinophils # (Auto) 0.1 0.0-0.3 10^3/uL Basophils # (Auto) 0.1 0.0-0.1 10^3/uL Immature Granulocyte # (Auto) 0.1 0.0-0.1 10^3/uL Sodium Level 137 135-145 MMOL/L Potassium Level 2.5 *L 3.6-5.0 MMOL/L Chloride Level 90 L 98-107 MMOL/L Carbon Dioxide Level 30 21-32 MMOL/L Anion Gap 17 H 5-14 MMOL/L Blood Urea Nitrogen 9 7-18 MG/DL Creatinine 0.88 0.60-1.30 MG/DL Estimat Glomerular Filtration Rate 84 BUN/Creatinine Ratio 10 Glucose Level 137 H 70-105 MG/DL Calcium Level 9.1 8.5-10.1 MG/DL Corrected Calcium 9.7 8.5-10.1 MG/DL Total Bilirubin 2.9 H 0.1-1.0 MG/DL Aspartate Amino Transf (AST/SGOT) 59 H 5-34 U/L Alanine Aminotransferase (ALT/SGPT) 42 0-55 U/L Alkaline Phosphatase 132 40-136 U/L Total Protein 6.5 6.4-8.2 GM/DL Albumin 3.3 3.2-4.5 GM/DL Lipase 13 8-78 U/L (MARLIN PALMER DO) My Orders Orders - MARLIN PALMER DO Comprehensive Metabolic Panel (09/04/23 10:59) Cbc And Automated Diff (09/04/23 10:59) Ed Iv/Invasive Line Start (09/04/23 11:00) Ns Iv 1000 Ml (Ns Iv 1000 Ml) (09/04/23 11:00) Ondansetron Injection (Ondansetron Inj (09/04/23 11:15) Diphenhydramine Injection (Diphenhydram (09/04/23 11:15) Lipase (09/04/23 11:02) Potassium Chloride (Tablet) (Potassium C (09/04/23 12:11) Ekg Tracing (09/04/23 12:16) Potassium Cl 10meq/50ml Ivpb (Kcl 10 Meq (09/04/23 12:30) Ed Admission (Communication) (09/04/23 12:17) Ns (Ivpb) 250 Ml (Sodium Chloride 0.9% 2 (09/04/23 12:54) (MARLIN PALMER DO) Medications Given in ED Current Medications Medications Dose Ordered Sig/Azra Route Start Time Stop Time Status Last Admin Dose Admin Diphenhydramine HCl 50 mg ONCE ONCE IVP 09/04/23 11:15 09/04/23 11:16 DC 09/04/23 11:21 50 MG Ondansetron HCl 8 mg ONCE ONCE IVP 09/04/23 11:15 09/04/23 11:16 DC 09/04/23 11:21 8 MG Sodium Chloride 250 ml @ ud STK-MED ONCE .ROUTE 09/04/23 12:54 09/04/23 12:57 DC 09/04/23 13:00 100 MLS/HR (MARLIN PALMER DO) Vital Signs/I&O 09/04/23 09/04/23 10:35 13:35 Temp 36.1 Pulse 96 Resp 17 B/P (MAP) 119/99 (106) 115/89 Pulse Ox 98 O2 Delivery Room Air (MARLIN PALMER DO) Blood Pressure Mean: 106 Progress Progress Note : Time: 11:30 Progress Note Pt presented to ED with N/V since hospitalization in June, that has progressively worsened over the last x 3 weeks. She was mildly tachycardic upon arrival and remaining vital signs require no urgent intervention. Exam is remarkable for mild tachycardia and mild diffuse abdominal tenderness to palpation with no rebound, guarding, or peritoneal signs. DDx includes viral GI illness, pancreatitis, gastritis, SBO, cyclical vomiting vs others. Low suspicion for SBO as she has been having regular bowel movement, with no abdominal distension or tympany. Plan to obtain CBC, CMP, and lipase. No abdominal imaging indicated at this time as she has no focal tenderness and pain is most likely soreness from frequent vomiting. Plan to provide IVF, zofran and benadryl for symptomatic control. Labs: leukocytosis of 12.5 with no left shift. Hemoglobin mildly elevated, likely due to smoking. Potassium of 2.5, remaining electrolytes within normal limits. Anion gap of 17. Total bilirubin 2.9. Slightly elevated AST, which is her baseline. Normal lipase. 1217: Pt resting comfortably. States she is feeling better with the fluids. Discussed her lab findings including hypokalemia and plan to admit for further management. Will get ECG. Pt is agreeable with plan of care. (ALLISON POLANCO) Departure Communication (Admissions) I have independently seen and evaluated the patient. I agree with the provided history and physical related by the medical student. Any additions to the note has been made by myself. Plan initially was likely discharge however the patient is significantly hypokalemic. Potassium 2.5. After this was identified EKG was obtained however she has not had any evidence for ectopy or dysrhythmia on telemetry throughout her emergency department stay. EKG shows some diffuse T wave inversions but no other significant abnormalities. I have ordered her 40 mEq potassium orally as well as 40 mEq IV and spoke to the resident on-call for [facility] who accepts the patient in admission on behalf of Dr. Bustamante. She has had 2 L of IV fluids total at this time. She was given Zofran IV as well as Benadryl IV which did seem to help significantly with her nausea she has not vomited since she has been here. (MARLIN PALMER DO) Impression Primary Impression: Hypokalemia Disposition: ADMITTED INPATIENT Condition: Stable Departure-Patient Inst. Referrals: DEANDRE JOSUE APRN (PCP/Family) Primary Care Physician ALLISON POLANCO Sep 04, 2023 11:34 MARLIN PALMER DO Sep 04, 2023 13:04
[2023-09-04 11:45] LABS: ALBUMIN 3.3 GM/DL (3.2-4.5)
[2023-09-04 11:46] LABS: CALCIUM 9.1 MG/DL (8.5-10.1)
[2023-09-04 11:47] LABS: TOTAL PROTEIN 6.5 GM/DL (6.4-8.2)
[2023-09-04 11:49] LABS: BILIRUBIN,TOTAL 2.9 MG/DL (0.1-1.0)
[2023-09-04 11:51] LABS: CREATININE SERUM 0.88 MG/DL (0.60-1.30)
[2023-09-04 12:10] LABS: POTASSIUM 2.5 MMOL/L (3.6-5.0)
[2023-09-04] MEDS ORDERED: POTASSIUM CHLORIDE 20 MEQ TABLET PO STA (12:11)
[2023-09-04] MEDS ORDERED: NS (IVPB) 250 ML 250 ML ONE (12:54)
--- NOTE | 2023-09-04 12:58 | History & Physical-Hospitalist ---
BING AU MD, RESIDENT 09/04/23 1258: History of Present Illness HPI/Chief Complaint CC: Intractable vomiting Patient is a 43-year-old female with a past medical history of COPD, Npkuzwm-Rvxzw-Zoaed disease who presented to the ED with nausea vomiting, fatigue and body aches for 3 weeks. She states that for the last 3 weeks, she has not been able to tolerate any oral intake and has been having persistent nonbilious vomiting. She feels quite dehydrated. Also notes that she has been having a cough that has been productive occasionally of thick mucus, has been having dizziness and lightheadedness as well as a sore throat. She stated that at one point she did have some diarrhea but currently is having some constipation and has last had a bowel movement a couple days ago. She states because of the vomiting and how weak she feels, she is having considerable generalized pain. She denies any sick contacts, noticed similar symptoms previously. She used to smoke half a pack per day but has not had the motivation to smoke recently. Drinks alcohol occasionally and smokes marijuana but last had a couple months ago. She is currently sexually active but states she has not had any energy lately. Has a history of a hysterectomy. Patient was admitted June 2023 for sepsis secondary to UTI and states she has had some residual nausea and vomiting but was able to tolerate oral intake otherwise. Source: patient Exam Limitations: no limitations Date Seen 09/04/23 Time Seen by a Provider: 12:55 Attending Physician Emilie Amato Aprn PCP Admitting Physician: Attending Physician: Referring Physician Date of Admission Home Medications & Allergies Home Medications Reviewed patient Home Medication Reconciliation performed by pharmacy medication reconciliations substance abuse technician and/or nursing. Patients Allergies have been reviewed. Allergies Allergies Coded Allergies hydrocodone (Verified Allergy, Severe, 02/06/13) Penicillins (Unverified Allergy, Unknown, 02/20/15) Past Kalqbmp-Cftrup-Jogpyh Hx Patient Social History Tobacco Use?: Yes Tobacco type used: Cigarettes Smoking Status: Current Everyday Smoker Use of E-Cig and/or Vaping dev: No Substance use?: Yes Substance type: Marijuana Alcohol Use?: No Pt feels they are or have been: No Immunizations Up To Date Date of Influenza Vaccine: Aug 18, 2013 First/Initial COVID19 Vaccinat: 2020 Second COVID19 Vaccination Aleksander: 2020 Tetanus Booster (TDap): More Than 5 Years Hepatitis A: No Hepatitis B: No Date of Pneumonia Vaccine: Aug 18, 2013 Seasonal Allergies Seasonal Allergies: Yes Current Status status: No Advance Directives: No Primary Language: Belarusian Preferred Spoken Language: Belarusian Past Medical History Surgeries: Adenoidectomy, Section, Hysterectomy, Tonsillectomy, Tubal Ligation COPD Currently Using CPAP: Yes 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 Sexually Transmitted Disease: No HIV/AIDS: No Kidney Infection, Bladder Infection Gastroesophageal Reflux Uterine Did You Recieve Any Treatments: Yes What Type of Treatment Did You: Surgical Intervention Anxiety, Depression Blood Disorders: No Asthma COPD GERD Anxiety/Depression 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 Family Medical History Cancer 03 MOTHER (CERVICAL) Chest pain 03 FATHER Family history: Cardiovascular disease 03 FATHER Family history: Hypertension 03 FATHER Hypercholesterolemia 03 FATHER Review of Systems Constitutional: No fever; weakness EENTM: hoarseness, throat pain Respiratory: cough; No short of breath, No wheezing Cardiovascular: No chest pain, No edema, No palpitations Gastrointestinal: abdominal pain, constipation; No diarrhea; nausea, vomiting Genitourinary: decreased output; No dysuria Psychiatric/Neurological: Denies Headache Physical Exam Physical Exam Vital Signs Vital Signs - First Documented 09/04/23 10:35 Temp 36.1 Pulse 96 Resp 17 B/P (MAP) 119/99 (106) Pulse Ox 98 O2 Delivery Room Air Capillary Refill : Less Than 3 Seconds Height, Weight, BMI Height: 5'9.00" Weight: 192lbs. oz. 87.187342hc; 35.00 BMI Method:Stated General Appearance: No Apparent Distress HEENT: Normal ENT Inspection Neck: Full Range of Motion, Normal Inspection Respiratory: Chest Non Tender, Lungs Clear, Normal Breath Sounds, No Accessory Muscle Use, No Respiratory Distress Cardiovascular: Regular Rate, Rhythm, No Edema, No Murmur Gastrointestinal: Normal Bowel Sounds, Soft, Tenderness (Tenderness to palpation in right upper quadrant, left lower quadrant and left flank) Extremity: No Pedal Edema Neurologic/Psychiatric: Alert, Oriented x3 Skin: Normal Color, Warm/Dry Results Results/Procedures Labs Laboratory Tests 09/04/23 11:24 Patient resulted labs reviewed. Assessment/Plan Admission Diagnosis 43-year-old female with a past medical history of COPD and Uimrfgc-Zgsle-Hjttz disease presenting with intractable vomiting and hypokalemia. Admission Status: Observation Diagnosis/Problems Diagnosis/Problems (1) Intractable vomiting with nausea Status: Acute Assessment & Plan: Patient presenting with intractable vomiting, unclear etiology at this time. Will rule out infection at this time. Patient noted to have right upper quadrant pain in addition to diffuse abdominal pain, lipase and amylase negative. Bilirubin and LFTs within normal range. If continues to be persistent, can consider right upper quadrant ultrasound. Plan: Continue antiemetics Maintenance fluids We will discontinue maintenance fluids if tolerating oral intake (2) Leukocytosis Status: Resolved Assessment & Plan: Patient has a mild leukocytosis of 12.2. Could be reactive secondary to the vomiting however will rule out any causes of infection given patient's overall presentation. Differential includes UTI given the patient is having flank pain and occasional suprapubic pain. May also be asthma exacerbation given that patient has been having consistent cough occasionally productive of thick mucus. May have a viral pneumonia due to overall present ation of weakness and nausea vomiting. Plan: Follow-up UA Obtain chest x-ray COVID/flu testing We will hold off on antibiotics as no clear source of infection at this time Resolution Date/Time: 09/05/23 @ 10:13 (3) Hypokalemia Status: Acute Assessment & Plan: Potassium of 2.5 in the ED. Repleting with oral and IV potassium. Plan: Follow-up CMP in the morning (4) Charcot-Farideh disease Status: Chronic Assessment & Plan: Continue home medications (5) COPD (chronic obstructive pulmonary disease) Status: Chronic Assessment & Plan: Continue home medications Clinical Quality Measures Smoking Cessation Counseling: Counseling-Symptomatic: 3-10 Minutes INDIA MAYS DO 09/05/23 1911: History of Present Illness HPI/Chief Complaint CC: Vomiting with hypokalemia HPI: This is a 43yoWF clinic patient of [facility] who presented to the ER with N/V refractory along with weakness and hypokalemia. UTI dx placed on abx. I have reviewed labs and meds.She reports not using marijuana but I suspected it and UDS confirmed. Source: patient Exam Limitations: no limitations Past Iigcquo-Udqfdr-Xzlqjm Hx Patient Social History Marrital Status: single Employed/Student: unemployed Smoking Status: Current Everyday Smoker Substance type: Marijuana Family Medical History Cancer 03 MOTHER (CERVICAL) Chest pain 03 FATHER Family history: Cardiovascular disease 03 FATHER Family history: Hypertension 03 FATHER Hypercholesterolemia 03 FATHER Review of Systems Constitutional: see HPI, weakness Physical Exam Physical Exam General Appearance: No Apparent Distress Respiratory: Lungs Clear Cardiovascular: Regular Rate, Rhythm Assessment/Plan Admission Diagnosis Assessment: N/V refractory THC use Hypokalemia UTI Plan: IV potassium UTI tx Admission Status: Observation BING AU MD, RESIDENT Sep 04, 2023 12:58 INDIA MAYS DO Sep 05, 2023 19:11
[2023-09-04] MEDS: POTASSIUM CL 10MEQ/50ML IVPB 50 ML IV SCH ×4 (13:00→15:54)
[2023-09-04] MEDS ORDERED: ANTACID SUSPENSION 30 ML UDC PO PRN (13:45)
[2023-09-04] MEDS ORDERED: MILK OF MAGNESIA 400 MG/5 ML 30 ML UDC PO PRN (13:45)
[2023-09-04] MEDS ORDERED: RT-ALBUTEROL HFA 8.5 GM INHALER IH PRN (13:45)
[2023-09-04] MEDS ORDERED: ACETAMINOPHEN 500 MG TABLET PO PRN (13:45)
[2023-09-04] MEDS ORDERED: diphenhydrAMINE INJ 50 MG/ML VIAL IVP PRN (13:45)
[2023-09-04] MEDS ORDERED: BISACODYL 10 MG SUPPOSITORY PR PRN (13:45)
[2023-09-04] MEDS ORDERED: LACTULOSE SYRUP 10GM/15ML 30ML UDC PO PRN (13:45)
[2023-09-04] MEDS ORDERED: CALCIUM CARBONATE 500 MG CHEW TABLET PO PRN (13:45)
[2023-09-04] MEDS ORDERED: ONDANSETRON 4 MG ORAL DISSOLVE TABLET PO PRN (13:45)
[2023-09-04] MEDS ORDERED: ACETAMINOPHEN 325 MG TABLET PO PRN (13:45)
[2023-09-04] MEDS ORDERED: NALOXONE 0.4 MG/ML 1 ML VIAL IV PRN (13:45)
[2023-09-04 13:53] VITALS: BP 109/77
[2023-09-04] MEDS: ENOXAPARIN 40 MG/0.4 ML SYRINGE SC SCH (14:59)
[2023-09-04] MEDS: NS IV 1000 ML 1,000 ML IV SCH ×2 (15:00→20:38)
--- NOTE | 2023-09-04 15:13 | Diagnostic Imaging Report ---
CLINICAL INDICATIONS: Patient complains of cough and shortness of air. EXAM: Chest x-ray PA and lateral views. COMPARISON: Chest x-ray dated 06/23/2023. FINDINGS: Lungs/pleura: Lungs are clear. There is no pneumothorax. There is no pleural effusion. Mediastinum: Unremarkable. Pulmonary vasculature: Unremarkable. Heart: Unremarkable. Bones/extrathoracic soft tissue: Unremarkable. IMPRESSION: There is no radiographic evidence of acute cardiopulmonary process. Dictated by: Dictated on workstation # [id number]
[2023-09-04] MEDS ORDERED: FLU QUADRIvalent (6 months+) 60 mcg/0.5 ml 2023-2024 (FLUARIX) IM ONE (15:15)
[2023-09-04 15:23] LABS: CLARITY,URINE SLIGHTLY CLOUDY; COLOR,URINE AMBER; GLUCOSE, URINE (UA) TRACE (NEGATIVE); PH,URINE 6.5 (5-9); PROTEIN,URINE 2+ (NEGATIVE)
[2023-09-04 15:24] LABS: BACTERIA,URINE MODERATE /HPF; BILIRUBIN,URINE 3+ (NEGATIVE); KETONES,URINE 1+ (NEGATIVE); LEUKOCYTE ESTERASE ,URINE NEGATIVE (NEGATIVE); NITRITE,URINE POSITIVE (NEGATIVE)
[2023-09-04 15:49] VITALS: BP 114/70
[2023-09-04] MEDS: RT-Ipratropium/Albuterol NEB 3 ML VIAL INH SCH ×3 (16:19→21:56)
[2023-09-04] MEDS: diphenhydrAMINE 25 MG TABLET PO PRN (16:43)
[2023-09-04] MEDS: ONDANSETRON INJECTION 4 MG/2 ML (SDV) IV PRN (16:43)
[2023-09-04 19:54] VITALS: BP 118/70
[2023-09-04] MEDS: oxyCODONE IMMEDIATE RELEASE 5 MG TABLET PO PRN (20:32)
[2023-09-04] MEDS: GABAPENTIN 600 MG TABLET PO SCH (20:32)
[2023-09-04] MEDS: DOCUSATE SODIUM 100 MG CAPSULE PO SCH (20:33)
[2023-09-04] MEDS: MELATONIN 3 MG TABLET PO PRN (20:33)
[2023-09-04] MEDS: SENNOSIDES 8.6 MG TABLET PO SCH (20:33)
[2023-09-04] MEDS: cefTRIAXone IV/IM 1,000 MG in NS (IVPB) 50 ML 50 ML IV SCH (20:37)
[2023-09-04 23:22] VITALS: BP 112/70
[2023-09-05] MEDS: RT-Ipratropium/Albuterol NEB 3 ML VIAL INH SCH ×6 (02:26→23:04)
[2023-09-05 03:35] VITALS: BP 112/75
[2023-09-05] MEDS: NS IV 1000 ML 1,000 ML IV SCH ×3 (03:36→19:37)
[2023-09-05 05:33] LABS: BASOPHILS # (AUTO) 0.1 10^3/uL (0.0-0.1); BASOPHILS % (AUTO) 1 % (0-10); EOSINOPHILS # (AUTO) 0.2 10^3/uL (0.0-0.3); EOSINOPHILS % (AUTO) 2 % (0-10); HEMATOCRIT 38 % (35-52); LYMPHOCYTES # (AUTO) 3.7 10^3/uL (1.0-4.0); LYMPHOCYTES % (AUTO) 37 % (12-44); MEAN CORPUSCULAR HEMOGLOBIN 39 pg (25-34); MEAN CORPUSCULAR HGB CONC 34 g/dL (32-36); MEAN CORPUSCULAR VOLUME 113 fL (80-99); MEAN PLATELET VOLUME 11.1 fL (9.0-12.2); MONOCYTES # (AUTO) 0.7 10^3/uL (0.0-1.0); MONOCYTES % (AUTO) 7 % (0-12); NEUTROPHILS # (AUTO) 5.2 10^3/uL (1.8-7.8); NEUTROPHILS % (AUTO) 52 % (42-75); PLATELET COUNT 189 10^3/uL (130-400); WHITE BLOOD COUNT 9.9 10^3/uL (4.3-11.0)
[2023-09-05 05:40] LABS: ALBUMIN 2.4 GM/DL (3.2-4.5)
[2023-09-05 05:41] LABS: POTASSIUM 2.9 MMOL/L (3.6-5.0)
[2023-09-05 05:42] LABS: CALCIUM 7.8 MG/DL (8.5-10.1)
[2023-09-05 05:43] LABS: TOTAL PROTEIN 4.6 GM/DL (6.4-8.2)
[2023-09-05 05:45] LABS: BILIRUBIN,TOTAL 1.4 MG/DL (0.1-1.0)
[2023-09-05 05:47] LABS: CREATININE SERUM 0.77 MG/DL (0.60-1.30)
[2023-09-05] MEDS ORDERED: POTASSIUM CHLORIDE 20 MEQ TABLET PO ONE (06:45)
[2023-09-05] MEDS: POTASSIUM CL 10MEQ/50ML IVPB 50 ML IV SCH ×3 (06:59→09:55)
[2023-09-05 07:15] VITALS: BP 115/79
[2023-09-05] MEDS: DOCUSATE SODIUM 100 MG CAPSULE PO SCH ×2 (07:24→20:23)
[2023-09-05] MEDS: SENNOSIDES 8.6 MG TABLET PO SCH ×2 (07:25→20:23)
[2023-09-05] MEDS: diphenhydrAMINE 25 MG TABLET PO PRN (08:30)
[2023-09-05] MEDS: oxyCODONE IMMEDIATE RELEASE 5 MG TABLET PO PRN ×2 (08:30→20:23)
[2023-09-05] MEDS ORDERED: POTASSIUM CHLORIDE 20 MEQ TABLET PO NR (10:00)
[2023-09-05] MEDS ORDERED: PHENOL THROAT SPRAY 177 ML LIQUID MC PRN (10:15)
--- NOTE | 2023-09-05 10:15 | Progress Note ---
BING AU MD, RESIDENT 09/05/23 1015: Subjective HPI/CC On Admission Date Seen by Provider: Sep 05, 2023 Time Seen by Provider: 09:45 CC: Intractable vomiting Patient is a 43-year-old female with a past medical history of COPD, Mgthqtp-Yrydv-[id number] disease who presented to the ED with nausea vomiting, fatigue and body aches for 3 weeks. She states that for the last 3 weeks, she has not been able to tolerate any oral intake and has been having persistent nonbilious vomiting. She feels quite dehydrated. Also notes that she has been having a cough that has been productive occasionally of thick mucus, has been pang ving dizziness and lightheadedness as well as a sore throat. She stated that at one point she did have some diarrhea but currently is having some constipation and has last had a bowel movement a couple days ago. She states because of the vomiting and how weak she feels, she is having considerable generalized pain. She denies any sick contacts, noticed similar symptoms previously. She used to smoke half a pack per day but has not had the motivation to smoke recently. Drinks alcohol occasionally and smokes marijuana but last had a couple months ago. She is currently sexually active but states she has not had any energy lately. Has a history of a hysterectomy. Patient was admitted June 2023 for sepsis secondary to UTI and states she has had some residual nausea and vo miting but was able to tolerate oral intake otherwise. Subjective/Events-last exam Patient doing a little bit better this morning. States that she is still having nausea but has not had any further episodes of vomiting. She still has been having some diarrhea, had 2 episodes overnight and did have some blood on her toilet paper when she wiped after her second bowel movement. She has been able to have a little bit of breath but otherwise has not been able to tolerate a ful l meal at this time. She also notes that her throat is quite sore. Otherwise has no concerns today. Review of Systems General: No Appetite HEENT: No Head Aches; Sore Throat Pulmonary: No Dyspnea, No Cough Cardiovascular: No: Chest Pain, Palpitations, Edema Gastrointestinal: Nausea, Diarrhea; No: Vomiting, Constipation Genitourinary: No Dysuria Objective Exam Vital Signs Vital Signs Date Time Temp Pulse Resp B/P (MAP) Pulse Ox O2 Delivery O2 Flow Rate FiO2 09/05/23 11:30 90 Room Air 0.00 09/05/23 11:20 36.4 90 16 118/77 (91) Capillary Refill : Less Than 3 Seconds General Appearance: No Apparent Distress HEENT: Normal ENT Inspection Neck: Full Range of Motion, Non Tender Respiratory: Chest Non Tender, Lungs Clear, Normal Breath Sounds, No Accessory Muscle Use, No Respiratory Distress Cardiovascular: Regular Rate, Rhythm, No Edema, No Murmur Gastrointestinal: Normal Bowel Sounds, Soft, Tenderness (Diffuse abdominal tenderness, not worse in 1 particular area) Extremity: No Pedal Edema Neurologic/Psychiatric: Alert, Oriented x3 Skin: Normal Color, Warm/Dry Results/Procedures Lab Laboratory Tests 09/05/23 05:17 Patient resulted labs reviewed. Assessment/Plan Assessment and Plan Assess & Plan/Chief Complaint 43-year-old female with a past medical history of COPD and Kzievjn-Jussb-Rdnhp disease presenting with intractable vomiting and hypokalemia. Diagnosis/Problems Diagnosis/Problems (1) Intractable vomiting with nausea Status: Acute Assessment & Plan: Patient presenting with intractable vomiting, unclear etiology at this time. Will rule out infection at this time. Patient noted to have right upper quadrant pain in addition to diffuse abdominal pain, lipase and amylase negative. Bilirubin and LFTs within normal range. If continues to be persistent, can consider right upper quadrant ultrasound. Still having nausea today but tolerating oral intake. Plan: Continue antiemetics Maintenance fluids We will discontinue maintenance fluids if consistently tolerating oral intake Obtaining UDS (2) UTI (urinary tract infection) Status: Acute Assessment & Plan: Patient noted to have a UTI although sample was not the cleanest. Will send for culture. Plan: Continue IV ceftriaxone Follow-up urine culture (3) Leukocytosis Status: Resolved Assessment & Plan: Patient has a mild leukocytosis of 12.2. Could be reactive secondary to the vomiting however will rule out any causes of infection given patient's overall presentation. Chest x-ray negative. Patient noted to have a UTI. Leukocytosis has resolved Resolution Date/Time: 09/05/23 @ 10:13 (4) Hypokalemia Status: Acute Assessment & Plan: Potassium of 2.9 today. Patient did not tolerate IV potassium, only received 1 bag. We will replete with oral potassium Plan: Daily CMP (5) Charcot-Farideh disease Status: Chronic Assessment & Plan: Continue home medications (6) COPD (chronic obstructive pulmonary disease) Status: Chronic Assessment & Plan: Continue home medications Clinical Quality Measures Smoking Cessation Counseling: Counseling-Symptomatic: 3-10 Minutes INDIA MAYS DO 09/05/231935: Subjective Subjective/Events-last exam Much improved status No falls Potassium will be ordered Objective Exam General Appearance: No Apparent Distress, WD/WN, Chronically ill Assessment/Plan Assessment and Plan Assess & Plan/Chief Complaint Replace potassium Monitor closely I personally performed the rehman portions of the visit, discussed case with ofe lo and concur with resident documentation of history, physical exam, assessment and treatment plan unless otherwise noted. BING AU MD, RESIDENT Sep 05, 2023 10:15 INDIA MAYS DO Sep 05, 2023 19:36
[2023-09-05 11:20] VITALS: BP 118/77
[2023-09-05] MEDS ORDERED: POTASSIUM CL 10MEQ/50ML IVPB 50 ML IV SCH (12:00)
[2023-09-05] MEDS ORDERED: MAGNESIUM 1 GM/100 ML IVPB 100 ML IV ONE (12:00)
[2023-09-05 16:03] VITALS: BP 107/62
[2023-09-05] MEDS: ENOXAPARIN 40 MG/0.4 ML SYRINGE SC SCH (16:44)
[2023-09-05] MEDS: ONDANSETRON INJECTION 4 MG/2 ML (SDV) IV PRN (16:51)
[2023-09-05 19:03] LABS: AMPHETAMINE SCREEN, URINE NEGATIVE (NEGATIVE); BARBITURATE SCREEN URINE NEGATIVE (NEGATIVE); CANNABINOID SCREEN, URINE POSITIVE (NEGATIVE); COCAINE SCREEN URINE NEGATIVE (NEGATIVE); METHADONE STAT NEGATIVE (NEGATIVE); OPIATE SCREEN URINE NEGATIVE (NEGATIVE); OXYCODONE STAT POSITIVE (NEGATIVE); TRICYCLIC ANTIDEPRESSANTS SCRE NEGATIVE (NEGATIVE)
[2023-09-05 19:32] VITALS: BP 107/70
[2023-09-05] MEDS: MELATONIN 3 MG TABLET PO PRN (20:23)
[2023-09-05] MEDS: GABAPENTIN 600 MG TABLET PO SCH (20:23)
[2023-09-05] MEDS: cefTRIAXone IV/IM 1,000 MG in NS (IVPB) 50 ML 50 ML IV SCH (21:51)
[2023-09-05] MEDS ORDERED: POTASSIUM CL 10MEQ/50ML IVPB 50 ML IV ONE (23:01)
[2023-09-06] VITALS: BP 145/66
[2023-09-06] MEDS: NS IV 1000 ML 1,000 ML IV SCH ×2 (02:24→09:25)
[2023-09-06] MEDS: RT-Ipratropium/Albuterol NEB 3 ML VIAL INH SCH ×3 (03:00→11:01)
[2023-09-06 04:08] VITALS: BP 117/71
[2023-09-06 05:46] LABS: BASOPHILS # (AUTO) 0.1 10^3/uL (0.0-0.1); BASOPHILS % (AUTO) 1 % (0-10); EOSINOPHILS # (AUTO) 0.2 10^3/uL (0.0-0.3); EOSINOPHILS % (AUTO) 2 % (0-10); HEMATOCRIT 39 % (35-52); HEMOGLOBIN 12.7 g/dL (11.5-16.0); LYMPHOCYTES # (AUTO) 3.3 10^3/uL (1.0-4.0); LYMPHOCYTES % (AUTO) 32 % (12-44); MEAN CORPUSCULAR HEMOGLOBIN 39 pg (25-34); MEAN CORPUSCULAR HGB CONC 33 g/dL (32-36); MEAN CORPUSCULAR VOLUME 118 fL (80-99); MEAN PLATELET VOLUME 11.1 fL (9.0-12.2); MONOCYTES # (AUTO) 0.8 10^3/uL (0.0-1.0); MONOCYTES % (AUTO) 8 % (0-12); NEUTROPHILS # (AUTO) 5.7 10^3/uL (1.8-7.8); NEUTROPHILS % (AUTO) 56 % (42-75); PLATELET COUNT 200 10^3/uL (130-400); WHITE BLOOD COUNT 10.2 10^3/uL (4.3-11.0)
[2023-09-06 05:49] LABS: SMEAR SCAN COMMENT YES
[2023-09-06 06:02] LABS: ALBUMIN 2.4 GM/DL (3.2-4.5)
[2023-09-06 06:03] LABS: POTASSIUM 4.2 MMOL/L (3.6-5.0)
[2023-09-06 06:04] LABS: CALCIUM 7.9 MG/DL (8.5-10.1)
[2023-09-06 06:05] LABS: TOTAL PROTEIN 4.7 GM/DL (6.4-8.2)
[2023-09-06 06:07] LABS: BILIRUBIN,TOTAL 0.8 MG/DL (0.1-1.0)
[2023-09-06 06:09] LABS: CREATININE SERUM 0.76 MG/DL (0.60-1.30)
[2023-09-06 07:51] VITALS: BP 107/73
[2023-09-06] MEDS: ONDANSETRON INJECTION 4 MG/2 ML (SDV) IV PRN (08:18)
[2023-09-06] MEDS: SENNOSIDES 8.6 MG TABLET PO SCH (08:18)
[2023-09-06] MEDS: DOCUSATE SODIUM 100 MG CAPSULE PO SCH (08:18)
[2023-09-06] MEDS ORDERED: GBPN600T PO (08:55)
[2023-09-06] MEDS ORDERED: IBUP-2473 PO (08:58)
[2023-09-06] MEDS ORDERED: ONDANSETRON 4 MG ORAL DISSOLVE TABLET PO PRN (10:15)
[2023-09-06 11:21] VITALS: BP 109/60
[2023-09-06] MEDS ORDERED: ONDA4TAB11 PO (13:21)
[2023-09-06 14:10] VITALS: BP 109/60
--- NOTE | 2023-09-06 14:22 | ST Dysphagia Evaluation ---
Speech Evaluation-General Medical Diagnosis Intractable Vomiting with Nausea Onset Date: Sep 04, 2023 Therapy Diagnosis Therapy Diagnosis: Intact Oropharyngeal Swallow Function Precautions Precautions: Fall, Pressure Ulcer, Aspiration Precautions/Isolations: Aspiration, Fall Prevention, Standard Precautions, Pressure Ulcer Referral Referring Physician: Dr. Price Reason for Referral: Evaluation/Treatment Medical History Reviewed History: Yes Speech PLF/Current-Dysphagia Prior Level of Function The patient stated she consumes a regular consistency diet with thin liquids at home. Subjective The patient was seated upright in bed, awake and alert, upon entrance to her room by the clinician. The patient greeted the clinician appropriately and was agreeable to participation in the clinical bedside swallowing evaluation. The patient reports an intermittent globus sensation which she localizes to the laryngeal region with dry solid consistencies. The patient stated she has experienced the globus sensation for "18 years" and utilizing swallowing strategies such as alternating solid and liquid consistencies and providing additional sauces and gravies to dry solid consistencies. The patient denied s/s of suspected aspiration including choking, throat clearing, or coughing associated with the swallow. Cognitive Status Patient Orientation: Person, Place, Time, Situation Oral Motor Skills Dentition: Edentalous Current Food Consistancy: Regular, Thin Liquids Ability to Follow Directions: Excellent Oral Expression Ability: No Impairment Voice Voice Phonatory-Based Quality: Glottal Ruiz Voice Pitch: Normal Voice Loudness: Normal Face Facial Symmetry: Symmetrical Oral-Facial Assessment Oral-Facial Dentition: Normal Labial Seal Description: Normal Smile: Normal Lingual Protrusion: Normal Lingual ROM: Normal Lingual Strength: Normal Volitional Dry Swallow: Yes Voluntary Cough: Yes Can Clear Throat Volitionally: Yes Dysphagia Evaluation Consistencies Presented: Regular, Thin Liquid, Pureed The patient intermittently softened dry solid consistencies to reduced mastication effort. Complete mastication, bolus formation and posterior bolus transfer were achieved. Pharyngeal impairments were not present or reported by the patient throughout the evaluation. The patient was provided thin liquids via straw, puree, and solid consistencies. S/s of suspected aspiration were not demonstrated with any consistency tested. The patient did not report a globus sensation on this date. Dietary Recommendations: Regular Liquid Recommendations: Thin The patient did not display s/s of suspected aspiration with thin liquids (via straw), puree, or solid consistencies. The patient independently completed swallowing strategies which reduce her reported globus sensation which included increased mastication of solid consistencies, softening solid consistencies with liquids, and alternating solid and liquid consistencies on a 1:1 ratio. Recommendations: - Continue a regular consistency diet with thin liquids, as tolerated. - Fully upright and alert for P.O. intake. - Avoid problematic consistencies (as discussed thoroughly throughout the evaluation). - Provide additional gravy, sauces, and condiments to dry consistencies to aid in pharyngeal clearance. - Small bites and sips, only. - Alternate bites and sips on a 1:1 ratio. - Place medication in puree (whole), as necessary. - Monitor for s/s of suspected aspiration with P.O. intake. If demonstrated, please contact speech pathology. - As the patient may discharge from the facility prior to the availability of a modified barium swallow, the clinician recommends completion of a modified bar ium swallow as an outpatient to provide additional information regarding the patient's reports of a globus sensation. - If the patient remains admitted, consider completion of a modified barium swallow on 09/08/23. The results and recommendations were discussed extensively with the patient and the patient's treating physician. At this time, the patient denied additional questions or concerns. Speech Short Term Goals Short Term Goals Short Term Goals 1. The patient will display safe swallowing strategies with 90% accuracy, independently. Time Frame-STG: Three Days. Speech Patternmaker Goals Assisted Goals 1. The patient will tolerate the least restrictive diet consistency without s/s of suspected aspiration for swallowing safety and to meet daily nutritional needs. Time Frame: Five Days. Speech-Plan Treatment Plan Speech Therapy Treatment Plan: Continue Plan of Care Treatment Duration: Sep 08, 2023 Frequency: 2 times per week Estimated Hrs Per Day: .25 hour per day Rehab Potential: Good Pt/Family Agrees to Plan: Yes Safety Risks/Education Teaching Recipient: Patient Teaching Methods: Discussion Response to Teaching: Verbalize Understanding Education Topics Provided: Results, Recommendations, Plan of Care, Safe Swallowing Strategies Time Speech Therapy Time In: 12:00 Speech Therapy Time Out: 12:20 DATE: Sep 06, 2023 Total Billed Time: 20 Billed Treatment Time [address] Sep 06, 2023 14:21
--- NOTE | 2023-09-06 15:29 | Progress Note ---
SOPHIA REED 09/06/23 1529: Subjective Subjective/Events-last exam Alena is feeling a little better this morning. She did vomit last night a little but has not vomited this morning. She does continue to have some nausea but she is able to eat small bites of food and keep it down. She still has little appetite but is able to force herself to eat. She does complain of some dysphasia when she eats solid foods and says that food gets stuck in the back of her throat/upper esophagus. She also endorses some abdominal pain in the LLQ, RUQ and epigastric region. She also feels a little constipated and has not had a bowel movement since Wednesday. Review of Systems General: Chills; No Appetite HEENT: Head Aches; No Visual Changes, No Eye Pain, No Ear Pain, No Sore Throat Pulmonary: Dyspnea, Cough Cardiovascular: Palpitations; No: Chest Pain Gastrointestinal: Nausea, Vomiting, Constipation; No: Abdominal Pain Genitourinary: No Dysuria, No Frequency Bilateral upper extremity tremor that has been more noticeable since June. Objective Exam Last Set of Vital Signs Vital Signs Date Time Temp Pulse Resp B/P (MAP) Pulse Ox O2 Delivery O2 Flow Rate FiO2 09/06/23 14:10 36.8 103 16 109/60 99 Room Air 09/06/23 11:01 0.00 Capillary Refill : Less Than 3 Seconds I&O Intake and Output 09/05/23 23:59 Intake Total 1580 ml Output Total 350 ml Balance 1230 ml Intake Oral 1480 ml IV Total 100 ml Output Urine Total 350 ml # Voids 2 General: Alert, Oriented X3, No Acute Distress HEENT: PERRLA, EOMI Lungs: Clear to Auscultation, Normal Air Movement Heart: Regular Rate Abdomen: Normal Bowel Sounds, Soft, Other (tenderness to deep palpation in the RUQ) Neuro: Other (Tremor of bilateral upper extremities ) Results/Procedures Lab Laboratory Tests 09/05/23 18:46: Urine Opiates Screen NEGATIVE, Urine Oxycodone Screen POSITIVEH, Urine Methadone Screen NEGATIVE, Urine Barbiturates Screen NEGATIVE, Ur Tricyclic Antidepressants Screen NEGATIVE, Urine Phencyclidine Screen NEGATIVE, Urine Amphetamines Screen NEGATIVE, Urine Methamphetamines Screen NEGATIVE, Urine Benzodiazepines Screen NEGATIVE, Urine Cocaine Screen NEGATIVE, Urine Cannabinoids Screen POSITIVEH 09/06/23 05:31: White Blood Count 10.2, Red Blood Count 3.30L, Hemoglobin 12.7, Hematocrit 39, Mean Corpuscular Volume 118H, Mean Corpuscular Hemoglobin 39H, Mean Corpuscular Hemoglobin Concent 33, Red Cell Distribution Width 14.0, Platelet Count 200, Mean Platelet Volume 11.1, Immature Granulocyte % (Auto) 1, Neutrophils (%) (Auto) 56, Lymphocytes (%) (Auto) 32, Monocytes (%) (Auto) 8, Eosinophils (%) (Auto) 2, Basophils (%) (Auto) 1, Neutrophils # (Auto) 5.7, Lymphocytes # (Auto) 3.3, Monocytes # (Auto) 0.8, Eosinophils # (Auto) 0.2, Basophils # (Auto) 0.1, Immature Granulocyte # (Auto) 0.1, Sodium Level 139, Potassium Level 4.2, Chloride Level 110H, Carbon Dioxide Level 22, Anion Gap 7, Blood Urea Nitrogen 5L, Creatinine 0.76, Estimat Glomerular Filtration Rate 100, BUN/Creatinine Ratio 7, Glucose Level 111H, Calcium Level 7.9L, Corrected Calcium 9.2, Total Bilirubin 0.8, Aspartate Amino Transf (AST/SGOT) 49H, Alanine Aminotransferase (ALT/SGPT) 32, Alkaline Phosphatase 90, Total Protein 4.7L, Albumin 2.4L, Smear Scan YES Microbiology 09/04/23 Urine Culture - Final, Complete Growth Consistent Assessment/Plan Assessment/Plan (1) Intractable vomiting with nausea Status: Acute Assessment & Plan: Patient's nausea and vomiting improved with IV zofran Patient has been tolerating small amounts of liquids and solids without vomiting Plan: Transition to PO zofran Patient has zofran at home and will continue on discharge (2) Dysphagia Assessment & Plan: Patient endorses Dysphasia in distal throat/proximal esophagus Plan: Consult Speech therapy for dysphasia evaluation (3) Charcot-Farideh disease Status: Chronic Assessment & Plan: Encourage patient to follow up outpatient with neurology. Clinical Quality Measures Smoking Cessation Counseling: Counseling-Symptomatic: 3-10 Minutes RANDOLPH ADAM MD 09/06/23 0404: Supervisory-Addendum Brief Verification & Attestation Participated in pt care: history, MDM, physical Personally performed: exam, history, MDM, supervision of care Care discussed with: Medical Student Procedures: n/a I personally performed or re-performed the history, physical exam and treatment for the E/M. I discussed the case with the Medical Student, and concur with the Medical Student documentation of history, physical exam and treatment plan unless otherwise noted. SOPHIA REED Sep 06, 2023 15:29 RANDOLPH ADAM MD Sep 06, 2023 17:51
--- NOTE | 2023-09-06 17:42 | Discharge Summary ---
SOPHIA REED 09/06/23 1733: Discharge Summary Hospital Course Problems/Diagnosis: (1) Intractable vomiting with nausea Status: Acute Assessment & Plan: Patient's nausea and vomiting improved with IV zofran Patient has been tolerating small amounts of liquids and solids without vomiting Plan: Transition to PO zofran Patient has zofran at home and will continue on discharge (2) Dysphagia Assessment & Plan: Patient endorses Dysphasia in distal throat/proximal esophagus Plan: Consult Speech therapy for dysphasia evaluation (3) Charcot-Farideh disease Status: Chronic Assessment & Plan: Encourage patient to follow up outpatient with neurology. Hospital Course Date of Admission: Sep 05, 2023 at 15:50 Admission Diagnosis : Family Physician/Provider: Emilie Amato Aprn Date of Discharge: 09/06/23 Discharge Diagnosis: Intractable vomiting with nausea Hospital Course: Patient was admitted due to nausea, vomiting, fatigue, body aches and decreased oral intake for 3 weeks. Patient was started on IV Zofran with some improvement of nausea and vomiting and was able to tolerate oral intake prior to discharge. Patient has PO Zofran at home and was told to continue medication upon discharge. Patient was also evaluated for chronic dysphasia and was encourage to fallow-up outpatient for a modified barium swallow. Labs and Pending Lab Test: Laboratory Tests 09/05/23 18:46: Urine Opiates Screen NEGATIVE, Urine Oxycodone Screen POSITIVEH, Urine Methadone Screen NEGATIVE, Urine Barbiturates Screen NEGATIVE, Ur Tricyclic Antidepress ants Screen NEGATIVE, Urine Phencyclidine Screen NEGATIVE, Urine Amphetamines Screen NEGATIVE, Urine Methamphetamines Screen NEGATIVE, Urine Benzodiazepines Screen NEGATIVE, Urine Cocaine Screen NEGATIVE, Urine Cannabinoids Screen POSITIVEH 09/06/23 05:31: White Blood Count 10.2, Red Blood Count 3.30L, Hemoglobin 12.7, Hematocrit 39, Mean Corpuscular Volume 118H, Mean Corpuscular Hemoglobin 39H, Mean Corpuscular Hemoglobin Concent 33, Red Cell Distribution Width 14.0, Platelet Count 200, Mean Platelet Volume 11.1, Immature Granulocyte % (Auto) 1, Neutrophils (%) (Auto) 56, Lymphocytes (%) (Auto) 32, Monocytes (%) (Auto) 8, Eosinophils (%) (Auto) 2, Basophils (%) (Auto) 1, Neutrophils # (Auto) 5.7, Lymphocytes # (Auto) 3.3, Monocytes # (Auto) 0.8, Eosinophils # (Auto) 0.2, Basophils # (Auto) 0.1, Immature Granulocyte # (Auto) 0.1, Sodium Level 139, Potassium Level 4.2, Chloride Level 110H, Carbon Dioxide Level 22, Anion Gap 7, Blood Urea Nitrogen 5L, Creatinine 0.76, Estimat Glomerular Filtration Rate 100, BUN/Creatinine Ratio 7, Glucose Level 111H, Calcium Level 7.9L, Corrected Calcium 9.2, Total Bilirubin 0.8, Aspartate Amino Transf (AST/SGOT) 49H, Alanine Aminotransferase (ALT/SGPT) 32, Alkaline Phosphatase 90, Total Protein 4.7L, Albumin 2.4L, Smear Scan YES Microbiology 09/04/23 Urine Culture - Final, Complete Growth Consistent Home Meds Active Reported Ondansetron Odt (Ondansetron) 4 Mg Tab.rapdis 4 Mg PO Q4H PRN Ibuprofen 200 Mg Tablet 400 Mg PO Q6H PRN TAKES 2 (200MG) TABS Gabapentin 600 Mg Tablet 1,200 Mg PO BID TAKES 2 (600MG) TABS Iprat-Albut 0.5-3(2.5) mg/3 ml (Ipratropium/Albuterol Sulfate) 0.5 Mg-3 Mg (2.5 Mg Base)/3 Ml Ampul.neb 2.5 Mg NEB Q6H PRN Budesonide-Formoterol 160-4.5 (Budesonide/Formoterol Fumarate) 160 Mcg-4.5 Mcg/Actuation Hfa.aer.ad 2 Puff INH BID LAST FILLED 06-15-2023 #11/02 DAY SUPPLY Assessment/Pt DC Instructions Intractable vomiting with nausea Continue PO Zofran PRN Dysphasia Recommend outpatient barium swallow study. Charcot-Farideh Disease Recommend follow-up with neurologist Discharge Physical Examination Allergies: Coded Allergies: hydrocodone (Verified Allergy, Severe, pt has tolerated oxycodone in the past, 09/04/23) Penicillins (Unverified Allergy, Unknown, 02/20/15) General Appearance: No Apparent Distress HEENT: PERRL/EOMI Respiratory: Lungs Clear, Normal Breath Sounds Cardiovascular: Regular Rate, Rhythm, No Edema Gastrointestinal: No Organomegaly, Soft, Tenderness (in LUQ) Neurologic/Psychiatric: Alert, Oriented x3 Discharge Summary Date of Admission Sep 05, 2023 at 15:50 Date of Discharge Sep 06, 2023 at 14:10 Discharge Date: Sep 06, 2023 Admission Diagnosis Assessment: N/V refractory THC use Hypokalemia UTI Plan: IV potassium UTI tx Discharge Diagnosis (1) Intractable vomiting with nausea Status: Acute Assessment & Plan: Patient presenting with intractable vomiting, unclear etiology at this time. Will rule out infection at this time. Patient noted to have right upper quadrant pain in addition to diffuse abdominal pain, lipase and amylase negative. Bilirubin and LFTs within normal range. If continues to be persistent, can consider right upper quadrant ultrasound. Still having nausea today but tolerating oral intake. Plan: Continue antiemetics Maintenance fluids We will discontinue maintenance fluids if consistently tolerating oral intake Obtaining UDS (2) UTI (urinary tract infection) Status: Acute Assessment & Plan: Patient noted to have a UTI although sample was not the cleanest. Will send for culture. Plan: Continue IV ceftriaxone Follow-up urine culture (3) Leukocytosis Status: Resolved Assessment & Plan: Patient has a mild leukocytosis of 12.2. Could be reactive secondary to the vomiting however will rule out any causes of infection given patient's overall presentation. Chest x-ray negative. Patient noted to have a UTI. Leukocytosis has resolved (4) Hypokalemia Status: Acute Assessment & Plan: Potassium of 2.9 today. Patient did not tolerate IV potassium, only received 1 bag. We will replete with oral potassium Plan: Daily CMP (5) Charcot-Farideh disease Status: Chronic Assessment & Plan: Continue home medications (6) COPD (chronic obstructive pulmonary disease) Status: Chronic Assessment & Plan: Continue home medications Clinical Quality Measures Smoking Cessation Counseling: Counseling-Symptomatic: 3-10 Minutes RANDOLPH ADAM MD 09/06/23 1750: Discharge Summary Discharge Physical Examination Allergies: Coded Allergies: hydrocodone (Verified Allergy, Severe, pt has tolerated oxycodone in the past, 09/04/23) Penicillins (Unverified Allergy, Unknown, 02/20/15) Supervisory-Addendum Brief Verification & Attestation Participated in pt care: history, MDM, physical Personally performed: exam, history, MDM, supervision of care Care discussed with: Medical Student Procedures: n/a I personally performed or re-performed the history, physical exam and treatment for the E/M. I discussed the case with the Medical Student, and concur with the Medical Student documentation of history, physical exam and treatment plan unless otherwise noted. SOPHIA REED Sep 06, 2023 17:33 RANDOLPH ADAM MD Sep 06, 2023 17:50
== END 2023-09-06 14:10 | disposition home or self-care (01) | DRG 690 ==
LOC: EDUNIT# 10:19 → ER 10:21 → 4TH 13:39 → OBSVTOIN 09-05 15:50
PROVIDERS: ADMIT Internal Medicine; ATTEND Family Medicine
DX: N39.0 Urinary tract infection, site not specified (principal); R11.2 Nausea with vomiting, unspecified; E87.6 Hypokalemia; G60.0 Hereditary motor and sensory neuropathy; J44.9 Chronic obstructive pulmonary disease, unspecified; F17.210 Nicotine dependence, cigarettes, uncomplicated; F12.90 Cannabis use, unspecified, uncomplicated; K21.9 Gastro-esophageal reflux disease without esophagitis; F41.9 Anxiety disorder, unspecified; F32.A Depression, unspecified; K59.00 Constipation, unspecified; Z91.81 History of falling; Z85.42 Personal history of malignant neoplasm of other parts of uterus; Z79.899 Other long term (current) drug therapy; Z88.5 Allergy status to narcotic agent; Z88.0 Allergy status to penicillin
CPT/HCPCS: 36415; 71046; 80053; 80306; 81000; 83690; 83735; 85025; 87088; 87636; 93005; 94640; 94760; G0378

== ENCOUNTER 2023-09-09 08:49 | Emergency (ER) | payer MEDICAID ==
[~2023-09-09] VITALS: Ht 175.3 cm; Wt 108.8 kg
[~2023-09-09 08:49] MED LIST changes: +IBUP-2473 PO; +ONDA4TAB11 PO
--- NOTE | 2023-09-09 09:26 | ED General ---
General Chief Complaint: General Problems/Pain Stated Complaint: RT KNEE INJ | FALL | VOMITING Nursing Triage Note: PT TO RM 5 BY WC WITH COMLAINT OF RIGHT KNEE PAIN, VOMITING, DIARRHEA. 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 Pt was recently admitted for hypokalemia secondary to N/V/D and was dismissed home on 09/06 with PCP and GI follow up appointments next week. States she continues to have N/V/D, noting 7 episodes of watery diarrhea before arrival today. Reports she now requires Depends because she often can't make it to the bathroom in time. States she vomits primarily with movement. Reports intolerance to PO zofran as it makes her gag. She has mild diffuse abdominal pain. Pt also reports x 30 hours ago her right knee gave out causing her to fall and strike her right knee on the house on her way down. States she is ambulatory but with pain. She denies fever, chills, shortness of breath, melena, hematemesis, or any other acute sx. Timing/Duration: 1 Week Severity: Mild Modifying Factors: improves with Eating, improves with Movement, improves with Rest Associated Systoms: No Chest Pain, No Cough, No Diaphoresis, No Fever/Chills, No Headaches, No Loss of Appetite; Nausea/Vomiting; No Seizure, No Shortness of Air, No Syncope, No Weakness (ALLISON POLANCO) Allergies and Home Medications Allergies Coded Allergies: hydrocodone (Verified Allergy, Severe, pt has tolerated oxycodone in the past, 09/04/23) Penicillins (Unverified Allergy, Unknown, 02/20/15) Patient Home Medication List Home Medication List Reviewed: Yes (ALLISON POLANCO) Budesonide/Formoterol Fumarate (Budesonide-Formoterol 160-4.5) 160 Mcg-4.5 Mcg/Actuation Hfa.aer.ad, 2 PUFF INH BID, (Reported) Entered as Reported by: PANKAJ GEE on 07/01/23 1438 Gabapentin (Gabapentin) 600 Mg Tablet, 1,200 MG PO BID, (Reported) Entered as Reported by: ELIZABET PENG on 09/06/23 0855 Ibuprofen (Ibuprofen) 200 Mg Tablet, 400 MG PO Q6H PRN for PAIN-MILD (1-4), (Reported) Entered as Reported by: ELIZABET PENG on 09/06/23 0858 Ipratropium/Albuterol Sulfate (Iprat-Albut 0.5-3(2.5) mg/3 ml) 0.5 Mg-3 Mg (2.5 Mg Base)/3 Ml Ampul.neb, 2.5 MG NEB Q6H PRN for SHORTNESS OF BREATH, (Reported) Entered as Reported by: PANKAJ GEE on 07/01/23 1438 Ketorolac Tromethamine (Ketorolac Tromethamine) 10 Mg Tablet, 10 MG PO TID Prescribed by: MARLIN PALMER MD on 09/09/23 1228 Ondansetron (Ondansetron Odt) 4 Mg Tab.rapdis, 4 MG PO Q4H PRN for NAUSEA-1ST LINE, (Reported) Entered as Reported by: RANDOLPH ADAM on 09/06/23 1321 Promethazine HCl (Promethazine Tablet) 25 Mg Tablet, 25 MG PO Q6H PRN for NAUSEA/VOMITING Prescribed by: MARLIN PALMER MD on 09/09/23 1228 Review of Systems Review of Systems Constitutional: No chills, No diaphoresis, No fever EENTM: No blurred vision, No double vision, No throat pain, No throat swelling Respiratory: No cough, No dyspnea on exertion, No short of breath, No wheezing Cardiovascular: No chest pain, No edema Gastrointestinal: abdominal pain (diffuse), diarrhea, nausea, vomiting Genitourinary: No decreased output, No discharge, No dysuria, No frequency, No hematuria : No Musculoskeletal: No back pain; other (right knee pain) Skin: No change in color, No pruritus, No rash Psychiatric/Neurological: No Symptoms Reported Hematologic/Lymphatic: No Symptoms Reported Immunological/Allergic: no symptoms reported (ALLISON POLANCO) All Other Systems Reviewed Negative Unless Noted: Yes (ALLISON POLANCO) Past Huxenah-Cclbsi-Btxcjh Hx Patient Social History Tobacco Use?: Yes Tobacco type used: Cigarettes Smoking Status: Current Everyday Smoker Use of E-Cig and/or Vaping dev: No Substance use?: Yes Substance type: Marijuana Alcohol Use?: No Pt feels they are or have been: No (ALLISON POLANCO) Immunizations Up To Date First/Initial COVID19 Vaccinat: 2020 Second COVID19 Vaccination Aleksander: 2020 Third COVID19 Vaccination Date: 2020 (ALLISON POLANCO) Seasonal Allergies Seasonal Allergies: Yes (ALLISON POLANCO) Past Medical History Surgery/Hospitalization HX: HOSP ON 07/01-07/03 FOR UTI SEPSIS Surgeries: Yes Adenoidectomy, Section, Hysterectomy, Tonsillectomy, Tubal Ligation Respiratory: Yes COPD Currently Using CPAP: Yes Cardiac: No Neurological: Yes (POST CONCUSSION SYNDROME, PER PT FALLS OFTEN) Neuropathy 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 Disorders: No 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 Sexually Transmitted Disease: No HIV/AIDS: No Genitourinary: Yes Kidney Infection, Bladder Infection Gastrointestinal: Yes Gastroesophageal Reflux Musculoskeletal: Yes (NERVE DISEASE INHERITED) Endocrine: No HEENT: No Cancer: Yes Uterine Did You Recieve Any Treatments: Yes What Type of Treatment Did You: Surgical Intervention Psychosocial: Yes Anxiety, Depression Integumentary: No Blood Disorders: No (ALLISON POLANCO) Family Medical History Cancer 03 MOTHER (CERVICAL) Chest pain 03 FATHER Family history: Cardiovascular disease 03 FATHER Family history: Hypertension 03 FATHER Hypercholesterolemia 03 FATHER Physical Exam Vital Signs Vital Signs - First Documented 09/09/23 08:55 Temp 36.3 Pulse 107 Resp 20 B/P (MAP) 118/85 (96) Pulse Ox 98 O2 Delivery Room Air (SPENCERSALINASH Jan ) Vital Signs Capillary Refill : Less Than 3 Seconds (ALLISON POLANCO) Height, Weight, BMI Height: 5'9.00" Weight: 192lbs. oz. 87.600359nb; 35.00 BMI Method:Stated General Appearance: No Apparent Distress, WD/WN, Obese Eyes: Bilateral Eye Normal Inspection, Bilateral Eye PERRL, Bilateral Eye EOMI HEENT: PERRL/EOMI, TMs Normal; No Pale Conjunctivae (L), No Pale Conjunctivae (R), No Pharyngeal Erythema, No Scleral Icterus (L), No Scleral Icterus (R) Neck: Full Range of Motion, Normal Inspection, Non Tender, Supple Respiratory: Chest Non Tender, Lungs Clear, Normal Breath Sounds, No Accessory Muscle Use, No Respiratory Distress Cardiovascular: Regular Rate, Rhythm, No Edema, No Gallop, No JVD, No Murmur, Normal Peripheral Pulses Gastrointestinal: Normal Bowel Sounds, No Organomegaly, No Pulsatile Mass, Soft; No Distended, No Guarding, No Rebound, No Splenomegaly; Tenderness (mild diffuse tenderness to palpation) Back: No CVA Tenderness, No Vertebral Tenderness Extremity: Normal Capillary Refill, Non Tender, No Pedal Edema, Other (right knee pain, primarily overlying the lateral apect of knee and patellar tendon. No bony tenderness of patalla, tibia, or fibular head. She had pain with valgus maneuver. No tenderness with varus maneuver. Mildly painful ROM of right knee, able to flex and extend. 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 Reflexes: 2+ Knee (R), 2+ Knee (L) Skin: Normal Color, Warm/Dry Lymphatic: No Adenopathy (ALLISON POLANCO) Progress/Results/Core Measures Suspected Sepsis SIRS Temperature: Pulse: 107 Respiratory Rate: 20 Laboratory Tests 09/09/23 09:50: White Blood Count 12.2H Blood Pressure 118 /85 Mean: 96 Laboratory Tests 09/09/23 09:50: Creatinine 0.80, Platelet Count 250, Total Bilirubin 1.8H (ALLISON POLANCO) Results/Orders Lab Results Laboratory Tests Test 09/09/23 09:50 Range/Units White Blood Count 12.2 H 4.3-11.0 10^3/uL Red Blood Count 3.96 3.80-5.11 10^6/uL Hemoglobin 15.4 # 11.5-16.0 g/dL Hematocrit 45 35-52 % Mean Corpuscular Volume 114 H 80-99 fL Mean Corpuscular Hemoglobin 39 H 25-34 pg Mean Corpuscular Hemoglobin Concent 34 32-36 g/dL Red Cell Distribution Width 13.8 10.0-14.5 % Platelet Count 250 130-400 10^3/uL Mean Platelet Volume 10.6 9.0-12.2 fL Immature Granulocyte % (Auto) 1 % Neutrophils (%) (Auto) 70 42-75 % Lymphocytes (%) (Auto) 19 12-44 % Monocytes (%) (Auto) 9 0-12 % Eosinophils (%) (Auto) 1 0-10 % Basophils (%) (Auto) 1 0-10 % Neutrophils # (Auto) 8.6 H 1.8-7.8 10^3/uL Lymphocytes # (Auto) 2.3 1.0-4.0 10^3/uL Monocytes # (Auto) 1.1 H 0.0-1.0 10^3/uL Eosinophils # (Auto) 0.1 0.0-0.3 10^3/uL Basophils # (Auto) 0.1 0.0-0.1 10^3/uL Immature Granulocyte # (Auto) 0.1 0.0-0.1 10^3/uL Sodium Level 139 135-145 MMOL/L Potassium Level 3.7 3.6-5.0 MMOL/L Chloride Level 104 98-107 MMOL/L Carbon Dioxide Level 22 21-32 MMOL/L Anion Gap 13 5-14 MMOL/L Blood Urea Nitrogen 3 L 7-18 MG/DL Creatinine 0.80 0.60-1.30 MG/DL Estimat Glomerular Filtration Rate 94 BUN/Creatinine Ratio 4 Glucose Level 141 H 70-105 MG/DL Calcium Level 8.8 8.5-10.1 MG/DL Corrected Calcium 9.5 8.5-10.1 MG/DL Total Bilirubin 1.8 H 0.1-1.0 MG/DL Aspartate Amino Transf (AST/SGOT) 87 H 5-34 U/L Alanine Aminotransferase (ALT/SGPT) 59 H 0-55 U/L Alkaline Phosphatase 119 40-136 U/L Total Protein 5.9 L 6.4-8.2 GM/DL Albumin 3.1 L 3.2-4.5 GM/DL (MARLIN PALMER DO) My Orders Orders - MARLIN PALMER DO Comprehensive Metabolic Panel (09/09/23 09:12) Cbc And Automated Diff (09/09/23 09:12) Ondansetron Injection (Ondansetron Inj (09/09/23 09:30) Us Gallbladder [id number] (09/09/23 10:57) Knee, Right, 3 Views (09/09/23 11:05) Ketorolac Injection (Ketorolac Injection (09/09/23 12:30) (SPENCER,MARLIN L DO) Medications Given in ED Current Medications Medications Dose Ordered Sig/Azra Route Start Time Stop Time Status Last Admin Dose Admin Ketorolac Tromethamine 15 mg ONCE ONCE IM 09/09/23 12:30 09/09/23 12:31 DC 09/09/23 13:15 15 MG Ondansetron HCl 4 mg ONCE ONCE IM 09/09/23 09:30 09/09/23 09:31 DC 09/09/23 09:49 4 MG (SPENCERMARLINTHIEN Montoya DO) Vital Signs/I&O 09/09/23 09/09/23 08:55 13:35 Temp 36.3 36.3 Pulse 107 91 Resp 20 20 B/P (MAP) 118/85 (96) 122/81 Pulse Ox 98 98 O2 Delivery Room Air Room Air (MARLIN PALMER DO) Vital Signs/I&O Capillary Refill : Less Than 3 Seconds (ALLISON POLANCO) Blood Pressure Mean: 96 Progress Note : Time: 10:30 Progress Note 43 YO female presented with right knee pain and N/V since dismissal from hospital x 4 days ago. She was admitted for hypokalemia secondary to N/V. Pt is afebrile with normal vital signs upon arrival. Exam is remarkable for an obese female in limited distress. Mild diffuse abdominal tenderness, with no rebound, guarding, or peritoneal signs. No focal abdominal tenderness. Right knee tenderness to palpation over patellar tendon and lateral knee. She has mild painful ROM, but is able to fully flex and extend. No bony tenderness of fibular head, tibia, or patella. Heart and lung exam unremarkable. DDx includes hypokalemia, electrolyte imbalance, viral GI illness, IBS, pancreatitis, gastritis, enteritis vs others. Low suspicion for pancreatitis as she has minimal epigastric pain or chronic alcohol use. Her symptoms are most consistent with her previous presentation of N/V and subsequent electrolyte imbalance. Abdominal imaging is not indicated at this time as she has no focal tenderness. Will obtain CBC, CMP and provide IM zofran. Labs: leukocytosis, elevated LFTs, AST > ALT. Imaging: Abdominal US negative for any cholecystitis or gallbladder thickening. XR of right knee showed right knee joint effusion with nondisplaced proximal fibular head fracture. 1059: Due to the patient having elevated LFTs will obatain US of RUQ. Pt is agreeable with plan. 1220: Pt resting comfortably with pain and N/V/D under control. Discussed findings of abdominal US showing no evidence of cholecystitis. Recommended she follow up with GI for further evaluation of her chronic V/D. Counseled her on findings of proximal fibular head fx. Discussed supportive care measures and plan of care. She verbalizes understanding and agreement with plan. She is stable for d/c. (ALLISON POLANCO) Departure Communication (Admissions) I have seen and independently evaluated the patient. I agree with the documented history and physical as outlined by the medical student. Any additions were made by myself. She does have a proximal fibular fracture is nondisplaced on the right side. She is neurovascular and sensory intact with no other tenderness throughout her lower extremity. Posterior long-leg splint with a stirrup was placed. She had no recurrence of her nausea or vomiting throughout emergency department stay. Her potassium is normal this time as she was recently admitted for hypokalemia related to vomiting. Remainder of her electrolytes are reassuring as well. CBC is nonrevealing. She is discharged home in stable condition with supportive care. Orthopedic follow-up. (MARLIN PALMER DO) Impression Primary Impression: Vomiting Qualified Codes: R11.2 - Nausea with vomiting, unspecified Additional Impression: Fracture, fibula, proximal Qualified Codes: S82.831A - Other fracture of upper and lower end of right fibula, initial encounter for closed fracture Disposition: 01 HOME, SELF-CARE Condition: Stable Departure-Patient Inst. Referrals: BALJEET BRAUN KELLY L APRN (PCP) Primary Care Physician Patient Instructions: Caring for your splint, Lower Leg Fracture ED Add. Discharge Instructions: Get crutches from the pharmacy. Use the Toradol as prescribed as needed for pain. Elevate your leg when not in use to avoid swelling. Keep the splint clean, dry. Follow-up with orthopedics by calling to schedule an appointment. Do not bear weight on your leg until cleared by them to do so. Regarding your vomiting, use the Phenergan as needed as prescribed. This may make you drowsy so do not drive or make poor decisions while taking it. You may continue to use the Zofran as well. Follow-up with GI as previously scheduled. Return to the emergency department for any severe concerns. Follow with your primary doctor for any nonemergent needs. All discharge instructions reviewed with patient and/or family. Voiced understanding. Scripts Ketorolac Tromethamine (Ketorolac Tromethamine) 10 Mg Tablet 10 MG PO TID for Pain for 3 Days, #9 TAB Prov: MARLIN PALMER DO 09/09/23 Promethazine HCl (Promethazine Tablet) 25 Mg Tablet 25 MG PO Q6H PRN for NAUSEA/VOMITING for 3 Days, #12 TAB Prov: MARLIN PALMER DO 09/09/23 ALLISON POLANCO Sep 09, 2023 09:26 MARLIN PALMER DO Sep 09, 2023 12:25
[2023-09-09] MEDS ORDERED: ONDANSETRON INJECTION 4 MG/2 ML (SDV) IM ONE (09:30)
[2023-09-09 10:02] LABS: BASOPHILS # (AUTO) 0.1 10^3/uL (0.0-0.1); BASOPHILS % (AUTO) 1 % (0-10); EOSINOPHILS # (AUTO) 0.1 10^3/uL (0.0-0.3); EOSINOPHILS % (AUTO) 1 % (0-10); HEMATOCRIT 45 % (35-52); HEMOGLOBIN 15.4 g/dL (11.5-16.0); LYMPHOCYTES # (AUTO) 2.3 10^3/uL (1.0-4.0); LYMPHOCYTES % (AUTO) 19 % (12-44); MEAN CORPUSCULAR HEMOGLOBIN 39 pg (25-34); MEAN CORPUSCULAR HGB CONC 34 g/dL (32-36); MEAN CORPUSCULAR VOLUME 114 fL (80-99); MEAN PLATELET VOLUME 10.6 fL (9.0-12.2); MONOCYTES # (AUTO) 1.1 10^3/uL (0.0-1.0); MONOCYTES % (AUTO) 9 % (0-12); NEUTROPHILS # (AUTO) 8.6 10^3/uL (1.8-7.8); NEUTROPHILS % (AUTO) 70 % (42-75); PLATELET COUNT 250 10^3/uL (130-400); WHITE BLOOD COUNT 12.2 10^3/uL (4.3-11.0)
[2023-09-09 10:56] LABS: ALBUMIN 3.1 GM/DL (3.2-4.5); BILIRUBIN,TOTAL 1.8 MG/DL (0.1-1.0); CALCIUM 8.8 MG/DL (8.5-10.1); CREATININE SERUM 0.8 MG/DL (0.60-1.30); POTASSIUM 3.7 MMOL/L (3.6-5.0); TOTAL PROTEIN 5.9 GM/DL (6.4-8.2)
--- NOTE | 2023-09-09 11:50 | Diagnostic Imaging Report ---
INDICATION: Right knee pain. AP, oblique and lateral views of right knee are obtained. There is a nondisplaced fracture involving the proximal head of the right fibula. Otherwise no acute fracture or malalignment is identified. There is mild fluid present within the right knee joint. IMPRESSION: Right knee joint effusion or hemarthrosis with nondisplaced proximal fibular head fracture. Dictated by: Dictated on workstation # [id number]
--- NOTE | 2023-09-09 12:14 | Diagnostic Imaging Report ---
PROCEDURE: US Gallbladder. TECHNIQUE: Multiple real-time grayscale images were obtained over the right upper quadrant in various projections. INDICATION: Abdominal pain and elevated liver function tests as well as vomiting. Liver is enlarged approximately 19 cm. There is diffuse increased echogenicity throughout the liver consistent with hepatic steatosis. No liver mass is identified. The portal vein is patent and shows normal direction of flow. Gallbladder is without stones or sludge. There is no wall thickening or biliary ductal dilatation. Pancreas, aorta and IVC were difficult to visualize due to overlying bowel gas. Right kidney is unremarkable. No calculi or hydronephrosis is detected. There is no ascites. IMPRESSION: 1. Hepatomegaly and hepatic steatosis. 2. No evidence of cholelithiasis or acute cholecystitis. Dictated by: Dictated on workstation # [id number]
[2023-09-09] MEDS ORDERED: PROM25TA14 PO (12:28)
[2023-09-09] MEDS ORDERED: KETO10TA PO (12:28)
[2023-09-09] MEDS ORDERED: KETOROLAC INJ 15 MG/ML VIAL IM ONE (12:30)
[2023-09-09 13:35] VITALS: BP 122/81
== END 2023-09-09 13:35 | disposition home or self-care (01) ==
LOC: EDUNIT# 08:49 → ER 08:51
DX: S82.831A Other fracture of upper and lower end of right fibula, initial encounter for closed fracture (principal); R11.2 Nausea with vomiting, unspecified; D72.829 Elevated white blood cell count, unspecified; R10.84 Generalized abdominal pain; R79.89 Other specified abnormal findings of blood chemistry; R74.01 Elevation of levels of liver transaminase levels; F17.210 Nicotine dependence, cigarettes, uncomplicated; J44.9 Chronic obstructive pulmonary disease, unspecified; E66.9 Obesity, unspecified; W18.30XA Fall on same level, unspecified, initial encounter; Z68.35 Body mass index [BMI] 35.0-35.9, adult; W22.8XXA Striking against or struck by other objects, initial encounter
CPT/HCPCS: 29515; 36415; 73562; 76705; 80053; 85025; 96372